=== PATIENT | male | born 1960 | race Two or more races ===

== ENCOUNTER 2020-04-15 02:52 | Emergency (ER) | payer MEDICAID, SELFPAY ==
[2020-04-15 02:55] VITALS: BP 133/78; PULSE 88; RESP 16; TEMP 36.4; O2SAT 98; BMI 26.6
--- NOTE | 2020-04-15 03:23 | XR_ITS ---
EXAMINATION: XR FOOT, LEFT CLINICAL INFORMATION: Plantar pain COMPARISON: None TECHNIQUE: AP, lateral, and oblique views of the left foot. FINDINGS: No fracture or dislocation. Accentuated arch. Prominent plantar heel spur. Degenerative changes of the midfoot with osteophyte formation. Hammertoe appearance of the second through fourth digits. The soft tissues are unremarkable. IMPRESSION: No acute abnormality. Prominent plantar heel spur. Degenerative changes of the midfoot.
--- NOTE | 2020-04-15 03:50 | ED.EXTPRO ---
HPI - Extremity Problem General Chief complaint: Extremity Problem Stated complaint: leg pain Time Seen by Provider: 04/15/20 03:16 Source: patient Mode of arrival: ambulatory History of Present Illness HPI Narrative: left foot pain. patient states for weeks to months even having the bottom of his foot with a sharp pain and itchiness. Was here recently and discharged to follow-up with podiatry however he could not wait for an came into emergency department secondary to pain. Patient denies fevers or chills denies, denies trauma denies discharge Pain Consistency: constant Location: lower extremity Severity scale (1-10): 7 Related Data Previous Rx's Medication Instructions Recorded oxycodone 10 mg tablet 10 mg PO BID PRN #60 tab 04/10/20 shoe lift #1 ea 04/12/20 tramadol 50 mg PO BID PRN #14 tab 04/15/20 Allergies Allergy/AdvReac Type Severity Reaction Status Date / Time ibuprofen [From MOTRIN] Allergy Unknown Unknown Verified 04/15/20 03:03 pt states no food/medication Allergy Unknown Unknown Uncoded 04/15/20 03:03 a Review of Systems Review of Systems: Constitutional : No Weight loss, No Fever, No Chills, No Night Sweats, No Fatigue, No Malaise ENT/Mouth : No Hearing loss, No Ear Pain, No Nasal Congestion, No Sinus Pain, No Hoarseness, No sore throat, No Rhinorrhea, No Swallowing Difficulty Eyes: No Eye Pain, No Swelling, No Redness, No Foreign Body, No Discharge, No Vision Changes Cardiovascular : No Chest Pain, No SOB, No Dyspnea on Exertion, No Orthopnea, No Edema, No Palpitations Respiratory : No Cough, No Sputum, No Wheezing, No Smoke Exposure, No Dyspnea Gastrointestinal : No Nausea, No Vomiting, No Diarrhea, No Constipation, No abdominal Pain, No Hematochezia, No Melena Genitourinary : no irregular bleeding, No Dysuria, No Urinary Frequency, No Hematuria, No Urinary Incontinence, No Urgency, No Flank Pain, No Urinary Flow Changes, No Hesitancy Musculoskeletal : No joint pain, No Myalgias, No Joint Swelling left foot plantar with multiple warts no erythema no warmth Skin : No Skin Lesions, No rash Neuro : No Weakness, No Numbness, No Paresthesias, No Loss of Consciousness, No Dizziness, No Headache Psych : No Anxiety/Panic, No Depression, No SI/HI/AH/VH, No Social Issues, Heme/Lymph: No Bruising, No Bleeding,No Lymphadenopathy Endocrine : No Polyuria, No Polydipsia, No Temperature Intolerance [facility] Past Medical History Medical History (Updated 04/15/20 @ 03:55 by Ender Abreu DO) Diabetes Surgical History (Updated 04/15/20 @ 03:52 by Ender Abreu DO) No pertinent past surgical history Social History Social History Advance Directives: No Advance Directives Information Provided: No Physical Exam Vital Signs: Vital Signs: Vital Signs Temp Pulse Resp BP Pulse Ox 04/15/20 02:55 97.6 F 88 16 133/78 98 Body Mass Index 26.6 vital signs reviewed Appearance: Alert. Oriented X3. No acute distress. Eyes: Pupils equal, round and reactive to light. ENT: Pharynx normal. Neck: Normal inspection. Neck supple. No lymph nodes noted. No crepitus CVS: Normal heart rate and rhythm. Pulses normal. Normal S1 and S2 Respiratory: No respiratory distress. Breath sounds normal. No Wheezing. No rales Abdomen: Soft and nontender. No rigidity. No distention. good BS x4 Skin: Skin warm and dry. Normal skin color. Normal skin turgor. Extremities: No lower extremity edema. Neurovascular intact to all extremities. No Lacerations. No Rash. left plantar foot with multiple small warts. No erythema no edema no warmth no discharge no abscess Neuro: Oriented X 3. No motor deficit. No sensory deficit. Moving all extermities. No slurred speech. 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 Acute on chronic skin changes however I believe it is not cellulitis at this point. X-ray negative for any signs of osteomyelitis or fracture will need to follow-up with podiatry Discharge Plan Discharge Clinical Impression: Acute pain of left foot, Plantar wart, left foot Patient Disposition: Home, Self-Care Instructions: Plantar Wart (ED) Additional Instructions: Thank you for visiting the emergency department today. If your symptoms worsen or do not resolve completely please return to the emergency department immediately or call 911. if he have any questions please call your primary care physician Prescriptions: New tramadol 50 mg tablet 50 mg PO BID PRN (Reason: pain) Qty: 14 RF: 0 No Action oxycodone 10 mg tablet 10 mg PO BID PRN (Reason: pain) Qty: 60 RF: 0 (DME) shoe lift See Rx Instructions .Route .MEDSUPPLY Qty: 1 RF: 0 Referrals: Dominic Baeza [Physician] - 2 days
[2020-04-15] MEDS: NaPROXEN 500 MG TABLET PO (04:03)
== END 2020-04-15 04:07 | disposition home or self-care (01) ==
PROVIDERS: Emergency Provider Emergency Medicine; PCP Family Medicine
DX: M79.672 Pain in left foot (principal); B07.0 Plantar wart; E11.9 Type 2 diabetes mellitus without complications
CPT/HCPCS: 73620; 99283

== ENCOUNTER → 2020-05-22 08:25 | Outpatient (BNVA) | payer MEDICAID, SELFPAY | PROVIDERS: PCP Internal Medicine; Referring Provider Internal Medicine; Visit Provider Internal Medicine Endocrinology, Diabetes & Metabolism | DX: E11.21 Type 2 diabetes mellitus with diabetic nephropathy (principal); E55.9 Vitamin D deficiency, unspecified; E78.5 Hyperlipidemia, unspecified; E66.9 Obesity, unspecified; Z68.32 Body mass index [BMI] 32.0-32.9, adult; Z79.899 Other long term (current) drug therapy | CPT/HCPCS: 82947; 99212 ==

== ENCOUNTER 2020-06-04 06:27 | Outpatient (REF) | payer MEDICAID, SELFPAY ==
[2020-06-04 07:32] LABS: Alanine Aminotransferase 29 U/L (0-40); Albumin Level 4.6 g/dL (3.5-5.0); Alkaline Phosphatase 119 U/L (39-117); Anion Gap 16 (12-20); Aspartate Amino Transferase 37 U/L (5-37); Bilirubin Total 0.6 mg/dL (0.0-1.0); Blood Urea Nitrogen 13 mg/dL (9-16); Calcium 9.6 mg/dL (8.4-10.2); Carbon Dioxide 29 mmol/L (22-29); Chloride 99 mmol/L (96-108); Cholesterol 169 mg/dL; Estimated Glomerular Filt Rate > 60; Glucose Random 97 mg/dL (60-115); HDL Cholesterol 64 mg/dL; LDL Cholesterol Calculated 90 mg/dl; Potassium 4.2 mmol/l (3.3-5.1); Sodium 140 mmol/L (135-145); Total Protein 7.7 g/dL (6.5-8.0); Triglycerides 76 mg/dL
[2020-06-04 07:54] LABS: Free T4 (Free Thyroxine) 0.97 ng/dL (0.71-1.85); Thyroid Stimulating Hormone 1.22 uIU/mL (0.32-4.0); Vitamin D 25-OH Total 56.4 ng/mL (>30)
[2020-06-04 07:57] LABS: Creatinine Urine 55.88 mg/dL; Microalbum/Creatinine Ratio Ur 50.1 ug/mg cr
[2020-06-04 08:12] LABS: Vitamin B12 332 pg/mL (200-900)
[2020-06-05 20:42] LABS: LDL Cholesterol Direct 91 mg/dL (<100)
== END 2020-06-04 06:28 | disposition home or self-care (01) ==
LOC: HO.LAB 06:27
PROVIDERS: PCP Family Medicine; Visit Provider Internal Medicine Endocrinology, Diabetes & Metabolism
DX: E11.9 Type 2 diabetes mellitus without complications (principal)
CPT/HCPCS: 80053; 80061; 82043; 82306; 82607; 83721; 84439; 84443

== ENCOUNTER → 2020-06-24 09:24 | Outpatient (BNVA) | payer MEDICAID, SELFPAY | PROVIDERS: Visit Provider Orthopaedic Surgery | DX: Z47.1 Aftercare following joint replacement surgery (principal); Z96.642 Presence of left artificial hip joint | CPT/HCPCS: 99212 ==

== ENCOUNTER → 2020-08-14 07:52 | Outpatient (REF) | payer MEDICAID, SELFPAY ==
--- NOTE | 2020-08-14 09:30 | CA_ITS ---
Transthoracic Echocardiogram Patient (Last, First, Middle): Griffin Kam G Gender: Male Date of : 1960 Age: 60 Procedure Date: 08/14/2020 Procedure Type: Transthoracic Echocardiogram Location: OP Height: 167.64 cm Weight: 74.84 kg BSA: 1.84 m2 Heart Rate: bpm BP: 130 / 80 mmHg Payer Specialist: LATA Referring MD: Martinez Meadows MD Marriage And Family Teacher: Martinez Meadows MD Symptoms: Q25.3 I10 HTN Study Quality: Fair ECG Rhythm: Sinus Conclusions: - 1. Normal LV systolic and diastolic function 2. Mild aortic stenosis and regurgitation 3. Normal RV systolic pressure 4. No pericardial effusion Findings Left Ventricle Normal left ventricular size, thickness, and systolic function. The visually estimated ejection fraction is between 60-65%. Spectral Doppler is indicative of a normal filling pattern. Right Ventricle Normal right ventricular cavity size and systolic function. Atria Both atria are normal in size. There is no evidence of interatrial shunt. Aortic Valve There is moderate calcification of the aortic valve. There is mild aortic valve stenosis. The peak aortic gradient is 30 mmHg.The mean gradient is 16 mmHg. The aortic valve area is 1.60 cm2. There is mild aortic valve regurgitation. Mitral Valve There is mild anterior mitral leaflet thickening. There is moderate mitral annular calcification. There is trace mitral valve regurgitation. There is no mitral valve stenosis. Pulmonic Valve The pulmonic valve was not well visualized. Tricuspid Valve Likely normal tricuspid valve structure and function. There is trace tricuspid valve regurgitation. The right ventricular systolic pressure is normal. The right ventricular systolic pressure is 14 mmHg. Normal right atrial pressure. There is no evidence of pulmonary hypertension. Great Vessels All visible segments of the aorta are normal in size. The pulmonary artery was not well visualized. Venous The inferior vena cava is normal in size and collapses greater than 50% with inspiration. Pericardium/Pleural There is no evidence of pericardial effusion. Prior Study Comparison No significant change compared to prior study dated: 08/08/2019. Measurements 2D Linear Measurements IVSd: 0.95 0.6-0.9/0.6-1.0 cm LVIDd: 4.53 3.9-5.3/4.2-5.9 cm LVIDd Index: 2.46 2.4-3.2/2.2-3.1 cm/m2 LVIDs: 2.98 2.0-3.6 cm LVPWd: 0.95 0.7-1.1 cm Ao Root: 3.30 2.1-3.5 cm LA Diam: 3.20 2.7-3.8/3.0-4.0 cm LAIDs Index: 1.74 1.5-2.3 cm/m2 LV Mass: 179.42 67-162/88-224 g LV Mass Index: 97.51 43-95/49-115 g/m2 LVOT Diam: 2.20 3.0+(-)1.3 cm 2D Systolic Function EF 4C: 62.30 >55% EF 2C: 66.20 >55% EF BiP: 64.40 >55% Mitral Valve MV Pk E: 0.92 MV PK A: 0.68 MV Decel Time: 323.00 E/A: 1.40 E'Lateral: 9.36 E'Medial: 8.16 E/E' Med: 11.30 E/E' Lat: 9.80 PHT: 94.00 MVA PHT: 2.34 Decel Marshall: 2.85 Aortic Valve AoV Pk Leopoldo: 2.76 AoV Mn Leopoldo: 1.82 AoV VTI: 0.57 AoV Pk Grad: 30.00 Aov Mn Grad: 16.00 LUCIA Cont.VTI: 1.60 AI Pk Leopoldo: 4.42 AI Marshall: 2.38 LVOT LVOT Pk Leopoldo: 1.13 LVOT Mn Leopoldo: 0.76 LVOT VTI: 0.24 LVOT Pk Grad: 5.00 LVOT Mn Grad: 3.00 LVOT Diam: 2.20 LVOT Area: 3.80 Diastolic Function MV Pk E: 0.92 MV Pk A: 0.68 E/A: 1.40 E'Medial: 8.16 E/E' Med: 11.30 E' Laterial: 9.36 E/E' Lat: 9.80 Tricuspid Valve TR Pk Leopoldo: 1.67 TR Pk Grad: 11.00 RA Press: 3.00 RVSP: 14.00 Great Vessels Aorta Ao Root-2D: 3.30 2.0-3.7 cm Ao Asc: 3.00 2.1-3.4 cm Ao Arch: 3.00 Updated in Other Vendor System with Status of Final Martinez Abdiel MD electronically signed on 08/14/2020 2:05:25 PM with status of Final
== END ==
LOC: HO.CARD 07:52
PROVIDERS: Visit Provider Internal Medicine Cardiovascular Disease
DX: Q25.3 Supravalvular aortic stenosis (principal); I10 Essential (primary) hypertension
CPT/HCPCS: 93306

== ENCOUNTER → 2020-08-20 08:35 | Outpatient (BNVA) | payer MEDICAID, SELFPAY | PROVIDERS: Visit Provider Internal Medicine Cardiovascular Disease | DX: I35.0 Nonrheumatic aortic (valve) stenosis (principal); E78.5 Hyperlipidemia, unspecified | CPT/HCPCS: 93005; 99212 ==

== ENCOUNTER 2020-08-26 05:52 | Outpatient (REF) | payer MEDICAID, SELFPAY ==
[2020-08-26 07:09] LABS: MANUAL DIFF FLAG NO
[2020-08-26 07:12] LABS: Basophils Percent Auto 0.7 % (0-2); Eosinophils Absolute Auto 0.3 X10*3/uL (0.0-0.4); Eosinophils Percent Auto 4.7 % (0-4); Hematocrit 36.5 % (42-52); Hemoglobin 12.2 g/dl (14.0-18.0); Imm Gran Abs Auto 0.01 X10*3/uL (0.00-0.03); Imm Gran Pct Auto 0.2 % (0.0-0.4); Lymphocytes Absolute Auto 2.3 X10*3/uL (1.2-4.9); Lymphocytes Percent Auto 37.8 % (20-40); Mean Corpuscular HGB Conc 33.4 g/dl (31.0-36.0); Mean Corpuscular Hemoglobin 32.2 pg (27.0-33.0); Mean Corpuscular Volume 96.3 fL (80-98); Mean Platelet Volume 10.5 fL (9.4-12.4); Monocytes Absolute Auto 0.4 X10*3/uL (0.1-1.2); Monocytes Percent Auto 6.7 % (2-11); Neutrophils Percent Auto 49.9 % (45-73); Platelet Count 273 X10*3/uL (160-400); Red Blood Count 3.79 X10*6/uL (4.60-5.80)
[2020-08-26 07:46] LABS: Alanine Aminotransferase 23 U/L (0-40); Albumin Level 4.3 g/dL (3.5-5.0); Alkaline Phosphatase 103 U/L (39-117); Anion Gap 15 (12-20); Aspartate Amino Transferase 30 U/L (5-37); Bilirubin Direct < 0.2 mg/dL (0.0-0.5); Bilirubin Total 0.4 mg/dL (0.0-1.0); Blood Urea Nitrogen 20 mg/dL (9-16); Calcium 9.4 mg/dL (8.4-10.2); Carbon Dioxide 27 mmol/L (22-29); Chloride 105 mmol/L (96-108); Estimated Glomerular Filt Rate > 60; Glucose Fasting 83 mg/dL (60-99); Potassium 4.1 mmol/L (3.3-5.1); Sodium 143 mmol/L (135-145); Total Protein 7.1 g/dL (6.5-8.0)
[2020-08-26 07:48] LABS: Cholesterol 183 mg/dL; HDL Cholesterol 56 mg/dL; LDL Cholesterol Calculated 103 mg/dl; Triglycerides 120 mg/dL
[2020-08-26 07:59] LABS: Vitamin D 25-OH Total 50.6 ng/mL (>30)
[2020-08-26 08:32] LABS: Creatinine Urine 26.39 mg/dL; Microalbum/Creatinine Ratio Ur 253.8 ug/mg cr
[2020-08-26 09:34] LABS: Estimated Average Glucose 100 mg/dL; Hemoglobin A1c % 5.1 %
== END 2020-08-26 05:53 | disposition home or self-care (01) ==
LOC: HO.LAB 05:52
PROVIDERS: Absent Provider Internal Medicine Cardiovascular Disease; PCP Internal Medicine; Visit Provider Internal Medicine
DX: Z00.00 Encounter for general adult medical examination without abnormal findings (principal); E78.5 Hyperlipidemia, unspecified; I35.0 Nonrheumatic aortic (valve) stenosis
CPT/HCPCS: 36415; 80048; 80061; 80076; 82043; 82306; 83036; 85025

== ENCOUNTER 2020-09-06 07:57 | Inpatient (IN) | payer MEDICAID, SELFPAY ==
[2020-09-06] VITALS (13 sets, daily range): BP systolic 122–154; BP diastolic 61–90; PULSE 66–93; RESP 11–20; TEMP 36.3–37.2; O2SAT 96–98; BMI 32.5
[2020-09-06] MEDS: Famotidine/PF 20 MG/2 ML VIAL IVPUSH ×2 (08:24→20:28)
[2020-09-06] MEDS: diphenhydrAMINE HCL 50 MG/ML VIAL IVPUSH ×2 (08:24→20:28)
[2020-09-06] MEDS: dexAMETHasone sod phosphate 4 MG/ML VIAL 10 MG IVPUSH (08:24)
--- NOTE | 2020-09-06 08:24 | ED.GENADULT ---
HPI - General Adult General Chief complaint: General Medical Stated complaint: SWOLLEN TOUNGE Time Seen by Provider: 09/06/20 08:10 Source: patient Mode of arrival: ambulatory Limitations: no limitations History of Present Illness HPI narrative: Patient comes to emergency room complaining of a swollen tongue. Patient states it started yesterday. Patient denies any shortness of breath, no trouble breathing. Patient states that he takes 2.5 lisinopril for hypertension and he has been on it for years. Patient denies shortness of breath, states that other than his swollen tongue he has no other problems. Related Data Home Medications Medication Instructions Recorded Confirmed gabapentin 300 mg capsule 300 mg PO BEDTIME 05/22/20 08/20/20 hydrochlorothiazide 25 mg tablet 25 mg PO DAILY 05/22/20 08/20/20 pantoprazole 40 mg tablet,delayed 40 mg PO DAILY 05/22/20 08/20/20 release Previous Rx's Medication Instructions Recorded tramadol 50 mg PO BID PRN #14 tab 04/15/20 blood sugar diagnostic #100 ea 05/22/20 blood-glucose meter #1 ea 05/22/20 lancets 28 gauge #100 ea 05/22/20 cholecalciferol (vitamin D3) 125 125 mcg PO DAILY 30 Days #30 cap 05/28/20 mcg (5,000 unit) capsule shoe lift, 1/2 inch, left #1 ea 08/12/20 orthopaedic shoe lift, left #1 ea 08/16/20 atorvastatin 80 mg tablet 80 mg PO DAILY #30 tab 08/20/20 ezetimibe 10 mg tablet 10 mg PO DAILY #30 tab 08/26/20 oxycodone 10 mg tablet 10 mg PO BID PRN #60 tab 08/28/20 Allergies Allergy/AdvReac Type Severity Reaction Status Date / Time ibuprofen [From MOTRIN] Allergy Unknown Unknown Verified 06/24/20 09:42 pt states no food/medication Allergy Unknown Unknown Uncoded 04/15/20 03:03 a Review of Systems Review of Systems: Constitutional : No Weight loss, No Fever, No Chills, No Night Sweats, No Fatigue, No Malaise ENT/Mouth : No Hearing loss, No Ear Pain, No Nasal Congestion, No Sinus Pain, No Hoarseness, No sore throat, No Rhinorrhea, no difficulty swallowing, complaining of tongue enlargement and swelling Eyes: No Eye Pain, No Swelling, No Redness, No Foreign Body, No Discharge, No Vision Changes Cardiovascular : No Chest Pain, No SOB, No Dyspnea on Exertion, No Orthopnea, No Edema, No Palpitations Respiratory : No Cough, No Sputum, No Wheezing, No Smoke Exposure, No Dyspnea Gastrointestinal : No Nausea, No Vomiting, No Diarrhea, No Constipation, No abdominal Pain, No Hematochezia, No Melena Genitourinary : no irregular bleeding, No Dysuria, No Urinary Frequency, No Hematuria, No Urinary Incontinence, No Urgency, No Flank Pain, No Urinary Flow Changes, No Hesitancy Musculoskeletal : No joint pain, No Myalgias, No Joint Swelling Skin : No Skin Lesions, No rash Neuro : No Weakness, No Numbness, No Paresthesias, No Loss of Consciousness, No Dizziness, No Headache Psych : No Anxiety/Panic, No Depression, No SI/HI/AH/VH, No Social Issues, Heme/Lymph: No Bruising, No Bleeding,No Lymphadenopathy Endocrine : No Polyuria, No Polydipsia, No Temperature Intolerance PMFSH Past Medical History Medical History Aortic stenosis Diabetes Diabetes type 2, controlled Diabetic nephropathy associated with type 2 diabetes mellitus Dyslipidemia Obesity (BMI 30-39.9) Vitamin D deficiency Surgical History History of back surgery History of left hip replacement History of total right knee replacement (TKR) Hx of carpal tunnel syndrome Hx of cholecystectomy Hx of colonoscopy Hx of hernia repair No pertinent past surgical history Family History Family History Father Hypertension Diabetes mellitus Mother Hypertension Social History Social History Smoking Status: Smoker, status unknown Advance Directives: No Advance Directives Information Provided: No Current occupational status: unemployed Current occupation: right handed Physical Exam Vital Signs: Vital Signs: Last Vital Signs Temp 98.8 F 09/06/20 09:51 Pulse 78 09/06/20 09:51 Resp 16 09/06/20 09:51 BP 138/79 09/06/20 09:51 Pulse Ox 98 09/06/20 08:13 Body Mass Index 32.5 Appearance: Alert. Oriented X3. No acute distress. Eyes: Pupils equal, round and reactive to light. ENT: Patient has an enlarged tongue, compatible with angioedema, patient has no difficulty breathing, controlling secretions Neck: Normal inspection. Neck supple. No lymph nodes noted. No crepitus CVS: Normal heart rate and rhythm. Pulses normal. Normal S1 and S2 Respiratory: No respiratory distress. Breath sounds normal. No Wheezing. No rales Abdomen: Soft and nontender. No rigidity. No distention. good BS x4 Skin: Skin warm and dry. Normal skin color. Normal skin turgor. Extremities: No lower extremity edema. No lower extremity edema. No Lacerations. No Rash Neuro: Oriented X 3. No motor deficit. No sensory deficit. Moving all extermities. No slurred speech. Course Course Course Narrative: I discussed treating the patient with fresh frozen plasma, I discussed with him the benefits versus risks. Patient consented to fresh frozen plasma, signed consent form. I discussed the patient with Dr. Fang from ICU, patient is fairly stable, he may be able to be admitted to [facility] [place] if our hospitalist team is comfortable admitting him. I spoke with the hospitalist team, patient has been here in the ED for 2.5 hours, patient's vitals are stable, able to swallow, able to handle his own secretions, no worsening of symptoms. Patient likely to be admitted to [facility] [place], pending assessment of the hospitalist team Medical Decision Making Lab Data Result diagrams: 09/06/20 08:42 09/06/20 08:42 Labs: Lab Results 09/06/20 09/06/20 09/06/20 Range/Units 08:42 08:42 08:42 WBC 7.8 (4.8-10.8) X10*3/uL RBC 4.03 L (4.60-5.80) X10*6/uL Hgb 13.0 L (14.0-18.0) g/dl Hct 39.0 L (42-52) % MCV 96.8 (80-98) fL MCH 32.3 (27.0-33.0) pg MCHC 33.3 (31.0-36.0) g/dl RDW 13.7 (11.0-16.0) % Plt Count TNP MPV Not Reportable Immature Gran % (Auto) 0.3 (0.0-0.4) % Neut % (Auto) 68.8 (45-73) % Lymph % (Auto) 18.0 L (20-40) % [place] % (Auto) 7.6 (2-11) % Eos % (Auto) 4.8 H (0-4) % Baso % (Auto) 0.5 (0-2) % Lymph # (Auto) 1.4 (1.2-4.9) X10*3/uL [place] # (Auto) 0.6 (0.1-1.2) X10*3/uL Eos # (Auto) 0.4 (0.0-0.4) X10*3/uL Baso # (Auto) 0.0 (0.0-0.2) X10*3/uL Abs Immat Gran (auto) 0.02 (0.00-0.03) X10*3/uL Absolute Neuts (auto) 5.4 (2.0-8.3) X10*3/uL Absolute Nucleated RBC 0.000 (0.0-0.012) X10*3/uL Nucleated RBC % (auto) 0.0 (0.0-0.2) /100WBC Smear Tech's Comments VERIFIED Sodium 137 (135-145) mmol/L Potassium 4.4 (3.3-5.1) mmol/L Chloride 100 (96-108) mmol/L Carbon Dioxide 26 (22-29) mmol/L Anion Gap 15 (12-20) BUN 17 H (9-16) mg/dL Creatinine 1.11 (0.5-1.4) mg/dL Estim Creat Clear Calc 75.9 Estimated GFR > 60 Random Glucose 101 (60-115) mg/dL Calcium 9.3 (8.4-10.2) mg/dL Total Bilirubin 0.7 (0.0-1.0) mg/dL Direct Bilirubin 0.3 (0.0-0.5) mg/dL AST 45 H D (5-37) U/L ALT 34 (0-40) U/L Alkaline Phosphatase 109 (39-117) U/L Total Protein 7.3 (6.5-8.0) g/dL Albumin 4.2 (3.5-5.0) g/dL COVID-19 (JC) (Negative) COVID-19 Clin Com Blood Type O Positive Antibody Screen NEGATIVE 09/06/20 Range/Units 09:38 WBC (4.8-10.8) X10*3/uL RBC (4.60-5.80) X10*6/uL Hgb (14.0-18.0) g/dl Hct (42-52) % MCV (80-98) fL MCH (27.0-33.0) pg MCHC (31.0-36.0) g/dl RDW (11.0-16.0) % Plt Count MPV Immature Gran % (Auto) (0.0-0.4) % Neut % (Auto) (45-73) % Lymph % (Auto) (20-40) % [place] % (Auto) (2-11) % Eos % (Auto) (0-4) % Baso % (Auto) (0-2) % Lymph # (Auto) (1.2-4.9) X10*3/uL [place] # (Auto) (0.1-1.2) X10*3/uL Eos # (Auto) (0.0-0.4) X10*3/uL Baso # (Auto) (0.0-0.2) X10*3/uL Abs Immat Gran (auto) (0.00-0.03) X10*3/uL Absolute Neuts (auto) (2.0-8.3) X10*3/uL Absolute Nucleated RBC (0.0-0.012) X10*3/uL Nucleated RBC % (auto) (0.0-0.2) /100WBC Smear Tech's Comments Sodium (135-145) mmol/L Potassium (3.3-5.1) mmol/L Chloride (96-108) mmol/L Carbon Dioxide (22-29) mmol/L Anion Gap (12-20) BUN (9-16) mg/dL Creatinine (0.5-1.4) mg/dL Estim Creat Clear Calc Estimated GFR Random Glucose (60-115) mg/dL Calcium (8.4-10.2) mg/dL Total Bilirubin (0.0-1.0) mg/dL Direct Bilirubin (0.0-0.5) mg/dL AST (5-37) U/L ALT (0-40) U/L Alkaline Phosphatase (39-117) U/L Total Protein (6.5-8.0) g/dL Albumin (3.5-5.0) g/dL COVID-19 (JC) Negative (Negative) COVID-19 Clin Com See Note Blood Type Antibody Screen Discharge Plan Discharge Clinical Impression: 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) Patient Disposition: Admitted As Inpatient Prescriptions: No Action cholecalciferol (vitamin D3) 125 mcg (5,000 unit) capsule 125 mcg PO DAILY 30 Days Qty: 30 RF: 6 (DME) shoe lift, 1/2 inch, left See Rx Instructions .Route .MEDSUPPLY Qty: 1 RF: 0 (DME) orthopaedic shoe lift, left 1/2 inch See Rx Instructions .Route .MEDSUPPLY Qty: 1 RF: 0 ezetimibe [Zetia] 10 mg tablet 10 mg PO DAILY Qty: 30 RF: 2 oxycodone 10 mg tablet 10 mg PO BID PRN (Reason: pain) Qty: 60 RF: 0 tramadol 50 mg tablet 50 mg PO BID PRN (Reason: pain) Qty: 14 RF: 0 pantoprazole 40 mg tablet,delayed release (DR/EC) 40 mg PO DAILY RF: 0 gabapentin 300 mg capsule 300 mg PO BEDTIME RF: 0 hydrochlorothiazide 25 mg tablet 25 mg PO DAILY RF: 0 (DME) blood-glucose meter [FreeStyle Lite Meter] Kit See Rx Instructions .ROUTE .MEDSUPPLY Qty: 1 RF: 0 (DME) FreeStyle Lite Strips Strip See Rx Instructions .ROUTE .MEDSUPPLY Qty: 100 RF: 11 (DME) lancets [FreeStyle Lancets] 28 gauge misc See Rx Instructions .ROUTE .MEDSUPPLY Qty: 100 RF: 11 atorvastatin [Lipitor] 80 mg tablet 80 mg PO DAILY Qty: 30 RF: 5
[2020-09-06 08:54] LABS: Basophils Percent Auto 0.5 % (0-2); Imm Gran Abs Auto 0.02 X10*3/uL (0.00-0.03); Imm Gran Pct Auto 0.3 % (0.0-0.4); MANUAL DIFF FLAG SCAN; Mean Corpuscular HGB Conc 33.3 g/dl (31.0-36.0); Mean Corpuscular Hemoglobin 32.3 pg (27.0-33.0); Mean Corpuscular Volume 96.8 fL (80-98); PLT CLUMP 1; Red Blood Count 4.03 X10*6/uL (4.60-5.80); SCAN SMEAR FLAG 1
[2020-09-06 08:56] LABS: Eosinophils Absolute Auto 0.4 X10*3/uL (0.0-0.4); Eosinophils Percent Auto 4.8 % (0-4); Lymphocytes Absolute Auto 1.4 X10*3/uL (1.2-4.9); Monocytes Absolute Auto 0.6 X10*3/uL (0.1-1.2); Monocytes Percent Auto 7.6 % (2-11); Neutrophils Absolute Auto 5.4 X10*3/uL (2.0-8.3); Neutrophils Percent Auto 68.8 % (45-73); Red Cell Distribution Width 13.7 % (11.0-16.0); White Blood Count 7.8 X10*3/uL (4.8-10.8)
[2020-09-06 09:21] LABS: SLIDE REVIEW VERIFIED
[2020-09-06 09:26] LABS: Alanine Aminotransferase 34 U/L (0-40); Albumin Level 4.2 g/dL (3.5-5.0); Alkaline Phosphatase 109 U/L (39-117); Anion Gap 15 (12-20); Aspartate Amino Transferase 45 U/L (5-37); Bilirubin Direct 0.3 mg/dL (0.0-0.5); Bilirubin Total 0.7 mg/dL (0.0-1.0); Blood Urea Nitrogen 17 mg/dL (9-16); Calcium 9.3 mg/dL (8.4-10.2); Carbon Dioxide 26 mmol/L (22-29); Chloride 100 mmol/L (96-108); Creatinine Clr Calc Pharmacy 75.9; Estimated Glomerular Filt Rate > 60; Glucose Random 101 mg/dL (60-115); Potassium 4.4 mmol/L (3.3-5.1); Sodium 137 mmol/L (135-145); Total Protein 7.3 g/dL (6.5-8.0)
[2020-09-06 10:04] LABS: COVID-19 Test Negative (Negative); IDNOW Serial# 9DD0AD1C
--- NOTE | 2020-09-06 11:37 | PM.EVENT ---
Event Note Date of Service: 09/06/20 Event Note: Patient seen and examined independently and was present during cali portion of E/M service. Agree with midlevel's history, physical, assessment, and plan. 60M presented with tongue swelling agioedema due to COLIN-I stop lisinopril getting FFP steroid, H1,H2 monitor
--- NOTE | 2020-09-06 11:49 | P.HPHOSP_ITS ---
History of Present Illness Date of Service: 09/06/20 Chief Complaint: Tongue swelling This is a 60 year old male who presents to the emergency department with tongue swelling. He states that around 06:00 o'clock this morning he noticed that his tongue was swollen and so he came to the emergency department for evaluation. He denies any difficulty swallowing or shortness of breath. He does report taking lisinopril at home for treatment of hypertension. Denies any previous episodes of angioedema. In the emergency department he showed no respiratory distress and was not hypoxic. He was able to speak in full sentences. He was treated with IV Pepcid, IV Benadryl, IV Decadron as well as 2 units of FFP. His swelling has improved a little according to his report. The decision was made to admit him overnight for observation, the ICU was contacted but felt he was safe for admission to the intermediate care unit. Review of Systems Review of Systems: Yes all other systems are reviewed and are negative Constitutional: Constitutional: Denies chills, Denies fever(s) and Denies snoring ENT: Reports tongue swelling Cardiovascular: Cardiovascular: Denies chest pain and Denies dyspnea Respiratory: Respiratory: Denies cough, Denies dyspnea, Denies snoring, Denies stridor and Denies wheezing Gastrointestinal: Gastrointestinal: Denies abdominal pain Allergic/Immunologic: Allergic/Immunologic: Reports tongue swelling and Denies wheezing [facility] Medical History Aortic stenosis Diabetes Diabetes type 2, controlled Diabetic nephropathy associated with type 2 diabetes mellitus Dyslipidemia Obesity (BMI 30-39.9) Vitamin D deficiency Functional capacity: independent ambulation Family History Father Hypertension Diabetes mellitus Mother Hypertension Surgical History History of back surgery History of left hip replacement History of total right knee replacement (TKR) Hx of carpal tunnel syndrome Hx of cholecystectomy Hx of colonoscopy Hx of hernia repair No pertinent past surgical history Social History (Updated 09/06/20 @ 11:53 by ESTRELLA Harris) Alcohol intake: current Smoking Status: Current every day smoker Cigarettes Per Day: 10 Use of substances other than those prescribed or required for medical reasons: No Advance Directives: No Advance Directives Information Provided: No Current occupational status: unemployed Current occupation: right handed Meds Allergies Allergy/AdvReac Type Severity Reaction Status Date / Time ibuprofen [From MOTRIN] Allergy Unknown Unknown Verified 06/24/20 09:42 pt states no food/medication Allergy Unknown Unknown Uncoded 04/15/20 03:03 a Active Medications: Current Medications Generic Name Dose Route Start Last Admin Trade Name Freq PRN Reason Stop Dose Admin Famotidine 20 mg 09/06/20 21:00 Famotidine/Pf 20 Mg/2 Ml Vial IVPUSH BID [facility] Methylprednisolone Sodium Succinate 40 mg 09/06/20 11:45 Methylprednisolone Sod Succ/Pf 40 Mg/Ml Vial IVPUSH Q6H [facility] Pharmacy Consult 1 each 09/06/20 09:23 Consult Rx Perform Med Rec MISCELLANE ONCE PRN Consult order Home Medications Medication Instructions Recorded Confirmed Last Taken Type pantoprazole 40 mg tablet,delayed 40 mg PO DAILY 05/22/20 09/06/20 Unknown History release ascorbic acid (vitamin C) [Vitamin 500 mg PO DAILY 09/06/20 09/06/20 Unknown History C] hydrochlorothiazide 50 mg PO DAILY 09/06/20 09/06/20 Unknown History lisinopril 2.5 mg PO DAILY 09/06/20 09/06/20 Unknown History Physical Exam Vital Signs and Narrative: Vital Signs: Last Vital Signs Temp 98.2 F 09/06/20 11:36 Pulse 74 09/06/20 11:36 Resp 18 09/06/20 11:36 BP 129/78 09/06/20 11:36 Pulse Ox 98 09/06/20 08:13 Body Mass Index 32.5 Const: General: cooperative, comfortable, no acute distress, alert and awake Nutritional Appearance: well nourished Orientation/consciousness: patient oriented x3 HENMT: Head: Yes normocephalic and Yes atraumatic Mouth: no drooling and tongue abnormal (swollen) Eyes: Sclerae: sclerae normal Chest: Chest palpation & inspection: normal inspection of the chest Resp: Effort & Inspection: normal respiratory effort and no respiratory distress Auscultation: clear to auscultation bilaterally Cardio: Rate: regular rate Rhythm: regular rhythm GI: Palpation (GI): Soft to palpation and nontender Skin: General skin exam: no rashes or lesions noted Neuro: General: patient oriented x3 Cranial nerves: Yes CN's II-XII intact bilaterally and Yes Bilaterally intact EOM present Extrem: General: Yes normal to inspection Results Labs CBC and Chem 7: 09/06/20 08:42 09/06/20 08:42 Labs: Laboratory Results - last 24 hr 09/06/20 09/06/20 09/06/20 08:42 08:42 08:42 MCV 96.8 MCH 32.3 MCHC 33.3 RDW 13.7 Plt Count TNP MPV Not Reportable Immature Gran % (Auto) 0.3 Neut % (Auto) 68.8 Lymph % (Auto) 18.0 L Mclennan % (Auto) 7.6 Eos % (Auto) 4.8 H Baso % (Auto) 0.5 Lymph # (Auto) 1.4 Mclennan # (Auto) 0.6 Eos # (Auto) 0.4 Baso # (Auto) 0.0 Abs Immat Gran (auto) 0.02 Absolute Neuts (auto) 5.4 Absolute Nucleated RBC 0.000 Nucleated RBC % (auto) 0.0 Smear Tech's Comments VERIFIED Anion Gap 15 Estim Creat Clear Calc 75.9 Estimated GFR > 60 Random Glucose 101 Calcium 9.3 Total Bilirubin 0.7 Direct Bilirubin 0.3 AST 45 H D ALT 34 Alkaline Phosphatase 109 Total Protein 7.3 Albumin 4.2 COVID-19 (JC) COVID-19 Clin Com Blood Type O Positive Antibody Screen NEGATIVE 09/06/20 09:38 MCV MCH MCHC RDW Plt Count MPV Immature Gran % (Auto) Neut % (Auto) Lymph % (Auto) Mclennan % (Auto) Eos % (Auto) Baso % (Auto) Lymph # (Auto) Mclennan # (Auto) Eos # (Auto) Baso # (Auto) Abs Immat Gran (auto) Absolute Neuts (auto) Absolute Nucleated RBC Nucleated RBC % (auto) Smear Tech's Comments Anion Gap Estim Creat Clear Calc Estimated GFR Random Glucose Calcium Total Bilirubin Direct Bilirubin AST ALT Alkaline Phosphatase Total Protein Albumin COVID-19 (JC) Negative COVID-19 Clin Com See Note Blood Type Antibody Screen Assessment and Plan (1) 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): Status: Acute (2) Diabetes type 2, controlled: Status: Acute This is a 60-year-old male with a history of hypertension, dyslipidemia, diabetes who presents to the emergency department with tongue swelling found to have angioedema Angioedema Likely secondary to COLIN-inhibitor s/p 2U FFP in ED -discontinue lisinopril -IV Benadryl, IV famotidine, IV Solu-Medrol -monitor airway/respiratory status closely HTN -continue HCTZ -lisinopril d/c due to angioedema -monitor blood pressure closely, may need addition of 2nd agent given removal of lisinopril ?h/o Diabetes documented in chart HbA1c 5.1. -ADA diet -will follow POC sugars while on steroids, if elevated can add sliding scale coverage HLD -continue statin, Zetia GERD Continue PPI DVT prophylaxis-lovenox code status - full code This case was discussed with Dr. Stoddard
[2020-09-06] MEDS: Enoxaparin Sodium 40 MG/0.4 ML SYRINGE SUBCUT (14:51)
[2020-09-06] MEDS: Nicotine 7 MG PATCH.TD24 TRANSDERMA (14:52)
[2020-09-06] MEDS: 0.9 % Sodium Chloride Flush 3 ML SYRINGE IVFLUSH ×2 (15:33→23:23)
--- NOTE | 2020-09-06 16:23 | MHC.CM.PN ---
CM MET WITH PT WITH THE ASSISTANCE OF A MODEL AND PATTERN SUPERVISOR. PT REPORTS HE LIVES WITH HIS SISTER AND HAS BOTH [facility] AND [facility] SERVICES. PT DOES NOT KNOW WHICH [facility] AGENCY HE IS ACTIVE WITH. PT REPORTS THE LISTED PCP IS INCORRECT,. PT REPORTS HE GOES TO [facility] BUT DOES NOT KNOW THE NAME OF HIS PCP BECAUSE IT HAS CHANGED. CURRENT DC PLAN IS HOME WITH RESUMPTION OF SERVICES PT REPORTS HE WILL ARRANGE TRANSPORTATION CM CALLED [facility] ([phone]). PT IS ACTIVE WITH EULALIO SUAREZ. THEY DO NOT HAVE THE NAME OF THE VNA ON FILE.
[2020-09-06 16:30] LABS: Glucose, Whole Blood 240 mg/dL (60-115)
[2020-09-06 19:33] LABS: Glucose, Whole Blood 264 mg/dL (60-115)
[2020-09-07 03:09] VITALS: BP 138/82; PULSE 75; RESP 17; TEMP 36.9; O2SAT 98
[2020-09-07] MEDS: Omeprazole 20 MG CAPSULE.DR PO (05:41)
[2020-09-07 08:00] VITALS: BP 143/82; PULSE 77; RESP 17; TEMP 36.7; O2SAT 98
[2020-09-07 08:06] LABS: Glucose, Whole Blood 144 mg/dL (60-115)
--- NOTE | 2020-09-07 09:23 | PM.DS ---
DS: Providers Provider Date of Service: 09/07/20 Date of admission: 09/06/20 11:39 Primary care physician: Barb Montejo MD DS: Diagnosis Discharge Diagnosis (1) 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): Status: Acute (2) Diabetes type 2, controlled: Status: Acute DS: Medications Discharge Medications Home Medications: Home Medications Medication Instructions Recorded Confirmed pantoprazole 40 mg tablet,delayed 40 mg PO DAILY 05/22/20 09/06/20 release ascorbic acid (vitamin C) [Vitamin 500 mg PO DAILY 09/06/20 09/06/20 C] hydrochlorothiazide 50 mg PO DAILY 09/06/20 09/06/20 Previous Rx's Medication Instructions Recorded blood sugar diagnostic #100 ea 05/22/20 blood-glucose meter #1 ea 05/22/20 lancets 28 gauge #100 ea 05/22/20 cholecalciferol (vitamin D3) 125 125 mcg PO DAILY 30 Days #30 cap 05/28/20 mcg (5,000 unit) capsule shoe lift, 1/2 inch, left #1 ea 08/12/20 orthopaedic shoe lift, left #1 ea 08/16/20 atorvastatin 80 mg tablet 80 mg PO DAILY #30 tab 08/20/20 ezetimibe 10 mg tablet 10 mg PO DAILY #30 tab 08/26/20 oxycodone 10 mg tablet 10 mg PO BID PRN #60 tab 08/28/20 DS: Summary Hospital Course Hospital Course: Patient was observed for his angioedema due to COLIN-inhibitor. He was given FFP in ED, methylprednisolone, Benadryl. His edema significantly improved. Patient never had any shortness of breath. He will be discharged home. He is instructed never to have COLIN-inhibitor again. Time Spent with Patient Time attestation: Total time spent providing and/or coordinating discharge services: Discharge coordination time: Greater than 30 minutes Physical Exam Vital Signs: Vital Signs: Last Vital Signs Temp 98.1 F 09/07/20 08:00 Pulse 77 09/07/20 08:00 Resp 17 09/07/20 08:00 BP 143/82 H 09/07/20 08:00 Pulse Ox 98 09/07/20 08:00 Body Mass Index 32.5 General: AO X 3, no acute distress Resp: CTA bilateral CVS: S1,S2,RRR GI: soft, non tender, non distended Neuro: motor grossly intact Psych: appropriate affect tongue edema: significantly better DS: Data Data Completed and Pending Labs on day of discharge: Laboratory Results - last 24 hr 09/06/20 09/06/20 09/06/20 08:42 08:42 09:38 Sodium 137 Potassium 4.4 Chloride 100 Carbon Dioxide 26 Anion Gap 15 BUN 17 H Creatinine 1.11 Estim Creat Clear Calc 75.9 Estimated GFR > 60 POC Glucose Random Glucose 101 Calcium 9.3 Total Bilirubin 0.7 Direct Bilirubin 0.3 AST 45 H D ALT 34 Alkaline Phosphatase 109 Total Protein 7.3 Albumin 4.2 COVID-19 (JC) Negative COVID-19 Clin Com See Note Blood Type O Positive Antibody Screen NEGATIVE 09/06/20 09/06/20 09/07/20 15:23 19:07 08:00 Sodium Potassium Chloride Carbon Dioxide Anion Gap BUN Creatinine Estim Creat Clear Calc Estimated GFR POC Glucose 240 H 264 H 144 H Random Glucose Calcium Total Bilirubin Direct Bilirubin AST ALT Alkaline Phosphatase Total Protein Albumin COVID-19 (JC) COVID-19 Clin Com Blood Type Antibody Screen Discharge Plan Discharge Patient Disposition: Home, Self-Care Referrals: Po,Barb Wright MD [Primary Care Provider] - Discharge Medications: Continued cholecalciferol (vitamin D3) 125 mcg (5,000 unit) capsule 125 mcg PO DAILY 30 Days Qty: 30 RF: 6 (DME) shoe lift, 1/2 inch, left See Rx Instructions .Route .MEDSUPPLY Qty: 1 RF: 0 (DME) orthopaedic shoe lift, left 1/2 inch See Rx Instructions .Route .MEDSUPPLY Qty: 1 RF: 0 ezetimibe [Zetia] 10 mg tablet 10 mg PO DAILY Qty: 30 RF: 2 oxycodone 10 mg tablet 10 mg PO BID PRN (Reason: pain) Qty: 60 RF: 0 hydrochlorothiazide 50 mg Tablet 50 mg PO DAILY RF: 0 ascorbic acid (vitamin C) [Vitamin C] 500 mg Tablet Extended Release 500 mg PO DAILY RF: 0 pantoprazole 40 mg tablet,delayed release (DR/EC) 40 mg PO DAILY RF: 0 (DME) blood-glucose meter [FreeStyle Lite Meter] Kit See Rx Instructions .ROUTE .MEDSUPPLY Qty: 1 RF: 0 (DME) FreeStyle Lite Strips Strip See Rx Instructions .ROUTE .MEDSUPPLY Qty: 100 RF: 11 (DME) lancets [FreeStyle Lancets] 28 gauge misc See Rx Instructions .ROUTE .MEDSUPPLY Qty: 100 RF: 11 atorvastatin [Lipitor] 80 mg tablet 80 mg PO DAILY Qty: 30 RF: 5 Discontinued lisinopril 2.5 mg Tablet 2.5 mg PO DAILY RF: 0 Discharge Orders: Discharge Order (Routine); Ordered 09/07/20 Ordered By: Shola Stoddard Activity on Discharge: As tolerated Stand Alone Forms: Patient Portal Discharge page Care Plan Goals: recovery Health Concerns: colin inhibitor angioedema Plan of Treatment: never have any colin inhibitor ever again
[2020-09-07] MEDS: 0.9 % Sodium Chloride Flush 3 ML SYRINGE IVFLUSH (09:25)
[2020-09-07] MEDS: Famotidine/PF 20 MG/2 ML VIAL IVPUSH (09:26)
[2020-09-07] MEDS: Ezetimibe 10 MG TABLET PO (09:27)
[2020-09-07] MEDS: diphenhydrAMINE HCL 50 MG/ML VIAL IVPUSH (09:27)
[2020-09-07] MEDS: Ascorbic Acid 500 MG TABLET PO (09:27)
[2020-09-07] MEDS: hydroCHLOROthiazide 50 MG TABLET PO (09:28)
[2020-09-07] MEDS: Nicotine 7 MG PATCH.TD24 TRANSDERMA (09:29)
[2020-09-07] MEDS: Cholecalciferol (Vitamin D3) 25 MCG TABLET 125 MCG PO (09:36)
--- NOTE | 2020-09-07 09:46 | MHC.CM.PN ---
Pt will be discharged home today with self-resumption of services. Pt will arrange his own transportation.
[2020-09-07 11:32] VITALS: BP 142/80; PULSE 71; RESP 18; TEMP 36.8; O2SAT 97
== END 2020-09-07 12:30 | disposition home or self-care (01) | DRG 811 ==
LOC: HO.ED 10:20 → HO.EDOVER 11:53 → HO.IMC 12:31
PROVIDERS: Admitting Provider Internal Medicine; Emergency Provider Emergency Medicine; PCP Internal Medicine; Visit Provider Internal Medicine
DX: T78.3XXA Angioneurotic edema, initial encounter (principal); E11.42 Type 2 diabetes mellitus with diabetic polyneuropathy; T46.4X5A Adverse effect of angiotensin-converting-enzyme inhibitors, initial encounter; Y92.9 Unspecified place or not applicable; F17.210 Nicotine dependence, cigarettes, uncomplicated; Z96.642 Presence of left artificial hip joint; E78.5 Hyperlipidemia, unspecified; Z96.651 Presence of right artificial knee joint; Z71.6 Tobacco abuse counseling; Z20.822 Contact with and (suspected) exposure to COVID-19; Z88.6 Allergy status to analgesic agent; Z79.899 Other long term (current) drug therapy
CPT/HCPCS: 36415; 80048; 80076; 82947; 85025; 86850; 86900; 87635; 96374; 96375; 99219; 99285; J1100; J1200; J1650; J2920; P9017

== ENCOUNTER → 2020-09-26 10:42 | Outpatient (BNVA) | payer MEDICAID, SELFPAY | PROVIDERS: Visit Provider Orthopaedic Surgery | DX: Z96.642 Presence of left artificial hip joint (principal); F17.200 Nicotine dependence, unspecified, uncomplicated; Z79.899 Other long term (current) drug therapy; Z71.6 Tobacco abuse counseling | CPT/HCPCS: 99212 ==

== ENCOUNTER → 2020-10-02 09:47 | Outpatient (BNVA) | payer MEDICAID, SELFPAY | PROVIDERS: Visit Provider Internal Medicine | DX: E66.9 Obesity, unspecified (principal); G47.33 Obstructive sleep apnea (adult) (pediatric); J44.9 Chronic obstructive pulmonary disease, unspecified; Z99.89 Dependence on other enabling machines and devices | CPT/HCPCS: 99212 ==

== ENCOUNTER 2020-10-14 12:55 | Emergency (ER) | payer MEDICAID, SELFPAY ==
--- NOTE | ~2020-10-14 | XR_ITS ---
EXAMINATION: XR WRIST, RIGHT CLINICAL INFORMATION: Right wrist pain and swelling. COMPARISON: None TECHNIQUE: PA, lateral, and oblique views of the right wrist. FINDINGS: Mild first carpal metacarpal degenerative joint changes are seen. Mild calcification is seen at the radiocarpal and ulnocarpal joints. The carpal bones are normally aligned. The distal radius and ulna are intact. There is mild soft tissue swelling. XR/XR wrist RT min 3V IMPRESSION: Mild degenerative joint changes suggesting osteoarthritis and/or CPPD.
[2020-10-14 13:25] VITALS: BP 146/69; PULSE 93; RESP 18; TEMP 36.7; O2SAT 97; BMI 32.3
--- NOTE | 2020-10-14 13:51 | ED_ITS ---
HPI - Extremity Problem General Chief complaint: Extremity Injury, Upper Stated complaint: R WRIST PAIN Time Seen by Provider: 10/14/20 13:51 Source: patient Mode of arrival: ambulatory Limitations: no limitations History of Present Illness HPI Narrative: On and off right wrist pain for 2 weeks now feels slightly more swollen. No numbness or tingling. No injury. No redness. MD Complaint: extremity pain Onset (ago): week(s) (2) Pain Consistency: intermittent Location: right Quality: aching Radiation: none Relieving factors: immobilization Exacerbating factors: nothing Associated symptoms: denies other symptoms Related Data Home Medications Medication Instructions Recorded Confirmed pantoprazole 40 mg tablet,delayed 40 mg PO DAILY 05/22/20 10/02/20 release ascorbic acid (vitamin C) [Vitamin 500 mg PO DAILY 09/06/20 10/02/20 C] hydrochlorothiazide 50 mg PO DAILY 09/06/20 10/02/20 albuterol sulfate 90 mcg/actuation 2 puff INHALATION Q6H PRN 10/02/20 10/02/20 aerosol inhaler budesonide-formoterol HFA 160 2 puff INHALATION BID 10/02/20 10/02/20 mcg-4.5 mcg/actuation aerosol inhaler Previous Rx's Medication Instructions Recorded blood sugar diagnostic #100 ea 05/22/20 blood-glucose meter #1 ea 05/22/20 lancets 28 gauge #100 ea 05/22/20 cholecalciferol (vitamin D3) 125 125 mcg PO DAILY 30 Days #30 cap 05/28/20 mcg (5,000 unit) capsule orthopaedic shoe lift, left #1 ea 08/16/20 atorvastatin 80 mg tablet 80 mg PO DAILY #30 tab 08/20/20 ezetimibe 10 mg tablet 10 mg PO DAILY #30 tab 08/26/20 oxycodone 10 mg tablet 10 mg PO BID PRN #60 tab 09/26/20 naproxen 500 mg PO Q12H PRN #14 tab 10/14/20 prednisone See Taper PO PER PKG DIR #21 ea 10/14/20 Allergies Allergy/AdvReac Type Severity Reaction Status Date / Time COLIN Inhibitors Allergy Severe Angioedema Verified 10/02/20 10:28 ibuprofen [From MOTRIN] Allergy Unknown Unknown Verified 10/02/20 10:28 Review of Systems Review of Systems: Constitutional: No Weight loss, No Fever, No Chills, No Night Sweats, No Fatigue, No Malaise ENT/Mouth: No Hearing loss, No Ear Pain, No Nasal Congestion, No Sinus Pain, No Hoarseness, No sore throat, No Rhinorrhea, No Swallowing Difficulty Eyes: No Eye Pain, No Swelling, No Redness, No Foreign Body, No Discharge, No Vision Changes Cardiovascular: No Chest Pain, No SOB, No Dyspnea on Exertion, No Orthopnea, No Edema, No Palpitations Respiratory: No Cough, No Sputum, No Wheezing, No Dyspnea Gastrointestinal: No Nausea, No Vomiting, No Diarrhea, No Constipation, No abdominal Pain, No Hematochezia, No Melena Genitourinary: No Dysuria, No Urinary Frequency, No Hematuria, No Urinary Incontinence, No Urgency, No Flank Pain, No Urinary Flow Changes, No Hesitancy Musculoskeletal: No joint pain, No Myalgias, No Joint Swelling, as noted per HPI Skin: No Skin Lesions, No rash Neuro: No Weakness, No Numbness, No Paresthesias, No Loss of Consciousness, No Dizziness, No Headache Psych: No Social Issues, Heme/Lymph: No Bruising, No Bleeding,No Lymphadenopathy Endocrine: No Polyuria, No Polydipsia, No Temperature Intolerance Yes all other systems are reviewed and are negative [facility] Past Medical History Medical History Aortic stenosis Asthma-COPD overlap syndrome Diabetes Diabetes type 2, controlled Diabetic nephropathy associated with type 2 diabetes mellitus Dyslipidemia Obesity (BMI 30-39.9) JESSICA on CPAP Vitamin D deficiency Surgical History History of back surgery History of left hip replacement History of total right knee replacement (TKR) Hx of carpal tunnel syndrome Hx of cholecystectomy Hx of colonoscopy Hx of hernia repair No pertinent past surgical history Family History Family History Father Hypertension Diabetes mellitus Mother Hypertension Social History Social History Alcohol intake: current Smoking Status: Current every day smoker Cigarettes Per Day: 10 Advance Directives: No Advance Directives Information Provided: No service: No Current occupational status: unemployed Current occupation: right handed Physical Exam Vital Signs: Vital Signs: Last Vital Signs Temp 98.1 F 10/14/20 13:25 Pulse 93 10/14/20 13:25 Resp 18 10/14/20 13:25 BP 146/69 H 10/14/20 13:25 Pulse Ox 97 10/14/20 13:25 Body Mass Index 32.3 Reviewed Const: General: cooperative and healthy appearing; No acute distress or intoxicated appearing Nutritional Appearance: average body habitus Orientation/consciousness: patient oriented x3 HENMT: Head: Yes normal to inspection Ears: hearing grossly normal bilaterally Eyes: General: appearance normal, both eyes and all related structures Visual Rojas: normal visual rojas by confrontation Chest: Chest palpation & inspection: normal inspection of the chest Resp: Effort & Inspection: normal respiratory effort Auscultation: clear to auscultation bilaterally Cardio: Rhythm: regular rhythm Heart sounds: S1 normal heart sound present and S2 normal heart sound present : General: Yes no CVA tenderness Back/Spine/Pelvis: Back: no CVA tenderness Skin: General skin exam: no rashes or lesions noted Neuro: General: patient oriented x3 Extrem: General: Yes normal to inspection Right upper extremity: full ROM and wrist Details: tenderness (Diffusely over the wrist. No swelling or erythema.) MDM - Extremity (Nontraumatic) Imaging Data Wrist x-ray: Radiologist's impression: Griffin Kam 60 M [address] [id number] ReportSigned Patient: Griffin Kam GMR#: [id number]: 1960cct:[id number]/Sex: 60 / MADM Date: 10/14/20Loc: EDAttending Dr: Ordering Physician: Domingo Martinez NP Date of Service: 10/14/20 Procedure(s): XR wrist RT min 3V Accession Number(s): [id number] cc: Domingo Martinez ORGANIC SECTION TECHNICAL LEAD~ EXAMINATION: XR WRIST, RIGHT CLINICAL INFORMATION: Right wrist pain and swelling. COMPARISON: None TECHNIQUE: PA, lateral, and oblique views of the right wrist. FINDINGS: Mild first carpal metacarpal degenerative joint changes are seen. Mild calcification is seen at the radiocarpal and ulnocarpal joints. The carpal bones are normally aligned. The distal radius and ulna are intact. There is mild soft tissue swelling. XR/XR wrist RT min 3V IMPRESSION: Mild degenerative joint changes suggesting osteoarthritis and/or CPPD. Dictated By:CHUCK CASEY MDSigned By:<Electronically signed by CHUCK CASEY MD in OV>10/14/20 1409 DD/ 1351TD/TT: Esthetician And Manager [facility]: [facility] Discharge Plan Discharge Clinical Impression: Arthralgia of right wrist Patient Disposition: Home, Self-Care Instructions: Arthralgia (ED) Additional Instructions: Your exam and x-ray is suggestive of arthritis versus pseudogout Warm compress Take medication prescribed Supportive splint Return if any concerns or worsening symptoms otherwise follow-up as instructed Thank you Prescriptions: New prednisone 10 mg tablets,dose pack See Taper mg PO PER PKG DIR Qty: 21 RF: 0 naproxen 500 mg tablet,delayed release (DR/EC) 500 mg PO Q12H PRN (Reason: pain) Qty: 14 RF: 0 No Action cholecalciferol (vitamin D3) 125 mcg (5,000 unit) capsule 125 mcg PO DAILY 30 Days Qty: 30 RF: 6 (DME) orthopaedic shoe lift, left 1/2 inch See Rx Instructions .Route .MEDSUPPLY Qty: 1 RF: 0 ezetimibe [Zetia] 10 mg tablet 10 mg PO DAILY Qty: 30 RF: 2 hydrochlorothiazide 50 mg Tablet 50 mg PO DAILY RF: 0 ascorbic acid (vitamin C) [Vitamin C] 500 mg Tablet Extended Release 500 mg PO DAILY RF: 0 pantoprazole 40 mg tablet,delayed release (DR/EC) 40 mg PO DAILY RF: 0 (DME) blood-glucose meter [FreeStyle Lite Meter] Kit See Rx Instructions .ROUTE .MEDSUPPLY Qty: 1 RF: 0 (DME) FreeStyle Lite Strips Strip See Rx Instructions .ROUTE .MEDSUPPLY Qty: 100 RF: 11 (DME) lancets [FreeStyle Lancets] 28 gauge misc See Rx Instructions .ROUTE .MEDSUPPLY Qty: 100 RF: 11 oxycodone 10 mg tablet 10 mg PO BID PRN (Reason: pain) Qty: 60 RF: 0 atorvastatin [Lipitor] 80 mg tablet 80 mg PO DAILY Qty: 30 RF: 5 albuterol sulfate [ProAir HFA] 90 mcg/actuation HFA aerosol inhaler 2 puff inhalation Q6H PRNRF: 0 budesonide-formoterol [Symbicort] 160-4.5 mcg/actuation HFA aerosol inhaler 2 puff inhalation BID RF: 0 Referrals: Bhakti Marlow MD [Primary Care Provider] - 1 week
[2020-10-14] MEDS: Acetaminophen 325 MG TABLET 975 MG PO (13:57)
== END 2020-10-14 14:55 | disposition home or self-care (01) ==
PROVIDERS: Emergency Provider Emergency Medicine; PCP Family Medicine
DX: M25.531 Pain in right wrist (principal); E11.9 Type 2 diabetes mellitus without complications; J45.909 Unspecified asthma, uncomplicated; E78.5 Hyperlipidemia, unspecified; F17.210 Nicotine dependence, cigarettes, uncomplicated
CPT/HCPCS: 73110; 99283

== ENCOUNTER 2020-10-16 12:54 | Outpatient (REF) | payer MEDICAID, SELFPAY ==
[2020-10-16 13:36] LABS: COVID-19 Test Negative (Negative)
== END 2020-10-16 12:55 | disposition home or self-care (01) ==
LOC: HO.LAB 12:54
PROVIDERS: Visit Provider Internal Medicine
DX: Z20.822 Contact with and (suspected) exposure to COVID-19 (principal)
CPT/HCPCS: 36415; 87635; C9803

== ENCOUNTER 2020-10-23 12:04 | Outpatient (REF) | payer MEDICAID, SELFPAY | END 2020-10-23 12:05 | disposition home or self-care (01) | LOC: HO.LAB 12:04 | PROVIDERS: Visit Provider Internal Medicine | DX: Z20.822 Contact with and (suspected) exposure to COVID-19 (principal) | CPT/HCPCS: C9803; U0003; U0005 ==

== ENCOUNTER 2020-11-24 18:43 | Emergency (ER) | payer MEDICAID, SELFPAY ==
--- NOTE | ~2020-11-24 | XR_ITS ---
EXAMINATION: XR KNEE, RIGHT CLINICAL INFORMATION: Pain COMPARISON: Previous right knee x-ray September and October 2017 TECHNIQUE: Four views of the right knee. FINDINGS: There is a right knee replacement. This appears unchanged from previous exam. The stem of the tibial component is eccentrically positioned along the lateral cortex of the proximal tibia. There is a bone loss of the medial tibial metaphysis. There is a heterogeneous appearance with areas of lucency and sclerosis and cortical thickening of the distal femur and proximal tibia, greatest medially, that appears unchanged. There is a small joint effusion. There is a patellar osteophyte. There is posttraumatic deformity to the proximal fibular shaft. There is evidence of atherosclerotic disease. XR/XR knee RT 4V IMPRESSION: Stable appearance of the right replacement from 2018. No acute fracture seen.
[2020-11-24 19:34] VITALS: BP 132/71; PULSE 92; RESP 16; TEMP 37.2; O2SAT 97; BMI 29.3
[2020-11-24 20:18] LABS: MANUAL DIFF FLAG NO
[2020-11-24 20:20] LABS: Basophils Percent Auto 0.5 % (0-2); Eosinophils Absolute Auto 0.3 X10*3/uL (0.0-0.4); Eosinophils Percent Auto 4.1 % (0-4); Hemoglobin 10.7 g/dl (14.0-18.0); Imm Gran Abs Auto 0.02 X10*3/uL (0.00-0.03); Imm Gran Pct Auto 0.2 % (0.0-0.4); Lymphocytes Absolute Auto 2.4 X10*3/uL (1.2-4.9); Lymphocytes Percent Auto 29.3 % (20-40); Mean Corpuscular HGB Conc 33.4 g/dl (31.0-36.0); Mean Corpuscular Hemoglobin 31.9 pg (27.0-33.0); Mean Corpuscular Volume 95.5 fL (80-98); Mean Platelet Volume 9.7 fL (9.4-12.4); Monocytes Absolute Auto 0.7 X10*3/uL (0.1-1.2); Monocytes Percent Auto 8.1 % (2-11); Neutrophils Absolute Auto 4.7 X10*3/uL (2.0-8.3); Neutrophils Percent Auto 57.8 % (45-73); Platelet Count 289 X10*3/uL (160-400); Red Blood Count 3.35 X10*6/uL (4.60-5.80); Red Cell Distribution Width 15.2 % (11.0-16.0); White Blood Count 8.1 X10*3/uL (4.8-10.8)
--- NOTE | 2020-11-24 20:41 | ED_ITS ---
HPI - Extremity Injury (Lower) General Chief Complaint: Extremity Injury, Lower Stated Complaint: knee injury Source: patient Mode of arrival: ambulatory Limitations: language barrier History of Present Illness HPI Narrative: 60-year-old male with past medical history of asthma, COPD, JESSICA on CPAP, history of angioedema, aortic stenosis, dyslipidemia, hypertension, type 2 diabetes, diabetic neuropathy, obesity, and alcohol abuse presents with right knee pain and swelling with rash. Patient states that he fell 2 days ago, had some bruising, and noted to have a blister-like rash to the area of ecchymosis. He states that he is able to walk but is concerned about infection. He states that he fell after drinking some alcohol. Did not hit his head or lose consciousness. He does not report fevers, chills, nausea, vomiting, diarrhea, constipation, chest pain or pressure, palpitations, shortness of breath, abdominal pain, abdominal distention, dysuria, hematuria, or any other concerning symptoms. MD complaint: knee injury Onset (ago): day(s) (Three) Place: home Severity: moderate Severity scale (1-10): 5 Relieving factors: cold therapy Exacerbating factors: movement and palpation Context: fall Associated symptoms: swelling Other symptoms: none Related Data Home Medications Medication Instructions Recorded Confirmed pantoprazole 40 mg tablet,delayed 40 mg PO DAILY 05/22/20 10/02/20 release ascorbic acid (vitamin C) [Vitamin 500 mg PO DAILY 09/06/20 10/02/20 C] hydrochlorothiazide 50 mg PO DAILY 09/06/20 10/02/20 albuterol sulfate 90 mcg/actuation 2 puff INHALATION Q6H PRN 10/02/20 10/02/20 aerosol inhaler budesonide-formoterol HFA 160 2 puff INHALATION BID 10/02/20 10/02/20 mcg-4.5 mcg/actuation aerosol inhaler Previous Rx's Medication Instructions Recorded blood sugar diagnostic #100 ea 05/22/20 blood-glucose meter #1 ea 05/22/20 lancets 28 gauge #100 ea 05/22/20 cholecalciferol (vitamin D3) 125 125 mcg PO DAILY 30 Days #30 cap 05/28/20 mcg (5,000 unit) capsule orthopaedic shoe lift, left #1 ea 08/16/20 atorvastatin 80 mg tablet 80 mg PO DAILY #30 tab 08/20/20 naproxen 500 mg PO Q12H PRN #14 tab 10/14/20 prednisone See Taper PO PER PKG DIR #21 ea 10/14/20 oxycodone 10 mg tablet 10 mg PO BID PRN #60 tab 10/22/20 ezetimibe 10 mg tablet 10 mg PO DAILY #90 tab 11/18/20 cephalexin 500 mg PO Q8H 7 Days #21 cap 11/24/20 Allergies Allergy/AdvReac Type Severity Reaction Status Date / Time COLIN Inhibitors Allergy Severe Angioedema Verified 10/02/20 10:28 ibuprofen [From MOTRIN] Allergy Unknown Unknown Verified 10/02/20 10:28 Review of Systems Review of Systems: Constitutional: No Fever, No Chills ENT/Mouth: No Ear Pain, No Hoarseness, No sore throat Eyes: No Eye Pain, No Swelling, No Redness, No Foreign Body Cardiovascular: No Chest Pain, No SOB Respiratory: No Cough, No Dyspnea Gastrointestinal: No Nausea, No Vomiting, No Diarrhea, No abdominal Pain Genitourinary: No Dysuria, No Hematuria Musculoskeletal: No joint pain, No Myalgias, No Joint Swelling Skin: Positive abrasion to the right knee, No rash Neuro: No Weakness, No Numbness, No Paresthesias, No Loss of Consciousness, No Dizziness, No Headache Psych: No Anxiety/Panic, No Depression Heme/Lymph: no easy bruising, no Lymphadenopathy Endocrine: No Polyuria, No Polydipsia Yes all other systems are reviewed and are negative PMFSH Past Medical History Attestation statement: The following information was validated with the patient. Source: old records reviewed Medical History Aortic stenosis Asthma-COPD overlap syndrome Diabetes Diabetes type 2, controlled Diabetic nephropathy associated with type 2 diabetes mellitus Dyslipidemia Obesity (BMI 30-39.9) JESSICA on CPAP Vitamin D deficiency Surgical History History of back surgery History of left hip replacement History of total right knee replacement (TKR) Hx of carpal tunnel syndrome Hx of cholecystectomy Hx of colonoscopy Hx of hernia repair No pertinent past surgical history Family History Family History Father Hypertension Diabetes mellitus Mother Hypertension Social History Social History Alcohol intake: current Smoking Status: Current every day smoker Cigarettes Per Day: 10 Advance Directives: No Advance Directives Information Provided: Yes service: No Current occupational status: unemployed Current occupation: right handed Physical Exam Vital Signs: Vital Signs: Last Vital Signs Temp 99.0 F 11/24/20 19:34 Pulse 92 11/24/20 19:34 Resp 16 11/24/20 19:34 BP 132/71 11/24/20 19:34 Pulse Ox 97 11/24/20 19:34 Body Mass Index 29.3 Appearance: Alert. Oriented X3. No acute distress. Eyes: Pupils equal, round and reactive to light. ENT: Pharynx normal. Neck: Normal inspection. Neck supple. CVS: Normal heart rate and rhythm. Pulses normal. Respiratory: No respiratory distress. Breath sounds normal. Abdomen: Soft and nontender. Skin: 2 cm area of blisters over a 6 cm area of ecchymosis. Skin warm and dry. Normal skin color. Normal skin turgor. Extremities: Both knees nontender, full range of motion to knees, flexion extension internal external rotation, bilateral ankles have full range of motion. No other wounds or injuries noted to skin or extremities. Neuro: No motor deficit. No sensory deficit. Cranial nerves 2-12 intact. No focal neural deficits. Course Course Course Narrative: 60-year-old male presents with right knee rash and swelling after a fall. Patient states that on Wednesday, he was drinking alcohol about 3 beers, tripped and landed on his knee and does not report any other symptoms. Order for x-ray. Will order CBC and Chem 7 and culture the wound. Patient denies chest pain, denies shortness of breath. Highly unlikely that this is ACS at this time. No need for EKG or troponins as patient is not complaining of any cardiac symptoms. CBC and Chem 7 are unremarkable, BUN 22 which is consistent with prior values. He was advised to drink more fluids, not alcohol once he gets home. Will give Keflex for blister and abrasion wound. X-rays negative for acute findings. Patient verbalized understanding of and agrees to plan of care discharge home. MDM - Extremity Injury (Lower) Medical Records Attestation: I reviewed the patient's medical records. Lab Data Attestation: I reviewed the patient's lab results. Result diagrams: 11/24/20 20:13 11/24/20 20:13 Labs: Lab Results 11/24/20 11/24/20 Range/Units 20:13 20:13 WBC 8.1 (4.8-10.8) X10*3/uL RBC 3.35 L (4.60-5.80) X10*6/uL Hgb 10.7 L (14.0-18.0) g/dl Hct 32.0 L (42-52) % MCV 95.5 (80-98) fL MCH 31.9 (27.0-33.0) pg MCHC 33.4 (31.0-36.0) g/dl RDW 15.2 (11.0-16.0) % Plt Count 289 (160-400) X10*3/uL MPV 9.7 (9.4-12.4) fL Immature Gran % (Auto) 0.2 (0.0-0.4) % Neut % (Auto) 57.8 (45-73) % Lymph % (Auto) 29.3 (20-40) % Starke % (Auto) 8.1 (2-11) % Eos % (Auto) 4.1 H (0-4) % Baso % (Auto) 0.5 (0-2) % Lymph # (Auto) 2.4 (1.2-4.9) X10*3/uL Starke # (Auto) 0.7 (0.1-1.2) X10*3/uL Eos # (Auto) 0.3 (0.0-0.4) X10*3/uL Baso # (Auto) 0.0 (0.0-0.2) X10*3/uL Abs Immat Gran (auto) 0.02 (0.00-0.03) X10*3/uL Absolute Neuts (auto) 4.7 (2.0-8.3) X10*3/uL Absolute Nucleated RBC 0.000 (0.0-0.012) X10*3/uL Nucleated RBC % (auto) 0.0 (0.0-0.2) /100WBC Sodium 141 (135-145) mmol/L Potassium 3.6 (3.3-5.1) mmol/L Chloride 105 (96-108) mmol/L Carbon Dioxide 24 (22-29) mmol/L Anion Gap 16 (12-20) BUN 22 H (9-16) mg/dL Creatinine 0.90 (0.5-1.4) mg/dL Estim Creat Clear Calc 89.1 Estimated GFR > 60 Random Glucose 93 (60-115) mg/dL Calcium 9.4 (8.4-10.2) mg/dL Imaging Data Right knee x-ray: Attestation: I personally reviewed and interpreted this imaging study as follows: Radiologist's impression: EXAMINATION: XR KNEE, RIGHT CLINICAL INFORMATION: Pain COMPARISON: Previous right knee x-ray September and October 2017 TECHNIQUE: Four views of the right knee. FINDINGS: There is a right knee replacement. This appears unchanged from previous exam. The stem of the tibial component is eccentrically positioned along the lateral cortex of the proximal tibia. There is a bone loss of the medial tibial metaphysis. There is a heterogeneous appearance with areas of lucency and sclerosis and cortical thickening of the distal femur and proximal tibia, greatest medially, that appears unchanged. There is a small joint effusion. There is a patellar osteophyte. There is posttraumatic deformity to the proximal fibular shaft. There is evidence of atherosclerotic disease. XR/XR knee RT 4V IMPRESSION: Stable appearance of the right replacement from 2018. No acute fracture seen. Discharge Plan Discharge Clinical Impression: Cellulitis Qualifiers: Site of cellulitis: extremity Site of cellulitis of extremity: lower extremity Laterality: right Qualified Code(s): L03.115 - Cellulitis of right lower limb Patient Disposition: Home, Self-Care Instructions: Cellulitis (ED) Additional Instructions: Fue evaluado por suresh lesi?n sufrida en la rodilla derecha despu?s de suresh ca?da. Se sospecha que tiene celulitis. Utilice Keflex cada 8 horas martín los pr?ximos 7 d?as. Nicolette cultivos de heridas est?n pendientes. Por favor, controle los signos y s?ntomas del empeoramiento de la infecci?n. Si esto ocurriera, regrese al departamento de emergencias oa auguste m?dico de atenci?n primaria. Ninfa por elegir aren departamento de emergencias para auguste evaluaci?n. Gabi un seguimiento con el m?dico de atenci?n primaria seg?n sea necesario. Regrese al departamento de emergencias por cualquier s?ntoma nuevo, preocupante o que empeore. You were evaluated for injury sustained to the right knee after a fall. It is suspected that you have cellulitis. Please use Keflex every 8 hours for the next 7 days. Your wound cultures are pending. Please monitor for signs and symptoms of worsening infection. If this were to occur please return to the emergency department or your primary care physician. Thank you for choosing this emergency department for evaluation. Please follow-up with primary care physician as needed. Return to the emergency department for any new, concerning, or worsening symptoms. Prescriptions: New cephalexin 500 mg capsule 500 mg PO Q8H 7 Days Qty: 21 RF: 0 No Action cholecalciferol (vitamin D3) 125 mcg (5,000 unit) capsule 125 mcg PO DAILY 30 Days Qty: 30 RF: 6 (DME) orthopaedic shoe lift, left 1/2 inch See Rx Instructions .Route .MEDSUPPLY Qty: 1 RF: 0 oxycodone 10 mg tablet 10 mg PO BID PRN (Reason: pain) Qty: 60 RF: 0 ezetimibe 10 mg tablet 10 mg PO DAILY Qty: 90 RF: 1 prednisone 10 mg tablets,dose pack See Taper mg PO PER PKG DIR Qty: 21 RF: 0 naproxen 500 mg tablet,delayed release (DR/EC) 500 mg PO Q12H PRN (Reason: pain) Qty: 14 RF: 0 hydrochlorothiazide 50 mg Tablet 50 mg PO DAILY RF: 0 ascorbic acid (vitamin C) [Vitamin C] 500 mg Tablet Extended Release 500 mg PO DAILY RF: 0 pantoprazole 40 mg tablet,delayed release (DR/EC) 40 mg PO DAILY RF: 0 (DME) blood-glucose meter [FreeStyle Lite Meter] Kit See Rx Instructions .ROUTE .MEDSUPPLY Qty: 1 RF: 0 (DME) FreeStyle Lite Strips Strip See Rx Instructions .ROUTE .MEDSUPPLY Qty: 100 RF: 11 (DME) lancets [FreeStyle Lancets] 28 gauge misc See Rx Instructions .ROUTE .MEDSUPPLY Qty: 100 RF: 11 atorvastatin [Lipitor] 80 mg tablet 80 mg PO DAILY Qty: 30 RF: 5 albuterol sulfate [ProAir HFA] 90 mcg/actuation HFA aerosol inhaler 2 puff inhalation Q6H PRNRF: 0 budesonide-formoterol [Symbicort] 160-4.5 mcg/actuation HFA aerosol inhaler 2 puff inhalation BID RF: 0 Interventions: ED Discharge Assessment Last Done: 11/24/20 21:23 Discharge Date/Time: 11/24/20 20:51
[2020-11-24 20:42] LABS: Anion Gap 16 (12-20); Blood Urea Nitrogen 22 mg/dL (9-16); Calcium 9.4 mg/dL (8.4-10.2); Carbon Dioxide 24 mmol/L (22-29); Chloride 105 mmol/L (96-108); Creatinine Clr Calc Pharmacy 89.1; Estimated Glomerular Filt Rate > 60; Glucose Random 93 mg/dL (60-115); Potassium 3.6 mmol/L (3.3-5.1); Sodium 141 mmol/L (135-145)
[2020-11-24] MEDS: cephALEXin 500 MG CAPSULE PO (21:02)
--- NOTE | 2020-11-24 21:22 | PC.NURSE ---
PT RIGHT KNEE WOUND CLEANED WITH NS AND BETADINE BY ROSANNE LARSON. PER MD LARSON POC NOT NEED GLUCOSE WAS DONE IN LABS PT WILL GO HOME WITH PO ANTIBIOTICS.
== END 2020-11-24 20:51 | disposition home or self-care (01) ==
PROVIDERS: Nurse Practitioner Family; Emergency Provider Emergency Medicine
DX: L03.115 Cellulitis of right lower limb (principal); M79.604 Pain in right leg; F17.210 Nicotine dependence, cigarettes, uncomplicated; Z71.6 Tobacco abuse counseling; Z79.899 Other long term (current) drug therapy
CPT/HCPCS: 36415; 73564; 80048; 85025; 87071; 87077; 87186; 87205; 99284

== ENCOUNTER 2020-11-28 11:33 | Emergency (ER) | payer MEDICAID, SELFPAY ==
[2020-11-28 11:43] VITALS: BP 116/85; PULSE 90; RESP 18; TEMP 36.6; O2SAT 98; BMI 29.5
--- NOTE | 2020-11-28 12:39 | ED_ITS ---
HPI - Extremity Injury (Lower) General Chief Complaint: Extremity Injury, Lower Stated Complaint: lumpt on leg Time Seen by Provider: 11/28/20 12:30 History of Present Illness HPI Narrative: Patient is here for recheck of infection he got several days ago after he tripped and fell bruising his right lower leg just below the knee and now there is a painless lump in the area of the abrasion/contusion No fever no chills no pain in the knee itselfhe has normal range of motion in the knee and is walking normally Related Data Home Medications Medication Instructions Recorded Confirmed pantoprazole 40 mg tablet,delayed 40 mg PO DAILY 05/22/20 10/02/20 release ascorbic acid (vitamin C) [Vitamin 500 mg PO DAILY 09/06/20 10/02/20 C] hydrochlorothiazide 50 mg PO DAILY 09/06/20 10/02/20 albuterol sulfate 90 mcg/actuation 2 puff INHALATION Q6H PRN 10/02/20 10/02/20 aerosol inhaler budesonide-formoterol HFA 160 2 puff INHALATION BID 10/02/20 10/02/20 mcg-4.5 mcg/actuation aerosol inhaler Previous Rx's Medication Instructions Recorded blood sugar diagnostic #100 ea 05/22/20 blood-glucose meter #1 ea 05/22/20 lancets 28 gauge #100 ea 05/22/20 cholecalciferol (vitamin D3) 125 125 mcg PO DAILY 30 Days #30 cap 05/28/20 mcg (5,000 unit) capsule orthopaedic shoe lift, left #1 ea 08/16/20 atorvastatin 80 mg tablet 80 mg PO DAILY #30 tab 08/20/20 naproxen 500 mg PO Q12H PRN #14 tab 10/14/20 prednisone See Taper PO PER PKG DIR #21 ea 10/14/20 ezetimibe 10 mg tablet 10 mg PO DAILY #90 tab 11/18/20 cephalexin 500 mg PO Q8H 7 Days #21 cap 11/24/20 oxycodone 10 mg tablet 10 mg PO BID PRN #60 tab 11/26/20 doxycycline hyclate 100 mg PO BID 7 Days #14 cap 11/28/20 Allergies Allergy/AdvReac Type Severity Reaction Status Date / Time COLIN Inhibitors Allergy Severe Angioedema Verified 12/01/20 16:18 ibuprofen [From MOTRIN] Allergy Unknown Unknown Verified 12/01/20 16:18 Review of Systems Review of Systems: Positive for right lower leg abrasion and swelling Negatives are no fever no chills no dizziness no weakness no headache no neck pain no chest pain or shortness of breath no numbness weakness or tingling no other rash Yes all other systems are reviewed and are negative [facility] Past Medical History Source: nursing notes reviewed Medical History Aortic stenosis Asthma-COPD overlap syndrome Diabetes Diabetes type 2, controlled Diabetic nephropathy associated with type 2 diabetes mellitus Dyslipidemia Obesity (BMI 30-39.9) JESSICA on CPAP Vitamin D deficiency Surgical History History of back surgery History of left hip replacement History of total right knee replacement (TKR) Hx of carpal tunnel syndrome Hx of cholecystectomy Hx of colonoscopy Hx of hernia repair No pertinent past surgical history Family History Family History Father Hypertension Diabetes mellitus Mother Hypertension Social History Social History Alcohol intake: current Cigarettes Per Day: 10 Advance Directives: No Advance Directives Information Provided: No service: No Current occupational status: unemployed Current occupation: right handed Physical Exam Vital Signs: Vital Signs: Last Vital Signs Temp 97.9 F 11/28/20 11:43 Pulse 90 11/28/20 11:43 Resp 18 11/28/20 11:43 BP 116/85 11/28/20 11:43 Pulse Ox 98 11/28/20 11:43 Body Mass Index 29.5 General appearance is no acute distress Head normocephalic atraumatic Neck is supple Respiratory no distress Extremities the right lower extremity exam, there is a nontender swelling which is mildly fluctuant on the anterior lower leg pretibial distal to the knee there is no surrounding cellulitis no lymphangitis, no discharge no warmth, knee has full range of motion and is not affected, gait is normal Other extremities normal Neuro no gross motor or sensory deficits Course Course Course Narrative: I aspirated the fluctuant area in the right lower leg and some blood returned there was no pus no watery fluid there is no surrounding cellulitis the area was not tender, no abscess needing great drainage now and patient is discharged on antibiotic Discharge Plan Discharge Clinical Impression: Cellulitis, Hematoma Patient Disposition: Home, Self-Care Additional Instructions: I aspirated the swollen area in lower leg below the knee and some blood came out but no pus no other fluid This is most likely a hematoma below the skin, no pus not an abscess now I added broader coverage by adding doxycycline antibiotic to the Keflex antibiotic you already taking Return to the ER in 2-3 days for another recheck Return any time for increased pain and swelling, spreading redness, any difficulty bending or straightening her knee, fever, any sign of worsening infection or any worse condition or concerns Prescriptions: New doxycycline hyclate 100 mg capsule 100 mg PO BID 7 Days Qty: 14 RF: 0 No Action cholecalciferol (vitamin D3) 125 mcg (5,000 unit) capsule 125 mcg PO DAILY 30 Days Qty: 30 RF: 6 (DME) orthopaedic shoe lift, left 1/2 inch See Rx Instructions .Route .MEDSUPPLY Qty: 1 RF: 0 ezetimibe 10 mg tablet 10 mg PO DAILY Qty: 90 RF: 1 oxycodone 10 mg tablet 10 mg PO BID PRN (Reason: pain) Qty: 60 RF: 0 prednisone 10 mg tablets,dose pack See Taper mg PO PER PKG DIR Qty: 21 RF: 0 naproxen 500 mg tablet,delayed release (DR/EC) 500 mg PO Q12H PRN (Reason: pain) Qty: 14 RF: 0 cephalexin 500 mg capsule 500 mg PO Q8H 7 Days Qty: 21 RF: 0 hydrochlorothiazide 50 mg Tablet 50 mg PO DAILY RF: 0 ascorbic acid (vitamin C) [Vitamin C] 500 mg Tablet Extended Release 500 mg PO DAILY RF: 0 pantoprazole 40 mg tablet,delayed release (DR/EC) 40 mg PO DAILY RF: 0 (DME) blood-glucose meter [FreeStyle Lite Meter] Kit See Rx Instructions .ROUTE .MEDSUPPLY Qty: 1 RF: 0 (DME) FreeStyle Lite Strips Strip See Rx Instructions .ROUTE .MEDSUPPLY Qty: 100 RF: 11 (DME) lancets [FreeStyle Lancets] 28 gauge misc See Rx Instructions .ROUTE .MEDSUPPLY Qty: 100 RF: 11 atorvastatin [Lipitor] 80 mg tablet 80 mg PO DAILY Qty: 30 RF: 5 albuterol sulfate [ProAir HFA] 90 mcg/actuation HFA aerosol inhaler 2 puff inhalation Q6H PRNRF: 0 budesonide-formoterol [Symbicort] 160-4.5 mcg/actuation HFA aerosol inhaler 2 puff inhalation BID RF: 0 Interventions: ED Discharge Assessment Last Done: 11/28/20 13:08 Discharge Date/Time: 11/28/20 13:09
== END 2020-11-28 13:09 | disposition home or self-care (01) ==
PROVIDERS: Emergency Provider Emergency Medicine
DX: L03.116 Cellulitis of left lower limb (principal); Z79.899 Other long term (current) drug therapy; F17.210 Nicotine dependence, cigarettes, uncomplicated; Z71.6 Tobacco abuse counseling
CPT/HCPCS: 99283

== ENCOUNTER 2020-12-01 16:04 | Emergency (ER) | payer MEDICAID, SELFPAY ==
[2020-12-01 16:16] VITALS: BP 136/76; PULSE 85; RESP 16; TEMP 36.8; O2SAT 98; BMI 29.5
--- NOTE | 2020-12-01 16:30 | PC.NURSE ---
PROVIDER AT BEDSIDE FOR EVAL. PROVIDER PUT NEEDLE IN KNEE. BLOOD RETURNS.
--- NOTE | 2020-12-01 16:38 | ED.LOWEXIN ---
HPI - Extremity Injury (Lower) General Chief Complaint: Extremity Injury, Lower Stated Complaint: leg pain Time Seen by Provider: 12/01/20 16:23 Source: patient Mode of arrival: ambulatory History of Present Illness HPI Narrative: 60-year-old male with a past medical history of asthma, COPD, JESSICA on CPAP, angioedema, aortic stenosis, HLD, HTN, DM, diabetic neuropathy, obesity, alcohol abuse, presenting to the ED for right knee hematoma recheck S/P fall on 11/24. Admits area is improved, smaller in size, painless, denies drainage, fever, or chills. Patient was re-evaluated on 11/28, at that time area was aspirated with only bloody return, patient was initiated on Doxycycline in addition to previously prescribed Keflex, reports compliance with these medications. Denies pain with ambulation. Denies taking anticoagulation MD complaint: knee injury Related Data Home Medications Medication Instructions Recorded Confirmed pantoprazole 40 mg tablet,delayed 40 mg PO DAILY 05/22/20 10/02/20 release ascorbic acid (vitamin C) [Vitamin 500 mg PO DAILY 09/06/20 10/02/20 C] hydrochlorothiazide 50 mg PO DAILY 09/06/20 10/02/20 albuterol sulfate 90 mcg/actuation 2 puff INHALATION Q6H PRN 10/02/20 10/02/20 aerosol inhaler budesonide-formoterol HFA 160 2 puff INHALATION BID 10/02/20 10/02/20 mcg-4.5 mcg/actuation aerosol inhaler Previous Rx's Medication Instructions Recorded blood sugar diagnostic #100 ea 05/22/20 blood-glucose meter #1 ea 05/22/20 lancets 28 gauge #100 ea 05/22/20 cholecalciferol (vitamin D3) 125 125 mcg PO DAILY 30 Days #30 cap 05/28/20 mcg (5,000 unit) capsule orthopaedic shoe lift, left #1 ea 08/16/20 atorvastatin 80 mg tablet 80 mg PO DAILY #30 tab 08/20/20 naproxen 500 mg PO Q12H PRN #14 tab 10/14/20 prednisone See Taper PO PER PKG DIR #21 ea 10/14/20 ezetimibe 10 mg tablet 10 mg PO DAILY #90 tab 11/18/20 cephalexin 500 mg PO Q8H 7 Days #21 cap 11/24/20 oxycodone 10 mg tablet 10 mg PO BID PRN #60 tab 11/26/20 doxycycline hyclate 100 mg PO BID 7 Days #14 cap 11/28/20 Allergies Allergy/AdvReac Type Severity Reaction Status Date / Time SHAHID Inhibitors Allergy Severe Angioedema Verified 12/01/20 16:18 ibuprofen [From MOTRIN] Allergy Unknown Unknown Verified 12/01/20 16:18 Review of Systems Review of Systems: Constitutional: No Fever, No Chills Musculoskeletal: No joint pain, No Myalgias, + Joint Swelling Skin: No Skin Lesions, No rash Neuro: No Weakness, No Numbness, No Paresthesias Yes all other systems are reviewed and are negative [facility] Past Medical History Attestation statement: The following information was validated with the patient. Medical History Aortic stenosis Asthma-COPD overlap syndrome Diabetes Diabetes type 2, controlled Diabetic nephropathy associated with type 2 diabetes mellitus Dyslipidemia Obesity (BMI 30-39.9) JESSICA on CPAP Vitamin D deficiency Surgical History History of back surgery History of left hip replacement History of total right knee replacement (TKR) Hx of carpal tunnel syndrome Hx of cholecystectomy Hx of colonoscopy Hx of hernia repair No pertinent past surgical history Family History Family History Father Hypertension Diabetes mellitus Mother Hypertension Social History Social History Alcohol intake: current Cigarettes Per Day: 10 Advance Directives: No Advance Directives Information Provided: No service: No Current occupational status: unemployed Current occupation: right handed Physical Exam Vital Signs: Vital Signs: Last Vital Signs Temp 98.2 F 12/01/20 16:16 Pulse 85 12/01/20 16:16 Resp 16 12/01/20 16:16 BP 136/76 12/01/20 16:16 Pulse Ox 98 12/01/20 16:16 Body Mass Index 29.5 Const: General: cooperative and healthy appearing Orientation/consciousness: patient oriented x3 Limitations: no limitations HENMT: Head: Yes normal to inspection Ears: hearing grossly normal bilaterally General nose exam: Normal external nose present Face and sinus: Yes normal facial exam Eyes: General: appearance normal, both eyes and all related structures EOM: EOMs intact bilaterally Neck: Neck: Yes normal visual inspection and Yes no meningeal signs Resp: Effort & Inspection: normal respiratory effort Cardio: Rate: regular rate Peripheral pulses: dorsalis pedis present GI: Inspection: Yes normal to inspection Skin: Rashes: no rashes Wounds: no wounds Neuro: General: patient oriented x3 and no meningeal signs Gait exam (Neuro): Normal gait present Extrem: Other: Painless lump noted medially below right knee. + central fluctuance. No induration, no cellulitis, no streaking, no warmth. Right lower extremity: knee Details: normal to inspection and normal ROM; no tenderness MDM - Extremity Injury (Lower) MDM Narrative Medical decision making narrative: 60-year-old male with a past medical history of asthma, COPD, JESSICA on CPAP, angioedema, aortic stenosis, HLD, HTN, DM, diabetic neuropathy, obesity, alcohol abuse, presenting to the ED for right knee hematoma recheck S/P fall on 11/24. Admits area is improved, smaller in size, painless, denies drainage, fever, or chills. On exam vital signs stable, NAD/nontoxic-appearing, physical exam as above. Concerning for hematoma vs less likely abscess. No evidence of cellulitis. Full range of motion knee intact. Aspirated knee at bedside with 18 gauge needle with only bloody return, no pus > case discussed with Dr. Cardona who evaluated patient, plan to place patient in Shahid wrap, continue p.o. antibiotics as hematoma will likely self absorb and follow-up with PCP. Medical Records Attestation: I reviewed the patient's medical records. Lab Data Attestation: I reviewed the patient's lab results. Discharge Plan Discharge Clinical Impression: Hematoma Patient Disposition: Home, Self-Care Instructions: Hematoma (ED) Additional Instructions: Continue taking previously prescribed antibiotics until completion. Wear Shahid wrap at home at all times, you may take off to shower and sleep. This hematoma should self absorb into your body. If area swelling worsens, becomes red, you have fever, there streaking or develops pain or drainage please return to the ED Contin?e tomando los antibi?ticos recetados previamente hasta completarlos. Use la envoltura Shahid en casa en todo momento, puede despegar para ducharse y dormir. [place] hematoma debe autoabsorberse en auguste cuerpo. Si la hinchaz?n del ?eliazar empeora, se enrojece, tiene fiebre, hay zhen o desarrolla dolor o supuraci?n, vuelva al servicio de urgencias. Prescriptions: No Action cholecalciferol (vitamin D3) 125 mcg (5,000 unit) capsule 125 mcg PO DAILY 30 Days Qty: 30 RF: 6 (DME) orthopaedic shoe lift, left 1/2 inch See Rx Instructions .Route .MEDSUPPLY Qty: 1 RF: 0 ezetimibe 10 mg tablet 10 mg PO DAILY Qty: 90 RF: 1 oxycodone 10 mg tablet 10 mg PO BID PRN (Reason: pain) Qty: 60 RF: 0 prednisone 10 mg tablets,dose pack See Taper mg PO PER PKG DIR Qty: 21 RF: 0 naproxen 500 mg tablet,delayed release (DR/EC) 500 mg PO Q12H PRN (Reason: pain) Qty: 14 RF: 0 cephalexin 500 mg capsule 500 mg PO Q8H 7 Days Qty: 21 RF: 0 doxycycline hyclate 100 mg capsule 100 mg PO BID 7 Days Qty: 14 RF: 0 hydrochlorothiazide 50 mg Tablet 50 mg PO DAILY RF: 0 ascorbic acid (vitamin C) [Vitamin C] 500 mg Tablet Extended Release 500 mg PO DAILY RF: 0 pantoprazole 40 mg tablet,delayed release (DR/EC) 40 mg PO DAILY RF: 0 (DME) blood-glucose meter [FreeStyle Lite Meter] Kit See Rx Instructions .ROUTE .MEDSUPPLY Qty: 1 RF: 0 (DME) FreeStyle Lite Strips Strip See Rx Instructions .ROUTE .MEDSUPPLY Qty: 100 RF: 11 (DME) lancets [FreeStyle Lancets] 28 gauge misc See Rx Instructions .ROUTE .MEDSUPPLY Qty: 100 RF: 11 atorvastatin [Lipitor] 80 mg tablet 80 mg PO DAILY Qty: 30 RF: 5 albuterol sulfate [ProAir HFA] 90 mcg/actuation HFA aerosol inhaler 2 puff inhalation Q6H PRNRF: 0 budesonide-formoterol [Symbicort] 160-4.5 mcg/actuation HFA aerosol inhaler 2 puff inhalation BID RF: 0 Referrals: [facility] [Primary Care Provider] - 2 days
== END 2020-12-01 17:09 | disposition home or self-care (01) ==
PROVIDERS: Emergency Provider Emergency Medicine Emergency Medical Services
DX: S80.01XD Contusion of right knee, subsequent encounter (principal); X58.XXXD Exposure to other specified factors, subsequent encounter; J44.9 Chronic obstructive pulmonary disease, unspecified; E78.5 Hyperlipidemia, unspecified; E11.9 Type 2 diabetes mellitus without complications; I10 Essential (primary) hypertension; F10.10 Alcohol abuse, uncomplicated; Z79.899 Other long term (current) drug therapy
CPT/HCPCS: 10160; 99283; 99284

== ENCOUNTER 2021-01-05 15:38 | Emergency (ER) | payer MEDICAID, SELFPAY ==
--- NOTE | ~2021-01-05 | XR_ITS ---
EXAMINATION: XR HAND, BILATERAL CLINICAL INFORMATION: Pain COMPARISON: Right wrist radiographs 10/14/2020 and left hand radiographs 04/06/2018. TECHNIQUE: 4 views of each hand and wrist obtained including a view of the scaphoid bone. FINDINGS: LEFT HAND: Soft tissue swelling is seen adjacent to the ulna as well as mild soft tissue swelling at the first MCP joint and PIP joints. Negative ulnar variance with a stable cyst/erosion at the distal ulna and a corticated density at the ulnar styloid presumably sequela of prior trauma. A small erosion/cyst is seen at the radial styloid measuring 0.3 cm in size, unchanged compared to prior.. Subtle lucencies consistent with small new erosions are visualized at the distal pole of the scaphoid and lateral aspect of the trapezium. Persistent chondrocalcinosis is seen in the wrist. Mild subluxation of the first metacarpal bone at the carpometacarpal joint is unchanged with mild degenerative change. Mild degenerative change at the first MCP joint with small osteophytes and small erosions on both sides of the joint. Stable cyst is seen in the head of the second metacarpal bone with mild degenerative changes at the second and third MCP joints with small osteophytes. No significant abnormalities are seen in the PIP or DIP joints. RIGHT HAND: Mild soft tissue swelling is seen in the wrist, first MCP joint, second MCP joint and second and third PIP joints. Mild negative ulnar variance is unchanged. Stable tiny cysts/erosions are seen at the central radial articular surface and radial styloid. Subtle lucencies along the distal pole of the scaphoid, trapezium and distal carpal bones are consistent with small erosions without significant change. No significant change in the chondrocalcinosis in the wrist compared to prior. Mild narrowing is seen at the first MCP joint. A prominent osteophyte is seen at the lateral head of the second and third metacarpal heads with mild narrowing of the third and fifth MCP joints with small erosions. No significant degenerative changes in the PIP or DIP joints. Moderate degenerative changes seen at the first IP joint. XR/XR hand wrist LT IMPRESSION: Changes in both hands and wrists suggestive of arthropathy potentially secondary to calcium pyrophosphate deposition disease. Minimal changes are noted when compared to prior as outlined above.
[2021-01-05 15:47] VITALS: BP 134/74; PULSE 79; RESP 18; TEMP 37; O2SAT 99; BMI 27.1
--- NOTE | 2021-01-05 17:00 | ED.EXTPRO ---
HPI - Extremity Problem General Chief complaint: Extremity Injury, Upper Stated complaint: Hand numbness Time Seen by Provider: 01/05/21 16:16 History of Present Illness HPI Narrative: patient complains of bilateral hand pain and numbness for many months, no acute injury no weakness no fever no loss of sensation Related Data Home Medications Medication Instructions Recorded Confirmed pantoprazole 40 mg tablet,delayed 40 mg PO DAILY 05/22/20 10/02/20 release ascorbic acid (vitamin C) [Vitamin 500 mg PO DAILY 09/06/20 10/02/20 C] hydrochlorothiazide 50 mg PO DAILY 09/06/20 10/02/20 albuterol sulfate 90 mcg/actuation 2 puff INHALATION Q6H PRN 10/02/20 10/02/20 aerosol inhaler budesonide-formoterol HFA 160 2 puff INHALATION BID 10/02/20 10/02/20 mcg-4.5 mcg/actuation aerosol inhaler Previous Rx's Medication Instructions Recorded blood sugar diagnostic #100 ea 05/22/20 blood-glucose meter #1 ea 05/22/20 lancets 28 gauge #100 ea 05/22/20 orthopaedic shoe lift, left #1 ea 08/16/20 atorvastatin 80 mg tablet 80 mg PO DAILY #30 tab 08/20/20 naproxen 500 mg PO Q12H PRN #14 tab 10/14/20 prednisone See Taper PO PER PKG DIR #21 ea 10/14/20 ezetimibe 10 mg tablet 10 mg PO DAILY #90 tab 11/18/20 cephalexin 500 mg PO Q8H 7 Days #21 cap 11/24/20 doxycycline hyclate 100 mg PO BID 7 Days #14 cap 11/28/20 cholecalciferol (vitamin D3) 125 125 mcg PO DAILY #90 cap 12/10/20 mcg (5,000 unit) capsule prednisone 60 mg PO DAILY 3 Days #9 tab 01/05/21 oxycodone 10 mg tablet 10 mg PO BID PRN #60 tab 01/15/21 Allergies Allergy/AdvReac Type Severity Reaction Status Date / Time COLIN Inhibitors Allergy Severe Angioedema Verified 01/07/21 17:41 ibuprofen [From MOTRIN] Allergy Unknown Unknown Verified 01/07/21 17:41 Review of Systems Review of Systems: positive for right hand pain and left hand pain and tingling Negatives no fever no chills no dizziness no weakness no other joint pains no redness no rashes no wounds no weakness no loss of sensation no neck pain no shoulder pain no back pain Yes all other systems are reviewed and are negative [facility] Past Medical History Source: nursing notes reviewed Medical History Aortic stenosis Asthma-COPD overlap syndrome Diabetes Diabetes type 2, controlled Diabetic nephropathy associated with type 2 diabetes mellitus Dyslipidemia Obesity (BMI 30-39.9) JESSICA on CPAP Vitamin D deficiency Surgical History History of back surgery History of left hip replacement History of total right knee replacement (TKR) Hx of carpal tunnel syndrome Hx of cholecystectomy Hx of colonoscopy Hx of hernia repair No pertinent past surgical history Family History Family History Father Hypertension Diabetes mellitus Mother Hypertension Social History Social History Alcohol intake: current Cigarettes Per Day: 10 Advance Directives: No Advance Directives Information Provided: Yes service: No Current occupational status: unemployed Current occupation: right handed Physical Exam Vital Signs: Vital Signs: Last Vital Signs Temp 98.6 F 01/05/21 15:47 Pulse 79 01/05/21 15:47 Resp 18 01/05/21 15:47 BP 134/74 01/05/21 15:47 Pulse Ox 99 01/05/21 15:47 Body Mass Index 27.1 general appearance no acute distress Head is normocephalic atraumatic Neck is supple The back has full range of motion Respiratory no distress Skin no rashes Extremities full range of motion x4 Bilateral hand and wrist exam there is tenderness over palmar surfaces of both hands there is ulnar and radial tenderness at the wrist but there is full range of motion in the wrist on both sides as well as full range of motion in the hand both sides, no swelling no redness no wound no warmth no rash, motor and sensation are intact and symmetrical full tendon function is intact, neurovascular intact Course Course Course Narrative: Patient with no neurologic deficit, no evidence of any skin infection or joint infection, x-ray did show calcium deposits, possible pseudogout and patient is treated and discharged to follow-up with primary doctor Discharge Plan Discharge Clinical Impression: Pseudogout of hand Patient Disposition: Home, Self-Care Additional Instructions: x-ray showed some calcium deposits which might be a condition pseudogout We are treating with prednisone anti-inflammatory You can use Tylenol in addition at home Follow with hand doctor for further evaluation Return any time any worse condition or any concerns Prescriptions: New prednisone 20 mg tablet 60 mg PO DAILY 3 Days Qty: 9 RF: 0 No Action (DME) orthopaedic shoe lift, left 1/2 inch See Rx Instructions .Route .MEDSUPPLY Qty: 1 RF: 0 ezetimibe 10 mg tablet 10 mg PO DAILY Qty: 90 RF: 1 cholecalciferol (vitamin D3) 125 mcg (5,000 unit) capsule 125 mcg PO DAILY Qty: 90 RF: 2 oxycodone 10 mg tablet 10 mg PO BID PRN (Reason: pain) Qty: 60 RF: 0 prednisone 10 mg tablets,dose pack See Taper mg PO PER PKG DIR Qty: 21 RF: 0 naproxen 500 mg tablet,delayed release (DR/EC) 500 mg PO Q12H PRN (Reason: pain) Qty: 14 RF: 0 cephalexin 500 mg capsule 500 mg PO Q8H 7 Days Qty: 21 RF: 0 doxycycline hyclate 100 mg capsule 100 mg PO BID 7 Days Qty: 14 RF: 0 hydrochlorothiazide 50 mg Tablet 50 mg PO DAILY RF: 0 ascorbic acid (vitamin C) [Vitamin C] 500 mg Tablet Extended Release 500 mg PO DAILY RF: 0 pantoprazole 40 mg tablet,delayed release (DR/EC) 40 mg PO DAILY RF: 0 (DME) blood-glucose meter [FreeStyle Lite Meter] Kit See Rx Instructions .ROUTE .MEDSUPPLY Qty: 1 RF: 0 (DME) FreeStyle Lite Strips Strip See Rx Instructions .ROUTE .MEDSUPPLY Qty: 100 RF: 11 (DME) lancets [FreeStyle Lancets] 28 gauge misc See Rx Instructions .ROUTE .MEDSUPPLY Qty: 100 RF: 11 atorvastatin [Lipitor] 80 mg tablet 80 mg PO DAILY Qty: 30 RF: 5 albuterol sulfate [ProAir HFA] 90 mcg/actuation HFA aerosol inhaler 2 puff inhalation Q6H PRNRF: 0 budesonide-formoterol [Symbicort] 160-4.5 mcg/actuation HFA aerosol inhaler 2 puff inhalation BID RF: 0 Referrals: Veena Yusuf MD [Physician] - 2 days ( bilateral hand and wrist arthralgia, possible pseudogout) Interventions: ED Discharge Assessment Last Done: 01/05/21 17:36 Discharge Date/Time: 01/05/21 17:42
[2021-01-05] MEDS: predniSONE 20 MG TABLET 60 MG PO (17:16)
== END 2021-01-05 17:42 | disposition home or self-care (01) ==
PROVIDERS: Emergency Provider Internal Medicine
DX: M11.249 Other chondrocalcinosis, unspecified hand (principal)
CPT/HCPCS: 73110; 73130; 99283

== ENCOUNTER 2021-01-07 15:51 | Emergency (ER) | payer MEDICAID, SELFPAY ==
[2021-01-07 17:41] VITALS: BP 132/70; PULSE 82; RESP 18; TEMP 36.3; O2SAT 98; BMI 29.9
--- NOTE | 2021-01-07 19:11 | ED_ITS ---
HPI - Wound/Laceration General Chief Complaint: Wound/Laceration Stated Complaint: hand lac Time Seen by Provider: 01/07/21 18:25 Source: patient Mode of arrival: ambulatory Limitations: no limitations History of Present Illness HPI narrative: 60 y/o male presenting with 2 small superficial lacerations to the dorsal side proximal aspect of the 3rd and 4th digits on his right hand that he sustained when he was cleaning. He states he cut his hand on metal. He reports significantly bleeding and some pain at his knuckles at the time of the injury. Pain improved and bleeding controlled with a dressing applied in triage. He had full ROM of all digits without numbness, tingling or weakness. He does not know when his last tetanus shot was. Onset (ago): hour(s) Extremity Location: right: hand Body four view annotation: 1. superficial lac 2. superficial lac Place: home Patient tetanus UTD: No Context: accidental Associated symptoms: pain Treatments prior to arrival: bandage Related Data Home Medications Medication Instructions Recorded Confirmed pantoprazole 40 mg tablet,delayed 40 mg PO DAILY 05/22/20 10/02/20 release ascorbic acid (vitamin C) [Vitamin 500 mg PO DAILY 09/06/20 10/02/20 C] hydrochlorothiazide 50 mg PO DAILY 09/06/20 10/02/20 albuterol sulfate 90 mcg/actuation 2 puff INHALATION Q6H PRN 10/02/20 10/02/20 aerosol inhaler budesonide-formoterol HFA 160 2 puff INHALATION BID 10/02/20 10/02/20 mcg-4.5 mcg/actuation aerosol inhaler Previous Rx's Medication Instructions Recorded blood sugar diagnostic #100 ea 05/22/20 blood-glucose meter #1 ea 05/22/20 lancets 28 gauge #100 ea 05/22/20 orthopaedic shoe lift, left #1 ea 08/16/20 atorvastatin 80 mg tablet 80 mg PO DAILY #30 tab 08/20/20 naproxen 500 mg PO Q12H PRN #14 tab 10/14/20 prednisone See Taper PO PER PKG DIR #21 ea 10/14/20 ezetimibe 10 mg tablet 10 mg PO DAILY #90 tab 11/18/20 cephalexin 500 mg PO Q8H 7 Days #21 cap 11/24/20 doxycycline hyclate 100 mg PO BID 7 Days #14 cap 11/28/20 cholecalciferol (vitamin D3) 125 125 mcg PO DAILY #90 cap 12/10/20 mcg (5,000 unit) capsule oxycodone 10 mg tablet 10 mg PO BID PRN #60 tab 12/26/20 prednisone 60 mg PO DAILY 3 Days #9 tab 01/05/21 Allergies Allergy/AdvReac Type Severity Reaction Status Date / Time COLIN Inhibitors Allergy Severe Angioedema Verified 01/07/21 17:41 ibuprofen [From MOTRIN] Allergy Unknown Unknown Verified 01/07/21 17:41 Review of Systems Review of Systems: Constitutional: No Fever, No Chills Gastrointestinal: No Nausea, No Vomiting Musculoskeletal: + joint pain, No Myalgias Skin: +Skin Lesions, No rash Neuro: No Weakness, No Numbness Heme/Lymph: No Bruising PMFSH Past Medical History Attestation statement: The following information was validated with the patient. Medical History Aortic stenosis Asthma-COPD overlap syndrome Diabetes Diabetes type 2, controlled Diabetic nephropathy associated with type 2 diabetes mellitus Dyslipidemia Obesity (BMI 30-39.9) JESSICA on CPAP Vitamin D deficiency Surgical History History of back surgery History of left hip replacement History of total right knee replacement (TKR) Hx of carpal tunnel syndrome Hx of cholecystectomy Hx of colonoscopy Hx of hernia repair No pertinent past surgical history Family History Family History Father Hypertension Diabetes mellitus Mother Hypertension Social History Social History Alcohol intake: current Cigarettes Per Day: 10 Advance Directives: No Advance Directives Information Provided: Yes service: No Current occupational status: unemployed Current occupation: right handed Physical Exam 2 Vital Signs: Vital Signs: Last Vital Signs Temp 97.3 F 01/07/21 17:41 Pulse 82 01/07/21 17:41 Resp 18 01/07/21 17:41 BP 132/70 01/07/21 17:41 Pulse Ox 98 01/07/21 17:41 Body Mass Index 29.9 Appearance: Alert. Oriented X3. No acute distress. HEENT: normal inspection CVS: Normal heart rate and rhythm. Pulses normal. Respiratory: No respiratory distress. Skin: Skin warm and dry. Normal skin color. Normal skin turgor. No rashes. Extremities: dorsal right hand with two small superficial lacerations to 3rd and 4th digits on proximal aspect, linear, clean, deep structures intake. normal hand grasp and ROM of all digits. no active bleeding. NV intact distally Neuro: Oriented X 3. No motor deficit. No sensory deficit. Course Course Course Narrative: 60 y/o male presenting with superficial lacerations to dorsal right hand. No need for suture closure at this time. 2 steri strips were placed for wound margin approximateion with good effect. Bacitracin applied and wound care discussed as well as signs/symptoms of infection. Tdap given. Patient stable for d/c. Procedures Laceration Laceration 1: Side (If applicable): right Size (cm): 2 Description: linear Depth: simple, single layer Pre-repair: irrigated extensively and deep structures intact Skin layer closed with: other (steri-strips ) Critical Care Time Critical Care Time Critical Care Time: No Discharge Plan Discharge Clinical Impression: Laceration Patient Disposition: Home, Self-Care Instructions: Finger Laceration (ED), Laceration Without Closure (ED) Additional Instructions: Keep wounds clean and covered. Steri-strips were placed to close the wound - do not peel these, they will fall off on their own within 1 week. Do not get wet for 24 hours, after that you can briefly wash with soap and water then pat dry. Use bacitracin ointment 2x per day. If you develop signs of infection including increased pain, redness, swelling, warmth, or any other concerning symptoms come back to the ER for further evaluation. Prescriptions: No Action (DME) orthopaedic shoe lift, left 1/2 inch See Rx Instructions .Route .MEDSUPPLY Qty: 1 RF: 0 ezetimibe 10 mg tablet 10 mg PO DAILY Qty: 90 RF: 1 cholecalciferol (vitamin D3) 125 mcg (5,000 unit) capsule 125 mcg PO DAILY Qty: 90 RF: 2 oxycodone 10 mg tablet 10 mg PO BID PRN (Reason: pain) Qty: 60 RF: 0 prednisone 10 mg tablets,dose pack See Taper mg PO PER PKG DIR Qty: 21 RF: 0 naproxen 500 mg tablet,delayed release (DR/EC) 500 mg PO Q12H PRN (Reason: pain) Qty: 14 RF: 0 cephalexin 500 mg capsule 500 mg PO Q8H 7 Days Qty: 21 RF: 0 doxycycline hyclate 100 mg capsule 100 mg PO BID 7 Days Qty: 14 RF: 0 prednisone 20 mg tablet 60 mg PO DAILY 3 Days Qty: 9 RF: 0 hydrochlorothiazide 50 mg Tablet 50 mg PO DAILY RF: 0 ascorbic acid (vitamin C) [Vitamin C] 500 mg Tablet Extended Release 500 mg PO DAILY RF: 0 pantoprazole 40 mg tablet,delayed release (DR/EC) 40 mg PO DAILY RF: 0 (DME) blood-glucose meter [FreeStyle Lite Meter] Kit See Rx Instructions .ROUTE .MEDSUPPLY Qty: 1 RF: 0 (DME) FreeStyle Lite Strips Strip See Rx Instructions .ROUTE .MEDSUPPLY Qty: 100 RF: 11 (DME) lancets [FreeStyle Lancets] 28 gauge misc See Rx Instructions .ROUTE .MEDSUPPLY Qty: 100 RF: 11 atorvastatin [Lipitor] 80 mg tablet 80 mg PO DAILY Qty: 30 RF: 5 albuterol sulfate [ProAir HFA] 90 mcg/actuation HFA aerosol inhaler 2 puff inhalation Q6H PRNRF: 0 budesonide-formoterol [Symbicort] 160-4.5 mcg/actuation HFA aerosol inhaler 2 puff inhalation BID RF: 0 Discharge Date/Time: 01/07/21 19:19
[2021-01-07] MEDS: Diphth,Pertus(ACell),Tet Adult 0.5 ML SYRINGE IM (19:18)
== END 2021-01-07 19:19 | disposition home or self-care (01) ==
PROVIDERS: Emergency Provider Emergency Medicine Emergency Medical Services
DX: S61.212A Laceration without foreign body of right middle finger without damage to nail, initial encounter (principal); S61.214A Laceration without foreign body of right ring finger without damage to nail, initial encounter; W26.8XXA Contact with other sharp object(s), not elsewhere classified, initial encounter; Y93.E9 Activity, other interior property and clothing maintenance; Y92.039 Unspecified place in apartment as the place of occurrence of the external cause; Y99.9 Unspecified external cause status
CPT/HCPCS: 90471; 90715; 99282; 99284

== ENCOUNTER 2021-02-12 19:13 | Emergency (ER) | payer MEDICAID, SELFPAY ==
[2021-02-12 19:17] VITALS: BP 143/87; PULSE 90; RESP 18; TEMP 36.8; O2SAT 96; BMI 29.0
--- NOTE | 2021-02-12 19:24 | ED_ITS ---
HPI - Overdose General Chief Complaint: Overdose Stated Complaint: overdose Time Seen by Provider: 02/12/21 19:22 Source: patient and EMS Mode of arrival: EMS History of Present Illness HPI Narrative: 60-year-old male with a past medical history of asthma/COPD overlap syndrome, diabetes, diabetic neuropathy, hyperlipidemia, obesity, JESSICA on CPAP, vitamin-D deficiency, presenting to the ED via EMS after being found unresponsive in car with pinpoint pupils, received 8 mg of intranasal Narcan with positive effect and some rescue breathing. Patient reports his sugar dropped and that is why he is in the ED. Does report taking 10mg of Oxycodone this morning and drinking 1 beer. Denies other illicit drugs. Denies SI/HI. Denies CP/SOB, abdominal pain, nausea/vomiting Related Data Home Medications Medication Instructions Recorded Confirmed pantoprazole 40 mg tablet,delayed 40 mg PO DAILY 05/22/20 10/02/20 release ascorbic acid (vitamin C) 500 mg 500 mg PO DAILY 09/06/20 10/02/20 tablet,extended release (Vitamin C ER) hydrochlorothiazide 50 mg tablet 50 mg PO DAILY 09/06/20 10/02/20 albuterol sulfate 90 mcg/actuation 2 puff INHALATION Q6H PRN 10/02/20 10/02/20 aerosol inhaler (ProAir HFA) budesonide-formoterol HFA 160 2 puff INHALATION BID 10/02/20 10/02/20 mcg-4.5 mcg/actuation aerosol inhaler (Symbicort) Previous Rx's Medication Instructions Recorded blood sugar diagnostic (FreeStyle #100 ea 05/22/20 Lite Strips) blood-glucose meter (FreeStyle #1 ea 05/22/20 Lite Meter) lancets 28 gauge (FreeStyle #100 ea 05/22/20 Lancets) orthopaedic shoe lift, left #1 ea 08/16/20 atorvastatin 80 mg tablet (Lipitor) 80 mg PO DAILY #30 tab 08/20/20 naproxen 500 mg tablet,delayed 500 mg PO Q12H PRN #14 tab 10/14/20 release prednisone 10 mg tablets in a dose See Taper PO PER PKG DIR #21 ea 10/14/20 pack ezetimibe 10 mg tablet 10 mg PO DAILY #90 tab 11/18/20 cephalexin 500 mg capsule 500 mg PO Q8H 7 Days #21 cap 11/24/20 doxycycline hyclate 100 mg capsule 100 mg PO BID 7 Days #14 cap 11/28/20 cholecalciferol (vitamin D3) 125 125 mcg PO DAILY #90 cap 12/10/20 mcg (5,000 unit) capsule prednisone 20 mg tablet 60 mg PO DAILY 3 Days #9 tab 01/05/21 oxycodone 10 mg tablet 10 mg PO BID PRN #60 tab 01/28/21 Allergies Allergy/AdvReac Type Severity Reaction Status Date / Time COLIN Inhibitors Allergy Severe Angioedema Verified 01/07/21 17:41 ibuprofen [From MOTRIN] Allergy Unknown Unknown Verified 01/07/21 17:41 Review of Systems Review of Systems: Constitutional: No Chills, No Fatigue, No Malaise Cardiovascular: No Chest Pain, No SOB Respiratory: No Cough, No Dyspnea Gastrointestinal: No Nausea, No Vomiting, No Abdominal pain Musculoskeletal: No joint pain, No Myalgias, No Joint Swelling Skin: No Skin Lesions, No rash Neuro: No Weakness, No Headache Psych: No Depression, No SI/HI Yes all other systems are reviewed and are negative PMFSH Past Medical History Attestation statement: The following information was validated with the patient. Medical History Aortic stenosis Asthma-COPD overlap syndrome Diabetes Diabetes type 2, controlled Diabetic nephropathy associated with type 2 diabetes mellitus Dyslipidemia Obesity (BMI 30-39.9) JESSICA on CPAP Vitamin D deficiency Surgical History History of back surgery History of left hip replacement History of total right knee replacement (TKR) Hx of carpal tunnel syndrome Hx of cholecystectomy Hx of colonoscopy Hx of hernia repair No pertinent past surgical history Family History Family History Father Hypertension Diabetes mellitus Mother Hypertension Social History Social History Alcohol intake: current Cigarettes Per Day: 10 Advance Directives: No Advance Directives Information Provided: No service: No Current occupational status: unemployed Current occupation: right handed Physical Exam Vital Signs: Vital Signs: Last Vital Signs Temp 98.4 F 02/12/21 21:05 Pulse 83 02/12/21 21:05 Resp 18 02/12/21 21:05 BP 131/77 02/12/21 21:05 Pulse Ox 94 02/12/21 21:05 Body Mass Index 29.0 Const: Other: Diaphoretic General: cooperative, alert and awake Limitations: no limitations HENMT: Head: Yes normal to inspection and Yes atraumatic Ears: hearing grossly normal bilaterally General nose exam: Normal external nose present Face and sinus: Yes normal facial exam Eyes: General: appearance normal, both eyes and all related structures Pupils: Equal, round and reactive pupils present EOM: EOMs intact bilaterally Neck: Neck: Yes normal visual inspection Resp: Effort & Inspection: normal respiratory effort Auscultation: clear to auscultation bilaterally, no rales and no wheezes Cardio: Rate: regular rate Heart sounds: S1 normal heart sound present and S2 normal heart sound present GI: Inspection: Yes normal to inspection Palpation (GI): Soft to palpation, nontender, no guarding and not rigid Skin: Rashes: no rashes Wounds: no wounds Neuro: General: tone normal and moves all extremities Cranial nerves: Yes Equal, round and reactive pupils present Extrem: General: Yes normal to inspection Psych: Thought content: suicidality and no homicidality Course Course Course Narrative: -2119--patient's tox screen positive for fentanyl and cocaine. POC 99. Patient has been observed in the ED for 2 hours, is awake and alert, ambulating with steady gait. Discussed results with him, offered detox which patient refused/still persistent he does not take drugs, discussed worrisome signs and symptoms. Patient will call for sober ride home >> patient has applied with Narcan to go MDM - Overdose MDM Narrative Medical decision making narrative: 60-year-old male with a past medical history of asthma/COPD overlap syndrome, diabetes, diabetic neuropathy, hyperlipidemia, obesity, JESSICA on CPAP, vitamin-D deficiency, presenting to the ED via EMS after being found unresponsive in car with pinpoint pupils, received 8 mg of intranasal Narcan with positive effect and some rescue breathing. On exam VSS, NAD, diaphoretic, atraumatic. Likely accidental overdoses. Concern for polysubstance abuse. Rule out hypoglycemia Plan: POC glucose, MARSH, observed/reassess, learning coach will speak to patient Medical Records Attestation: I reviewed the patient's medical records. Lab Data Attestation: I reviewed the patient's lab results. Labs: Lab Results 02/12/21 02/12/21 Range/Units 19:57 20:43 POC Glucose 99 (60-115) mg/dL Urine Opiates Screen Not Detected (Not Detect) Urine Fentanyl Screen POSITIVE H (Not Detect) Ur Barbiturates Screen Not Detected (Not Detect) Ur Phencyclidine Scrn Not Detected (Not Detect) Ur Amphetamines Screen Not Detected (Not Detect) U Benzodiazepines Scrn Not Detected (Not Detect) Urine Cocaine Screen POSITIVE H (Not Detect) U Marijuana (THC) Screen Not Detected (Not Detect) Discharge Plan Discharge Clinical Impression: Drug overdose Qualifiers: Encounter type: initial encounter Injury intent: accidental or unintentional Qualified Code(s): T50.901A - Poisoning by unspecified drugs, medicaments and biological substances, accidental (unintentional), initial encounter Patient Disposition: Home, Self-Care Instructions: Adult Overdose (ED) Additional Instructions: do not do drug or drink alcohol it can kill you. you could have today. Please follow-up with your primary care doctor. If you are interested in detox please return to the ED for resources no consuma drogas ni lam alcohol, puede matarlo. podr?as libby muerto hoy. Gabi un seguimiento con auguste m?dico de atenci?n primaria. Si est? interesado en la desintoxicaci?n, regrese al servicio de urgencias para obtener recursos. Prescriptions: No Action (DME) orthopaedic shoe lift, left 1/2 inch See Rx Instructions .Route .MEDSUPPLY Qty: 1 RF: 0 ezetimibe 10 mg tablet 10 mg PO DAILY Qty: 90 RF: 1 cholecalciferol (vitamin D3) 125 mcg (5,000 unit) capsule 125 mcg PO DAILY Qty: 90 RF: 2 oxycodone 10 mg tablet 10 mg PO BID PRN (Reason: pain) Qty: 60 RF: 0 prednisone 10 mg tablets,dose pack See Taper mg PO PER PKG DIR Qty: 21 RF: 0 naproxen 500 mg tablet,delayed release (DR/EC) 500 mg PO Q12H PRN (Reason: pain) Qty: 14 RF: 0 cephalexin 500 mg capsule 500 mg PO Q8H 7 Days Qty: 21 RF: 0 doxycycline hyclate 100 mg capsule 100 mg PO BID 7 Days Qty: 14 RF: 0 prednisone 20 mg tablet 60 mg PO DAILY 3 Days Qty: 9 RF: 0 hydrochlorothiazide 50 mg Tablet 50 mg PO DAILY RF: 0 ascorbic acid (vitamin C) [Vitamin C] 500 mg Tablet Extended Release 500 mg PO DAILY RF: 0 pantoprazole 40 mg tablet,delayed release (DR/EC) 40 mg PO DAILY RF: 0 (DME) blood-glucose meter [FreeStyle Lite Meter] Kit See Rx Instructions .ROUTE .MEDSUPPLY Qty: 1 RF: 0 (DME) FreeStyle Lite Strips Strip See Rx Instructions .ROUTE .MEDSUPPLY Qty: 100 RF: 11 (DME) lancets [FreeStyle Lancets] 28 gauge misc See Rx Instructions .ROUTE .MEDSUPPLY Qty: 100 RF: 11 atorvastatin [Lipitor] 80 mg tablet 80 mg PO DAILY Qty: 30 RF: 5 albuterol sulfate [ProAir HFA] 90 mcg/actuation HFA aerosol inhaler 2 puff inhalation Q6H PRNRF: 0 budesonide-formoterol [Symbicort] 160-4.5 mcg/actuation HFA aerosol inhaler 2 puff inhalation BID RF: 0 Referrals: Physician,Unknown [Primary Care Provider] - 2 days Print Language: B[place]
--- NOTE | 2021-02-12 19:44 | MHC.RECOVSUP ---
? Reason for consult Recovery support ) o Current location: ED17 o Identified substance use concern: Opiate (Pills) - Overdose ? Intervention: <del>o</del> <del>ATS</del> <del>bed</del> <del>search</del> <del>started/completed/in</del> <del>process</del> <del>o</del> <del>MAT</del> <del>started</del> <del>or</del> <del>to</del> <del>be</del> <del>started</del> <del>o</del> <del>Community</del> <del>resources</del> <del>provided</del> <del>o</del> <del>Harm</del> <del>reduction</del> <del>discussion</del> <del>?</del> <del>Plan:</del> <del>o</del> <del>Referral</del> <del>to</del> <del>[facility]</del> <del>o</del> <del>Bed</del> <del>search</del> <del>in</del> <del>progress</del> <del>to</del> <del>o</del> <del>Follow</del> <del>up</del> <del>tomorrow</del> <del>o</del> <del>Patient</del> <del>awaiting</del> <del>crisis</del> <del>evaluation</del> <del>o</del> <del>Patient</del> <del>to</del> <del>follow</del> <del>up</del> <del>with</del> <del>[facility]</del> <del>after</del> <del>discha</del>rge ? Additional information: Patient refused Services Stating He don't have a drug problem that what happen to me was my sugar was low.
[2021-02-12 20:26] LABS: Amphetamine Screen Urine Not Detected (Not Detect); Barbiturates, Urine Not Detected (Not Detect); Benzodiazepines Screen Urine Not Detected (Not Detect); Cannabinoid Screen Urine Not Detected (Not Detect); Cocaine Screen Urine POSITIVE (Not Detect); Fentanyl, urine POSITIVE (Not Detect); Opiate Screen Urine Not Detected (Not Detect); Phencyclidine Screen Urine Not Detected (Not Detect)
[2021-02-12 20:48] LABS: Glucose, Whole Blood 99 mg/dL (60-115)
[2021-02-12 21:05] VITALS: BP 131/77; PULSE 83; RESP 18; TEMP 36.9; O2SAT 94
== END 2021-02-12 21:42 | disposition home or self-care (01) ==
PROVIDERS: Physician Assistant; Emergency Provider Emergency Medicine
DX: T50.901A Poisoning by unspecified drugs, medicaments and biological substances, accidental (unintentional), initial encounter (principal); Y92.810 Car as the place of occurrence of the external cause; J44.9 Chronic obstructive pulmonary disease, unspecified; E11.40 Type 2 diabetes mellitus with diabetic neuropathy, unspecified; Z79.899 Other long term (current) drug therapy
CPT/HCPCS: 80307; 82947; 99283; 99284

== ENCOUNTER 2021-03-18 06:57 | Outpatient (REF) | payer MEDICAID, SELFPAY ==
[2021-03-18 08:00] LABS: Estimated Average Glucose 108 mg/dL; Hemoglobin A1c % 5.4 %
[2021-03-18 08:19] LABS: Alanine Aminotransferase 19 U/L (0-40); Albumin Level 4.2 g/dL (3.5-5.0); Alkaline Phosphatase 104 U/L (39-117); Anion Gap 13 (12-20); Aspartate Amino Transferase 28 U/L (5-37); Bilirubin Direct 0.2 mg/dL (0.0-0.5); Bilirubin Total 0.7 mg/dL (0.0-1.0); Blood Urea Nitrogen 26 mg/dL (9-16); Calcium 10.2 mg/dL (8.4-10.2); Carbon Dioxide 31 mmol/L (22-29); Chloride 100 mmol/L (96-108); Estimated Glomerular Filt Rate > 60; Glucose Fasting 101 mg/dL (60-99); Potassium 3.2 mmol/L (3.3-5.1); Sodium 141 mmol/L (135-145); Total Protein 7.1 g/dL (6.5-8.0)
[2021-03-18 08:39] LABS: Vitamin D 25-OH Total 56.7 ng/mL (>30)
== END 2021-03-18 06:58 | disposition home or self-care (01) ==
LOC: HO.LAB 06:57
PROVIDERS: PCP Internal Medicine; Visit Provider Internal Medicine
DX: E11.22 Type 2 diabetes mellitus with diabetic chronic kidney disease (principal); N18.9 Chronic kidney disease, unspecified; E66.9 Obesity, unspecified
CPT/HCPCS: 36415; 80048; 80076; 82306; 83036

== ENCOUNTER → 2021-03-28 08:46 | Outpatient (BNVA) | payer MEDICAID, SELFPAY | PROVIDERS: PCP Internal Medicine; Visit Provider Orthopaedic Surgery | DX: Z47.1 Aftercare following joint replacement surgery (principal); Z96.642 Presence of left artificial hip joint | CPT/HCPCS: 99212 ==

== ENCOUNTER 2021-06-02 11:20 | Emergency (ER) | payer MEDICAID, SELFPAY ==
[2021-06-02 12:26] VITALS: BP 189/67; PULSE 90; RESP 18; TEMP 36.7; O2SAT 99; BMI 26.1
[2021-06-02 13:08] LABS: Appearance Urine HAZY; Color Urine DK YELLOW; Glucose Urine UA NEG (NEG); Leukocyte Esterase Urine NEG (NEG); Nitrite Urine NEG (NEG); Specific Gravity - Urine >= 1.030 (1.005-1.025); UACC Culture Trigger NO; Urine Blood TRACE (NEG); Urine Ketones NEG (NEG); Urine Protein 2+ MG/DL (NEG-TRACE)
[2021-06-02 13:21] LABS: Bacteria Urine 1+ /LPF; Squamous Epithelial Cell Urine 1+ /LPF; UACC CULT YES
[2021-06-02 13:22] LABS: Mucus Urine 1+ /LPF
--- NOTE | 2021-06-02 13:29 | ED_ITS ---
HPI - Back Pain/Injury General Chief Complaint: Back Pain/Injury Stated Complaint: Back Pain Time Seen by Provider: 06/02/21 12:34 Source: patient Mode of arrival: ambulatory Limitations: language barrier History of Present Illness HPI Narrative: 61 y/o male presents to the ER with left sided LBP That started 4 days ago. He states he woke up with soreness in his left lower back. Worse with movement and better when lying flat. He has never had pain like this before. Denies any heavy lifting or injury. He denies any urinary symptoms including frequency, urgency, dysuria, blood in the urine or foul-smelling urine. He has had no fever or chills. He has not taken any medication for the pain. History was obtained using senior center director video services, senior center director [id number] elicited complaint: back pain Onset (ago): day(s) (4) Timing: intermittent Severity: moderate Similar Symptoms Previously: No Quality: aching and spasming Location: left lower back Radiation: none Exacerbating factors: movement Relieving factors: immobilization and supine Context: unknown Associated symptoms: denies other symptoms Work related injury: No Related Data Home Medications Medication Instructions Recorded Confirmed pantoprazole 40 mg tablet,delayed 40 mg PO DAILY 05/22/20 10/02/20 release ascorbic acid (vitamin C) 500 mg 500 mg PO DAILY 09/06/20 10/02/20 tablet,extended release (Vitamin C ER) hydrochlorothiazide 50 mg tablet 50 mg PO DAILY 09/06/20 10/02/20 albuterol sulfate 90 mcg/actuation 2 puff INHALATION Q6H PRN 10/02/20 10/02/20 aerosol inhaler (ProAir HFA) budesonide-formoterol HFA 160 2 puff INHALATION BID 10/02/20 10/02/20 mcg-4.5 mcg/actuation aerosol inhaler (Symbicort) Previous Rx's Medication Instructions Recorded blood sugar diagnostic (FreeStyle #100 ea 05/22/20 Lite Strips) blood-glucose meter (FreeStyle #1 ea 05/22/20 Lite Meter) lancets 28 gauge (FreeStyle #100 ea 05/22/20 Lancets) orthopaedic shoe lift, left #1 ea 08/16/20 naproxen 500 mg tablet,delayed 500 mg PO Q12H PRN #14 tab 10/14/20 release prednisone 10 mg tablets in a dose See Taper PO PER PKG DIR #21 ea 10/14/20 pack cephalexin 500 mg capsule 500 mg PO Q8H 7 Days #21 cap 11/24/20 doxycycline hyclate 100 mg capsule 100 mg PO BID 7 Days #14 cap 11/28/20 cholecalciferol (vitamin D3) 125 125 mcg PO DAILY #90 cap 12/10/20 mcg (5,000 unit) capsule prednisone 20 mg tablet 60 mg PO DAILY 3 Days #9 tab 01/05/21 atorvastatin 80 mg tablet 80 mg PO DAILY 90 Days #90 tab 02/20/21 oxycodone 10 mg tablet 10 mg PO BID PRN #60 tab 02/24/21 oxycodone 5 mg capsule 10 mg PO BID PRN 30 Days #60 cap 03/26/21 ezetimibe 10 mg tablet 10 mg PO DAILY #90 tab 05/21/21 cefuroxime axetil 250 mg tablet 250 mg PO BID 7 Days #14 tab 06/02/21 cyclobenzaprine 10 mg tablet 10 mg PO TID PRN #10 tab 06/02/21 lidocaine 5 % topical patch 1 patch TOPICAL DAILY #15 ea 06/02/21 Allergies Allergy/AdvReac Type Severity Reaction Status Date / Time COLIN Inhibitors Allergy Severe Angioedema Verified 06/02/21 12:26 ibuprofen [From MOTRIN] Allergy Unknown Unknown Verified 06/02/21 12:26 Review of Systems Review of Systems: Constitutional: No Fever, No Chills ENT/Mouth: No sore throat, No Rhinorrhea Cardiovascular: No Chest Pain, No SOB Gastrointestinal: No Nausea, No Vomiting, No abdominal Pain Genitourinary: No Dysuria, No Urinary Frequency, No Hematuria Musculoskeletal: No joint pain, + Myalgias Skin: No Skin Lesions, No rash Neuro: No Weakness, No Numbness, No Dizziness, No Headache Heme/Lymph: No Bruising, No Lymphadenopathy Endocrine: No Polyuria, No Polydipsia PMFSH Past Medical History Medical History Aortic stenosis Asthma-COPD overlap syndrome Diabetes Diabetes type 2, controlled Diabetic nephropathy associated with type 2 diabetes mellitus Dyslipidemia Obesity (BMI 30-39.9) JESSICA on CPAP Vitamin D deficiency Surgical History History of back surgery History of left hip replacement History of total right knee replacement (TKR) Hx of carpal tunnel syndrome Hx of cholecystectomy Hx of colonoscopy Hx of hernia repair No pertinent past surgical history Family History Family History Father Hypertension Diabetes mellitus Mother Hypertension Social History Social History Alcohol intake: current Cigarettes Per Day: 10 Advance Directives: No Advance Directives Information Provided: Yes service: No Current occupational status: unemployed Current occupation: right handed Physical Exam Vital Signs: Vital Signs: Last Vital Signs Temp 98.0 F 06/02/21 12:26 Pulse 90 06/02/21 12:26 Resp 18 06/02/21 12:26 BP 189/67 H 06/02/21 12:26 Pulse Ox 99 06/02/21 12:26 Body Mass Index 26.1 Appearance: Alert. Oriented X3. No acute distress. HEENT: normal inspection CVS: Normal heart rate and rhythm. Pulses normal. Respiratory: No respiratory distress. Skin: Skin warm and dry. Normal skin color. Normal skin turgor. No rashes. Back: Normal inspection, discomfort with spinal flexion. Tenderness of the low lumbar and middle lumbar soft tissues. No CVA tenderness. No spinal tenderness. Extremities: Atraumatic, normal inspection, normal range of motion Neuro: Oriented X 3. No motor deficit. No sensory deficit. antalgic gait Course Course Course Narrative: 7-year-old male presenting to the ER with left-sided low back pain that started about 4 days ago. He denies any injury or trauma. He has some soft tissue tenderness on examination. No CVA tenderness and no urinary symptoms. However his urine test does show possible infection with white blood cells, this could be contaminated as is there are squamous cells also present. His exam is most consistent with musculoskeletal back pain so w ill treat with Flexeril and Lidoderm. All the await urine culture will empirically treat urinalysis as infection with p.o. Ceftin. He has an appointment with his primary care office later today. Stable for discharge home with outpatient follow-up. MDM - Back Pain/Injury Lab Data Labs: Lab Results 06/02/21 Range/Units 12:45 Urine Color DK YELLOW Urine Appearance HAZY Urine pH 6.0 (5.0-8.0) Ur Specific [place] >= 1.030 H (1.005-1.025) Urine Protein 2+ H (NEG-TRACE) MG/DL Urine Glucose (UA) NEG (NEG) MG/DL Urine Ketones NEG (NEG) MG/DL Urine Blood TRACE (NEG) Urine Nitrite NEG (NEG) Ur Leukocyte Esterase NEG (NEG) Urine RBC 5-9 H (0) /HPF Urine WBC 15-29 H (0-4) /HPF Ur Squamous Epith Cells 1+ /LPF Urine Bacteria 1+ /LPF Urine Mucus 1+ /LPF Discharge Plan Discharge Clinical Impression: Low back pain Qualifiers: Chronicity: acute Back pain laterality: left Sciatica presence: without sciatica Qualified Code(s): M54.50 - Low back pain, unspecified Patient Disposition: Home, Self-Care Instructions: Urinary Tract Infection in Men (ED), Low Back Strain (ED), Lower Back Exercises (ED) Additional Instructions: Your urine test showed a possible infection, take the prescribed antibiotics as directed while we await the urine culture. Your back pain is most likely muscular. No bending, lifting or twisting. Use ice several times per day for 20 minutes at a time for the next 48 hours and then change to heat. Take medications as prescribed to help with pain and discomfort. Follow up with your Primary Care Doctor this week. If your pain worsens, if you develop new numbness, tingling, weakness, loss of function or incontinence call 911 or come back to the ER right away for evaluation. Auguste an?lisis de orina mostr? suresh posible infecci?n, tome los antibi?ticos recetados seg?n las indicaciones mientras esperamos el cultivo de orina. Lo m?s probable es que auguste dolor de espalda sea muscular. Sin agacharse, levantar ni torcer. Use hielo varias veces al d?a martín 20 minutos a la vez martín las pr?ximas 48 horas y luego cambie a calor. [place] los medicamentos recetados para aliviar el dolor y la incomodidad. Gabi un seguimiento con auguste m?dico de atenci?n primaria esta semana. Si auguste dolor empeora, si presenta entumecimiento, hormigueo, debilidad, p?rdida de funci?n o incontinencia nuevos, llame al 911 o regrese a la devonte de emergencias de inmediato para suresh evaluaci?n. Prescriptions: New cyclobenzaprine 10 mg tablet 10 mg PO TID PRN (Reason: muscle spasm) Qty: 10 RF: 0 lidocaine 5 % adhesive patch,medicated 1 patch topical DAILY Qty: 15 RF: 0 cefuroxime axetil 250 mg tablet 250 mg PO BID 7 Days Qty: 14 RF: 0 No Action (DME) orthopaedic shoe lift, left 1/2 inch See Rx Instructions .Route .MEDSUPPLY Qty: 1 RF: 0 cholecalciferol (vitamin D3) 125 mcg (5,000 unit) capsule 125 mcg PO DAILY Qty: 90 RF: 2 atorvastatin 80 mg tablet 80 mg PO DAILY 90 Days Qty: 90 RF: 3 oxycodone 10 mg tablet 10 mg PO BID PRN (Reason: pain) Qty: 60 RF: 0 oxycodone 5 mg capsule 10 mg PO BID PRN (Reason: pain) 30 Days Qty: 60 RF: 0 ezetimibe 10 mg tablet 10 mg PO DAILY Qty: 90 RF: 0 prednisone 10 mg tablets,dose pack See Taper mg PO PER PKG DIR Qty: 21 RF: 0 naproxen 500 mg tablet,delayed release (DR/EC) 500 mg PO Q12H PRN (Reason: pain) Qty: 14 RF: 0 cephalexin 500 mg capsule 500 mg PO Q8H 7 Days Qty: 21 RF: 0 doxycycline hyclate 100 mg capsule 100 mg PO BID 7 Days Qty: 14 RF: 0 prednisone 20 mg tablet 60 mg PO DAILY 3 Days Qty: 9 RF: 0 hydrochlorothiazide 50 mg Tablet 50 mg PO DAILY RF: 0 ascorbic acid (vitamin C) [Vitamin C] 500 mg Tablet Extended Release 500 mg PO DAILY RF: 0 pantoprazole 40 mg tablet,delayed release (DR/EC) 40 mg PO DAILY RF: 0 (DME) blood-glucose meter [FreeStyle Lite Meter] Kit See Rx Instructions .ROUTE .MEDSUPPLY Qty: 1 RF: 0 (DME) FreeStyle Lite Strips Strip See Rx Instructions .ROUTE .MEDSUPPLY Qty: 100 RF: 11 (DME) lancets [FreeStyle Lancets] 28 gauge misc See Rx Instructions .ROUTE .MEDSUPPLY Qty: 100 RF: 11 albuterol sulfate [ProAir HFA] 90 mcg/actuation HFA aerosol inhaler 2 puff inhalation Q6H PRNRF: 0 budesonide-formoterol [Symbicort] 160-4.5 mcg/actuation HFA aerosol inhaler 2 puff inhalation BID RF: 0 Print Language: [place]
== END 2021-06-02 14:07 | disposition home or self-care (01) ==
PROVIDERS: Physician Assistant; Emergency Provider Emergency Medicine
DX: M54.50 Low back pain, unspecified (principal); F17.210 Nicotine dependence, cigarettes, uncomplicated; Z71.6 Tobacco abuse counseling; Z79.899 Other long term (current) drug therapy
CPT/HCPCS: 81001; 81003; 87086; 99283; 99284

== ENCOUNTER 2021-07-14 21:33 | Emergency (ER) | payer MEDICAID, SELFPAY ==
--- NOTE | ~2021-07-14 | XR_ITS ---
EXAMINATION: XR TOES, LEFT CLINICAL INFORMATION: Wound to the fifth toe COMPARISON: Left foot radiographs 04/15/2020 and 02/28/2018 TECHNIQUE: 3 views of the left toes were obtained. FINDINGS: Again seen are curvilinear linear crescentic calcifications lateral to the head of the fifth metatarsal identical to the 02/28/2018 study, most likely dystrophic calcification. No acute fractures are seen. A small cyst is noted in the head of the fifth metatarsal. No fractures are seen. No radiopaque foreign body detected. XR/XR toe LT min 2V IMPRESSION: No acute finding. No interval change when compared to prior studies.
[2021-07-14 21:47] VITALS: BP 143/77; PULSE 100; RESP 20; TEMP 36.1; O2SAT 98; BMI 27.1
[2021-07-15 00:30] LABS: MANUAL DIFF FLAG NO
[2021-07-15 00:31] LABS: Basophils Absolute Auto 0.1 X10*3/uL (0.0-0.2); Basophils Percent Auto 0.7 % (0-2); Eosinophils Absolute Auto 0.2 X10*3/uL (0.0-0.4); Eosinophils Percent Auto 2.7 % (0-4); Hematocrit 35.6 % (42.0-52.0); Hemoglobin 11.7 g/dl (14.0-18.0); Imm Gran Abs Auto 0.02 X10*3/uL (0.00-0.03); Imm Gran Pct Auto 0.2 % (0.0-0.4); Lymphocytes Absolute Auto 3.1 X10*3/uL (1.2-4.9); Lymphocytes Percent Auto 34.8 % (20-40); Mean Corpuscular HGB Conc 32.9 g/dl (31.0-36.0); Mean Corpuscular Hemoglobin 31.2 pg (27.0-33.0); Mean Corpuscular Volume 94.9 fL (80.0-98.0); Mean Platelet Volume 9.9 fL (9.4-12.4); Monocytes Absolute Auto 0.8 X10*3/uL (0.1-1.2); Monocytes Percent Auto 9.2 % (2-11); Neutrophils Absolute Auto 4.7 x10*3/uL (2.0-8.3); Neutrophils Percent Auto 52.4 % (45-73); Platelet Count 281 X10*3/uL (160-400); Red Blood Count 3.75 X10*6/uL (4.60-5.80); White Blood Count 8.9 X10*3/uL (4.8-10.8)
[2021-07-15 00:50] LABS: Alanine Aminotransferase 29 U/L (0-40); Albumin Level 4.2 g/dL (3.5-5.0); Alkaline Phosphatase 108 U/L (39-117); Anion Gap 14 (12-20); Aspartate Amino Transferase 35 U/L (5-37); Bilirubin Total 0.2 mg/dL (0.0-1.0); Blood Urea Nitrogen 26 mg/dL (9-16); Calcium 9.8 mg/dL (8.4-10.2); Carbon Dioxide 29 mmol/L (22-29); Chloride 101 mmol/L (96-108); Creatinine Clr Calc Pharmacy 58.5; Estimated Glomerular Filt Rate > 60; Glucose Random 114 mg/dL (60-115); Potassium 3.6 mmol/L (3.3-5.1); Sodium 140 mmol/L (135-145); Total Protein 7.5 g/dL (6.5-8.0)
[2021-07-15 00:57] LABS: COVID-19 Test Negative (Negative); IDNOW Serial# 9DD0AD1C
[2021-07-15 02:52] VITALS: BP 147/79; PULSE 88; RESP 16; O2SAT 99
--- NOTE | 2021-07-15 04:36 | PC.NURSE ---
at bedside for primary eval.
--- NOTE | 2021-07-15 04:40 | ED.EXTPRO ---
HPI - Extremity Problem General Chief complaint: Extremity Problem Stated complaint: right hand/ leg pain Time Seen by Provider: 07/15/21 04:19 Source: patient and [employer] mechanical Mode of arrival: ambulatory History of Present Illness HPI Narrative: This is a 61-year-old male who comes in with history of diabetes and reports a wound to the left 5th toe for approximately 3 weeks without associated fever, chills, nausea, vomiting and states that he is unsure how he got the wound and does not recall any recent trauma. Related Data Home Medications Medication Instructions Recorded Confirmed pantoprazole 40 mg tablet,delayed 40 mg PO DAILY 05/22/20 10/02/20 release ascorbic acid (vitamin C) 500 mg 500 mg PO DAILY 09/06/20 10/02/20 tablet,extended release (Vitamin C ER) hydrochlorothiazide 50 mg tablet 50 mg PO DAILY 09/06/20 10/02/20 albuterol sulfate 90 mcg/actuation 2 puff INHALATION Q6H PRN 10/02/20 10/02/20 aerosol inhaler (ProAir HFA) budesonide-formoterol HFA 160 2 puff INHALATION BID 10/02/20 10/02/20 mcg-4.5 mcg/actuation aerosol inhaler (Symbicort) Previous Rx's Medication Instructions Recorded blood sugar diagnostic (FreeStyle #100 ea 05/22/20 Lite Strips) blood-glucose meter (FreeStyle #1 ea 05/22/20 Lite Meter) lancets 28 gauge (FreeStyle #100 ea 05/22/20 Lancets) orthopaedic shoe lift, left #1 ea 08/16/20 naproxen 500 mg tablet,delayed 500 mg PO Q12H PRN #14 tab 10/14/20 release prednisone 10 mg tablets in a dose See Taper PO PER PKG DIR #21 ea 10/14/20 pack cephalexin 500 mg capsule 500 mg PO Q8H 7 Days #21 cap 11/24/20 doxycycline hyclate 100 mg capsule 100 mg PO BID 7 Days #14 cap 11/28/20 cholecalciferol (vitamin D3) 125 125 mcg PO DAILY #90 cap 12/10/20 mcg (5,000 unit) capsule prednisone 20 mg tablet 60 mg PO DAILY 3 Days #9 tab 01/05/21 atorvastatin 80 mg tablet 80 mg PO DAILY 90 Days #90 tab 02/20/21 oxycodone 10 mg tablet 10 mg PO BID PRN #60 tab 02/24/21 oxycodone 5 mg capsule 10 mg PO BID PRN 30 Days #60 cap 03/26/21 ezetimibe 10 mg tablet 10 mg PO DAILY #90 tab 05/21/21 cefuroxime axetil 250 mg tablet 250 mg PO BID 7 Days #14 tab 06/02/21 cyclobenzaprine 10 mg tablet 10 mg PO TID PRN #10 tab 06/02/21 lidocaine 5 % topical patch 1 patch TOPICAL DAILY #15 ea 06/02/21 cephalexin 500 mg capsule 500 mg PO Q12H 5 Days #10 cap 07/15/21 doxycycline hyclate 100 mg capsule 100 mg PO BID 5 Days #10 cap 07/15/21 Allergies Allergy/AdvReac Type Severity Reaction Status Date / Time COLIN Inhibitors Allergy Severe Angioedema Verified 07/14/21 21:54 ibuprofen [From MOTRIN] Allergy Unknown Unknown Verified 07/14/21 21:54 Review of Systems Review of Systems: Pertinent positives and negatives as stated in HPI 10 point review of systems otherwise negative. [facility] Past Medical History Source: nursing notes reviewed Medical History Aortic stenosis Asthma-COPD overlap syndrome Diabetes Diabetes type 2, controlled Diabetic nephropathy associated with type 2 diabetes mellitus Dyslipidemia Obesity (BMI 30-39.9) JESSICA on CPAP Vitamin D deficiency Surgical History History of back surgery History of left hip replacement History of total right knee replacement (TKR) Hx of carpal tunnel syndrome Hx of cholecystectomy Hx of colonoscopy Hx of hernia repair No pertinent past surgical history Family History Family History Father Hypertension Diabetes mellitus Mother Hypertension Social History Social History Alcohol intake: current Cigarettes Per Day: 10 Advance Directives: No Advance Directives Information Provided: Yes service: No Current occupational status: unemployed Current occupation: right handed Physical Exam Vital Signs: Vital Signs: Last Vital Signs Temp 96.9 F 07/14/21 21:47 Pulse 88 07/15/21 02:52 Resp 16 07/15/21 02:52 BP 147/79 H 07/15/21 02:52 Pulse Ox 99 07/15/21 02:52 BMI result Body Mass Index 27.1 VITAL SIGNS: Reviewed. GENERAL: Well developed, well nourished, in no acute distress. HEAD: Normocephalic/atraumatic EYES: PERRLA, EOMI LUNGS: Normal breath sounds. No adventitious sounds or accessory muscle use. SpO2<99> CARDIOVASCULAR: Regular rate and rhythm without noted murmurs, no JVD or lower extremity edema. ABDOMEN: Soft, non-tender, non-distended with bowel sounds. LEFT PINKY TOE: There is a hyperkeratotic area on the ?knuckle? with some surrounding darkening of the scan and mild softness noted NEUROLOGIC: Alert and oriented x 4. Course Course Course Narrative: 61-year-old male with history and clinical presentation most consistent with a ?corn? with some suggestion of surrounding infection but without drainage, warmth and given that patient is diabetic he will receive initial antibiotics here in be discharged with remaining course. He will follow-up with his primary care provider for re-evaluation. MDM - Extremity (Nontraumatic) Lab Data Result diagrams: 07/15/21 00:25 07/15/21 00:25 Labs: Lab Results 07/15/21 07/15/21 07/15/21 Range/Units 00:25 00:25 00:25 WBC 8.9 (4.8-10.8) X10*3/uL RBC 3.75 L (4.60-5.80) X10*6/uL Hgb 11.7 L (14.0-18.0) g/dl Hct 35.6 L (42.0-52.0) % MCV 94.9 (80.0-98.0) fL MCH 31.2 (27.0-33.0) pg MCHC 32.9 (31.0-36.0) g/dl RDW 16.0 (11.0-16.0) % Plt Count 281 (160-400) X10*3/uL MPV 9.9 (9.4-12.4) fL Immature Gran % (Auto) 0.2 (0.0-0.4) % Neut % (Auto) 52.4 (45-73) % Lymph % (Auto) 34.8 (20-40) % Stevens % (Auto) 9.2 (2-11) % Eos % (Auto) 2.7 (0-4) % Baso % (Auto) 0.7 (0-2) % Lymph # (Auto) 3.1 (1.2-4.9) X10*3/uL Stevens # (Auto) 0.8 (0.1-1.2) X10*3/uL Eos # (Auto) 0.2 (0.0-0.4) X10*3/uL Baso # (Auto) 0.1 (0.0-0.2) X10*3/uL Abs Immat Gran (auto) 0.02 (0.00-0.03) X10*3/uL Absolute Neuts (auto) 4.7 (2.0-8.3) x10*3/uL Absolute Nucleated RBC 0.000 (0.0-0.012) X10*3/uL Nucleated RBC % (auto) 0.0 (0.0-0.2) /100WBC Sodium 140 (135-145) mmol/L Potassium 3.6 (3.3-5.1) mmol/L Chloride 101 (96-108) mmol/L Carbon Dioxide 29 (22-29) mmol/L Anion Gap 14 (12-20) BUN 26 H (9-16) mg/dL Creatinine 1.21 (0.5-1.4) mg/dL Estim Creat Clear Calc 58.5 Estimated GFR > 60 Random Glucose 114 (60-115) mg/dL Calcium 9.8 (8.4-10.2) mg/dL Total Bilirubin 0.2 (0.0-1.0) mg/dL AST 35 (5-37) U/L ALT 29 (0-40) U/L Alkaline Phosphatase 108 (39-117) U/L Total Protein 7.5 (6.5-8.0) g/dL Albumin 4.2 (3.5-5.0) g/dL COVID-19 (JC) Negative (Negative) COVID-19 Clin Com See Note Discharge Plan Discharge Clinical Impression: Diabetes, [place] of toe, Wound disruption Patient Disposition: Home, Self-Care Instructions: Diabetes and Your Skin (ED), Chronic Wounds (ED) Additional Instructions: 1. Reanudar todos los medicamentos caseros seg?n lo prescrito. 2. Recomendar Tylenol de venta donell seg?n sea necesario para controlar el dolor. Puede usar medicamentos de venta donell para tratar esto y completar todo el ciclo de antibi?ticos que le cortez recetado. 4. Gabi un seguimiento con auguste proveedor de atenci?n primaria y se le shirley proporcionado suresh remisi?n para fela el centro de atenci?n de heridas para un seguimiento adicional. Regrese a la devonte de emergencias si los s?ntomas empeoran. Prescriptions: New doxycycline hyclate 100 mg capsule 100 mg PO BID 5 Days Qty: 10 RF: 0 cephalexin 500 mg capsule 500 mg PO Q12H 5 Days Qty: 10 RF: 0 No Action (DME) orthopaedic shoe lift, left 1/2 inch See Rx Instructions .Route .MEDSUPPLY Qty: 1 RF: 0 cholecalciferol (vitamin D3) 125 mcg (5,000 unit) capsule 125 mcg PO DAILY Qty: 90 RF: 2 atorvastatin 80 mg tablet 80 mg PO DAILY 90 Days Qty: 90 RF: 3 oxycodone 10 mg tablet 10 mg PO BID PRN (Reason: pain) Qty: 60 RF: 0 oxycodone 5 mg capsule 10 mg PO BID PRN (Reason: pain) 30 Days Qty: 60 RF: 0 ezetimibe 10 mg tablet 10 mg PO DAILY Qty: 90 RF: 0 prednisone 10 mg tablets,dose pack See Taper mg PO PER PKG DIR Qty: 21 RF: 0 naproxen 500 mg tablet,delayed release (DR/EC) 500 mg PO Q12H PRN (Reason: pain) Qty: 14 RF: 0 cephalexin 500 mg capsule 500 mg PO Q8H 7 Days Qty: 21 RF: 0 doxycycline hyclate 100 mg capsule 100 mg PO BID 7 Days Qty: 14 RF: 0 prednisone 20 mg tablet 60 mg PO DAILY 3 Days Qty: 9 RF: 0 hydrochlorothiazide 50 mg Tablet 50 mg PO DAILY RF: 0 ascorbic acid (vitamin C) [Vitamin C] 500 mg Tablet Extended Release 500 mg PO DAILY RF: 0 cyclobenzaprine 10 mg tablet 10 mg PO TID PRN (Reason: muscle spasm) Qty: 10 RF: 0 lidocaine 5 % adhesive patch,medicated 1 patch topical DAILY Qty: 15 RF: 0 cefuroxime axetil 250 mg tablet 250 mg PO BID 7 Days Qty: 14 RF: 0 pantoprazole 40 mg tablet,delayed release (DR/EC) 40 mg PO DAILY RF: 0 (DME) blood-glucose meter [FreeStyle Lite Meter] Kit See Rx Instructions .ROUTE .MEDSUPPLY Qty: 1 RF: 0 (DME) FreeStyle Lite Strips Strip See Rx Instructions .ROUTE .MEDSUPPLY Qty: 100 RF: 11 (DME) lancets [FreeStyle Lancets] 28 gauge misc See Rx Instructions .ROUTE .MEDSUPPLY Qty: 100 RF: 11 albuterol sulfate [ProAir HFA] 90 mcg/actuation HFA aerosol inhaler 2 puff inhalation Q6H PRNRF: 0 budesonide-formoterol [Symbicort] 160-4.5 mcg/actuation HFA aerosol inhaler 2 puff inhalation BID RF: 0 Referrals: [place] [Primary Care Provider] - 2 days [facility] [Outside] - 2 days (Left 5th clavus, some suspicion for infection, please evaluate in diabetic patient.) Print Language: [place]
[2021-07-15 04:56] VITALS: BP 142/72; PULSE 86; RESP 18; O2SAT 97
[2021-07-15] MEDS: cephALEXin 500 MG CAPSULE PO (04:57)
== END 2021-07-15 05:00 | disposition home or self-care (01) ==
PROVIDERS: Emergency Provider Student in an Organized Health Care Education/Training Program
DX: L84 Corns and callosities (principal); M79.675 Pain in left toe(s); T81.30XA Disruption of wound, unspecified, initial encounter; Y82.9 Unspecified medical devices associated with adverse incidents; E11.9 Type 2 diabetes mellitus without complications; Z20.822 Contact with and (suspected) exposure to COVID-19; E78.5 Hyperlipidemia, unspecified; Z79.02 Long term (current) use of antithrombotics/antiplatelets
CPT/HCPCS: 73660; 80053; 85025; 87635; 99283; 99284

== ENCOUNTER → 2021-08-21 11:55 | Outpatient (BNVA) | payer MEDICAID, SELFPAY | PROVIDERS: Visit Provider Internal Medicine Cardiovascular Disease | DX: I35.0 Nonrheumatic aortic (valve) stenosis (principal); I10 Essential (primary) hypertension | CPT/HCPCS: 93005; 99212 ==

== ENCOUNTER → 2021-09-23 15:40 | Outpatient (BNVA) | payer MEDICAID, SELFPAY | PROVIDERS: PCP Internal Medicine Geriatric Medicine; Visit Provider Internal Medicine | DX: G47.33 Obstructive sleep apnea (adult) (pediatric) (principal); J44.9 Chronic obstructive pulmonary disease, unspecified; E66.9 Obesity, unspecified; Z68.34 Body mass index [BMI] 34.0-34.9, adult; Z99.89 Dependence on other enabling machines and devices | CPT/HCPCS: 99212 ==

== ENCOUNTER 2022-02-10 07:43 | Outpatient (REF) | payer MEDICAID, SELFPAY ==
--- NOTE | 2022-02-10 10:15 | PFT_ITS ---
INDICATION: COPD. SPIROMETRY: FEV1 to FVC of 82% with an FEV1 of 2.74 L, which is 98% predicted. An FVC of 3.35 L, which is 83% predicted. No significant response to bronchodilators noted. Maximum voluntary ventilation 88% predicted. LUNG VOLUMES: Total lung capacity 96% predicted with a residual volume of 124% predicted. DIFFUSION CAPACITY: DLCO 115% predicted. COMPARISONS: PFTs in 2017. INTERPRETATION: No obstructive nor restrictive ventilatory defects identified. No significant response to bronchodilators noted. Normal maximum voluntary ventilation. Lung volumes are normal as a trend of air trapping and a decrease in the expiratory reserve volume secondary to an elevated BMI. Diffusion capacity is high normal suggesting the possibility of exogenous carbon monoxide exposure, specially if the patient is still smoking. When compared to 2017, there is significant improvement of the FVC, significant improvement of the FEV1, significant decrease in the total lung capacity, and no significant change in the diffusion capacity. Clinical correlation warranted. MD CLAYTON Hensley/MAGDALENA / [phone]
== END 2022-02-10 07:44 | disposition home or self-care (01) ==
LOC: HO.RESP 07:43
PROVIDERS: Visit Provider Internal Medicine
DX: J44.9 Chronic obstructive pulmonary disease, unspecified (principal)
CPT/HCPCS: 94060; 94727; 94729

== ENCOUNTER → 2022-02-18 13:21 | Outpatient (BNVA) | payer MEDICAID, SELFPAY | PROVIDERS: PCP Internal Medicine Geriatric Medicine; Visit Provider Internal Medicine | DX: G47.33 Obstructive sleep apnea (adult) (pediatric) (principal); J44.9 Chronic obstructive pulmonary disease, unspecified; Z79.899 Other long term (current) drug therapy; Z99.89 Dependence on other enabling machines and devices | CPT/HCPCS: 99212 ==

== ENCOUNTER 2022-02-19 06:21 | Outpatient (REF) | payer MEDICAID, SELFPAY ==
[2022-02-19 07:36] LABS: Anion Gap 16 (12-20); Blood Urea Nitrogen 11 mg/dL (9-16); Calcium 9.3 mg/dL (8.4-10.2); Carbon Dioxide 28 mmol/L (22-29); Chloride 107 mmol/L (96-108); Cholesterol 154 mg/dL; Estimated Glomerular Filt Rate > 60; Glucose Random 99 mg/dL (60-115); HDL Cholesterol 74 mg/dL; LDL Cholesterol Calculated 70 mg/dl; Potassium 4.6 mmol/L (3.3-5.1); Sodium 146 mmol/L (135-145); Triglycerides 51 mg/dL
== END 2022-02-19 06:22 | disposition home or self-care (01) ==
LOC: HO.LAB 06:21
PROVIDERS: PCP Internal Medicine; Visit Provider Internal Medicine
DX: Z00.00 Encounter for general adult medical examination without abnormal findings (principal)
CPT/HCPCS: 36415; 80048; 80061

== ENCOUNTER 2022-06-04 22:35 | Emergency (ER) | payer MEDICAID, SELFPAY ==
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
[2022-06-04 22:36] VITALS: BP 160/64; PULSE 101; RESP 16; TEMP 36.6; O2SAT 97; BMI 42.4
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
[2022-06-04] MEDS: Diphth,Pertus(ACell),Tet Adult 0.5 ML SYRINGE IM (23:46)
--- NOTE | 2022-06-04 23:56 | PC.NURSE ---
Injury noted to the left side of the forehead, bleeding. Wound area cleaned, gauze applied. Pending head ct scan results. Pt aware of plan of care.
[2022-06-05] VITALS: BP 140/79; PULSE 72; RESP 18; TEMP 36.3; O2SAT 98
--- NOTE | 2022-06-05 00:10 | PC.NURSE ---
Dressing applied to left side forehead injury. Discharge instructions reviewed with pt. Pt verbalizes understanding.
== END 2022-06-05 00:29 | disposition home or self-care (01) ==
PROVIDERS: Emergency Provider Emergency Medicine; PCP Internal Medicine
DX: S09.90XA Unspecified injury of head, initial encounter (principal); S00.83XA Contusion of other part of head, initial encounter; S00.212A Abrasion of left eyelid and periocular area, initial encounter; S00.81XA Abrasion of other part of head, initial encounter; Y04.2XXA Assault by strike against or bumped into by another person, initial encounter; E11.9 Type 2 diabetes mellitus without complications; I10 Essential (primary) hypertension; E78.5 Hyperlipidemia, unspecified; E66.9 Obesity, unspecified; Z68.41 Body mass index [BMI] 40.0-44.9, adult; Y93.89 Activity, other specified; Y92.810 Car as the place of occurrence of the external cause; Y99.9 Unspecified external cause status; Z79.899 Other long term (current) drug therapy; Z79.02 Long term (current) use of antithrombotics/antiplatelets
CPT/HCPCS: 70450; 90471; 90715; 99284

== ENCOUNTER → 2022-07-23 10:15 | Outpatient (REF) | payer MEDICAID, SELFPAY ==
--- NOTE | 2022-07-23 10:24 | ECG_ITS ---
Test Reason : palpitations Blood Pressure : / mmHG Vent. Rate : 086 BPM Atrial Rate : 086 BPM P-R Int : 156 ms QRS Dur : 092 ms QT Int : 396 ms P-R-T Axes : 072 023 123 degrees QTc Int : 473 ms Sinus rhythm with Premature atrial complexes Septal infarct , age undetermined Inferior infarct , age undetermined ST & T wave abnormality, consider lateral ischemia Abnormal ECG When compared with ECG of 18-FEB-2019 11:45, Premature atrial complexes are now Present Septal infarct is now Present T wave inversion now evident in Lateral leads Referred By: Maegan Gonzalez Electronically Signed By:TANIKA DELGADO MD
== END ==
LOC: HO.CARD 10:15
PROVIDERS: PCP Nurse Practitioner Primary Care; Visit Provider Nurse Practitioner Primary Care
DX: I49.9 Cardiac arrhythmia, unspecified (principal)
CPT/HCPCS: 93005

== ENCOUNTER → 2022-08-10 08:18 | Outpatient (REF) | payer MEDICAID, SELFPAY ==
--- NOTE | 2022-08-10 08:21 | CA_ITS ---
Transthoracic Echocardiogram Patient (Last, First, Middle): Griffin Kam G Gender: Male Date of : 1960 Age: 62 Procedure Date: 08/10/2022 Procedure Type: Transthoracic Echocardiogram Location: OP Height: 175.26 cm Weight: 90.72 kg BSA: 2.07 m2 Heart Rate: bpm BP: 130 / 82 mmHg Manager In Home: SHIRLEY Referring MD: Martinez Meadows MD Compliance Testing Analyst: Martinez Meadows MD Symptoms: I35.0 - Nonrheumatic aortic (valve) stenosis Study Quality: Fair ECG Rhythm: Sinus Conclusions: - 1. Normal LV systolic function with pseudonormal filling pattern 2. Mildly dilated left atrium 3. Mild aortic stenosis and regurgitation 4. Normal RV systolic pressure 5. No gross pericardial effusion Findings Left Ventricle Normal left ventricular size, thickness, and systolic function. The visually estimated ejection fraction is between 65-70%. Spectral Doppler is indicative of a pseudonormal filling pattern. E/E prime ratio is between 8 and 15 consistent with indeterminate filling pressures. Peak GLS is -18.2%, within normal limits. Right Ventricle Normal right ventricular cavity size and systolic function. Atria The left atrium is mildly dilated. There is lipomatous hypertrophy of the interatrial septum. There is no evidence of interatrial shunt. The right atrium was not well visualized. Aortic Valve There is moderate calcification of the aortic valve. There is moderate thickening of the aortic valve. There is mild aortic valve stenosis. The peak aortic gradient is 32 mmHg.The mean gradient is 18 mmHg. The aortic valve area is 1.71 cm2. There is mild aortic valve regurgitation. Mitral Valve There is mild anterior and posterior mitral leaflet thickening. There is mild mitral annular calcification. There is trace mitral valve regurgitation. There is no mitral valve stenosis. Pulmonic Valve The pulmonic valve was not well visualized. Tricuspid Valve Likely normal tricuspid valve structure and function. There is trace tricuspid valve regurgitation. The right ventricular systolic pressure is normal. The right ventricular systolic pressure is 19 mmHg. Normal right atrial pressure. There is no evidence of pulmonary hypertension. Great Vessels All visible segments of the aorta are normal in size. The pulmonary artery was not well visualized. Venous The inferior vena cava is normal in size and collapses greater than 50% with inspiration. Pericardium/Pleural There is no evidence of pericardial effusion. Prior Study Comparison No significant change compared to prior study dated: 08/14/2020. Measurements 2D Linear Measurements IVSd: 1.03 0.6-0.9/0.6-1.0 cm LVIDd: 4.99 3.9-5.3/4.2-5.9 cm LVIDd Index: 2.41 2.4-3.2/2.2-3.1 cm/m2 LVIDs: 3.16 2.0-3.6 cm LVPWd: 1.03 0.7-1.1 cm LA Diam: 2.60 2.7-3.8/3.0-4.0 cm LAIDs Index: 1.26 1.5-2.3 cm/m2 LV Mass: 235.20 67-162/88-224 g LV Mass Index: 113.62 43-95/49-115 g/m2 LVOT Diam: 2.20 3.0+(-)1.3 cm 2D Systolic Function EF 4C: 68.20 >55% EF 2C: 67.00 >55% EF BiP: 68.00 >55% Mitral Valve MV Pk E: 1.06 MV PK A: 0.87 MV Decel Time: 214.00 E/A: 1.20 E'Lateral: 10.30 E'Medial: 7.62 E/E' Med: 13.90 E/E' Lat: 10.30 PHT: 63.00 MVA PHT: 3.49 Decel [place]: 4.94 Aortic Valve AoV Pk Leopoldo: 2.85 AoV Mn Leopoldo: 1.97 AoV VTI: 0.59 AoV Pk Grad: 32.00 Aov Mn Grad: 18.00 LUCIA Cont.VTI: 1.71 AI Pk Leopoldo: 4.66 AI R[place]: 3.05 LVOT LVOT Pk Leopoldo: 1.17 LVOT Mn [place]opoldo: 0.78 LVOT VTI: 0.26 LVOT Pk Grad: 5.00 LVOT Mn Grad: 3.00 LVOT Diam: 2.20 LVOT Area: 3.80 Diastolic Function MV Pk E: 1.06 MV Pk A: 0.87 E/A: 1.20 E'Medial: 7.62 E/E' Med: 13.90 E' Laterial: 10.30 E/E' Lat: 10.30 Right Ventricle TAPSE (mm): 24.80 TVS' Leopoldo: 13.10 Tricuspid Valve TR Pk Leopoldo: 2.02 TR Pk Grad: 16.00 RA Press: 3.00 RVSP: 19.00 Great Vessels Aorta Sinus of Valsalva: 3.78 2.0-3.[address] [place]: 2.98 1.7-3.4 cm Updated in Other Vendor System with Status of Final Martinez Meadows MD electronically signed on 08/11/2022 5:27:21 PM with status of Final
== END ==
LOC: HO.CARD 08:18
PROVIDERS: PCP Nurse Practitioner Primary Care; Visit Provider Internal Medicine Cardiovascular Disease
DX: I35.0 Nonrheumatic aortic (valve) stenosis (principal)
CPT/HCPCS: 93306; 93356

== ENCOUNTER → 2022-08-20 11:21 | Outpatient (BNVA) | payer MEDICAID, SELFPAY | PROVIDERS: PCP Nurse Practitioner Primary Care; Referring Provider Nurse Practitioner Primary Care; Visit Provider Internal Medicine Cardiovascular Disease | DX: J44.9 Chronic obstructive pulmonary disease, unspecified (principal); G47.33 Obstructive sleep apnea (adult) (pediatric); I35.0 Nonrheumatic aortic (valve) stenosis; I10 Essential (primary) hypertension; R94.31 Abnormal electrocardiogram [ECG] [EKG] | CPT/HCPCS: 93005; 99212 ==

== ENCOUNTER 2022-11-27 23:18 | Emergency (ER) | payer MEDICAID, SELFPAY ==
--- NOTE | ~2022-11-27 | CT_ITS ---
EXAMINATION: NONCONTRAST HEAD CT NONCONTRAST CERVICAL SPINE CT INDICATION INFORMATION: Head strike COMPARISON: 06/04/2022 TECHNIQUE: Separate noncontrast CT examinations of the head and cervical spine were performed. Coronal and sagittal images were created for each examination at the technologist workstation. This CT examination was performed using dose optimization techniques as appropriate, variously including the following: *Automated exposure control *Adjustment of mA and/or kV according to patient size (this includes techniques or standardized protocols for targeted exams where dose is matched to indication/reason for exam; i.e. extremities or head) *Use of iterative reconstruction technique DLP: 1632 mGy-cm FINDINGS: Head: There is no evidence of acute intracranial hemorrhage or territorial infarction. No abnormal mass effect or midline shift is seen. Noe to white matter differentiation is well preserved. No extra-axial fluid collections are identified. No hydrocephalus. No significant volume loss. Patchy periventricular and deep white matter hypoattenuation is consistent with mild small vessel ischemic changes. Right parietal occipital subgaleal hematoma. No barium and skull base intact. The mastoid air cells and visualized portions of the paranasal sinuses are well aerated. Cervical spine: There is anatomic alignment of the vertebral bodies and posterior elements. The atlantoaxial and atlantooccipital articulations are intact. Vertebral body heights maintained. Endplate osteophytes and loss of disc space height present throughout the cervical spine, most notably at C4-C5 where there is near complete obliteration of the disc space. Facet arthropathy throughout the cervical spine. No evidence of acute fracture. No prevertebral soft tissue swelling. Visualized portions of the lung apices are unremarkable. The thyroid gland is unremarkable. CT/CT cervical spine wo IV con IMPRESSION: * No acute intracranial findings. * No acute fracture or malalignment of the cervical spine.
--- NOTE | 2022-11-27 23:27 | ED.FALL ---
HPI - Fall General Chief Complaint: ETOH/Substance Use Stated Complaint: ETOH,Fall with Head Strike Time Seen by Provider: 11/27/22 23:27 Source: patient Mode of arrival: EMS Limitations: no limitations History of Present Illness HPI Narrative: Patient had few drinks today lost balance and fell hitting his head to the ground no loss of consciousness superficial abrasion/laceration to scalp no other injury Related Data Home Medications Medication Instructions Recorded Confirmed pantoprazole 40 mg tablet,delayed 40 mg PO DAILY 05/22/20 08/20/22 release ascorbic acid (vitamin C) 500 mg 500 mg PO DAILY 09/06/20 08/20/22 tablet,extended release (Vitamin C ER) hydrochlorothiazide 50 mg tablet 50 mg PO DAILY 09/06/20 08/20/22 amlodipine 2.5 mg tablet 2.5 mg PO DAILY 02/18/22 08/20/22 atorvastatin 80 mg tablet 40 mg PO DAILY 02/18/22 08/20/22 Previous Rx's Medication Instructions Recorded blood sugar diagnostic (FreeStyle #100 ea 05/22/20 Lite Strips) blood-glucose meter (FreeStyle #1 ea 05/22/20 Lite Meter kit) lancets 28 gauge (FreeStyle #100 ea 05/22/20 Lancets) orthopaedic shoe lift, left #1 ea 08/16/20 Ventolin HFA 90 mcg/actuation 2 puff inhalation Q4-6H PRN 06/17/22 aerosol inhaler (albuterol sulfate) shortness of breath or wheezing 60 days #18 grams ezetimibe 10 mg tablet 10 mg PO DAILY #90 tabs 08/31/22 Allergies Allergy/AdvReac Type Severity Reaction Status Date / Time COLIN Inhibitors Allergy Severe Angioedema Verified 08/20/22 14:03 ibuprofen [From MOTRIN] Allergy Unknown Unknown Verified 08/20/22 14:03 Review of Systems Review of Systems: Yes all other systems are reviewed and are negative PMFSH Past Medical History Medical History Aortic stenosis Asthma-COPD overlap syndrome Diabetes Diabetes type 2, controlled Diabetic nephropathy associated with type 2 diabetes mellitus Dyslipidemia HTN (hypertension) Obesity (BMI 30-39.9) JESSICA (obstructive sleep apnea) JESSICA on CPAP Vitamin D deficiency Surgical History History of back surgery History of left hip replacement History of total right knee replacement (TKR) Hx of carpal tunnel syndrome Hx of cholecystectomy Hx of colonoscopy Hx of hernia repair No pertinent past surgical history Family History Family History Father Hypertension Diabetes mellitus Mother Hypertension Social History Social History Alcohol intake: current Alcohol intake frequency: 3 or more drinks per day Alcohol type: beer Cigarettes Per Day: 2 Smoked in Last 30 Days: Yes Use of substances other than those prescribed or required for medical reasons: No Advance Directives: No Advance Directives Information Provided: Yes service: No Current occupational status: unemployed Current occupation: right handed Physical Exam Vital Signs: Vital Signs: Last Vital Signs Temp 97.9 F 11/27/22 23:33 Pulse 83 11/28/22 01:01 Resp 14 11/28/22 01:01 BP 130/69 11/28/22 01:01 Pulse Ox 99 11/28/22 01:01 O2 Del Method Room Air 11/28/22 01:01 BMI result Body Mass Index 35.1 Appearance: Alert. Oriented X3. No acute distress. Intoxicated Eyes: PERRLA, No Nystagmus ENT: Pharynx normal. Oral Mucosa moist superficial abrasion/laceration occipital area Neck: Normal inspection. Neck supple. No midline tenderness CVS: Normal heart rate and rhythm. Pulses normal. Respiratory: No respiratory distress. Equal air entry bilateral, no wheezing/rales/rhonchi Abdomen: Soft and nontender. Bowel sounds are present, no mass palpable, no CVA tenderness Skin: Skin warm and dry. Normal skin color. Normal skin turgor. Extremities: No lower extremity edema. No calf tenderness Neuro: Oriented X 3. No motor deficit. No sensory deficit.No cerebellar signs , cranial nerves II-XII intact Procedures Laceration Laceration 1: Site: scalp Side (If applicable): right Size (cm): 2 Description: linear Depth: simple, single layer Skin layer closed with: other (Three shruthi) Medical Decision Making Medical Decision Making MDM Narrative: Patient mechanical fall alcohol use CT head C-spine negative for acute had sutures laceration on the scalp which was stapled will discharge patient home once sober Lab Data MDM Lab Attestation statement: I reviewed the patient's lab results. Labs: Lab Results 11/27/22 11/28/22 Range/Units 23:35 01:03 POC Glucose 104 (60-115) mg/dL Urine Color Yellow Urine Appearance Clear Urine pH 5.5 (5.0-9.0) Ur Specific [place] <= 1.005 (1.005-1.025) Urine Protein Trace (Neg-Trace) mg/dL Urine Glucose (UA) Negative (Negative) mg/dL Urine Ketones Negative (Negative) mg/dL Urine Blood Negative (Negative) Urine Nitrite Negative (Negative) Ur Leukocyte Esterase Negative (Negative) Discharge Plan Discharge Clinical Impression: Minor closed head injury, Alcohol intoxication Patient Disposition: Home, Self-Care Prescriptions: No Action (DME) orthopaedic shoe lift, left 1/2 inch See Rx Instructions .Route .MEDSUPPLY Qty: 1 0RF Rx Instructions: As directed albuterol sulfate [Ventolin HFA] 90 mcg/actuation HFA aerosol inhaler 2 puff inhalation Q4-6H PRN (Reason: shortness of breath or wheezing) 60 Days Qty: 18 2RF ezetimibe 10 mg tablet 10 mg PO DAILY Qty: 90 3RF hydrochlorothiazide 50 mg Tablet 50 mg PO DAILY ascorbic acid (vitamin C) [Vitamin C] 500 mg Tablet Extended Release 500 mg PO DAILY pantoprazole 40 mg tablet,delayed release (DR/EC) 40 mg PO DAILY (DME) blood-glucose meter [FreeStyle Lite Meter] Kit See Rx Instructions .ROUTE .MEDSUPPLY Qty: 1 0RF Rx Instructions: As directed (DME) FreeStyle Lite Strips Strip See Rx Instructions .ROUTE .MEDSUPPLY Qty: 100 11RF Rx Instructions: 3 times a day (DME) lancets [FreeStyle Lancets] 28 gauge misc See Rx Instructions .ROUTE .MEDSUPPLY Qty: 100 11RF Rx Instructions: 3 times a day atorvastatin 80 mg tablet 40 mg PO DAILY amlodipine 2.5 mg tablet 2.5 mg PO DAILY
[2022-11-27 23:29] VITALS: BP 186/78; PULSE 92; O2SAT 99
[2022-11-27 23:33] VITALS: BP 145/84; PULSE 91; RESP 14; TEMP 36.6; O2SAT 99; BMI 35.1
[2022-11-27 23:38] LABS: Glucose, Whole Blood 104 mg/dL (60-115)
[2022-11-28 01:01] VITALS: BP 130/69; PULSE 83; RESP 14; O2SAT 99
[2022-11-28 01:20] LABS: Appearance Urine Clear; Color Urine Yellow; Glucose Urine UA Negative (Negative); Leukocyte Esterase Urine Negative (Negative); Nitrite Urine Negative (Negative); PH 5.5 (5.0-9.0); Specific Gravity - Urine <= 1.005 (1.005-1.025); Urine Blood Negative (Negative); Urine Ketones Negative (Negative); Urine Protein Trace mg/dL (Neg-Trace)
[2022-11-28 01:42] LABS: Amphetamine Screen Urine Not Detected (Not Detect); Barbiturates, Urine Not Detected (Not Detect); Benzodiazepines Screen Urine Not Detected (Not Detect); Cannabinoid Screen Urine Not Detected (Not Detect); Cocaine Screen Urine POSITIVE (Not Detect); Fentanyl, urine Not Detected (Not Detect); Opiate Screen Urine Not Detected (Not Detect); Phencyclidine Screen Urine Not Detected (Not Detect)
== END 2022-11-28 01:54 | disposition home or self-care (01) ==
PROVIDERS: Emergency Provider Internal Medicine; PCP Nurse Practitioner Primary Care
DX: F10.920 Alcohol use, unspecified with intoxication, uncomplicated (principal); Y90.9 Presence of alcohol in blood, level not specified; S09.90XD Unspecified injury of head, subsequent encounter; S01.01XA Laceration without foreign body of scalp, initial encounter; W01.198A Fall on same level from slipping, tripping and stumbling with subsequent striking against other object, initial encounter; E11.9 Type 2 diabetes mellitus without complications; I10 Essential (primary) hypertension; E78.5 Hyperlipidemia, unspecified; F17.210 Nicotine dependence, cigarettes, uncomplicated; Y93.01 Activity, walking, marching and hiking; Y92.414 Local residential or business street as the place of occurrence of the external cause; Y99.9 Unspecified external cause status
CPT/HCPCS: 12001; 70450; 72125; 80307; 81003; 82947; 99285

== ENCOUNTER 2022-12-01 12:51 | Emergency (ER) | payer MEDICAID, SELFPAY ==
[2022-12-01 13:39] VITALS: BP 164/94; PULSE 98; RESP 18; TEMP 36.4; O2SAT 96
--- NOTE | 2022-12-01 13:41 | ED_ITS ---
HPI - Wound/Laceration General Chief Complaint: Wound/Laceration Stated Complaint: Staple removal Time Seen by Provider: 12/01/22 13:40 Source: patient, old records reviewed and auto washer Mode of arrival: ambulatory Limitations: no limitations History of Present Illness HPI narrative: 62-year-old [place]er-speaking male presents to the ER for evaluation staple removal to a wound on his scalp. He was here 4 days ago after he was intoxicated and fell. He had a wound to the back of his head that required 3 shruthi for closure. He denies any pain to the area. No drainage or issues with healing. He would like them removed. Location: scalp Patient tetanus UTD: Yes Context: accidental Associated symptoms: none Related Data Home Medications Medication Instructions Recorded Confirmed pantoprazole 40 mg tablet,delayed 40 mg PO DAILY 05/22/20 08/20/22 release ascorbic acid (vitamin C) 500 mg 500 mg PO DAILY 09/06/20 08/20/22 tablet,extended release (Vitamin C ER) hydrochlorothiazide 50 mg tablet 50 mg PO DAILY 09/06/20 08/20/22 amlodipine 2.5 mg tablet 2.5 mg PO DAILY 02/18/22 08/20/22 atorvastatin 80 mg tablet 40 mg PO DAILY 02/18/22 08/20/22 Previous Rx's Medication Instructions Recorded blood sugar diagnostic (FreeStyle #100 ea 05/22/20 Lite Strips) blood-glucose meter (FreeStyle #1 ea 05/22/20 Lite Meter kit) lancets 28 gauge (FreeStyle #100 ea 05/22/20 Lancets) orthopaedic shoe lift, left #1 ea 08/16/20 Ventolin HFA 90 mcg/actuation 2 puff inhalation Q4-6H PRN 06/17/22 aerosol inhaler (albuterol sulfate) shortness of breath or wheezing 60 days #18 grams ezetimibe 10 mg tablet 10 mg PO DAILY #90 tabs 08/31/22 Allergies Allergy/AdvReac Type Severity Reaction Status Date / Time COLIN Inhibitors Allergy Severe Angioedema Verified 08/20/22 14:03 ibuprofen [From MOTRIN] Allergy Unknown Unknown Verified 08/20/22 14:03 Review of Systems Review of Systems: Yes all other systems are reviewed and are negative PMFSH Past Medical History Medical History Aortic stenosis Asthma-COPD overlap syndrome Diabetes Diabetes type 2, controlled Diabetic nephropathy associated with type 2 diabetes mellitus Dyslipidemia HTN (hypertension) Obesity (BMI 30-39.9) JESSICA (obstructive sleep apnea) JESSICA on CPAP Vitamin D deficiency Surgical History History of back surgery History of left hip replacement History of total right knee replacement (TKR) Hx of carpal tunnel syndrome Hx of cholecystectomy Hx of colonoscopy Hx of hernia repair No pertinent past surgical history Family History Family History Father Hypertension Diabetes mellitus Mother Hypertension Social History Social History Alcohol intake: current Alcohol intake frequency: 3 or more drinks per day Alcohol type: beer Cigarettes Per Day: 2 service: No Current occupational status: unemployed Current occupation: right handed Physical Exam Vital Signs: Vital Signs: Last Vital Signs Temp 97.5 F 12/01/22 13:39 Pulse 98 12/01/22 13:39 Resp 18 12/01/22 13:39 BP 164/94 H 12/01/22 13:39 Pulse Ox 96 12/01/22 13:39 O2 Del Method Room Air 12/01/22 13:39 BMI result Body Mass Index 0.0 Appearance: Alert. Oriented X3. No acute distress. HEENT: There is an appropriate healing small laceration to the right occipital/parietal area with [address], scabbing present, no active bleeding. Nontender CVS: Normal heart rate and rhythm. Pulses normal. Respiratory: No respiratory distress. Skin: Skin warm and dry. Normal skin color. Normal skin turgor. No rashes. Extremities: normal inspection Neuro: Oriented X 3. Grossly normal, nonfocal Medical Decision Making Medical Decision Making MDM Narrative: 62-year-old male presents to ER for evaluation of staple removal. He was seen here 4 days ago for a small laceration after a fall while intoxicated. The wound appears to be healing appropriately. Comfortable to take the shruthi out today. No dehiscence of the wound. Three shruthi removed and wound remained intact. Stable for discharge home. Wound care discussed. Differential Diagnosis Differential Diagnoses: The differential diagnosis associated with the presen tation includes Appropriate wound healing, delayed wound healing, infection, hematoma External Record Review External record reviewed: Outpatient record Critical Care Time Critical Care Time Critical Care Time: No Discharge Plan Discharge Clinical Impression: Encounter for removal of shruthi Patient Disposition: Home, Self-Care Instructions: Stitches Removal (ED) Additional Instructions: it is okay to shower and wash your hair as normal if you develop bleeding, apply pressure to the area est? sandeep ducharse y lavarse el lucio brunilda de costumbre si presenta sangrado, aplique presi?n en el ?eliazar Prescriptions: No Action (DME) orthopaedic shoe lift, left 1/2 inch See Rx Instructions .Route .MEDSUPPLY Qty: 1 0RF Rx Instructions: As directed albuterol sulfate [Ventolin HFA] 90 mcg/actuation HFA aerosol inhaler 2 puff inhalation Q4-6H PRN (Reason: shortness of breath or wheezing) 60 Days Qty: 18 2RF ezetimibe 10 mg tablet 10 mg PO DAILY Qty: 90 3RF hydrochlorothiazide 50 mg Tablet 50 mg PO DAILY ascorbic acid (vitamin C) [Vitamin C] 500 mg Tablet Extended Release 500 mg PO DAILY pantoprazole 40 mg tablet,delayed release (DR/EC) 40 mg PO DAILY (DME) blood-glucose meter [FreeStyle Lite Meter] Kit See Rx Instructions .ROUTE .MEDSUPPLY Qty: 1 0RF Rx Instructions: As directed (DME) FreeStyle Lite Strips Strip See Rx Instructions .ROUTE .MEDSUPPLY Qty: 100 11RF Rx Instructions: 3 times a day (DME) lancets [FreeStyle Lancets] 28 gauge misc See Rx Instructions .ROUTE .MEDSUPPLY Qty: 100 11RF Rx Instructions: 3 times a day atorvastatin 80 mg tablet 40 mg PO DAILY amlodipine 2.5 mg tablet 2.5 mg PO DAILY Interventions: ED Discharge Assessment Last Done: 12/01/22 13:43 Print Language: [place]
== END 2022-12-01 13:47 | disposition home or self-care (01) ==
LOC: HO.ED 13:47
PROVIDERS: Emergency Provider Emergency Medicine
DX: Z48.02 Encounter for removal of sutures (principal); S01.01XD Laceration without foreign body of scalp, subsequent encounter; W19.XXXD Unspecified fall, subsequent encounter
CPT/HCPCS: 99282

== ENCOUNTER 2023-01-01 22:01 | Emergency (ER) | payer MEDICAID, SELFPAY ==
[2023-01-01 22:07] VITALS: BP 128/86; PULSE 86; O2SAT 96; BMI 34.1
--- NOTE | 2023-01-01 22:13 | ED.ALCOHOL ---
HPI - Alcohol General Chief Complaint: ETOH/Substance Use Stated Complaint: etoh Time Seen by Provider: 01/01/23 22:09 Source: patient and EMS Mode of arrival: EMS Limitations: other (Alcohol intoxication) History of Present Illness HPI narrative: Patient comes to the emergency room for alcohol intoxication. According to EMS, patient's friend called EMS because the patient was too intoxicated. Patient's room to care of him, patient was drinking in a parked car in the parking lot, patient's friend helped him out of the car, no falls, lower him to the ground. Patient did not hit his head or loss consciousness. EMS picked him up and brought him to the emergency room. Patient is awake, alert and oriented x3. Patient states that he has no complaints, no pains, denies any falls. Patient states that he is here because his glucose is low. Per EMS, point of care in the field was 132. Related Data Home Medications Medication Instructions Recorded Confirmed pantoprazole 40 mg tablet,delayed 40 mg PO DAILY 05/22/20 08/20/22 release ascorbic acid (vitamin C) 500 mg 500 mg PO DAILY 09/06/20 08/20/22 tablet,extended release (Vitamin C ER) hydrochlorothiazide 50 mg tablet 50 mg PO DAILY 09/06/20 08/20/22 amlodipine 2.5 mg tablet 2.5 mg PO DAILY 02/18/22 08/20/22 atorvastatin 80 mg tablet 40 mg PO DAILY 02/18/22 08/20/22 Previous Rx's Medication Instructions Recorded blood sugar diagnostic (FreeStyle #100 ea 05/22/20 Lite Strips) blood-glucose meter (FreeStyle #1 ea 05/22/20 Lite Meter kit) lancets 28 gauge (FreeStyle #100 ea 05/22/20 Lancets) orthopaedic shoe lift, left #1 ea 08/16/20 Ventolin HFA 90 mcg/actuation 2 puff inhalation Q4-6H PRN 06/17/22 aerosol inhaler (albuterol sulfate) shortness of breath or wheezing 60 days #18 grams ezetimibe 10 mg tablet 10 mg PO DAILY #90 tabs 08/31/22 Allergies Allergy/AdvReac Type Severity Reaction Status Date / Time COLIN Inhibitors Allergy Severe Angioedema Verified 08/20/22 14:03 ibuprofen [From MOTRIN] Allergy Unknown Unknown Verified 08/20/22 14:03 Review of Systems Review of Systems: Constitutional : No Weight loss, No Fever, No Chills, No Night Sweats, No Fatigue, No Malaise ENT/Mouth : No Hearing loss, No Ear Pain, No Nasal Congestion, No Sinus Pain, No Hoarseness, No sore throat, No Rhinorrhea, No Swallowing Difficulty Eyes: No Eye Pain, No Swelling, No Redness, No Foreign Body, No Discharge, No Vision Changes Cardiovascular : No Chest Pain, No SOB, No Dyspnea on Exertion, No Orthopnea, No Edema, No Palpitations Respiratory : No Cough, No Sputum, No Wheezing, No Smoke Exposure, No Dyspnea Gastrointestinal : No Nausea, No Vomiting, No Diarrhea, No Constipation, No abdominal Pain, No Hematochezia, No Melena Genitourinary : no irregular bleeding, No Dysuria, No Urinary Frequency, No Hematuria, No Urinary Incontinence, No Urgency, No Flank Pain, No Urinary Flow Changes, No Hesitancy Musculoskeletal : No joint pain, No Myalgias, No Joint Swelling Skin : No Skin Lesions, No rash Neuro : No Weakness, No Numbness, No Paresthesias, No Loss of Consciousness, No Dizziness, No Headache Psych : No Anxiety/Panic, No Depression, No SI/HI/AH/VH, admits to drinking alcohol Heme/Lymph: No Bruising, No Bleeding,No Lymphadenopathy Endocrine : No Polyuria, No Polydipsia, No Temperature Intolerance PMFSH Past Medical History Medical History Aortic stenosis Asthma-COPD overlap syndrome Diabetes Diabetes type 2, controlled Diabetic nephropathy associated with type 2 diabetes mellitus Dyslipidemia HTN (hypertension) Obesity (BMI 30-39.9) JESSICA (obstructive sleep apnea) JESSICA on CPAP Vitamin D deficiency Surgical History History of back surgery History of left hip replacement History of total right knee replacement (TKR) Hx of carpal tunnel syndrome Hx of cholecystectomy Hx of colonoscopy Hx of hernia repair No pertinent past surgical history Family History Family History Father Hypertension Diabetes mellitus Mother Hypertension Social History Social History Alcohol intake: current Alcohol intake frequency: 3 or more drinks per day Alcohol type: beer Cigarettes Per Day: 2 Advance Directives: No Advance Directives Information Provided: No service: No Current occupational status: unemployed Current occupation: right handed Physical Exam ED Vital Signs: Vital Signs - 24 hr 01/01/23 22:34 Pulse Rate 84 Respiratory Rate 17 Blood Pressure 145/84 H Pulse Oximetry 97 Oxygen Delivery Method Room Air BMI result Body Mass Index 34.1 Const Other: Appearance: Alert. No acute distress. Well-appearing, seems slightly intoxicated but still coherent, alert and oriented x3 Eyes: Pupils equal, round and reactive to light. ENT: Pharynx normal. Neck: Normal inspection. Neck supple. No lymph nodes noted. No crepitus CVS: Normal heart rate and rhythm. Pulses normal. Normal S1 and S2 Respiratory: No respiratory distress. Breath sounds normal. No Wheezing. No rales Abdomen: Soft and nontender. No rigidity. No distention. Skin: Skin warm and dry. Normal skin color. Normal skin turgor. Extremities: No lower extremity edema. No Lacerations. No Rash Neuro: Oriented X 3. No motor deficit. No sensory deficit. Moving all extremities. No slurred speech. CN 2 through 12 grossly intact Psych: calm, cooperative, normal affect Course Course Course Narrative: -patient did not sustain any injuries, no falls. -patient denies any complaints, states he feels well. -we will keep the patient under observation. Metabolize to freedom, discharge when sober -Physician observation started at 22:20 0000: Nursing notified me that patient's family is coming in to take him home. He is clinically stable for discharge into the care of his family. Physician observation has ended. Discharge Plan Discharge Clinical Impression: Alcohol intoxication Patient Disposition: Home, Self-Care Instructions: Alcohol Intoxication (ED), Alcohol Use Disorder (ED) Additional Instructions: Return to the ER for any worsening symptoms. Prescriptions: No Action (DME) orthopaedic shoe lift, left 1/2 inch See Rx Instructions .Route .MEDSUPPLY Qty: 1 0RF Rx Instructions: As directed albuterol sulfate [Ventolin HFA] 90 mcg/actuation HFA aerosol inhaler 2 puff inhalation Q4-6H PRN (Reason: shortness of breath or wheezing) 60 Days Qty: 18 2RF ezetimibe 10 mg tablet 10 mg PO DAILY Qty: 90 3RF hydrochlorothiazide 50 mg Tablet 50 mg PO DAILY ascorbic acid (vitamin C) [Vitamin C] 500 mg Tablet Extended Release 500 mg PO DAILY pantoprazole 40 mg tablet,delayed release (DR/EC) 40 mg PO DAILY (DME) blood-glucose meter [FreeStyle Lite Meter] Kit See Rx Instructions .ROUTE .MEDSUPPLY Qty: 1 0RF Rx Instructions: As directed (DME) FreeStyle Lite Strips Strip See Rx Instructions .ROUTE .MEDSUPPLY Qty: 100 11RF Rx Instructions: 3 times a day (DME) lancets [FreeStyle Lancets] 28 gauge misc See Rx Instructions .ROUTE .MEDSUPPLY Qty: 100 11RF Rx Instructions: 3 times a day atorvastatin 80 mg tablet 40 mg PO DAILY amlodipine 2.5 mg tablet 2.5 mg PO DAILY Referrals: [facility] [Primary Care Provider] -
--- NOTE | 2023-01-01 22:22 | MHC.EDTECH ---
PATIENT IS CHANGE TO HOSPITAL ATTIRE ITEMS ARE LOCKED IN DECON
[2023-01-01 22:34] VITALS: BP 145/84; PULSE 84; RESP 17; O2SAT 97
--- NOTE | 2023-01-01 22:40 | PC.NURSE ---
pt calm and cooperative. pt changed into hospital attire belongings placed in decon by security. pt in 17h bed. pt martiniquais speaking only. ed provider dr dotson to pt bedside for assessment
--- NOTE | 2023-01-02 00:14 | PC.NURSE ---
Family at bedside, requesting discharge, states they are patients ride home. MD Moore agreeable to patient being discharged home with family. Pt assisted to decon to retrieve his belongings.
== END 2023-01-02 00:16 | disposition home or self-care (01) ==
PROVIDERS: Emergency Provider Emergency Medicine
DX: F10.920 Alcohol use, unspecified with intoxication, uncomplicated (principal); Y90.9 Presence of alcohol in blood, level not specified
CPT/HCPCS: 99282

== ENCOUNTER 2023-02-06 06:21 | Emergency (ER) | payer MEDICAID, SELFPAY ==
[2023-02-06 07:04] VITALS: BP 135/80; PULSE 78; RESP 20; TEMP 36; O2SAT 98; BMI 25.8
--- NOTE | 2023-02-06 07:49 | ED_ITS ---
HPI - General Adult General Chief complaint: Extremity Injury, Lower Stated complaint: l knee pain Time Seen by Provider: 02/06/23 07:42 Source: patient Mode of arrival: ambulatory Limitations: no limitations History of Present Illness HPI narrative: 62-year-old male with diabetes presents with left foot itching. Symptoms started 2 weeks ago. The symptoms are mild to moderate. There is no clear relieving or exacerbating features. There has been no fevers or chills. No swelling. No injury. Patient denies any significant rash. Related Data Home Medications Medication Instructions Recorded Confirmed pantoprazole 40 mg tablet,delayed 40 mg PO DAILY 05/22/20 08/20/22 release ascorbic acid (vitamin C) 500 mg 500 mg PO DAILY 09/06/20 08/20/22 tablet,extended release (Vitamin C ER) hydrochlorothiazide 50 mg tablet 50 mg PO DAILY 09/06/20 08/20/22 amlodipine 2.5 mg tablet 2.5 mg PO DAILY 02/18/22 08/20/22 atorvastatin 80 mg tablet 40 mg PO DAILY 02/18/22 08/20/22 Previous Rx's Medication Instructions Recorded blood sugar diagnostic (FreeStyle #100 ea 05/22/20 Lite Strips) blood-glucose meter (FreeStyle #1 ea 05/22/20 Lite Meter kit) lancets 28 gauge (FreeStyle #100 ea 05/22/20 Lancets) Ventolin HFA 90 mcg/actuation 2 puff inhalation Q4-6H PRN 06/17/22 aerosol inhaler (albuterol sulfate) shortness of breath or wheezing 60 days #18 grams ezetimibe 10 mg tablet 10 mg PO DAILY #90 tabs 08/31/22 orthopaedic shoe lift, left #1 ea 02/04/23 ketoconazole 2 % topical cream 1 appl topical BID #30 grams 02/06/23 Allergies Allergy/AdvReac Type Severity Reaction Status Date / Time COLIN Inhibitors Allergy Severe Angioedema Verified 02/06/23 07:12 ibuprofen [From MOTRIN] Allergy Unknown Unknown Verified 02/06/23 07:12 Review of Systems Review of Systems: CONSTITUTIONAL: Denies weight loss, fever and chills. HEENT: Denies changes in vision and hearing. RESPIRATORY: Denies SOB and cough. CV: Denies palpitations no CP. GI: Denies abdominal pain, nausea, vomiting and diarrhea. : Denies dysuria and urinary frequency. MSK: Denies myalgia and joint pain. SKIN: Denies rash and pruritus. NEUROLOGICAL: Denies headache and syncope. PSYCHIATRIC: Denies recent changes in mood. Denies anxiety and depression. All other ROS are negative unless in HPI [facility] Past Medical History Medical History Aortic stenosis Asthma-COPD overlap syndrome Diabetes Diabetes type 2, controlled Diabetic nephropathy associated with type 2 diabetes mellitus Dyslipidemia HTN (hypertension) Obesity (BMI 30-39.9) JESSICA (obstructive sleep apnea) JESSICA on CPAP Vitamin D deficiency Surgical History History of back surgery History of left hip replacement History of total right knee replacement (TKR) Hx of carpal tunnel syndrome Hx of cholecystectomy Hx of colonoscopy Hx of hernia repair No pertinent past surgical history Family History Family History Father Hypertension Diabetes mellitus Mother Hypertension Social History Social History Alcohol intake: current Alcohol intake frequency: 3 or more drinks per day Alcohol type: beer Cigarettes Per Day: 2 Advance Directives: No Advance Directives Information Provided: No service: No Current occupational status: unemployed Current occupation: right handed Physical Exam ED Vital Signs: Vital Signs - 24 hr 02/06/23 07:04 Temperature 96.8 F Pulse Rate 78 Respiratory Rate 20 Blood Pressure 135/80 Pulse Oximetry 98 Oxygen Delivery Method Room Air BMI result Body Mass Index 25.8 GEN: Well developed, no acute distress, alert, oriented HEENT: Normocephalic, atraumatic, normal external ears, nose appears normal Eyes: Normal to appearance Neck: Supple, no lymphadenopathy Respiratory: Talks in complete sentences, no respiratory distress Extremities: No clubbing cyanosis or edema Neurologic: No focal neurologic deficits, cranial nerves 2-12 intact, gait normal Skin: No rash Dermatophytosis left plantar foot Medical Decision Making Medical Decision Making [facility] Narrative: patient has a dermatophyte ptosis of the left foot. Will start topical antifungal treatment. Will follow up with his primary care provider in 2 weeks for re-evaluation Differential Diagnosis Differential Diagnoses: The differential diagnosis associated with the presentation includes ( rash, dermatophytosis, pruritic, dermatitis) Prescription Management I considered prescription management with: Antibiotic Discharge Plan Discharge Clinical Impression: Tinea pedis Patient Disposition: Home, Self-Care Instructions: Skin Yeast Infection (ED) Prescriptions: New ketoconazole 2 % cream 1 appl topical BID Qty: 30 0RF No Action albuterol sulfate [Ventolin HFA] 90 mcg/actuation HFA aerosol inhaler 2 puff inhalation Q4-6H PRN (Reason: shortness of breath or wheezing) 60 Days Qty: 18 2RF ezetimibe 10 mg tablet 10 mg PO DAILY Qty: 90 3RF (DME) orthopaedic shoe lift, left 1/2 inch See Rx Instructions .Route .MEDSUPPLY Qty: 1 0RF Rx Instructions: As directed hydrochlorothiazide 50 mg Tablet 50 mg PO DAILY ascorbic acid (vitamin C) [Vitamin C] 500 mg Tablet Extended Release 500 mg PO DAILY pantoprazole 40 mg tablet,delayed release (DR/EC) 40 mg PO DAILY (DME) blood-glucose meter [FreeStyle Lite Meter] Kit See Rx Instructions .ROUTE .MEDSUPPLY Qty: 1 0RF Rx Instructions: As directed (DME) FreeStyle Lite Strips Strip See Rx Instructions .ROUTE .MEDSUPPLY Qty: 100 11RF Rx Instructions: 3 times a day (DME) lancets [FreeStyle Lancets] 28 gauge misc See Rx Instructions .ROUTE .MEDSUPPLY Qty: 100 11RF Rx Instructions: 3 times a day atorvastatin 80 mg tablet 40 mg PO DAILY amlodipine 2.5 mg tablet 2.5 mg PO DAILY Referrals: [facility] [Primary Care Provider] - 2 weeks Print Language: Occitan
--- NOTE | 2023-02-06 08:03 | PC.NURSE ---
PT WAS SEEN AND DECISION FOR DISCHARGE WITH PRESCRIPTION, HE STATES HIS FOOT IS ITCHY WITHOUT PAIN
== END 2023-02-06 08:04 | disposition home or self-care (01) ==
PROVIDERS: Emergency Provider Emergency Medicine
DX: B35.3 Tinea pedis (principal); E11.9 Type 2 diabetes mellitus without complications
CPT/HCPCS: 99282; 99283

== ENCOUNTER 2023-02-18 13:29 | Outpatient (AMB) | payer MEDICAID, SELFPAY ==
[2023-02-18 13:45] VITALS: BP 120/68; PULSE 80; O2SAT 98; BMI 32.3
--- NOTE | 2023-02-18 13:45 | MHC.OFFVIS ---
Intake Vital Signs 02/18/23 13:45 Height 5 ft 6 in Weight 200 lb BMI 32.3 BP 120/68 Blood Pressure Location Lt brachial Position Sitting Pulse 80 Pulse Source Pulse Oximeter Pulse Oximetry (%) 98 Oxygen Delivery Method Room Air Intake Visit Reasons: COPD Intake Note: pt is here for follow up and states he is doing very well. Building Supervisor Required: No Allergies COLIN Inhibitors Allergy (Severe, Verified 02/18/23 14:01) Angioedema ibuprofen [From MOTRIN] Allergy (Unknown, Verified 02/18/23 14:01) Unknown Medication List - Last Reconciled 02/18/23 by Ursula Pearl MD amlodipine 2.5 mg PO DAILY ascorbic acid (vitamin C) ER (Vitamin C ER) 500 mg PO DAILY atorvastatin 40 mg PO DAILY blood sugar diagnostic (FreeStyle Lite Strips) 3 times a day blood-glucose meter (FreeStyle Lite Meter kit) As directed ezetimibe 10 mg PO DAILY hydrochlorothiazide 50 mg PO DAILY ketoconazole 2% 1 appl topical BID lancets (FreeStyle Lancets) 3 times a day [orthopaedic shoe lift, left As directed] pantoprazole 40 mg PO DAILY Ventolin HFA 90 mcg/actuation (albuterol sulfate) 2 puffs inhalation Q4-6H PRN 60 days NS Do you need a note to return to daycare/school/sports/work: No HPI COPD HPI Details THIS 62 YEARS OLD GENTLEMAN, WITH PREVIOUS HISTORY OF OBSTRUCTIVE SLEEP APNEA, WHICH RESOLVED AFTER SIGNIFICANT WEIGHT LOSS, NO LONGER USES THE CPAP AND SLEEPS WELL. HE ALSO HAS MILD BRONCHIAL ASTHMA, CONTROLLED WITH P.R.N. USE OF ALBUTEROL HFA. USED TO BE ON SYMBICORT BUT THAT HAS BEEN STOPPED SINCE LAST YEAR AFTER HIS PULMONARY FUNCTION TEST WAS FOUND TO BE NORMAL. 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 HE IS TRYING TO CONTROL HIS WEIGHT , AND MAINTAINING IT AT CURRENT LEVEL. [facility] Medical History Aortic stenosis Asthma-COPD overlap syndrome Diabetes Diabetes type 2, controlled Diabetic nephropathy associated with type 2 diabetes mellitus Dyslipidemia HTN (hypertension) Obesity (BMI 30-39.9) JESSICA (obstructive sleep apnea) JESSICA on CPAP Vitamin D deficiency Surgical History History of back surgery History of left hip replacement History of total right knee replacement (TKR) Hx of carpal tunnel syndrome Hx of cholecystectomy Hx of colonoscopy Hx of hernia repair No pertinent past surgical history Family History Father Hypertension Diabetes mellitus Mother Hypertension Social History Alcohol intake: current Alcohol intake frequency: 3 or more drinks per day Alcohol type: beer Cigarettes Per Day: 2 service: No Current occupational status: unemployed Current occupation: right handed Review of Systems Const All systems reviewed & are unremarkable except as noted in HPI and below Eyes Reports no additional complaints ENT Reports no additional complaints Card Denies chest pain, Denies leg edema and Reports dyspnea on exertion (ONLY ON WALKING UP HILL , ) Resp Reports cough (MILD ,INTERMITTENT ) and Reports dyspnea on exertion (ONLY ON WALKING UP HILL , ) GI Reports no additional complaints and Reports heartburn (CONTROLLED WITH MED , ) Musc Reports back pain (CONTROLLED .) Neuro Reports no additional complaints Psych Reports no additional complaints Physical Exam Vital Signs: Last Vital Signs Pulse 80 02/18/23 13:45 BP 120/68 02/18/23 13:45 Pulse Ox 98 02/18/23 13:45 Oxygen Delivery Method Room Air 02/18/23 13:45 BMI result Body Mass Index 32.3 Appearance: Alert. Oriented X3. No acute distress. HEENT: There is an appropriate healing small laceration to the right occipital/parietal area with [address], scabbing present, no active bleeding. Nontender CVS: Normal heart rate and rhythm. Pulses normal. Respiratory: No respiratory distress. Skin: Skin warm and dry. Normal skin color. Normal skin turgor. No rashes. Extremities: normal inspection Neuro: Oriented X 3. Grossly normal, nonfocal Const General: comfortable, no acute distress, alert and awake Orientation/consciousness: patient oriented x3 HEENT Head: Yes normal to inspection General nose exam: No nasal polyps present and No nasal discharge present Face and sinus: Yes sinuses nontender Mouth: oropharynx normal Throat: Yes posterior oropharynx normal Eyes General: appearance normal, both eyes and all related structures Neck Neck: Yes normal visual inspection, Yes no lymphadenopathy, Yes trachea midline and Yes no JVD Thyroid: Thyroid normal Chest Chest palpation & inspection: normal inspection of the chest, normal palpation of entire chest wall and no tenderness Resp Other: PERCUSSION NOTE IS RESONANT, BREATH SOUNDS ARE EQUAL AND NORMAL ON BOTH SIDES. NO WHEEZES OR CREPITATIONS ARE HEARD TODAY. Cardio Palpation: normal PMI Rate: regular rate Rhythm: regular rhythm Heart sounds: no gallops and no murmurs GI Palpation (GI): Soft to palpation, nontender, No hepatosplenomegaly present and no masses Auscultation: normal bowel sounds Back/Spine/Pelvis Thoracic/Lumbar Spine: thoracic and lumbar spine normal to inspection Skin General skin exam: no rashes or lesions noted Neuro General: patient oriented x3 and no focal motor deficits Cranial nerves: Yes CN's II-XII intact bilaterally Extrem General: Yes normal to inspection, Yes no clubbing, cyanosis or edema and Yes no calf tenderness Psych Speech and movement: Normal speech and movement present Assessment & Plan Assessment & Plan (1) Asthma-COPD overlap syndrome: Comment: HE DOES HAVE PAST HISTORY OF BRONCHIAL ASTHMA/COPD. CURRENTLY IT IS WELL CONTROLLED AND HE REMAINS ASYMPTOMATIC. PULMONARY FUNCTION TEST IN FEBRUARY 2022 WAS ESSENTIALLY NORMAL. [place] : ALBUTEROL HFA 2 PUFFS Q 4-6 HOURS ONLY P.R.N. IF HE HAS ANY WHEEZING. Code(s): J44.9 - Chronic obstructive pulmonary disease, unspecified (2) Obesity (BMI 30-39.9): Comment: HE TRIES TO CONTROL HIS WEIGHT AND REMAINS VERY STABLE SINCE LAST YEAR. Code(s): E66.9 - Obesity, unspecified (3) JESSICA (obstructive sleep apnea): Comment: PATIENT HAS PAST HISTORY OF OBSTRUCTIVE SLEEP APNEA SECONDARY TO HIS OBESITY. HE LOST SIGNIFICANT AMOUNT OF WEIGHT, AND SYMPTOMS OF SLEEP APNEA SYMPTOMS HAVE RESOLVED COMPLETELY. HE HAS NOT NEEDED TO USE THE CPAP FOR THE PAST 2-3 YEARS. DISCUSSED WITH HIM ABOUT THE WEIGHT AND HE SHOULD TRY TO KEEP IT UNDER CONTROL. Code(s): G47.33 - Obstructive sleep apnea (adult) (pediatric) Medications: Refilled Ventolin HFA 90 mcg/actuation (albuterol sulfate) 2 puffs inhalation Q4-6H PRN 18 grams 3RF shortness of breath or wheezing 60 days NS Coding Level of Care Code Est Pt Level 3 (61331) Diagnoses Asthma-COPD overlap syndrome J44.9 Obesity (BMI 30-39.9) E66.9 JESSICA (obstructive sleep apnea) G47.33
== END 2023-02-18 14:03 | disposition home or self-care (01) ==
PROVIDERS: Visit Provider Internal Medicine
DX: J44.9 Chronic obstructive pulmonary disease, unspecified (principal); E66.9 Obesity, unspecified; G47.33 Obstructive sleep apnea (adult) (pediatric)
CPT/HCPCS: 99213

== ENCOUNTER → 2023-02-18 13:29 | Outpatient (BNVA) | payer MEDICAID, SELFPAY | PROVIDERS: Visit Provider Internal Medicine | DX: J44.9 Chronic obstructive pulmonary disease, unspecified (principal); G47.33 Obstructive sleep apnea (adult) (pediatric); E66.9 Obesity, unspecified; Z68.32 Body mass index [BMI] 32.0-32.9, adult | CPT/HCPCS: 99212 ==

== ENCOUNTER 2023-02-26 11:36 | Outpatient (AMB) | payer MEDICAID, SELFPAY ==
--- NOTE | 2023-02-26 11:37 | A.OFFVIS_ITS ---
Intake Vital Signs 02/26/23 11:40 Height 5 ft 6 in Weight 200 lb BMI 32.3 Intake Visit Reasons: OV - L MARCELINA 08/23/2019 Intake Note: Griffin is a 62 year old male who presents today for a follow up of his left hip, he is s/p Left MARCELINA 08/23/2019. Patient reports he continues to have pain in the left hip, causes limping when walking Allergies COLIN Inhibitors Allergy (Severe, Verified 02/26/23 11:40) Angioedema ibuprofen [From MOTRIN] Allergy (Unknown, Verified 02/26/23 11:40) Unknown HPI OV - L MARCELINA 08/23/2019 HPI Details Griffin is a 62 year old man who presents with complaints of left hip pain. He has a hx of left MARCELINA, DOS: 08/23/19. He has a chronic leg length deformity which causes him left hip pain when walking. He continues to walk with a severe limp He also has right knee pain and limited knee ROM He is here for a new shoe lift prescription. [facility] Medical History Aortic stenosis Asthma-COPD overlap syndrome Diabetes Diabetes type 2, controlled Diabetic nephropathy associated with type 2 diabetes mellitus Dyslipidemia HTN (hypertension) Obesity (BMI 30-39.9) JESSICA (obstructive sleep apnea) JESSICA on CPAP Vitamin D deficiency Surgical History History of back surgery History of left hip replacement History of total right knee replacement (TKR) Hx of carpal tunnel syndrome Hx of cholecystectomy Hx of colonoscopy Hx of hernia repair No pertinent past surgical history Family History Father Hypertension Diabetes mellitus Mother Hypertension Social History Alcohol intake: current Alcohol intake frequency: 3 or more drinks per day Alcohol type: beer Cigarettes Per Day: 2 service: No Current occupational status: unemployed Current occupation: right handed Review of Systems Const All systems reviewed & are unremarkable except as noted in HPI and below Physical Exam Vital Signs: BMI result Body Mass Index 32.3 Const General: no acute distress, alert and awake Orientation/consciousness: patient oriented x3 HEENT Head: Yes normocephalic and Yes atraumatic Eyes EOM: EOMs intact bilaterally Resp Effort & Inspection: normal respiratory effort and able to speak in complete sentences Cardio Jugular venous distension: no JVD Skin General skin exam: turgor normal Rashes: no rashes Neuro General: patient oriented x3 Extrem Other: Left Hip: Limited IR Well-healed incision Right Knee: 0-90 degrees ROM Psych Appearance: grossly normal Affect: normal affect Attitude: cooperative Assessment & Plan Assessment & Plan (1) History of left hip replacement: Comment: 08/23/19 Code(s): Z96.642 - Presence of left artificial hip joint Plan: This is a 62 year old man with a chronic left leg length deformity. Left MARCELINA is 08/23/19 was helpful but still with severe LLD. He has pain with weight-bearing activities and ambulates with a limp. I prescribed a new shoe lift for him, he can follow up. He feels everything is status quo andthat he is satisfied with h is current condition. He can return to see me as needed. (2) Diabetes type 2, controlled: Code(s): E11.9 - Type 2 diabetes mellitus without complications Plan Scribed for Ariel Carter MD by Vj Dc, medical record librarians teacher, on 02/26/23 at 12:50 PM, EST. Coding Level of Care Code Est Pt Level 4 (22038) Diagnoses History of left hip replacement Z96.642 Diabetes type 2, controlled E11.9
[2023-02-26 11:40] VITALS: BMI 32.3
== END 2023-02-26 12:38 | disposition home or self-care (01) ==
PROVIDERS: Visit Provider Orthopaedic Surgery
DX: M25.552 Pain in left hip (principal); Z96.642 Presence of left artificial hip joint
CPT/HCPCS: 99213

== ENCOUNTER → 2023-02-26 11:36 | Outpatient (BNVA) | payer MEDICAID, SELFPAY | PROVIDERS: Visit Provider Orthopaedic Surgery ==

== ENCOUNTER 2023-03-14 06:08 | Emergency (ER) | payer MEDICAID, SELFPAY ==
--- NOTE | ~2023-03-14 | XR_ITS ---
EXAMINATION: XR WRIST, LEFT XR HAND, LEFT CLINICAL INFORMATION: Increasing pain, difficulty holding objects. COMPARISON: None available. TECHNIQUE: PA, lateral, and oblique views of the left wrist and PA, lateral, and oblique views of the left hand FINDINGS: LEFT WRIST: There is old ulnar styloid process ununited fracture. No acute fracture or dislocation seen. There is ulnar negative variance with triangular fibrocartilage calcification. Mild soft tissue swelling seen along the ulnar side. LEFT HAND: The bones and soft tissues are normal. There is minimal loss of PIP and DIP joints without any bony erosive changes or periarticular spurring. There is no acute fracture or dislocation. Alignment is anatomic. Joint spaces are maintained. No erosions or soft tissue calcifications. XR/XR hand wrist LT IMPRESSION: 1. 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 No acute fracture or dislocation seen. 2. There is ulnar negative variance with triangular fibrocartilage calcification. 3. Mild degenerative changes PIP and DIP joints. No visible acute fracture or dislocation seen.
[2023-03-14 06:17] VITALS: BP 133/73; PULSE 68; RESP 16; TEMP 36.2; O2SAT 98; BMI 33.9
--- NOTE | 2023-03-14 06:48 | ED.EXTPRO ---
HPI - Extremity Problem General Chief complaint: Extremity Problem Stated complaint: hand pain Time Seen by Provider: 03/14/23 06:47 Source: patient Mode of arrival: ambulatory Limitations: no limitations History of Present Illness HPI Narrative: 62-year-old male with PMHx of HTN, asthma, JESSICA, T2DM, , & left wrist carpal tunnel s/p surgery in 2019 presents to the ED today with acute on chronic left hand pain/numbness. Patient states no improvement in his left hand pain s/p surgery 4 yrs ago, now worsening. Reports tingling, numbness, and weakness originating at the wrist and radiating into all digits on the left hand. Reports inability to hold things without dropping them. Denies injury or trauma. Has been wearing a wrist brace with minimal relief. Denies taking medications for this. Has not followed up with his surgeon at [facility] and cannot recall his name. Denies elbow pain, shoulder pain, neck pain, back pain, fever, chills, bowel or bladder incontinence/ retention, weakness/tingling/numbness to the LE. Related Data Home Medications Medication Instructions Recorded Confirmed pantoprazole 40 mg tablet,delayed 40 mg PO DAILY 05/22/20 02/18/23 release ascorbic acid (vitamin C) 500 mg 500 mg PO DAILY 09/06/20 02/18/23 tablet,extended release (Vitamin C ER) hydrochlorothiazide 50 mg tablet 50 mg PO DAILY 09/06/20 02/18/23 amlodipine 2.5 mg tablet 2.5 mg PO DAILY 02/18/22 02/18/23 atorvastatin 80 mg tablet 40 mg PO DAILY 02/18/22 02/18/23 Previous Rx's Medication Instructions Recorded blood sugar diagnostic (FreeStyle #100 ea 05/22/20 Lite Strips) blood-glucose meter (FreeStyle #1 ea 05/22/20 Lite Meter kit) lancets 28 gauge (FreeStyle #100 ea 05/22/20 Lancets) ezetimibe 10 mg tablet 10 mg PO DAILY #90 tabs 08/31/22 ketoconazole 2 % topical cream 1 appl topical BID #30 grams 02/06/23 orthopaedic shoe lift, left #1 ea 02/08/23 Ventolin HFA 90 mcg/actuation 2 puff inhalation Q4-6H PRN 02/18/23 aerosol inhaler (albuterol sulfate) shortness of breath or wheezing 60 days #18 grams gabapentin 100 mg capsule 100 mg PO TID 14 days #42 caps 03/14/23 Allergies Allergy/AdvReac Type Severity Reaction Status Date / Time COLIN Inhibitors Allergy Severe Angioedema Verified 02/26/23 11:40 ibuprofen [From MOTRIN] Allergy Unknown Unknown Verified 02/26/23 11:40 Review of Systems Review of Systems: Constitutional: No fever, No chills, No fatigue, No malaise ENT/Mouth: No ear pain, No hearing loss, No nasal congestion, No sinus pain, No rhinorrhea, No sore throat Eyes: No eye pain, No swelling, No redness, No vision changes, No foreign body, No discharge Cardio: No chest pain, No palpitations, No dyspnea on exertion, No orthopnea, No edema Respiratory: No SOB, No cough, No sputum, No wheezing, No dyspnea, No hemoptysis GI: No nausea, No vomiting, No hematemesis, No abdominal pain, No diarrhea, No constipation, No hematochezia, No melena : No irregular bleeding, No dysuria, No frequency, No urgency, No hesitancy, No hematuria, No flank pain, No urinary flow changes MSK: No back pain, No neck pain, No joint pain, No myalgias Skin: No skin lesions, No rashes Neuro: + weakness, + numbness, + paresthesias, No LOC, No dizziness, No headache Psych: No anxiety/panic, No depression, No SI/HI, No AH/VH Yes all other systems are reviewed and are negative [facility] Past Medical History Attestation statement: The following information was validated with the patient. Source: old records reviewed and nursing notes reviewed Medical History JESSICA (obstructive sleep apnea) HTN (hypertension) Asthma-COPD overlap syndrome JESSICA on CPAP Aortic stenosis Obesity (BMI 30-39.9) Dyslipidemia Vitamin D deficiency Diabetic nephropathy associated with type 2 diabetes mellitus Diabetes type 2, controlled Diabetes Surgical History Hx of carpal tunnel syndrome Hx of cholecystectomy History of total right knee replacement (TKR) History of left hip replacement Hx of hernia repair History of back surgery Hx of colonoscopy No pertinent past surgical history Family History Family History Father Hypertension Diabetes mellitus Mother Hypertension Social History Social History Alcohol intake: never Cigarettes Per Day: 2 Smoked in Last 30 Days: Yes Use of substances other than those prescribed or required for medical reasons: No Advance Directives: No Advance Directives Information Provided: No service: No Current occupational status: unemployed Current occupation: right handed Physical Exam Vital Signs: Vital Signs: Last Vital Signs Temp 98.8 F 03/14/23 07:31 Pulse 63 03/14/23 07:31 Resp 18 03/14/23 07:31 BP 120/70 03/14/23 07:31 Pulse Ox 99 03/14/23 07:31 O2 Del Method Room Air 03/14/23 07:31 BMI result Body Mass Index 33.9 Vital signs stable General: Nontoxic appearing. NAD Skin: Warm and dry. No rashes or lesions. Head: Normocephalic, atraumatic. EENT: EAC patent. Hearing is intact b/l. Conjunctiva clear. Sclera is anicteric. PERRLA. EOM intact. Nasal septum is midline. Nares patent bilaterally. Moist mucous membranes. Good dentition. Controlling secretions. Neck: Supple without LAD. Normal ROM. Trachea midline. Cardiac: Chest wall symmetric. RRR. S1 and S1 appreciated. No MRG. No JVD. Lungs: CTA bilaterally. No rales, rhonchi, or wheezes. Normal respiratory effort without accessory muscle use. Abdomen: No visible lesions or scars. Soft, non-tender, non-distended. No rebound tenderness or guarding. Normoactive BS x4. No masses, hepatomegaly, or splenomegaly. Spine: No midline spinous tenderness. No deformity or step off. Ext: Upper and lower extremities atraumatic without overlying erythema, edema or warmth.. Full ROM throughout.. Cap refill <2 throughout.. Pulses 2+ equal b/l. No edema, cyanosis, or clubbing. Neuro: Alert and oriented x3. Normal speech. CN 2-12 grossly intact. [employer] strength on the left 2/5, 5/5 on right. Decreased sensation to the dorsal and palmar aspects of the left hand. Sensation intact to the right hand. Positive Tinel's and Phalen's. NV intact distally. Reflexes 2+ bilaterally. Ambulating with steady gait. Psych: Appropriate mood and affect. Responds appropriately to questions. Course Course Course Narrative: 0900-- x-ray hand/wrist with degenerative changes, no acute fracture. Patient's symptoms most consistent with carpal tunnel syndrome, given patient's history and previous surgery. Discussed x-ray results with patient. Patient feeling better after Tylenol and gabapentin administration. Patient to be discharged home with a 2 week prescription for gabapentin. Discussed the importance of following up with his PCP and an orthopedic doctor. I have provided him with a referral to Orthopedics and advised him that he needs to call them to make an appointment. Advised patient to take Tylenol as needed for pain and continue wearing a wrist brace. Patient's vitals are still stable. I feel safe to discharge patient home. Patient agreeable with plan. Stable for discharge. Medications Administered Discontinued Medications Generic Name Dose Route Start Last Admin Trade Name Freq PRN Reason Stop Dose Admin Acetaminophen 975 mg 03/14/23 07:19 03/14/23 07:32 Acetaminophen 325 Mg Tablet PO 03/14/23 07:20 975 mg ONCE ONE Administration Gabapentin 100 mg 03/14/23 07:19 03/14/23 07:33 Gabapentin 100 Mg Capsule PO 03/14/23 07:20 100 mg ONCE ONE Administration Medical Decision Making Medical Decision Making [facility] Narrative: 62-year-old male with PMHx of HTN, asthma, JESSICA, T2DM, , & left wrist carpal tunnel s/p surgery in 2019 presents to the ED today with acute on chronic left hand pain/numbness. Vital signs stable. Patient nontoxic appearing, no acute distress. 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 Clinical concern for carpal tunnel syndrome vs cubital tunnel syndrome vs cervical radiculopathy vs fracture/dislocation vs sprain or strain. Lower suspicion for diabetic neuropathy. Unlikely compartment syndrome, septic joint, threatened limb, NV compromise. Plan: imaging Differential Diagnosis Differential Diagnoses: The differential diagnosis associated with the presentation includes Clinical concern for carpal tunnel syndrome vs cubital tunnel syndrome vs cervical radiculopathy vs fracture/dislocation vs sprain or strain. Lower suspicion for diabetic neuropathy. Unlikely compartment syndrome, septic joint, threatened limb, NV compromise. Admission/Observation Not indicated. Lab Data Not indicated Independent Interpretation I performed an independent interpretation of an: Plain X-Ray Interpretation: X-ray of left wrist without acute fracture dislocation, agree with radiologist's interpretation. Radiology Impression Discussion of test interpretation with radiology: I have reviewed the radiologist's reading. Radiologist Impression: XR hand wrist LT IMPRESSION: 1. 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 No acute fracture or dislocation seen. 2. There is ulnar negative variance with triangular fibrocartilage calcification. 3. Mild degenerative changes PIP and DIP joints. No visible acute fracture or dislocation seen. External Record Review External record reviewed: Inpatient record Tests considered The following testing was considered but not selected: Considered ordering labs specifically CBC, however patient without overlying erythema, edema, or warmth noted over the left wrist/hand, unlikely infectious in origin. Prescription Management I considered prescription management with: Pain Medication and Other (Gabapentin) Chronic Conditions Patient?s care impacted by: Diabetes and Hypertension Core Measures AMI core measures followed: Yes Measure exclusions: not indicated Discharge Plan Discharge Clinical Impression: Carpal tunnel syndrome Patient Disposition: Home, Self-Care Instructions: Paresthesia (ED), Carpal Tunnel Surgery (DC) Additional Instructions: The x-ray of your left hand/wrist showed chronic degenerative changes and mild swelling which can be attributed to inflammation of the wrist. Your symptoms are consistent with carpal tunnel syndrome. You were given Tylenol and a dose of gabapentin in the ED today. A prescription for gabapentin has been sent to your pharmacy. This is a prescription that helps with nerve pain. Take this as prescribed. A referral for Orthopedics has been provided to you. Please follow-up with them. CALL THEM TO MAKE AN APPOINTMENT. You will need to either follow up with them or your primary care doctor to refill this prescription. Continue wearing a wrist brace to help with the pain and discomfort. Take Tylenol as needed for pain. Return to the emergency department if your symptoms persist or worsen La radiograf?a de auguste mano/mu?eca izquierda mostr? cambios degenerativos cr?nicos y suresh leve hinchaz?n que puede atribuirse a la inflamaci?n de la mu?eca. Nicolette s?ntomas son consistentes con el s?ndrome del t?leidy carpiano. Le dieron Tylenol y suresh dosis de gabapentina hoy en el servicio de urgencias. Se shirley enviado suresh receta de gabapentina a auguste farmacia. Esta es suresh receta que ayuda con el dolor de los nervios. T?mckeon seg?n lo prescrito. Se le shirley proporcionado suresh derivaci?n para ortopedia. Por favor stefanie un seguimiento con ellos. [employer]. Deber? hacer un seguimiento con ellos o con auguste m?dico de atenci?n primaria para volver a surtir esta receta. Contin?e usando suresh mu?equera para ayudar con el dolor y la incomodidad. [place] Tylenol seg?n sea necesario para el dolor. Regrese al departamento de emergencias si nicolette s?ntomas persisten o empeoran. Prescriptions: New gabapentin 100 mg capsule 100 mg PO TID 14 Days Qty: 42 0RF No Action ezetimibe 10 mg tablet 10 mg PO DAILY Qty: 90 3RF (DME) orthopaedic shoe lift, left 1/2 inch See Rx Instructions .Route .MEDSUPPLY Qty: 1 0RF Rx Instructions: As directed hydrochlorothiazide 50 mg Tablet 50 mg PO DAILY ascorbic acid (vitamin C) [Vitamin C] 500 mg Tablet Extended Release 500 mg PO DAILY ketoconazole 2 % cream 1 appl topical BID Qty: 30 0RF pantoprazole 40 mg tablet,delayed release (DR/EC) 40 mg PO DAILY (DME) blood-glucose meter [FreeStyle Lite Meter] Kit See Rx Instructions .ROUTE .MEDSUPPLY Qty: 1 0RF Rx Instructions: As directed (DME) FreeStyle Lite Strips Strip See Rx Instructions .ROUTE .MEDSUPPLY Qty: 100 11RF Rx Instructions: 3 times a day (DME) lancets [FreeStyle Lancets] 28 gauge misc See Rx Instructions .ROUTE .MEDSUPPLY Qty: 100 11RF Rx Instructions: 3 times a day atorvastatin 80 mg tablet 40 mg PO DAILY amlodipine 2.5 mg tablet 2.5 mg PO DAILY albuterol sulfate [Ventolin HFA] 90 mcg/actuation HFA aerosol inhaler 2 puff inhalation Q4-6H PRN (Reason: shortness of breath or wheezing) 60 Days Qty: 18 3RF Referrals: [facility] [Provider Group] [facility] Family Medicine [Provider Group] Veena Yusuf MD [Physician] - 1 week Stand Alone Forms: Work/School Release Interventions: ED Discharge Assessment Last Done: 03/14/23 08:50 Discharge Date/Time: 03/14/23 08:50 Print Language: Greek
[2023-03-14 07:31] VITALS: BP 120/70; PULSE 63; RESP 18; TEMP 37.1; O2SAT 99
[2023-03-14] MEDS: Acetaminophen 325 MG TABLET 975 MG PO (07:32)
[2023-03-14] MEDS: Gabapentin 100 MG CAPSULE PO (07:33)
== END 2023-03-14 08:50 | disposition home or self-care (01) ==
PROVIDERS: Emergency Provider Emergency Medicine
DX: G56.02 Carpal tunnel syndrome, left upper limb (principal); M25.532 Pain in left wrist; Z79.899 Other long term (current) drug therapy
CPT/HCPCS: 73110; 73130; 99283; 99284

== ENCOUNTER 2023-04-21 09:05 | Outpatient (REF) | payer MEDICAID, SELFPAY ==
--- NOTE | 2023-04-21 | EMG_ITS ---
Please see scanned EMG / Nerve Conduction Report. MTDD
== END 2023-04-21 09:06 | disposition home or self-care (01) ==
LOC: HO.NEURO 09:05
PROVIDERS: PCP Internal Medicine; Visit Provider Internal Medicine
DX: R20.2 Paresthesia of skin (principal)
CPT/HCPCS: 95885; 95910

== ENCOUNTER 2023-05-12 08:33 | Outpatient (AMB) | payer MEDICAID, SELFPAY ==
--- NOTE | 2023-05-12 09:24 | MHC.OFFVIS ---
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 Hx of left wrist carpal tunnel s/p surgery in 2019. State he cont's to have numbness in finger tips. States he now has constant numbness in all of his digits. States he felt a little after his surgery but months later his numbness became constant. New EMG done in April 2023 Allergies COLIN Inhibitors Allergy (Severe, Verified 05/12/23 10:43) Angioedema ibuprofen [From MOTRIN] Allergy (Unknown, Verified 05/12/23 10:43) Unknown Medication List - Last Reconciled 05/12/23 by Ariana Hurtado MD amlodipine 2.5 mg PO DAILY ascorbic acid (vitamin C) ER (Vitamin C ER) 500 mg PO DAILY atorvastatin 40 mg PO DAILY blood sugar diagnostic (FreeStyle Lite Strips) 3 times a day blood-glucose meter (FreeStyle Lite Meter kit) As directed ezetimibe 10 mg PO DAILY gabapentin 100 mg PO TID 14 days hydrochlorothiazide 50 mg PO DAILY ketoconazole 2% 1 appl topical BID lancets (FreeStyle Lancets) 3 times a day [orthopaedic shoe lift, left As directed] pantoprazole 40 mg PO DAILY Ventolin HFA 90 mcg/actuation (albuterol sulfate) 2 puffs inhalation Q4-6H PRN 60 days NS HPI HPI Comments History of Present Illness Details History of left wrist carpal tunnel s/p surgery in 2019 at [facility]. Also had ulnar surgery. Says did not get better in terms of pain and numbness. Pain worst at night. Affects 2nd-5th digits, not the thumb. EMG done by Neurology 04/21/23 showed very small amplitude left median CMAP, absent left median SNAP and left ulnar nerve with slow conduction velocity across elbow. Not wearing splint. No injections in past. Follows with ortho Dr. Carter - marlen is s/p Left MARCELINA 08/23/2019. [facility] Medical History (Updated 05/12/23 @ 11:06 by Ariana Hurtado MD) Ulnar neuropathy at elbow of left upper extremity Carpal tunnel syndrome of left wrist JESSICA (obstructive sleep apnea) HTN (hypertension) Asthma-COPD overlap syndrome JESSICA on CPAP Aortic stenosis Obesity (BMI 30-39.9) Dyslipidemia Vitamin D deficiency Diabetic nephropathy associated with type 2 diabetes mellitus Diabetes type 2, controlled Diabetes Surgical History (Updated 05/12/23 @ 11:06 by Ariana Hurtado MD) History of decompression of ulnar nerve History of carpal tunnel surgery of left wrist Hx of carpal tunnel syndrome Hx of cholecystectomy History of total right knee replacement (TKR) History of left hip replacement Hx of hernia repair History of back surgery Hx of colonoscopy No pertinent past surgical history Family History Father Hypertension Diabetes mellitus Mother Hypertension Social History Alcohol intake: never Cigarettes Per Day: 2 service: No Current occupational status: unemployed Current occupation: right handed Review of Systems Const All systems reviewed & are unremarkable except as noted in HPI and below Physical Exam Vital Signs: BMI result Body Mass Index 33.9 Constitutional: Patient appears to be in no acute distress, well nourished and well developed. MSK: Inspection reveals appropriate head and neck positioning. No pain with palpation over the neck musculature. Cervical ROM was full. Spurling's sign negative. Bilateral shoulder ROM WNL. No ligamentous laxity or crepitance. No increased effusion. Hawkin's test is negative. No joint effusion noted. No deformity noted. No intrinsic hand weakness noted. No atrophy noted. Don test negative. Carpal compression test left positive. Tinel sign negative. Bony enlargement left 1st MCP? Strength is 5/5 in all muscle groups tested. No increased tone noted. Neurological: Neurologic examination of the upper and lower extremities was nonfocal with intact sensation, muscle stretch reflexes and without focal motor deficits . Fuller?s negative bilaterally. Gait is non-antalgic without loss of balance. Office Procedures Therapeutic Injection Therapeutic Injection Details: Consent obtained. Patient places left hand palm up. Wrist is cleansed with betadine solution. A 25 gauge needle is inserted just ulnar to the palmaris longus tendon and at the proximal wrist crease. The needle is inserted at a 30-degree angle and directed towards the ring finger. A solution containing 20mg Kenalog is injected. Patient tolerated procedure well without complications. Post-injection instructions given. 11880-Lsewck Tunnel Injection, therapeutic All charges added?: Procedure code (CPT) selection complete Office Meds triamcinolone acetonide 40 mg/mL suspension for injection Performing Provider: Ariana Hurtado MD [place] [facility] Documented (not given) by: Ariana Hurtado MD on 05/12/23 11:16 Dose Route Admin Location Dispensed Lot Number Expiration Date NDC Passenger Screener 20 mg Tendon Sheath Inj. mL Results Reviewed Results Reviewed: EXAMINATION: XR WRIST, LEFT XR HAND, LEFT CLINICAL INFORMATION: Increasing pain, difficulty holding objects. COMPARISON: None available. TECHNIQUE: PA, lateral, and oblique views of the left wrist and PA, lateral, and oblique views of the left hand FINDINGS: LEFT WRIST: There is old ulnar styloid process ununited fracture. No acute fracture or dislocation seen. There is ulnar negative variance with triangular fibrocartilage calcification. Mild soft tissue swelling seen along the ulnar side. LEFT HAND: The bones and soft tissues are normal. There is minimal loss of PIP and DIP joints without any bony erosive changes or periarticular spurring. There is no acute fracture or dislocation. Alignment is anatomic. Joint spaces are maintained. No erosions or soft tissue calcifications. XR/XR hand wrist LT IMPRESSION: 1. 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 No acute fracture or dislocation seen. 2. There is ulnar negative variance with triangular fibrocartilage calcification. 3. Mild degenerative changes PIP and DIP joints. No visible acute fracture or dislocation seen. Independently reviewed EMG results as above. I reviewed records from the following: Orthopedic Assessment & Plan Assessment & Plan (1) Carpal tunnel syndrome of left wrist: Code(s): G56.02 - Carpal tunnel syndrome, left upper limb (2) Ulnar neuropathy at elbow of left upper extremity: Code(s): G56.22 - Lesion of ulnar nerve, left upper limb (3) History of carpal tunnel surgery of left wrist: Code(s): Z98.890 - Other specified postprocedural states (4) History of decompression of ulnar nerve: Code(s): Z98.890 - Other specified postprocedural states Plan Continues to have symptoms/signs of left Carpal Tunnel Syndrome in upper extremity despite surgery in 2018. EMG still shows positive left median neuropathy at the wrist and ulnar neuropathy at the elbow. Referring to Dr. Yusuf for consideration of repeat surgery. Patient would like to try Carpal Tunnel Syndrome injection today for pain relief. We will provide left wrist splint to wear at night. Assessment and plan discussed with patient, and patient was agreeable. All questions were answered thoroughly. Ariana Hurtado MD, LEO Board Certified, [place] Board [employer] and Rehabilitation (ABPMR) Board Certified, [place] Board of Electrodiagnostic Medicine (ABEM) Orders: Orders Trigger Point Injection Today G56.02 - Carpal tunnel syndrome, left upper limb, M79.18 - Myalgia, other site Referrals Orthopedics Referral G56.02 - Carpal tunnel syndrome, left upper limb, G56.22 - Lesion of ulnar nerve, left upper limb, Z98.890 - Other specified postprocedural states Medications: New triamcinolone acetonide 20 mg (0.5 mL) Tendon Sheath Inj. ONCE 0.5 mL 0RF G56.02 - Carpal tunnel syndrome, left upper limb, M79.18 - Myalgia, other site Coding Level of Care Code New Pt Level 4 (11144) Diagnoses Carpal tunnel syndrome of left wrist G56.02 Ulnar neuropathy at elbow of left upper extremity G56.22 History of carpal tunnel surgery of left wrist Z98.890 History of decompression of ulnar nerve Z98.890 CPT Codes Therapeutic Injection - Ther Injection 3: 40018-Vhznub Tunnel Injection, therapeutic ([id number])
[2023-05-12 09:25] VITALS: BMI 33.9
== END 2023-05-12 11:15 | disposition home or self-care (01) ==
PROVIDERS: Visit Provider Physical Medicine & Rehabilitation
DX: G56.02 Carpal tunnel syndrome, left upper limb (principal); G56.22 Lesion of ulnar nerve, left upper limb
CPT/HCPCS: 20526; 99204

== ENCOUNTER → 2023-05-12 08:33 | Outpatient (BNVA) | payer MEDICAID, SELFPAY | PROVIDERS: Visit Provider Physical Medicine & Rehabilitation | DX: G56.02 Carpal tunnel syndrome, left upper limb (principal); G56.22 Lesion of ulnar nerve, left upper limb; Z98.890 Other specified postprocedural states | CPT/HCPCS: 20526; 99202; J3301 ==

== ENCOUNTER 2023-08-03 11:36 | Outpatient (AMB) | payer MEDICAID, SELFPAY ==
--- NOTE | 2023-08-03 11:48 | MHC.OFFVIS ---
Intake Intake Visit Reasons: OV- DX Sx LT Carpal/Cubital TS Intake Note: álvaro is a 63 year old male who presents today for a follow up for his left carpal and cubital tunnel. Patient reports ongoing numbness for 3 years. He states that his symptoms have gotten worse. Allergies COLIN Inhibitors Allergy (Severe, Verified 08/03/23 11:51) Angioedema ibuprofen [From MOTRIN] Allergy (Unknown, Verified 08/03/23 11:51) Unknown HPI OV- DX Sx LT Carpal/Cubital TS HPI Details 63-year-old right hand dominant male who presents in the office today for an evaluation of left hand pain. The patient reports chronic numbness and tingling on the left palmar aspect for the past 3 years, since 2020. He confirms the numbness and tingling will wake him up at night. He claims his symptoms are increasing. Patient has a significant medical history of diabetes mellitus. He is no longer taking any diabetes medication. He reports this was done at the [facility]. Patient denies any recreation drug use as of right now. [facility] Medical History (Updated 08/03/23 @ 12:08 by Khushbu Miranda) Ulnar neuropathy at elbow of left upper extremity Carpal tunnel syndrome of left wrist JESSICA (obstructive sleep apnea) HTN (hypertension) Asthma-COPD overlap syndrome JESSICA on CPAP Aortic stenosis Obesity (BMI 30-39.9) Dyslipidemia Vitamin D deficiency Diabetic nephropathy associated with type 2 diabetes mellitus Diabetes type 2, controlled Diabetes Surgical History (Updated 05/12/23 @ 11:06 by Ariana Hurtado MD) History of decompression of ulnar nerve History of carpal tunnel surgery of left wrist Hx of carpal tunnel syndrome Hx of cholecystectomy History of total right knee replacement (TKR) History of left hip replacement Hx of hernia repair History of back surgery Hx of colonoscopy No pertinent past surgical history Family History Father Hypertension Diabetes mellitus Mother Hypertension Social History Alcohol intake: never Cigarettes Per Day: 2 service: No Current occupational status: unemployed Current occupation: right handed Review of Systems Const All systems reviewed & are unremarkable except as noted in HPI and below Physical Exam Const General: cooperative and no acute distress Orientation/consciousness: patient oriented x3 Resp Effort & Inspection: normal respiratory effort and able to speak in complete sentences Cardio Peripheral pulses: Peripheral pulses 2+ throughout Skin General skin exam: no rashes or lesions noted Neuro General: patient oriented x3 Extrem Other: Left hand: AP muscle belly wasting. Able to make a closed fist. Difficulty with abduction and adduction, finger cross, flat okay sign, and thumbs up. Reports dense numbness in all digits. Capillary refill is brisk. Assessment & Plan Assessment & Plan (1) Severe carpal tunnel syndrome of left wrist: Comment: Severe end stage compression palsy on the left median nerve at the wrist diagnostic for severe end stage carpal tunnel syndrome, EMG on 04/21/2023 Code(s): G56.02 - Carpal tunnel syndrome, left upper limb Plan Mr. Kam is a 63-year-old right hand dominant male who presents in the office today for an evaluation of left hand pain. The patient reports chronic numbness and tingling on the left palmar aspect for the past 3 years, since 2020. He confirms the numbness and tingling will wake him up at night. He claims his symptoms are increasing. Patient has a significant medical history of diabetes mellitus. He is no longer taking any diabetes medication. He reports this was done at the [facility]. Patient denies any recreation drug use as of right now. Dr. Yusuf was available to speak with me about the patient and review EMG results while in the office today and a collaborative treatment plan was made. I discussed with the patient that due to the severity of the numbness and tingling accompanied by the amount of time his symptoms have been present it is hard to determine if he will have relief of symptoms with surgical intervention. We discussed the indication for surgery would be muscle to allow for ROM and pain at night, at this time the patient is negative for both. I would like for him to reach out to the office if his symptoms increase or he has further concerns. Follow up will be PRN, or sooner if needed. EMG of the left upper extremity, obtained on 04/21/2023, revealed severe end stage compression palsy on the left median nerve at the wrist diagnostic for severe end stage carpal tunnel syndrome. EMG of the left C5-T1 innervated muscles shows complete denervation of the left APB muscle. Patient Instructions: Scribed for Ana Kaplan PA-C by Khushbu Miranda, medical collector, on 08/03/2023 at 11:41 am, EST. Coding Level of Care Code New Pt Level 4 (09736) Diagnoses Severe carpal tunnel syndrome of left wrist G56.02
== END 2023-08-03 12:03 | disposition home or self-care (01) ==
PROVIDERS: Visit Provider Physician Assistant
DX: G56.02 Carpal tunnel syndrome, left upper limb (principal)
CPT/HCPCS: 99214

== ENCOUNTER → 2023-08-03 11:36 | Outpatient (BNVA) | payer MEDICAID, SELFPAY | PROVIDERS: Visit Provider Physician Assistant | DX: G56.02 Carpal tunnel syndrome, left upper limb (principal) | CPT/HCPCS: 99212 ==

== ENCOUNTER 2023-08-26 09:52 | Emergency (ER) | payer MEDICAID, SELFPAY ==
--- NOTE | ~2023-08-26 | XR_ITS ---
EXAMINATION: XR CHEST CLINICAL INFORMATION: Chest pain COMPARISON: 09/14/2019 TECHNIQUE: Frontal view of the chest was obtained. FINDINGS: Again noted is mild elevation of the left hemidiaphragm with some left basilar scarring. Surgical clips are again noted in the region of the GE junction and left and right upper quadrants. No other significant abnormality is noted involving the heart, lungs, mediastinum, bony thorax or soft tissues. XR/XR chest 1V IMPRESSION: No acute intrathoracic disease.
--- NOTE | ~2023-08-26 | XR_ITS ---
EXAMINATION: XR RIBS, RIGHT CLINICAL INFORMATION: Right rib pain COMPARISON: None available. TECHNIQUE: 3 views of the right ribs were obtained with a marker placed along the right lateral inferior ribs. FINDINGS: Multiple views of right ribs reveal nondisplaced fracture right lateral 11th, 10th and likely anterolateral ninth ribs XR/XR ribs RT 2V IMPRESSION: Nondisplaced fracture right lateral 11th, 10th and likely anterolateral ninth ribs.
[2023-08-26 09:57] VITALS: BP 140/73; PULSE 85; RESP 16; TEMP 36.2; O2SAT 98; BMI 31.7
[2023-08-26 10:37] LABS: MANUAL DIFF FLAG NO
[2023-08-26 10:44] LABS: Basophils Absolute Auto 0.1 X10*3/uL (0.0-0.2); Basophils Percent Auto 0.7 % (0-2); Eosinophils Absolute Auto 0.1 X10*3/uL (0.0-0.4); Eosinophils Percent Auto 1.5 % (0-4); Hematocrit 37.7 % (42.0-52.0); Hemoglobin 12.4 g/dl (14.0-18.0); Imm Gran Abs Auto 0.02 X10*3/uL (0.00-0.03); Imm Gran Pct Auto 0.3 % (0.0-0.4); Lymphocytes Absolute Auto 1.7 X10*3/uL (1.2-4.9); Lymphocytes Percent Auto 23.9 % (20-40); Mean Corpuscular HGB Conc 32.9 g/dl (31.0-36.0); Mean Corpuscular Hemoglobin 30.2 pg (27.0-33.0); Mean Corpuscular Volume 91.7 fL (80.0-98.0); Mean Platelet Volume 10.2 fL (9.4-12.4); Monocytes Absolute Auto 0.6 X10*3/uL (0.1-1.2); Monocytes Percent Auto 8.5 % (2-11); Neutrophils Absolute Auto 4.7 x10*3/uL (2.0-8.3); Neutrophils Percent Auto 65.1 % (45-73); Platelet Count 329 X10*3/uL (160-400); Red Blood Count 4.11 X10*6/uL (4.60-5.80); Red Cell Distribution Width 15.6 % (11.0-16.0); White Blood Count 7.2 X10*3/uL (4.8-10.8)
[2023-08-26 11:06] LABS: Alanine Aminotransferase 22 U/L (0-40); Albumin Level 4.1 g/dL (3.5-5.0); Alkaline Phosphatase 91 U/L (39-117); Anion Gap 13 (12-20); Aspartate Amino Transferase 33 U/L (5-37); Bilirubin Direct 0.2 mg/dL (0.0-0.5); Bilirubin Total 0.6 mg/dL (0.0-1.0); Blood Urea Nitrogen 19 mg/dL (9-16); Carbon Dioxide 30 mmol/L (22-29); Chloride 103 mmol/L (96-108); Creatinine Clr Calc Pharmacy 72.1; Estimated Glomerular Filt Rate > 60; Glucose Random 176 mg/dL (60-115); Lipase 28 U/L (8-78); Potassium 3.8 mmol/L (3.3-5.1); Sodium 142 mmol/L (135-145); Total Protein 7.6 g/dL (6.5-8.0)
[2023-08-26] MEDS: Acetaminophen 325 MG TABLET 975 MG PO (15:50)
--- NOTE | 2023-08-26 15:56 | PC.NURSE ---
pt returned from xray. urine obtained/sent to lab. medication administered per provider order.
[2023-08-26 16:06] LABS: Appearance Urine Clear; Color Urine Yellow; Glucose Urine UA Negative (Negative); Leukocyte Esterase Urine Negative (Negative); Nitrite Urine Negative (Negative); UMIC TRIGGER UACC YES; Urine Blood Negative (Negative); Urine Ketones Trace mg/dL (Negative); Urine Protein 30 (1+) mg/dL (Neg-Trace)
[2023-08-26 16:09] LABS: Bacteria Urine None Seen (None Seen); Hyaline Casts Urine 0-2 /LPF (0-2); RBC Urine 0-2 /HPF (0-2); WBC Urine 0-5 /HPF (0-5)
[2023-08-26 16:44] VITALS: BP 118/59; PULSE 67; RESP 20; TEMP 36.6; O2SAT 98
--- NOTE | 2023-08-26 17:09 | ED_ITS ---
HPI - General Adult General Chief complaint: Abdominal Pain Stated complaint: R side abd pain Time Seen by Provider: 08/26/23 14:54 Source: patient and RN notes reviewed Mode of arrival: ambulatory Limitations: no limitations History of Present Illness HPI narrative: This is a 63-year-old male, with a history of diabetes, presenting to the emergency department complaints of right-sided rib pain x4 days. Patient states that while he was getting out of bed, he reached over as he was tripping over his feet and placed his right hand on his dresser, and fell into his dresser striking his right ribs. He denies hitting his head or loss of consciousness. He states that he has had constant right-sided rib pain since this injury. He reports that he has been taking Tylenol for his pain which has provided some relief. Denies any pain with inspiration. Denies shortness of breath. Denies chest pain. Denies fevers, chills, cough, abdominal pain, nausea, vomiting or diarrhea. No other complaints or concerns at this time. MD complaint: Right rib pain Onset (ago): day(s) Radiation: non-radiation Relieving factors: none Exacerbating factors: none Associated symptoms: denies other symptoms Treatments prior to arrival: none Related Data Home Medications Medication Instructions Recorded Confirmed pantoprazole 40 mg tablet,delayed 40 mg PO DAILY 05/22/20 05/12/23 release ascorbic acid (vitamin C) 500 mg 500 mg PO DAILY 09/06/20 05/12/23 tablet,extended release (Vitamin C ER) hydrochlorothiazide 50 mg tablet 50 mg PO DAILY 09/06/20 05/12/23 amlodipine 2.5 mg tablet 2.5 mg PO DAILY 02/18/22 05/12/23 atorvastatin 80 mg tablet 40 mg PO DAILY 02/18/22 05/12/23 Previous Rx's Medication Instructions Recorded blood sugar diagnostic (FreeStyle #100 ea 05/22/20 Lite Strips) blood-glucose meter (FreeStyle #1 ea 05/22/20 Lite Meter kit) lancets 28 gauge (FreeStyle #100 ea 05/22/20 Lancets) ezetimibe 10 mg tablet 10 mg PO DAILY #90 tabs 08/31/22 ketoconazole 2 % topical cream 1 appl topical BID #30 grams 02/06/23 orthopaedic shoe lift, left #1 ea 02/08/23 gabapentin 100 mg capsule 100 mg PO TID 14 days #42 caps 03/14/23 Ventolin HFA 90 mcg/actuation 2 puff inhalation Q4-6H PRN 04/02/23 aerosol inhaler (albuterol sulfate) shortness of breath or wheezing 60 days #18 grams acetaminophen 500 mg tablet 500 mg PO Q6H PRN pain #30 tabs 08/26/23 (Tylenol Extra Strength) lidocaine 5 % topical patch 1 patch topical DAILY #30 ea 08/26/23 Allergies Allergy/AdvReac Type Severity Reaction Status Date / Time COLIN Inhibitors Allergy Severe Angioedema Verified 08/26/23 10:11 ibuprofen [From MOTRIN] Allergy Unknown Unknown Verified 08/26/23 10:11 Review of Systems 2 Review of Systems: Yes all other systems are reviewed and are negative Constitutional: Constitutional: Reports as per [facility] Past Medical History Attestation statement: The following information was validated with the patient. Medical History Ulnar neuropathy at elbow of left upper extremity Carpal tunnel syndrome of left wrist JESSICA (obstructive sleep apnea) HTN (hypertension) Asthma-COPD overlap syndrome JESSICA on CPAP Aortic stenosis Obesity (BMI 30-39.9) Dyslipidemia Vitamin D deficiency Diabetic nephropathy associated with type 2 diabetes mellitus Diabetes type 2, controlled Diabetes Surgical History History of decompression of ulnar nerve History of carpal tunnel surgery of left wrist Hx of carpal tunnel syndrome Hx of cholecystectomy History of total right knee replacement (TKR) History of left hip replacement Hx of hernia repair History of back surgery Hx of colonoscopy No pertinent past surgical history Family History Family History Father Hypertension Diabetes mellitus Mother Hypertension Social History Social History Alcohol intake: never Cigarettes Per Day: 2 Advance Directives: No Advance Directives Information Provided: No service: No Current occupational status: unemployed Current occupation: right handed Physical Exam ED Vital Signs: Vital Signs - 24 hr 08/26/23 09:57 08/26/23 16:44 Temperature 97.2 F 98 F Pulse Rate 85 67 Respiratory Rate 16 20 Blood Pressure 140/73 H 118/59 L Pulse Oximetry 98 98 Oxygen Delivery Method Room Air Room Air BMI result Body Mass Index 31.7 Const General: cooperative, comfortable and no acute distress Orientation/consciousness: patient oriented x3 Limitations: no limitations HENMT Head: Yes normal to inspection, Yes normocephalic and Yes atraumatic Ears: hearing grossly normal bilaterally General nose exam: Normal external nose present Face and sinus: Yes normal facial exam Mouth: Normal oral and palatal mucosa present, oropharynx normal and moist mucous membranes Throat: Yes posterior oropharynx normal Eyes General: appearance normal, both eyes and all related structures Eyelids: Yes eyelids normal Conjunctivae: conjunctivae normal Sclerae: sclerae normal Pupils: Equal, round and reactive pupils present EOM: EOMs intact bilaterally Neck Neck: Yes normal visual inspection, Yes full ROM and Yes no lymphadenopathy Lymphatic: no lymphadenopathy noted Chest Other: Tenderness to palpation along the anterior chest wall, approximately upon the 9th 10th and 11th ribs. No pain with deep inspiration Chest palpation & inspection: normal inspection of the chest Resp Effort & Inspection: normal respiratory effort and able to speak in complete sentences Auscultation: clear to auscultation bilaterally, no crackles, no rales, no rhonchi and no wheezes Cardio Rate: regular rate Rhythm: regular rhythm Heart sounds: S1 normal heart sound present and S2 normal heart sound present GI Other: Abdomen is soft, nontender, nondistended Inspection: Yes normal to inspection Skin General skin exam: no rashes or lesions noted Trauma: no lacerations or abrasions Wounds: no wounds Neuro General: patient oriented x3 and moves all extremities Cranial nerves: Yes Equal, round and reactive pupils present Extrem General: Yes normal to inspection Right upper extremity: normal to inspection Left upper extremity: normal to inspection Right lower extremity: normal to inspection Left lower extremity: normal to inspection Medications Administered Discontinued Medications Generic Name Dose Route Start Last Admin Trade Name Freq PRN Reason Stop Dose Admin Acetaminophen 975 mg 08/26/23 13:08 08/26/23 15:32 Acetaminophen 325 Mg Tablet PO 08/26/23 13:09 Not Given ONCE ONE Acetaminophen 975 mg 08/26/23 15:28 08/26/23 15:50 Acetaminophen 325 Mg Tablet PO 08/26/23 15:29 975 mg ONCE ONE Administration Medical Decision Making Medical Decision Making [facility] Narrative: This is a 63-year-old male, with a history of hypertension, and diabetes, presenting to the emergency department with complaints of right-sided rib pain. On arrival, patient was triaged as an abdominal pain. He states that he has had right-sided rib pain after falling into a dresser. On arrival, patient mildly hypertensive at 140/73, all other vital signs within normal limits. Labs were obtained, patient has no leukocytosis, he does have a normocytic anemia noted with hemoglobin and hematocrit at 12.4/37.7, chemistry nondiagnostic, hyperglycemic at 176, he has a history of diabetes. Urine does not appear to be infected. Chest x-ray was initially ordered however given patient has right- sided rib pain, a rib x-ray series was obtained. This reveals nondisplaced 9th 10th and 11th rib fractures. Reviewed this case with my attending physician, Dr. Chow, as patient initially said that he had no direct hit or trauma to his rib. Upon further questioning he does remember that he did strike the right side of his ribs on his dresser. This story is more consistent with this type of injury. There is no lytic lesion noted on chest x-ray. Discussed with patient that he has 3 rib fractures, advised to utilize incentive spirometer. Also given Tylenol and Lidoderm patches. Given return precautions. He understands and agrees with plan. Patient stable for discharge Differential Diagnosis Differential Diagnoses: The differential diagnosis associated with the presentation includes Rib fracture, contusion, pneumothorax Lab Data [facility] Lab Attestation statement: I reviewed the patient's lab results. See [facility] 08/26/23 10:31 08/26/23 10:22 Labs: Lab Results 08/26/23 08/26/23 08/26/23 Range/Units 10:22 10:31 15:55 WBC 7.2 (4.8-10.8) X10*3/uL RBC 4.11 L (4.60-5.80) X10*6/uL Hgb 12.4 L (14.0-18.0) g/dl Hct 37.7 L (42.0-52.0) % MCV 91.7 (80.0-98.0) fL MCH 30.2 (27.0-33.0) pg MCHC 32.9 (31.0-36.0) g/dl RDW 15.6 (11.0-16.0) % Plt Count 329 (160-400) X10*3/uL MPV 10.2 (9.4-12.4) fL Immature Gran % (Auto) 0.3 (0.0-0.4) % Neut % (Auto) 65.1 (45-73) % Lymph % (Auto) 23.9 (20-40) % [place] % (Auto) 8.5 (2-11) % Eos % (Auto) 1.5 (0-4) % Baso % (Auto) 0.7 (0-2) % Lymph # (Auto) 1.7 (1.2-4.9) X10*3/uL [place] # (Auto) 0.6 (0.1-1.2) X10*3/uL Eos # (Auto) 0.1 (0.0-0.4) X10*3/uL Baso # (Auto) 0.1 (0.0-0.2) X10*3/uL Abs Immat Gran (auto) 0.02 (0.00-0.03) X10*3/uL Absolute Neuts (auto) 4.7 (2.0-8.3) x10*3/uL Absolute Nucleated RBC 0.000 (0.0-0.012) X10*3/uL Nucleated RBC % (auto) 0.0 (0.0-0.2) /100WBC Sodium 142 (135-145) mmol/L Potassium 3.8 (3.3-5.1) mmol/L Chloride 103 (96-108) mmol/L Carbon Dioxide 30 H (22-29) mmol/L Anion Gap 13 (12-20) BUN 19 H (9-16) mg/dL Creatinine 1.11 (0.5-1.4) mg/dL Estim Creat Clear Calc 72.1 Estimated GFR > 60 Random Glucose 176 H (60-115) mg/dL Calcium 10.0 D (8.4-10.2) mg/dL Total Bilirubin 0.6 (0.0-1.0) mg/dL Direct Bilirubin 0.2 (0.0-0.5) mg/dL AST 33 (5-37) U/L ALT 22 (0-40) U/L Alkaline Phosphatase 91 (39-117) U/L Total Protein 7.6 (6.5-8.0) g/dL Albumin 4.1 (3.5-5.0) g/dL Lipase 28 (8-78) U/L Urine Color Yellow Urine Appearance Clear Urine pH 5.0 (5.0-9.0) Ur Specific [place] 1.020 (1.005-1.025) Urine Protein 30 (1+) H (Neg-Trace) mg/dL Urine Glucose (UA) Negative (Negative) mg/dL Urine Ketones Trace (Negative) mg/dL Urine Blood Negative (Negative) Urine Nitrite Negative (Negative) Ur Leukocyte Esterase Negative (Negative) Urine RBC 0-2 (0-2) /HPF Urine WBC 0-5 (0-5) /HPF Ur Squamous Epith Cells 3-5 (0-2) /HPF Urine Bacteria None Seen (None Seen) Hyaline Casts 0-2 (0-2) /LPF Radiology Impression Discussion of test interpretation with radiology: I have reviewed the radiologist's reading. Radiologist Impression: EXAMINATION: XR RIBS, RIGHT CLINICAL INFORMATION: Right rib pain COMPARISON: None available. TECHNIQUE: 3 views of the right ribs were obtained with a marker placed along the right lateral inferior ribs. FINDINGS: Multiple views of right ribs reveal nondisplaced fracture right lateral 11th, 10th and likely anterolateral ninth ribs XR/XR ribs RT 2V IMPRESSION: Nondisplaced fracture right lateral 11th, 10th and likely anterolateral ninth ribs. Dictated By: Rufus Posey MD EXAMINATION: XR CHEST CLINICAL INFORMATION: Chest pain COMPARISON: 09/14/2019 TECHNIQUE: Frontal view of the chest was obtained. FINDINGS: Again noted is mild elevation of the left hemidiaphragm with some left basilar scarring. Surgical clips are again noted in the region of the GE junction and left and right upper quadrants. No other significant abnormality is noted involving the heart, lungs, mediastinum, bony thorax or soft tissues. XR/XR chest 1V IMPRESSION: No acute intrathoracic disease. Dictated By: Jagdish Foster MD Discharge Plan Discharge Clinical Impression: Multiple rib fractures Patient Disposition: Home, Self-Care Instructions: Rib Fracture (ED) Additional Instructions: You were seen in the ER today due right rib pain. Your x-rays today show 3 rib fractures. It is very important to take Tylenol as needed for pain, you may also use lidocaine patches as needed. Utilizing the incentive spirometer will help prevent pneumonia. If any new or worsening symptoms occur including but not limited to chest pain, shortness of breath, please return for re-evaluation. Le atendieron hoy en urgencias debido a un dolor en la francis derecha. Nicolette radiograf?as de hoy muestran 3 fracturas de costillas. Es muy importante alva Tylenol seg?n sea necesario para el dolor; tambi?n puede usar parches de lidoca?na seg?n sea necesario. El uso del espir?metro incentivador ayudar? a prevenir la neumon?a. Si se presenta alg?n s?ntoma nuevo o que empeora, incluidos, entre otros, dolor en el pecho y dificultad para respirar, regrese para suresh nueva evaluaci?n. Prescriptions: New lidocaine 5 % adhesive patch,medicated 1 patch topical DAILY Qty: 30 0RF Rx Instructions: leave on most painful area for up to 12 hrs acetaminophen [Tylenol Extra Strength] 500 mg tablet 500 mg PO Q6H PRN (Reason: pain) Qty: 30 0RF No Action ezetimibe 10 mg tablet 10 mg PO DAILY Qty: 90 3RF (DME) orthopaedic shoe lift, left 1/2 inch See Rx Instructions .Route .MEDSUPPLY Qty: 1 0RF Rx Instructions: As directed albuterol sulfate [Ventolin HFA] 90 mcg/actuation HFA aerosol inhaler 2 puff inhalation Q4-6H PRN (Reason: shortness of breath or wheezing) 60 Days Qty: 18 3RF hydrochlorothiazide 50 mg Tablet 50 mg PO DAILY ascorbic acid (vitamin C) [Vitamin C] 500 mg Tablet Extended Release 500 mg PO DAILY ketoconazole 2 % cream 1 appl topical BID Qty: 30 0RF gabapentin 100 mg capsule 100 mg PO TID 14 Days Qty: 42 0RF pantoprazole 40 mg tablet,delayed release (DR/EC) 40 mg PO DAILY (DME) blood-glucose meter [FreeStyle Lite Meter] Kit See Rx Instructions .ROUTE .MEDSUPPLY Qty: 1 0RF Rx Instructions: As directed (DME) FreeStyle Lite Strips Strip See Rx Instructions .ROUTE .MEDSUPPLY Qty: 100 11RF Rx Instructions: 3 times a day (DME) lancets [FreeStyle Lancets] 28 gauge misc See Rx Instructions .ROUTE .MEDSUPPLY Qty: 100 11RF Rx Instructions: 3 times a day atorvastatin 80 mg tablet 40 mg PO DAILY amlodipine 2.5 mg tablet 2.5 mg PO DAILY triamcinolone acetonide 40 mg/mL suspension 20 mg Tendon Sheath Inj. ONCE Qty: 0.5 0RF Print Language: Frisian
--- NOTE | 2023-08-26 17:22 | PC.NURSE ---
incentive spirometry education provided to pt. pt provided w/ d/c paperwork.
== END 2023-08-26 17:22 | disposition home or self-care (01) ==
PROVIDERS: Emergency Provider Emergency Medicine
DX: S22.41XA Multiple fractures of ribs, right side, initial encounter for closed fracture (principal); R07.81 Pleurodynia; R07.89 Other chest pain; W01.0XXA Fall on same level from slipping, tripping and stumbling without subsequent striking against object, initial encounter; Y93.9 Activity, unspecified; Y92.9 Unspecified place or not applicable; Y99.8 Other external cause status; Z79.899 Other long term (current) drug therapy
CPT/HCPCS: 36415; 71045; 71100; 80053; 81001; 82248; 83690; 85025; 94010; 99283

== ENCOUNTER 2023-08-31 10:29 | Outpatient (AMB) | payer MEDICAID, SELFPAY ==
--- NOTE | 2023-08-31 10:51 | A.OFFVIS_ITS ---
Intake Vital Signs 08/31/23 11:05 Height 5 ft 6 in Weight 173 lb 11.588 oz BMI 28.0 BP 144/76 H Blood Pressure Location Lt brachial Position Sitting Pulse 74 Intake Visit Reasons: 1 YEAR FUP AFTER ECHO Intake Note: 1 year follow with EKG PT feels good no concers Education Adviser Required: Yes Education Adviser Name: [facility] Allergies COLIN Inhibitors Allergy (Severe, Verified 08/31/23 11:09) Angioedema ibuprofen [From MOTRIN] Allergy (Unknown, Verified 08/31/23 11:09) Unknown HPI HPI Comments History of Present Illness Details Griffin comes for follow-up. History was obtained with help of staff interpreter in the room. Patient denies any cardiac symptoms. Remains very active and denies any symptoms of exertional chest pain or shortness of breath. Takes all his medications regularly. Uses CPAP. Blood pressure is generally well controlled. Diabetes under your care. [facility] Medical History Ulnar neuropathy at elbow of left upper extremity Carpal tunnel syndrome of left wrist JESSICA (obstructive sleep apnea) HTN (hypertension) Asthma-COPD overlap syndrome JESSICA on CPAP Aortic stenosis Obesity (BMI 30-39.9) Dyslipidemia Vitamin D deficiency Diabetic nephropathy associated with type 2 diabetes mellitus Diabetes type 2, controlled Diabetes Surgical History History of decompression of ulnar nerve History of carpal tunnel surgery of left wrist Hx of carpal tunnel syndrome Hx of cholecystectomy History of total right knee replacement (TKR) History of left hip replacement Hx of hernia repair History of back surgery Hx of colonoscopy No pertinent past surgical history Family History Father Hypertension Diabetes mellitus Mother Hypertension Social History Alcohol intake: never Cigarettes Per Day: 2 service: No Current occupational status: unemployed Current occupation: right handed Review of Systems Const Denies chills, Denies fatigue, Denies fever(s), Denies frequent falls, Denies weakness, Denies weight gain and Denies weight loss ENT Denies dizziness Card Denies chest pain, Denies leg edema, Denies lightheadedness, Denies palpitations, Denies dyspnea, Denies dyspnea on exertion, Denies orthopnea and Denies other (loss of consciousness) Resp Denies cough, Denies dyspnea and Denies dyspnea on exertion GI Denies hematochezia and Denies change in stool character Musc Denies abnormal gait, Denies muscle weakness, Denies numbness, Denies radiating pain into limb and Denies tingling Neuro Denies abnormal gait, Denies dizziness, Denies frequent falls, Denies numbness, Denies tingling and Denies weakness Endo Denies fatigue and Denies palpitations Physical Exam Vital Signs: Last Vital Signs Pulse 74 08/31/23 11:05 BP 144/76 H 08/31/23 11:05 BMI result Body Mass Index 28.0 Const General: comfortable, no acute distress, alert and awake Nutritional Appearance: overweight Orientation/consciousness: patient oriented x3 Limitations: no limitations HEENT Head: Yes normal to inspection General nose exam: No nasal polyps present and No nasal discharge present Face and sinus: Yes sinuses nontender Mouth: oropharynx normal Throat: Yes posterior oropharynx normal Eyes General: appearance normal, both eyes and all related structures Neck Neck: Yes normal visual inspection, Yes no lymphadenopathy, Yes trachea midline and Yes no JVD Thyroid: Thyroid normal Chest Chest palpation & inspection: normal inspection of the chest, normal palpation of entire chest wall and no tenderness Resp Other: PERCUSSION NOTE IS RESONANT, BREATH SOUNDS ARE EQUAL AND NORMAL ON BOTH SIDES. NO WHEEZES OR CREPITATIONS ARE HEARD TODAY. Effort & Inspection: normal respiratory effort Auscultation: clear to auscultation bilaterally Cardio Jugular venous distension: no JVD Palpation: normal PMI Rate: regular rate Rhythm: regular rhythm Heart sounds: no gallops and Murmur heart sound present systolic early, decrescendo and crescendo GI Palpation (GI): Soft to palpation, nontender, No hepatosplenomegaly present and no masses Auscultation: normal bowel sounds Back/Spine/Pelvis Thoracic/Lumbar Spine: thoracic and lumbar spine normal to inspection Skin General skin exam: no rashes or lesions noted Neuro General: patient oriented x3 and no focal motor deficits Cranial nerves: Yes CN's II-XII intact bilaterally Extrem General: Yes normal to inspection, Yes no clubbing, cyanosis or edema and Yes no calf tenderness Psych Appearance: grossly normal Speech and movement: Normal speech and movement present Office Procedures EKG Details: EKG shows normal sinus rhythm with right bundle-branch block, which is new [id number], Complete Assessment & Plan Assessment & Plan (1) Aortic stenosis: Code(s): I35.0 - Nonrheumatic aortic (valve) stenosis Plan: Aortic stenosis which appears to be mild maybe moderate clinically. No new symptoms related to it. Continue aggressive medical therapy. Continue low-dose aspirin therapy for life. Continue aggressive vascular risk factor modification. Continue aggressive blood pressure control, see below. Diabetes goal hemoglobin A1c less than 7% being pursue through office. Target goal LDL less than 70 mg/dL. Advised lipid panel near future and should be done at least annually. Encouraged to continue to participate in physical activity as tolerated. Cardinal symptoms of aortic stenosis were discussed. No surgical or interventional therapy required at this point in time. (2) HTN (hypertension): Code(s): I10 - Essential (primary) hypertension Plan: Hypertension which is currently well optimized advised to monitor blood pressure at home maintain a log. Goal blood pressure less than 130/84. Discussed about low-salt diet. Maintain activity level as tolerated. Continue CPAP therapy. (3) Right bundle branch block (RBBB) on electrocardiogram (ECG): Code(s): I45.10 - Unspecified right bundle-branch block Plan: Right bundle-branch block which is new, without any symptoms. Continue monitor EKG on annual basis. Most likely related to conduction system disease related to aortic valve disease. Possible symptoms associated with this was discussed. Will follow up in the clinic in 1 year's time, sooner p.r.n.. Thank you for allowing me to partake in his care Orders: Orders CA echo transthoracic complete 50 Weeks I35.0 - Nonrheumatic aortic (valve) stenosis Coding Level of Care Code Tele Est Pt Level 4 (62631) Diagnoses Aortic stenosis I35.0 HTN (hypertension) I10 Right bundle branch block (RBBB) on electrocardiogram (ECG) I45.10 CPT Codes EKG - CPT: [id number], Complete ([id number])
[2023-08-31 11:05] VITALS: BP 144/76; PULSE 74; BMI 28.0
== END 2023-08-31 12:50 | disposition home or self-care (01) ==
PROVIDERS: PCP Internal Medicine; Visit Provider Internal Medicine Cardiovascular Disease
DX: I35.0 Nonrheumatic aortic (valve) stenosis (principal); I10 Essential (primary) hypertension; I45.10 Unspecified right bundle-branch block
CPT/HCPCS: 93010; 99214

== ENCOUNTER → 2023-08-31 10:29 | Outpatient (BNVA) | payer MEDICAID, SELFPAY | PROVIDERS: PCP Internal Medicine; Visit Provider Internal Medicine Cardiovascular Disease | DX: I35.0 Nonrheumatic aortic (valve) stenosis (principal); I10 Essential (primary) hypertension; I45.10 Unspecified right bundle-branch block | CPT/HCPCS: 93005; 99212 ==

== ENCOUNTER 2023-12-13 13:33 | Outpatient (AMB) | payer MEDICAID, SELFPAY ==
[2023-12-13 14:10] VITALS: BP 120/68; PULSE 93; O2SAT 98; BMI 33.3
--- NOTE | 2023-12-13 14:10 | MHC.OFFVIS ---
Vital Signs 12/13/23 14:10 Height 5 ft 6 in Weight 206 lb 2.115 oz BMI 33.3 BP 120/68 Blood Pressure Location Lt brachial Position Sitting Pulse 93 Pulse Source Pulse Oximeter Pulse Oximetry (%) 98 Oxygen Delivery Method Room Air Intake Visit Reasons: COPD Intake Note: pt is here for follow up and states his breathing is good. Ski Topper Required: No Allergies COLIN Inhibitors Allergy (Severe, Verified 12/13/23 14:35) Angioedema ibuprofen [From MOTRIN] Allergy (Unknown, Verified 12/13/23 14:35) Unknown Medication List - Last Reconciled 12/13/23 by Ursula Pearl MD acetaminophen (Tylenol Extra Strength) 500 mg PO Q6H PRN amlodipine 2.5 mg PO DAILY ascorbic acid (vitamin C) ER (Vitamin C ER) 500 mg PO DAILY atorvastatin 40 mg PO DAILY blood sugar diagnostic (FreeStyle Lite Strips) 3 times a day blood-glucose meter (FreeStyle Lite Meter kit) As directed ezetimibe 10 mg PO DAILY gabapentin 100 mg PO TID 14 days hydrochlorothiazide 50 mg PO DAILY ketoconazole 2% 1 appl topical BID lancets (FreeStyle Lancets) 3 times a day lidocaine 5% 1 patch topical DAILY [orthopaedic shoe lift, left As directed] pantoprazole 40 mg PO DAILY Ventolin HFA 90 mcg/actuation (albuterol sulfate) 2 puffs inhalation Q4-6H PRN 60 days NS Do you need a note to return to daycare/school/sports/work: No HPI HPI COPD: Details: THIS 63 YEARS OLD GENTLEMAN WHO IS MODERATELY OBESE AND HAS PAST HISTORY OF OBSTRUCTIVE SLEEP APNEA, RESOLVED AFTER SIGNIFICANT WEIGHT LOSS. COMES AFTER MORE THAN 6 MONTHS FOR FOLLOW-UP. HE SLEEPS GOOD WITHOUT THE CPAP. HE HAS ONLY OCCASIONAL COUGH OR WHEEZE AND USES ALBUTEROL ONLY NEEDED. HE REMAINS ACTIVE DURING. THE DAYTIME AND WALKS AROUND HE IS TRYING TO MAINTAIN HIS WEIGHT BUT COMPARED TO LAST VISIT HE HAS PUT ON SOME WEIGHT. DENIES SMOKING [facility] Medical History Ulnar neuropathy at elbow of left upper extremity Carpal tunnel syndrome of left wrist JESSICA (obstructive sleep apnea) HTN (hypertension) Asthma-COPD overlap syndrome JESSICA on CPAP Aortic stenosis Obesity (BMI 30-39.9) Dyslipidemia Vitamin D deficiency Diabetic nephropathy associated with type 2 diabetes mellitus Diabetes type 2, controlled Diabetes Surgical History History of decompression of ulnar nerve History of carpal tunnel surgery of left wrist Hx of carpal tunnel syndrome Hx of cholecystectomy History of total right knee replacement (TKR) History of left hip replacement Hx of hernia repair History of back surgery Hx of colonoscopy No pertinent past surgical history Family History Father Hypertension Diabetes mellitus Mother Hypertension Social History Alcohol intake: never Cigarettes Per Day: 2 service: No Current occupational status: unemployed Current occupation: right handed Review of Systems Const All systems reviewed & are unremarkable except as noted in HPI and below Eyes Reports no additional complaints ENT Reports no additional complaints Card Denies chest pain, Denies leg edema and Reports dyspnea on exertion (ONLY ON WALKING UP HILL , ) Resp Reports cough (MILD ,INTERMITTENT ) and Reports dyspnea on exertion (ONLY ON WALKING UP HILL , ) GI Reports no additional complaints and Reports heartburn (CONTROLLED WITH MED , ) Musc Reports back pain (CONTROLLED .) Neuro Reports no additional complaints Psych Reports no additional complaints Physical Exam Vital Signs: Last Vital Signs Pulse 93 12/13/23 14:10 BP 120/68 12/13/23 14:10 Pulse Ox 98 12/13/23 14:10 Oxygen Delivery Method Room Air 12/13/23 14:10 BMI result Body Mass Index 33.3 Appearance: Alert. Oriented X3. No acute distress. HEENT: There is an appropriate healing small laceration to the right occipital/parietal area with [address], scabbing present, no active bleeding. Nontender CVS: Normal heart rate and rhythm. Pulses normal. Respiratory: No respiratory distress. Skin: Skin warm and dry. Normal skin color. Normal skin turgor. No rashes. Extremities: normal inspection Neuro: Oriented X 3. Grossly normal, nonfocal Const General: comfortable, no acute distress, alert and awake Orientation/consciousness: patient oriented x3 HEENT Head: Yes normal to inspection General nose exam: No nasal polyps present and No nasal discharge present Face and sinus: Yes sinuses nontender Mouth: oropharynx normal Throat: Yes posterior oropharynx normal Eyes General: appearance normal, both eyes and all related structures Neck Neck: Yes normal visual inspection, Yes no lymphadenopathy, Yes trachea midline and Yes no JVD Thyroid: Thyroid normal Chest Chest palpation & inspection: normal inspection of the chest, normal palpation of entire chest wall and no tenderness Resp Other: PERCUSSION NOTE IS RESONANT, BREATH SOUNDS ARE EQUAL AND NORMAL ON BOTH SIDES. NO WHEEZES OR CREPITATIONS ARE HEARD TODAY. Cardio Palpation: normal PMI Rate: regular rate Rhythm: regular rhythm Heart sounds: no gallops and no murmurs GI Palpation (GI): Soft to palpation, nontender, No hepatosplenomegaly present and no masses Auscultation: normal bowel sounds Back/Spine/Pelvis Thoracic/Lumbar Spine: thoracic and lumbar spine normal to inspection Skin General skin exam: no rashes or lesions noted Neuro General: patient oriented x3 and no focal motor deficits Cranial nerves: Yes CN's II-XII intact bilaterally Extrem General: Yes normal to inspection, Yes no clubbing, cyanosis or edema and Yes no calf tenderness Psych Speech and movement: Normal speech and movement present Assessment & Plan Assessment & Plan (1) Asthma-COPD overlap syndrome: Comment: HE DOES HAVE PAST HISTORY OF BRONCHIAL ASTHMA/COPD. CURRENTLY IT IS WELL CONTROLLED AND HE REMAINS ASYMPTOMATIC. PULMONARY FUNCTION TEST IN FEBRUARY 2022 WAS ESSENTIALLY NORMAL. Code(s): J44.9 - Chronic obstructive pulmonary disease, unspecified Category: Medical Plan: [place] : ALBUTEROL HFA 2 PUFFS Q 4-6 HOURS ONLY P.R.N. IF HE HAS ANY WHEEZING. (2) JESSICA (obstructive sleep apnea): Comment: PATIENT HAS PAST HISTORY OF OBSTRUCTIVE SLEEP APNEA SECONDARY TO HIS OBESITY. HE LOST SIGNIFICANT AMOUNT OF WEIGHT, AND SYMPTOMS OF SLEEP APNEA SYMPTOMS HAVE RESOLVED COMPLETELY. HE HAS NOT NEEDED TO USE THE CPAP FOR THE PAST 2-3 YEARS. Code(s): G47.33 - Obstructive sleep apnea (adult) (pediatric) Category: Medical Plan: DISCUSSED WITH HIM ABOUT THE WEIGHT AND HE SHOULD TRY TO KEEP IT UNDER CONTROL. (3) Obesity (BMI 30-39.9): Comment: HE TRIES TO CONTROL HIS WEIGHT AND REMAINS VERY STABLE SINCE LAST YEAR. Code(s): E66.9 - Obesity, unspecified Category: Medical Plan: HE IS COMMENDED FOR KEEPING HIS WEIGHT DOWN. REINFORCED DIET AND ACTIVE WALKING ON A DAILY BASIS AND DO NOT. LET THE WEIGHT GO UP Coding Level of Care Code Est Pt Level 3 (70461) Diagnoses Asthma-COPD overlap syndrome J44.9 JESSICA (obstructive sleep apnea) G47.33 Obesity (BMI 30-39.9) E66.9
== END 2023-12-13 14:35 | disposition home or self-care (01) ==
PROVIDERS: PCP Internal Medicine; Referring Provider Internal Medicine; Visit Provider Internal Medicine
DX: J44.9 Chronic obstructive pulmonary disease, unspecified (principal); G47.33 Obstructive sleep apnea (adult) (pediatric); E66.9 Obesity, unspecified
CPT/HCPCS: 99213

== ENCOUNTER → 2023-12-13 13:33 | Outpatient (BNVA) | payer MEDICAID, SELFPAY | PROVIDERS: PCP Internal Medicine; Visit Provider Internal Medicine | DX: J44.9 Chronic obstructive pulmonary disease, unspecified (principal); G47.33 Obstructive sleep apnea (adult) (pediatric); E66.9 Obesity, unspecified; Z68.33 Body mass index [BMI] 33.0-33.9, adult | CPT/HCPCS: 99212 ==

== ENCOUNTER 2024-01-12 08:11 | Outpatient (REF) | payer MEDICAID, SELFPAY ==
[2024-01-12 11:36] LABS: Alanine Aminotransferase 30 U/L (0-40); Albumin Level 4.4 g/dL (3.5-5.0); Alkaline Phosphatase 94 U/L (39-117); Anion Gap 13 (12-20); Aspartate Amino Transferase 40 U/L (5-37); Bilirubin Total 0.5 mg/dL (0.0-1.0); Blood Urea Nitrogen 16 mg/dL (9-16); Calcium 9.9 mg/dL (8.4-10.2); Carbon Dioxide 30 mmol/L (22-29); Chloride 93 mmol/L (96-108); Cholesterol 154 mg/dL (<200); Estimated Glomerular Filt Rate > 60; Glucose Random 92 mg/dL (60-115); HDL Cholesterol 71 mg/dL (>40); LDL Cholesterol Calculated 68 mg/dL (<100); Potassium 3.2 mmol/L (3.3-5.1); Sodium 133 mmol/L (135-145); Total Protein 7.7 g/dL (6.5-8.0); Triglycerides 78 mg/dL (<150)
[2024-01-12 12:22] LABS: Reflex LDLD? No
== END 2024-01-12 08:12 | disposition home or self-care (01) ==
LOC: HO.HHCL 08:11
PROVIDERS: Visit Provider Internal Medicine
DX: I10 Essential (primary) hypertension (principal)
CPT/HCPCS: 36415; 80053; 80061

== ENCOUNTER 2024-01-19 08:28 | Outpatient (REF) | payer MEDICAID, SELFPAY ==
[2024-01-19 12:01] LABS: Anion Gap 13 (12-20); Blood Urea Nitrogen 16 mg/dL (9-16); Carbon Dioxide 30 mmol/L (22-29); Chloride 100 mmol/L (96-108); Estimated Glomerular Filt Rate > 60; Glucose Random 102 mg/dL (60-115); Sodium 140 mmol/L (135-145)
== END 2024-01-19 08:29 | disposition home or self-care (01) ==
LOC: HO.HHCL 08:28
PROVIDERS: Visit Provider Internal Medicine
DX: E87.6 Hypokalemia (principal)
CPT/HCPCS: 36415; 80048

== ENCOUNTER 2024-01-27 08:04 | Outpatient (REF) | payer MEDICAID, SELFPAY ==
[2024-01-27 11:51] LABS: Anion Gap 14 (12-20); Blood Urea Nitrogen 16 mg/dL (9-16); Calcium 9.5 mg/dL (8.4-10.2); Carbon Dioxide 28 mmol/L (22-29); Chloride 98 mmol/L (96-108); Estimated Glomerular Filt Rate > 60; Glucose Random 111 mg/dL (60-115); Potassium 3.3 mmol/L (3.3-5.1); Sodium 137 mmol/L (135-145)
== END 2024-01-27 08:05 | disposition home or self-care (01) ==
LOC: HO.HHCL 08:04
PROVIDERS: Visit Provider Internal Medicine
DX: E87.6 Hypokalemia (principal)
CPT/HCPCS: 36415; 80048

== ENCOUNTER 2024-02-01 12:59 | Emergency (ER) | payer MEDICAID, SELFPAY ==
--- NOTE | ~2024-02-01 | CT_ITS ---
EXAMINATION: CT head/brain wo IV con CLINICAL INFORMATION: Reason for Exam headache no hx of COMPARISON: CT head without contrast 11/27/2022 TECHNIQUE: Contiguous axial imaging was performed from the skull base to vertex without intravenous contrast. Sagittal and coronal reformatted images were obtained. This CT examination was performed using dose optimization techniques as appropriate, variously including the following: * Automated exposure control * Adjustment of mA and/or kV according to patient size (this includes techniques or standardized protocols for targeted exams where dose is matched to indication/reason for exam; i.e. extremities or head) Use of iterative reconstruction technique DLP: 722 mGy-cm FINDINGS: Right parietal scalp subcutaneous stranding and soft tissue thickening. No acute osseous abnormality. The mastoid air cells and visualized portions of the paranasal sinuses are well aerated. There is no evidence of acute intracranial hemorrhage or territorial infarction. No abnormal mass effect or midline shift is seen. Noe to white matter differentiation is well preserved. No extra-axial fluid collections are identified. No hydrocephalus. Proportional prominence of the ventricles and sulcal spaces related to volume loss. Patchy periventricular and deep white matter hypoattenuation is consistent with moderate small vessel ischemic changes. CT/CT head/brain wo IV con IMPRESSION: No acute intracranial abnormality including hemorrhage, mass effect, hydrocephalus, or acute territorial edematous infarction.
[2024-02-01 13:30] VITALS: BP 147/92; PULSE 98; RESP 16; TEMP 37; O2SAT 98; BMI 33.3
--- NOTE | 2024-02-01 13:31 | ED.HA ---
HPI - Headache General Chief Complaint: Headache Stated Complaint: HBP/Headache Time Seen by Provider: 02/01/24 20:14 Related Data Home Medications ?Medication ?Instructions ?Recorded ?Confirmed pantoprazole 40 mg tablet,delayed 40 mg PO DAILY 05/22/20 12/13/23 release ascorbic acid (vitamin C) 500 mg 500 mg PO DAILY 09/06/20 12/13/23 tablet,extended release (Vitamin C ER) hydrochlorothiazide 50 mg tablet 50 mg PO DAILY 09/06/20 12/13/23 amlodipine 2.5 mg tablet 2.5 mg PO DAILY 02/18/22 12/13/23 atorvastatin 80 mg tablet 40 mg PO DAILY 02/18/22 12/13/23 Previous Rx's ?Medication ?Instructions ?Recorded blood sugar diagnostic (FreeStyle #100 ea 05/22/20 Lite Strips) blood-glucose meter (FreeStyle #1 ea 05/22/20 Lite Meter kit) lancets 28 gauge (FreeStyle #100 ea 05/22/20 Lancets) ketoconazole 2 % topical cream 1 appl topical BID #30 grams 02/06/23 orthopaedic shoe lift, left #1 ea 02/08/23 gabapentin 100 mg capsule 100 mg PO TID 14 days #42 caps 03/14/23 acetaminophen 500 mg tablet 500 mg PO Q6H PRN pain #30 tabs 08/26/23 (Tylenol Extra Strength) lidocaine 5 % topical patch 1 patch topical DAILY #30 ea 08/26/23 ezetimibe 10 mg tablet 10 mg PO DAILY #90 tabs 09/09/23 Ventolin HFA 90 mcg/actuation 2 puff inhalation Q4-6H PRN 12/07/23 aerosol inhaler (albuterol sulfate) shortness of breath or wheezing 60 days #18 grams Allergies Allergy/AdvReac Type Severity Reaction Status Date / Time COLIN Inhibitors Allergy Severe Angioedema Verified 02/01/24 13:34 ibuprofen [From MOTRIN] Allergy Unknown Unknown Verified 02/01/24 13:34 [facility] Past Medical History Medical History Ulnar neuropathy at elbow of left upper extremity Carpal tunnel syndrome of left wrist JESSICA (obstructive sleep apnea) HTN (hypertension) Asthma-COPD overlap syndrome JESSICA on CPAP Aortic stenosis Obesity (BMI 30-39.9) Dyslipidemia Vitamin D deficiency Diabetic nephropathy associated with type 2 diabetes mellitus Diabetes type 2, controlled Diabetes Surgical History History of decompression of ulnar nerve History of carpal tunnel surgery of left wrist Hx of carpal tunnel syndrome Hx of cholecystectomy History of total right knee replacement (TKR) History of left hip replacement Hx of hernia repair History of back surgery Hx of colonoscopy No pertinent past surgical history Family History Family History Father Hypertension Diabetes mellitus Mother Hypertension Social History Social History Alcohol intake: never Cigarettes Per Day: 2 Advance Directives: No Advance Directives Information Provided: Yes service: No Current occupational status: unemployed Current occupation: right handed Physical Exam Vital Signs: Vital Signs: Last Vital Signs Temp 98.3 F 02/01/24 22:06 Pulse 64 02/01/24 22:06 Resp 16 02/01/24 22:06 BP 147/78 H 02/01/24 22:06 Pulse Ox 96 02/01/24 22:06 O2 Del Method Room Air 02/01/24 22:06 BMI result Body Mass Index 33.3 Course Course Course Narrative: This is a Rapid Medical Examination (RME) performed by Obinna Altman PA-C in triage. Full HPI, ROS, assessment and treatment plan per primary provider in the Main ED. 63 yo Hungarian speaking male with history of HTN, RBBB, JESSICA, DM2 w/ diabetic neuropathy who presents to the ER for evaluation of a frontal headache for the last 3 days. He took his BP today and it was 162/95. It usually runs normal. He has been compliant with his BP meds and has not missed any doses. BP here 147/92. No chest pain or vision changes. Headache 8/10 and throbbing in nature. No hx migraines. No numbness, weakness or tingling. Plan: labs, covid swab Reevaluation(s) Reevaluation #1: CBC with a normocytic anemia at baseline. Chemistry no acute findings eating intervention. CT head no acute intracranial abnormality including hemorrhage, mass effect, hydrocephalus or acute territorial edematous infarction. Patient feeling better. Troponin normal, EKG nonischemic. Educated patient on diagnosis and treatment plan, answered all question, patient verbalizes understanding. At this time patient will be discharged home, advised to return with new or worsening symptoms. Educated on worrisome signs and symptoms and when to return. At this time I feel comfortable discharge home. Time: 22:09 Medications Administered Discontinued Medications Generic Name Dose Route Start Last Admin Trade Name [place] PRN Reason Stop Dose Admin Acetaminophen 650 mg 02/01/24 20:16 02/01/24 20:26 Acetaminophen 325 Mg Tablet PO 02/01/24 20:17 650 mg ONCE ONE Administration Medical Decision Making Lab Data 02/01/24 13:54 02/01/24 13:54 Labs: Lab Results 02/01/24 Range/Units 13:54 WBC 7.9 (4.8-10.8) X10*3/uL RBC 4.38 L (4.60-5.80) X10*6/uL Hgb 13.3 L (14.0-18.0) g/dl Hct 38.9 L (42.0-52.0) % MCV 88.8 (80.0-98.0) fL MCH 30.4 (27.0-33.0) pg MCHC 34.2 (31.0-36.0) g/dl RDW 16.7 H (11.0-16.0) % Plt Count 335 (160-400) X10*3/uL MPV 9.7 (9.4-12.4) fL Immature Gran % (Auto) 0.3 (0.0-0.4) % Neut % (Auto) 64.5 (45-73) % Lymph % (Auto) 23.5 (20-40) % Graves % (Auto) 8.9 (2-11) % Eos % (Auto) 2.2 (0-4) % Baso % (Auto) 0.6 (0-2) % Lymph # (Auto) 1.9 (1.2-4.9) X10*3/uL Graves # (Auto) 0.7 (0.1-1.2) X10*3/uL Eos # (Auto) 0.2 (0.0-0.4) X10*3/uL Baso # (Auto) 0.1 (0.0-0.2) X10*3/uL Abs Immat Gran (auto) 0.02 (0.00-0.03) X10*3/uL Absolute Neuts (auto) 5.1 (2.0-8.3) x10*3/uL Absolute Nucleated RBC 0.000 (0.0-0.012) X10*3/uL Nucleated RBC % (auto) 0.0 (0.0-0.2) /100WBC Sodium 137 (135-145) mmol/L Potassium 3.9 (3.3-5.1) mmol/L Chloride 98 (96-108) mmol/L Carbon Dioxide 29 (22-29) mmol/L Anion Gap 14 (12-20) BUN 12 (9-16) mg/dL Creatinine 1.03 (0.5-1.4) mg/dL Estim Creat Clear Calc 79.5 Estimated GFR > 60 Random Glucose 140 H (60-115) mg/dL Calcium 10.8 H D (8.4-10.2) mg/dL Magnesium 2.0 (1.6-2.6) mg/dL Total Bilirubin 0.9 (0.0-1.0) mg/dL Direct Bilirubin 0.2 (0.0-0.5) mg/dL AST 36 (5-37) U/L ALT 27 (0-40) U/L Alkaline Phosphatase 104 (39-117) U/L Troponin I High Sens 3.4 (<3.5-35.0) ng/L Total Protein 8.5 H (6.5-8.0) g/dL Albumin 4.6 (3.5-5.0) g/dL COVID-19 (JC) Negative (Negative) COVID-19 Clin Com See Note Discharge Plan Discharge Clinical Impression: Headache, High blood pressure Patient Disposition: Home, Self-Care Instructions: Acute Headache (ED), Low-Sodium Diet (ED), Hypertension (ED) Additional Instructions: Take your medications as prescribed. If you were prescribed antibiotics today, it is important that you take your medication to their entirety, do not skip any doses, do not finish them early. Follow-up with your primary care provider this week. Return to the emergency department with new or worsening symptoms. Such as fevers, chills, chest pain, shortness of breath, nausea, vomiting, dizziness, headache, vision changes, lethargy In case of emergency call 911 Prescriptions: No Action (DME) orthopaedic shoe lift, left 1/2 inch See Rx Instructions .Route .MEDSUPPLY Qty: 1 0RF Rx Instructions: As directed ezetimibe 10 mg tablet 10 mg PO DAILY Qty: 90 3RF albuterol sulfate [Ventolin HFA] 90 mcg/actuation HFA aerosol inhaler 2 puff inhalation Q4-6H PRN (Reason: shortness of breath or wheezing) 60 Days Qty: 18 3RF hydrochlorothiazide 50 mg Tablet 50 mg PO DAILY ascorbic acid (vitamin C) [Vitamin C] 500 mg Tablet Extended Release 500 mg PO DAILY ketoconazole 2 % cream 1 appl topical BID Qty: 30 0RF gabapentin 100 mg capsule 100 mg PO TID 14 Days Qty: 42 0RF lidocaine 5 % adhesive patch,medicated 1 patch topical DAILY Qty: 30 0RF Rx Instructions: leave on most painful area for up to 12 hrs acetaminophen [Tylenol Extra Strength] 500 mg tablet 500 mg PO Q6H PRN (Reason: pain) Qty: 30 0RF pantoprazole 40 mg tablet,delayed release (DR/EC) 40 mg PO DAILY (DME) blood-glucose meter [FreeStyle Lite Meter] Kit See Rx Instructions .ROUTE .MEDSUPPLY Qty: 1 0RF Rx Instructions: As directed (DME) FreeStyle Lite Strips Strip See Rx Instructions .ROUTE .MEDSUPPLY Qty: 100 11RF Rx Instructions: 3 times a day (DME) lancets [FreeStyle Lancets] 28 gauge misc See Rx Instructions .ROUTE .MEDSUPPLY Qty: 100 11RF Rx Instructions: 3 times a day atorvastatin 80 mg tablet 40 mg PO DAILY amlodipine 2.5 mg tablet 2.5 mg PO DAILY triamcinolone acetonide 40 mg/mL suspension 20 mg Tendon Sheath Inj. ONCE Qty: 0.5 0RF Referrals: ED Physician,Generic [Physician] - 2 days Stand Alone Forms: Work/School Release Interventions: ED Discharge Assessment Last Done: 02/01/24 22:06 Discharge Date/Time: 02/01/24 22:07 Print Language: Hungarian
[2024-02-01 13:57] LABS: MANUAL DIFF FLAG NO
[2024-02-01 14:05] LABS: Basophils Absolute Auto 0.1 X10*3/uL (0.0-0.2); Basophils Percent Auto 0.6 % (0-2); Eosinophils Absolute Auto 0.2 X10*3/uL (0.0-0.4); Eosinophils Percent Auto 2.2 % (0-4); Hematocrit 38.9 % (42.0-52.0); Hemoglobin 13.3 g/dl (14.0-18.0); Imm Gran Abs Auto 0.02 X10*3/uL (0.00-0.03); Imm Gran Pct Auto 0.3 % (0.0-0.4); Lymphocytes Absolute Auto 1.9 X10*3/uL (1.2-4.9); Lymphocytes Percent Auto 23.5 % (20-40); Mean Corpuscular HGB Conc 34.2 g/dl (31.0-36.0); Mean Corpuscular Hemoglobin 30.4 pg (27.0-33.0); Mean Corpuscular Volume 88.8 fL (80.0-98.0); Mean Platelet Volume 9.7 fL (9.4-12.4); Monocytes Absolute Auto 0.7 X10*3/uL (0.1-1.2); Monocytes Percent Auto 8.9 % (2-11); Neutrophils Absolute Auto 5.1 x10*3/uL (2.0-8.3); Neutrophils Percent Auto 64.5 % (45-73); Platelet Count 335 X10*3/uL (160-400); Red Blood Count 4.38 X10*6/uL (4.60-5.80); Red Cell Distribution Width 16.7 % (11.0-16.0); White Blood Count 7.9 X10*3/uL (4.8-10.8)
[2024-02-01 14:16] LABS: COVID-19 Test Negative (Negative); IDNOW Serial# 152EDE1D
[2024-02-01 14:19] LABS: Alanine Aminotransferase 27 U/L (0-40); Albumin Level 4.6 g/dL (3.5-5.0); Alkaline Phosphatase 104 U/L (39-117); Anion Gap 14 (12-20); Aspartate Amino Transferase 36 U/L (5-37); Bilirubin Direct 0.2 mg/dL (0.0-0.5); Bilirubin Total 0.9 mg/dL (0.0-1.0); Blood Urea Nitrogen 12 mg/dL (9-16); Calcium 10.8 mg/dL (8.4-10.2); Carbon Dioxide 29 mmol/L (22-29); Chloride 98 mmol/L (96-108); Creatinine Clr Calc Pharmacy 79.5; Estimated Glomerular Filt Rate > 60; Glucose Random 140 mg/dL (60-115); Potassium 3.9 mmol/L (3.3-5.1); Sodium 137 mmol/L (135-145); Total Protein 8.5 g/dL (6.5-8.0)
[2024-02-01 18:45] VITALS: BP 146/75; PULSE 70; RESP 20; TEMP 37.1; O2SAT 98
[2024-02-01] MEDS: Acetaminophen 325 MG TABLET 650 MG PO (20:26)
--- NOTE | 2024-02-01 20:26 | PC.NURSE ---
pt medicated per provider order. effectiveness pending. pt waiting to go to CT at this time.
--- NOTE | 2024-02-01 21:39 | ECG_ITS ---
Test Reason : HEADACHE Blood Pressure : / mmHG Vent. Rate : 063 BPM Atrial Rate : 063 BPM P-R Int : 178 ms QRS Dur : 136 ms QT Int : 478 ms P-R-T Axes : 076 068 051 degrees QTc Int : 489 ms Sinus rhythm with Premature atrial complexes with Aberrant conduction Right bundle branch block Abnormal ECG When compared with ECG of 23-JUL-2022 10:28, Right bundle branch block is now Present Criteria for Septal infarct are no longer Present Referred By: Lawanda Mora Electronically Signed By:Paco Reed
[2024-02-01 22:00] LABS: Troponin-I High Sensitivity 3.4 ng/L (<3.5-35.0)
[2024-02-01 22:05] VITALS: BP 147/78; PULSE 64; RESP 16; TEMP 36.8; O2SAT 96
[2024-02-01 22:06] VITALS: BP 147/78; PULSE 64; RESP 16; TEMP 36.8; O2SAT 96
== END 2024-02-01 22:07 | disposition home or self-care (01) ==
PROVIDERS: Physician Assistant; Emergency Provider Emergency Medicine
DX: R51.9 Headache, unspecified (principal); I45.10 Unspecified right bundle-branch block; R94.31 Abnormal electrocardiogram [ECG] [EKG]; I10 Essential (primary) hypertension; Z11.52 Encounter for screening for COVID-19; Z79.899 Other long term (current) drug therapy
CPT/HCPCS: 70450; 80048; 80076; 83735; 84484; 85025; 87635; 93005; 99284

== ENCOUNTER → 2024-02-01 21:39 | Outpatient (BNV) | payer MEDICAID, SELFPAY | PROVIDERS: Emergency Provider Emergency Medicine; Visit Provider Internal Medicine Cardiovascular Disease | DX: R94.31 Abnormal electrocardiogram [ECG] [EKG] (principal) | CPT/HCPCS: 93010 ==

== ENCOUNTER 2024-03-20 13:54 | Outpatient (REF) | payer MEDICAID, SELFPAY ==
--- NOTE | ~2024-03-20 | XR_ITS ---
EXAMINATION: XR CHEST CLINICAL INFORMATION: Low back pain. COMPARISON: MRI lumbar spine December 07, 2018 TECHNIQUE: AP, lateral and oblique views of the lumbar spine were obtained. FINDINGS: There is rightward curvature of the lumbar spine. There are 5 nonrib-bearing lumbar vertebral bodies. There is 6 mm retrolisthesis of L4 and L5. Vertebral body heights are maintained. Moderate intervertebral disc space narrowing at L1-L2, L3-L4 and L4-L5. There is bilateral L5 spondylolysis suspected. Atherosclerotic changes of the abdominal aorta. Multiple surgical clips project over the upper abdomen and pelvis. Left total hip arthroplasty is partially imaged. Moderate degenerative change of the right hip. XR/XR lumbar spine 4V min IMPRESSION: Moderate degenerative disc disease L1-L2, L3-L4 and L4-L5. Electronically signed by: Silvio Foss MD 03/20/2024 03:40 PM EDT
== END 2024-03-20 13:55 | disposition home or self-care (01) ==
LOC: HO.HHCX 13:54
PROVIDERS: Visit Provider Nurse Practitioner
DX: M54.41 Lumbago with sciatica, right side (principal)
CPT/HCPCS: 72110

== ENCOUNTER 2024-04-18 08:11 | Outpatient (AMB) | payer MEDICAID, SELFPAY ==
--- NOTE | 2024-04-18 08:14 | A.OFFVIS_ITS ---
Intake Visit Reasons: OV- DX Sx LT Carpal/Cubital TS Intake Note: Griffin is 64 year old right hand dominant male who presents today to discuss surgery in his left hand for CTS/Cubital. Patient has had left Cubital/carpal tunnel surgery many years ago. He mentions after 4 to 5 months without numbness and tingling it came back. Sales Service Coordinator Services: Sales Service Coordinator Present ([place] ([id number])) Allergies COLIN Inhibitors Allergy (Severe, Verified 04/18/24 08:19) Angioedema ibuprofen [From MOTRIN] Allergy (Unknown, Verified 04/18/24 08:19) Unknown HPI HPI OV- DX Sx LT Carpal/Cubital TS: Details: 64-year-old right hand dominant male who presents in the office today for a follow-up of carpal tunnel syndrome of the left wrist. I last saw the patient in the office on 08/03/23 when his EMG results were reviewed with Dr. Yusuf. We discussed surgical intervention; however, the patient deferred at that time. While in the office today, the patient underwent left cubital and carpal tunnel surgery years ago. He had no numbness or tingling sensations for 4-5 months after the surgery; however, symptoms returned later. He would like to discuss surgical intervention for left carpal tunnel syndrome/cubital today. Patient has a significant medical history of diabetes mellitus. He is no longer taking any diabetes medication. [facility] Medical History Ulnar neuropathy at elbow of left upper extremity Carpal tunnel syndrome of left wrist JESSICA (obstructive sleep apnea) HTN (hypertension) Asthma-COPD overlap syndrome JESSICA on CPAP Aortic stenosis Obesity (BMI 30-39.9) Dyslipidemia Vitamin D deficiency Diabetic nephropathy associated with type 2 diabetes mellitus Diabetes type 2, controlled Diabetes Surgical History History of decompression of ulnar nerve History of carpal tunnel surgery of left wrist Hx of carpal tunnel syndrome Hx of cholecystectomy History of total right knee replacement (TKR) History of left hip replacement Hx of hernia repair History of back surgery Hx of colonoscopy No pertinent past surgical history Family History Father Hypertension Diabetes mellitus Mother Hypertension Social History Alcohol intake: never Cigarettes Per Day: 2 service: No Current occupational status: unemployed Current occupation: right handed Review of Systems Const All systems reviewed & are unremarkable except as noted in HPI and below Physical Exam Const General: cooperative, healthy appearing and no acute distress Orientation/consciousness: patient oriented x3 Resp Effort & Inspection: normal respiratory effort and able to speak in complete sentences Cardio Rate: regular rate Peripheral pulses: Peripheral pulses 2+ throughout GI Palpation (GI): Soft to palpation Skin General skin exam: no rashes or lesions noted Lesions: no lesions Rashes: no rashes Neuro General: patient oriented x3 Extrem Other: Left hand: AP muscle belly wasting. Able to make a closed fist. Difficulty with abduction and adduction, finger cross, flat okay sign, and thumbs up. Reports dense numbness in all digits. Capillary refill is brisk. Office Procedures Joint Inj/Aspir; Non-Pain Clin Joint Injection/Drain Prep: site was prepped using aseptic technique Approach Used: anterior Procedure: The patient tolerated the procedure well, but had some pain with the injection and there was some relief with the local anesthesia Carpal Tunnel Carpal Tunnel Therapeutic Injection: Left Coding Procedure code (CPT) selection complete Assessment & Plan Assessment & Plan (1) Severe carpal tunnel syndrome of left wrist: Comment: Severe end stage compression palsy on the left median nerve at the wrist diagnostic for severe end stage carpal tunnel syndrome, EMG on 04/21/2023 Code(s): G56.02 - Carpal tunnel syndrome, left upper limb Category: Medical Plan Mr. Kam is a 64-year-old right hand dominant male who presents in the office today for a follow-up of carpal tunnel syndrome of the left wrist. I last saw the patient in the office on 08/03/23 when his EMG results were reviewed with Dr. Yusuf. We discussed surgical intervention; however, the patient deferred at that time. While in the office today, the patient underwent left cubital and carpal tunnel surgery years ago. He had no numbness or tingling sensation for 4-5 months after the surgery; however, symptoms returned later. He would like to discuss surgical intervention for left carpal tunnel syndrome/cubital today. Patient has a significant medical history of diabetes mellitus. He is no longer taking any diabetes medication. The patient was offered a carpal tunnel injection in the left wrist/hand with a 1 ml of Dexamethasone. The patient was explained the risks, benefits, and alternatives to receiving this injection. After receiving consent for the injection, the patient had the procedure done while in the office today. The patient tolerated the procedure well with no complication. We discussed the role of occupational therapy, but the patient deferred it at this time. Follow-up will be PRN, or sooner if needed. Patient Instructions: Scribed by Veronika Hansen certified medical dosimetrist, for Ana Kaplan PA-C on 04/18/24 at 8:25 am EST. Coding Level of Care Code Est Pt Level 3 (20205) Diagnoses Severe carpal tunnel syndrome of left wrist G56.02 CPT Codes Carpal Tunnel - Carpal Tunnel Therapeutic Injection: Left ([id number])
== END 2024-04-18 08:44 | disposition home or self-care (01) ==
PROVIDERS: Visit Provider Physician Assistant
DX: G56.02 Carpal tunnel syndrome, left upper limb (principal); E11.9 Type 2 diabetes mellitus without complications
CPT/HCPCS: 20526; 99213

== ENCOUNTER → 2024-04-18 08:11 | Outpatient (BNVA) | payer MEDICAID, SELFPAY | PROVIDERS: Visit Provider Physician Assistant | DX: G56.02 Carpal tunnel syndrome, left upper limb (principal) | CPT/HCPCS: 20526; 99212; J1100; J2003 ==

== ENCOUNTER 2024-04-21 17:09 | Outpatient (REF) | payer MEDICAID, SELFPAY | END 2024-04-21 17:10 | disposition home or self-care (01) | LOC: HO.MRI 17:09 | PROVIDERS: PCP Student in an Organized Health Care Education/Training Program; Visit Provider Student in an Organized Health Care Education/Training Program | DX: Z13.89 Encounter for screening for other disorder (principal) ==

== ENCOUNTER → 2024-04-30 17:44 | Outpatient (BNV) | payer MEDICAID, SELFPAY | PROVIDERS: PCP Student in an Organized Health Care Education/Training Program; Visit Provider Radiology Diagnostic Radiology | DX: M54.50 Low back pain, unspecified (principal) | CPT/HCPCS: 72148 ==

== ENCOUNTER 2024-04-30 17:46 | Outpatient (REF) | payer MEDICAID, SELFPAY ==
--- NOTE | ~2024-04-30 | MR_ITS ---
EXAMINATION: MR LUMBAR SPINE WITHOUT CONTRAST CLINICAL INFORMATION: Low back pain into both lower extremities. Numbness and weakness. COMPARISON: MRI lumbar spine report dated December 07, 2018. Images are not available PACS. TECHNIQUE: MRI of the lumbar spine was obtained using routine sequences without contrast. FINDINGS: Last rib-bearing vertebra labeled T12. Multilevel marginal osteophyte formation and disc desiccation. Dextroconvex rotoscoliosis apex at L2-3. Bone marrow inhomogeneity. No bone marrow STIR signal abnormality. Grade 1 retrolisthesis, L2-3 and L4-5. Grade 1 anterolisthesis, L3-4. Conus medullaris ends at pedicle of L1 with normal signal. T12-L1: No compression upon neural elements. L1-2: Broad-based disc bulging. Facet joint and ligamentum flavum hypertrophy. Bilateral neuroforamina narrowing. Reduced AP diameter of the thecal sac. L2-3: Grade 1 retrolisthesis. Uncovertebral disc. Facet joint and ligamentum flavum hypertrophy. Reduced AP diameter of the thecal sac and neuroforamina. L3-4: Broad-based disc bulging. Facet joint and ligamentum flavum hypertrophy. Reduced AP diameter of the thecal sac and encroaching the neural elements and bilateral neuroforamina narrowing encroaching the L3 exiting nerve roots. L4-5: Broad-based disc bulging. Facet joint and ligamentum flavum hypertrophy. Reduced AP diameter the thecal sac. Bilateral neuroforamina stenosis compressing the exiting nerve roots of L4 right greater than left side. L5-S1: Broad-based disc bulging. Facet joint hypertrophy. Bilateral neuroforamina stenosis compressing the exiting nerve roots. No prevertebral compartment hematoma, mass or fluid collection. Fatty atrophy of the left psoas iliac muscle likely denervation. MR/MR lumbar spine wo con IMPRESSION: Multilevel spondylosis, L1-2 to L5-S1 resulting in central spinal canal stenosis at L3-4 and multilevel neural foramina stenosis encroaching likely compressing the exiting nerve roots. Electronically signed by: Dwight Alford MD 05/01/2024 03:46 PM EDT
== END 2024-04-30 17:47 | disposition home or self-care (01) ==
LOC: HO.MRI 17:46
PROVIDERS: PCP Student in an Organized Health Care Education/Training Program; Visit Provider Student in an Organized Health Care Education/Training Program
DX: M54.41 Lumbago with sciatica, right side (principal); G89.29 Other chronic pain
CPT/HCPCS: 72148

== ENCOUNTER 2024-05-08 10:13 | Outpatient (AMB) | payer MEDICAID, SELFPAY ==
--- NOTE | 2024-05-08 10:28 | A.SPINEOV_ITS ---
Intake Visit Reasons: LBP Intake Note: Mr. Kam is her today c/o Low back pain that radiates down the legs and makes it diffucult for walking. Financial Specialist Required: Yes Financial Specialist Name: Tablet Allergies COLIN Inhibitors Allergy (Severe, Verified 05/08/24 10:34) Angioedema ibuprofen [From MOTRIN] Allergy (Unknown, Verified 05/08/24 10:34) Unknown Assessment & Plan Assessment & Plan (1) Lumbar radiculopathy: Code(s): M54.16 - Radiculopathy, lumbar region Category: Medical Plan Financial Specialist services used for this visit: [id number] Dear Dr. Yañez Thank you for referring Griffin to our office today. He is a pleasant, complicated 64-year-old male who comes in today with a chief complaint of low back pain and shooting pains into his bilateral lower extremities. He reports this pain began acutely without any inciting incident about 1 year ago. To clarify when asked specifically if he had any pain in his low back or legs prior to 1 year ago he reports no. When describing the shooting pains down his bilateral lower ext remities he runs his hand from his low back over the bilateral hips down the lateral sides of his thighs, down the lateral aspect of the tibialis, to the lateral calf. He reports the pain is exactly the same in both leg, and states that no one leg is worse. He reports that his back pain always begins first, usually with standing / walking, then he experiences a shooting pain down his legs after that. He has associated tingling and burning with his shooting pain. He has tried [id number] medications such as Tylenol, ibuprofen, and pain patches/creams without significant relief of his symptoms. He was recently started on Lidoderm and muscle relaxer which he reports only provides modest relief. He does report a history of bilateral knee replacements, and a left hip replacement. He states that he uses a cane to ambulate because of the severe low back pain that he has. He reports the cane is not used for his knees/hip. He has been to physical therapy for this issue which he feels was not helpful. PMH: History of asymmetric leg length his left leg being shorter than his right, has orthotic for this. History of cholecystectomy, history of bilateral knee replacement, history of bariatric surgery, history of left total hip, history of left carpal tunnel release, Aortic stenosis, right bundle branch block, hypertension, hyperlipidemia, obstructive sleep apnea, asthma/COPD, hyperlipidemia, CKD stage 2, vitamin-D deficiency, pre-diabetic on no glucose control agents per primary care records. Social hx: Patient smokes 1 pack cigarettes per day. Denies any substance use. Medications: Tylenol, amlodipine, vitamin-C, atorvastatin, Zetia, gabapentin, HCTZ, ketoconazole, lidocaine, pantoprazole, triamcinolone, Ventolin, baclofen, nitroglycerin, nicotine patches, diclofenac gel, albuterol, Allergies: COLIN inhibitors, ibuprofen. Physical exam: He has about 4/5 strength with bilateral knee flexion and dorsiflexion. The rest of his strength is 5/5, but he does elicit pain to fully engaging dorsiflexion as well. His reflexes are absent in the bilateral patella (possibly confounded due to bilateral knee replacement) they are 2+ intact elsewhere. He has no myelopathic reflexes on examination. (-) bilateral straight leg raise. (-) Lhermitte's. Imaging review: MRI of the lumbar spine completed here at [facility] shows diffuse spondylosis of the lumbar spine. There is evidence of a slight dextroscoliosis in the lumbar spine. There is severe disc degeneration at L4-5, causing what appears to be a severe right-sided foraminal stenosis at L 4-5. There is also notable spondylolysis at L5. There is what appears to be moderate-severe bilateral foraminal stenosis at L5-S1, worse on the right than the left. In addition to this there is moderate central canal and bilateral foraminal stenosis at L3-4. CT scan of the abdomen and pelvis from 2019 shows evidence of anterior osteophyte growth in the lumbar spine and confirms spondylolysis at L5, but does not suggest auto fusion. His degenerative slight dextroscoliosis is also seen on this imaging. Impression: Griffin is a pleasant, complicated 64 year old male who comes in today with 1 year of low back pain and shooting pains into his bilateral lower extremities. His imaging, history, and physical examination are most consistent with a L5 radiculopathy likely secondary to the degenerative disc / dextroscoliosis / spondylolysis seen on MRI and CT imaging. Typically in a patient with the amount of extensive spondylosis seen in someone such as Griffin Robison would offer a simple lumbar decompression to see if that can address his symptoms, however because of the overwhelming amount of back pain he is experiencing, and the bilateral radicular symptoms, it sounds like he may be a better candidate for lumbar fusion. The rate limiting factor(s) in this case may be his extensive commodities and diffuse lumbar degeneration. I would like to send Griffin for a set of dynamic lumbar spine x-rays to evaluate for any subluxation with movement. I will subsequently review this patient's imaging/history with Dr. Robison and call him next week with an updated plan. Thank you for allowing us to care for your patient. The total time spent with this visit with this patient was 45 minutes reviewing history, physical exam, MRI / CT imaging review, and implementation of treatment plan or further diagnostic testing Jorge Alberto Robison MD,PhD [facility] Orders: Orders XR lumbar spine 4V min Today M54.16 - Radiculopathy, lumbar region Coding Level of Care Code New Pt Level 5 (81395) Diagnoses Lumbar radiculopathy M54.16
== END 2024-05-08 11:46 | disposition home or self-care (01) ==
LOC: HO.HNS 10:13
PROVIDERS: PCP Student in an Organized Health Care Education/Training Program; Referring Provider Student in an Organized Health Care Education/Training Program; Visit Provider Physician Assistant
DX: M54.16 Radiculopathy, lumbar region (principal)
CPT/HCPCS: 99205

== ENCOUNTER 2024-05-08 10:13 | Outpatient (REF) | payer MEDICAID, SELFPAY | END 2024-05-08 10:14 | disposition home or self-care (01) | LOC: HO.HOSX 10:13 | PROVIDERS: PCP Student in an Organized Health Care Education/Training Program; Referring Provider Student in an Organized Health Care Education/Training Program; Visit Provider Physician Assistant | DX: M54.16 Radiculopathy, lumbar region (principal) | CPT/HCPCS: 72110; 99212 ==

== ENCOUNTER 2024-05-17 13:33 | Outpatient (AMB) | payer MEDICAID, SELFPAY ==
--- NOTE | 2024-05-17 14:37 | A.SPINEOV_ITS ---
Intake Visit Reasons: Discuss Surgery Intake Note: Mr. Kam is here today to Discuss Surgery. Fusing Furnace Loader Required: Yes Fusing Furnace Loader Name: Tablet Allergies COLIN Inhibitors Allergy (Severe, Verified 05/17/24 14:38) Angioedema ibuprofen [From MOTRIN] Allergy (Unknown, Verified 05/17/24 14:38) Unknown Assessment & Plan Assessment & Plan (1) Degenerative scoliosis: Code(s): M41.50 - Other secondary scoliosis, site unspecified Category: Medical Plan Live in person viscosity worker was used for this encounter Griffin comes in today for a subsequent follow-up visit after being evaluated in our office for low back pain and shooting pains in his bilateral lower extremities. He was seen alongside Dr. Robison in this jingle writer today. To recap Dr. Robison had previously offered him a L3-4, L4-5 OLIF after reviewing his history, physical examination, and imaging with this jingle writer. He came in today to discuss the surgery with Dr. Robison, and have any questions he may have answered. He continues to report the same symptoms. We extensively reviewed th e OLIF procedure. All of his questions were answered to the best of our ability. Griffin was given risk and benefits of surgery including but not limited to infection, hematoma, nerve injury, durotomy, weakness, bowel/bladder injury, persistent pain, as well as the option to continue with conservative treatment and patient wishes to proceed with surgery. They are aware they should stop NSAIDs 7 days prior to surgery. All questions were answered to the best of our ability. If there is anything about this patients medical history that we have overlooked or concerns you have about us proceeding with surgery we would appreciate any input you can offer. Amaury has tentatively been scheduled for surgery July 19. He will be traveling to [place] soon but states he will be back by mid June. Due to his complex medical history I would like clearance from his primary care physician for surgery prior to his operation. I would also assume that our anesthesia department will require an updated EKG. Jorge Alberto Robison MD,PhD [facility] Coding Level of Care Code Est Pt Level 3 (91106) Diagnoses Degenerative scoliosis M41.50
== END 2024-05-17 15:07 | disposition home or self-care (01) ==
PROVIDERS: PCP Student in an Organized Health Care Education/Training Program; Visit Provider Neurological Surgery
DX: M51.362 Other intervertebral disc degeneration, lumbar region with discogenic back pain and lower extremity pain (principal); M41.50 Other secondary scoliosis, site unspecified
CPT/HCPCS: 99213

== ENCOUNTER → 2024-05-17 13:33 | Outpatient (BNVA) | payer MEDICAID, SELFPAY | PROVIDERS: PCP Student in an Organized Health Care Education/Training Program; Visit Provider Neurological Surgery | DX: M41.50 Other secondary scoliosis, site unspecified (principal) | CPT/HCPCS: 99212 ==

== ENCOUNTER 2024-07-04 12:01 | Outpatient (REF) | payer MEDICAID, SELFPAY ==
[2024-07-04 14:02] LABS: Alanine Aminotransferase 43 U/L (0-40); Albumin Level 4.3 g/dL (3.5-5.0); Alkaline Phosphatase 118 U/L (39-117); Anion Gap 9 (12-20); Aspartate Amino Transferase 44 U/L (5-37); Bilirubin Total 0.4 mg/dL (0.0-1.0); Blood Urea Nitrogen 16 mg/dL (9-16); Calcium 9.4 mg/dL (8.4-10.2); Carbon Dioxide 31 mmol/L (22-29); Chloride 104 mmol/L (96-108); Estimated Glomerular Filt Rate 55; Glucose Random 118 mg/dL (60-115); Potassium 3.3 mmol/L (3.3-5.1); Sodium 141 mmol/L (135-145); Total Protein 7.6 g/dL (6.5-8.0)
== END 2024-07-04 12:02 | disposition home or self-care (01) ==
LOC: HO.HHCL 12:01
PROVIDERS: Visit Provider Internal Medicine
DX: Z01.818 Encounter for other preprocedural examination (principal)
CPT/HCPCS: 36415; 80053

== ENCOUNTER 2024-07-18 06:22 | Inpatient (IN) | payer MEDICAID, SELFPAY ==
[2024-07-03 10:44] VITALS: BP 131/77; PULSE 78; RESP 16; O2SAT 99; BMI 33.2
[2024-07-18] VITALS (11 sets, daily range): BP systolic 108–156; BP diastolic 65–83; PULSE 74–99; RESP 14–17; TEMP 36.3–36.7; O2SAT 94–100; BMI 35.4
--- NOTE | ~2024-07-18 | FL_ITS ---
EXAMINATION: XR FLUOROSCOPY WITH IMAGES CLINICAL INFORMATION: Posterior instrumented fusion and discectomy L3-L5. COMPARISON: None. Correlation made with MR lumbar 04/30/2024, lumbar plain film 07/08/2023. TECHNIQUE: Fluoroscopy provided to: Dr. Robison Fluoroscopy time: 3 minutes, 19 seconds DAP: 36.45 mGycm2 Images: 5 FINDINGS: 5 images demonstrate sequential placement of L3-4 and L4-5 disc prostheses, with subsequent placement of dorsal transpedicular screws and posterior connecting rods. No gross complication seen on these limited images. Refer to the full operative report for details. FL/FL guidance in OR IMPRESSION: Fluoroscopic guidance. Electronically signed by: Tashi Garcia MD 07/19/2024 12:19 PM [facility]
[2024-07-18] MEDS: methocarbamoL 750 MG TABLET PO (06:56)
[2024-07-18] MEDS: Gabapentin 300 MG CAPSULE PO (06:56)
[2024-07-18] MEDS: Lactated Ringers 1,000 ML 100 ML IVCONT (07:03)
[2024-07-18 07:04] LABS: Glucose, Whole Blood 100 mg/dL (60-115)
--- NOTE | 2024-07-18 07:07 | MHC.SHP ---
Pre-Procedural Eval Section A - 24 Hr Update-Section A only Date of Service: 07/18/24 The patient is an INPATIENT: No Changes since office visit: No Cold of Flu in the past 2 weeks, No New Medical Problems, No Changes in Medication and No Patient answered all questions The patient has been examined within 24 hours of the surgical procedure. The History & Physical has been completed within 30 days and I have reviewed it.: No Section B - Complete if H&P > 30 days Chief Complaint: S/P 13-5 Lumbar Fusion Allergies: Allergies Allergy/AdvReac Type Severity Reaction Status Date / Time COLIN Inhibitors Allergy Severe Angioedema Verified 05/17/24 14:38 ibuprofen [From MOTRIN] Allergy Unknown Unknown Verified 05/17/24 14:38 Review of Systems Sugical H&P ROS: Negative: Constitution, Cardiovascular, Respiratory, Neurological, Psychiatric, Hem-Onc, Allergic/Immunologic, Gastrointestinal, Genitourinary, Musculoskeletal, Integumentary, Endocrine and Eyes/Ears/Nose/Throat Exam Surgical H&P Exam: Normal: HEENT, Normal: Heart, Normal: Lungs, Normal: Extremities, Normal: Abdomen, Normal: Skin and Normal: Neurological (awake, alert,oriented x 3 ) Plan Diagnosis/Plan: Unchanged L3-4, L4-5 oblique lumbar interbody fusion Time Spent With Patient Time: Total time managing care of this patient today _4___ minutes.
--- NOTE | 2024-07-18 07:29 | P.CONAN_ITS ---
Documented by User: Mira Crowell NP 07/14/24 13:07 HPI - Anesthesia Eval Consult details Narrative: 64yo M for L3-4,L4-5 Oblique Lumbar Interbody Fusion PAT 07/03 Follows [facility] [place] Cardiology for mild , HTN. Yearly visits. Stable/asymptomatic at 08/2023 visit with good exercise tolerance. FOR[facility]LY [facility], [facility] Active Problems Active Problems: All Active Problems Degenerative scoliosis (Acute) Lumbar radiculopathy (Acute) Right bundle branch block (RBBB) on electrocardiogram (ECG) (Acute) Severe carpal tunnel syndrome of left wrist (Acute) 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) (Acute) History of decompression of ulnar nerve (Acute) History of carpal tunnel surgery of left wrist (Acute) Ulnar neuropathy at elbow of left upper extremity (Acute) Carpal tunnel syndrome of left wrist (Acute) JESSICA (obstructive sleep apnea) (Acute) HTN (hypertension) (Acute) Asthma-COPD overlap syndrome (Acute) JESSICA on CPAP (Acute) Aortic stenosis (Acute) History of left hip replacement (Acute) Obesity (BMI 30-39.9) (Acute) Dyslipidemia (Acute) Vitamin D deficiency (Acute) Diabetic nephropathy associated with type 2 diabetes mellitus (Acute) Diabetes type 2, controlled (Acute) Past Medical History Medical History (Updated 07/03/24 @ 11:01 by Caroline Jessica RN) Back pain Arthritis Numbness Murmur Ulnar neuropathy at elbow of left upper extremity Carpal tunnel syndrome of left wrist JESSICA (obstructive sleep apnea) HTN (hypertension) Asthma-COPD overlap syndrome JESSICA on CPAP Aortic stenosis Obesity (BMI 30-39.9) Dyslipidemia Vitamin D deficiency Diabetic nephropathy associated with type 2 diabetes mellitus Diabetes type 2, controlled Diabetes Family History Family History Father Hypertension Diabetes mellitus Mother Hypertension Surgical History Surgical History (Updated 07/03/24 @ 10:39 by Caroline Jessica RN) History of left knee replacement History of decompression of ulnar nerve History of carpal tunnel surgery of left wrist Hx of carpal tunnel syndrome Hx of cholecystectomy History of total right knee replacement (TKR) History of left hip replacement Hx of hernia repair History of back surgery Hx of colonoscopy Social History Social History Household Members Other:: sister Are you a primary lawn care specialist to a significant other at home: No Do you presently have visiting nurse or other home services: Yes (Doctor every month) Alcohol intake: never Patient Tobacco Use Status: Current everyday Tobacco user Tobacco use type: Cigarette Cigarettes Per Day: 5 Use of substances other than those prescribed or required for medical reasons: No Have you been hit, kicked, punched, or otherwise hurt by someone within the past year? If so, by whom?: No Are you DNR?: No Advance Directives: No Advance Directives Information Provided: No Advance Directives on File: No Recently lost weight without trying: No Eating poorly because of decreased appetite: No Nutrition Risks: No Nutritional Risk Poor oral hygiene: No service: No Current occupational status: unemployed Current occupation: right handed Meds Allergies Allergy/AdvReac Type Severity Reaction Status Date / Time COLIN Inhibitors Allergy Severe Angioedema Verified 05/17/24 14:38 ibuprofen [From MOTRIN] Allergy Unknown Unknown Verified 05/17/24 14:38 Home Medications ?Medication ?Instructions ?Recorded ?Confirmed ?Last Taken ?Type pantoprazole 40 mg tablet,delayed 40 mg PO DAILY 05/22/20 07/03/24 Unknown History release ascorbic acid (vitamin C) 500 mg 500 mg PO DAILY 09/06/20 07/03/24 Unknown History tablet,extended release (Vitamin C ER) hydrochlorothiazide 50 mg tablet 50 mg PO DAILY 09/06/20 07/03/24 Unknown History amlodipine 2.5 mg tablet 2.5 mg PO DAILY 02/18/22 07/03/24 Unknown History atorvastatin 80 mg tablet 40 mg PO DAILY 02/18/22 07/03/24 Unknown History Exam Height,Weight and Vital Signs: Height 5 ft 6 in Weight 93.44 kg Last Vital Signs Pulse 78 07/03/24 10:44 Resp 16 07/03/24 10:44 BP 131/77 07/03/24 10:44 Pulse Ox 99 07/03/24 10:44 O2 Del Method Room Air 07/03/24 10:44 Pertinent Lab Results Pertinent Lab Results: Laboratory Tests 02/01/24 07/04/24 13:54 12:03 WBC 7.9 Hgb 13.3 L Hct 38.9 L Plt Count 335 Sodium 141 Potassium 3.3 Chloride 104 Carbon Dioxide 31 H BUN 16 Creatinine 1.31 Narrative Narrative: EKG 01/2024 Vent. Rate : 063 BPM Atrial Rate : 063 BPM P-R Int : 178 ms QRS Dur : 136 ms QT Int : 478 ms P-R-T Axes : 076 068 051 degrees QTc Int : 489 ms Sinus rhythm with Premature atrial complexes with Aberrant conduction Right bundle branch block Abnormal ECG When compared with ECG of 23-JUL-2022 10:28, Right bundle branch block is now Present Criteria for Septal infarct are no longer Present ECHO 2022 Conclusions: - 1. Normal LV systolic function with pseudonormal filling pattern 2. Mildly dilated left atrium 3. Mild aortic stenosis and regurgitation 4. Normal RV systolic pressure 5. No gross pericardial effusion Assessment and Plan Assessment Anesthesia Assessment: Chart Reviewed Documented by User: Gina Obrien DO 07/18/24 07:32 FOR[facility]LY [facility] Past Medical History Medical History (Updated 07/03/24 @ 11:01 by Caroline Jessica, RN) Back pain Arthritis Numbness Murmur Ulnar neuropathy at elbow of left upper extremity Carpal tunnel syndrome of left wrist JESSICA (obstructive sleep apnea) HTN (hypertension) Asthma-COPD overlap syndrome JESSICA on CPAP Aortic stenosis Obesity (BMI 30-39.9) Dyslipidemia Vitamin D deficiency Diabetic nephropathy associated with type 2 diabetes mellitus Diabetes type 2, controlled Diabetes Family History Family History Father Hypertension Diabetes mellitus Mother Hypertension Family history of problems with anesthesia: No Surgical History Surgical History (Updated 07/03/24 @ 10:39 by Caroline Jessica RN) History of left knee replacement History of decompression of ulnar nerve History of carpal tunnel surgery of left wrist Hx of carpal tunnel syndrome Hx of cholecystectomy History of total right knee replacement (TKR) History of left hip replacement Hx of hernia repair History of back surgery Hx of colonoscopy History of Problems with Anesthesia: No Social History Social History Household Members Other:: sister Are you a primary lawn care specialist to a significant other at home: No Do you presently have visiting nurse or other home services: Yes (Doctor every month) Alcohol intake: never Patient Tobacco Use Status: Current everyday Tobacco user Tobacco use type: Cigarette Cigarettes Per Day: 5 Use of substances other than those prescribed or required for medical reasons: No Have you been hit, kicked, punched, or otherwise hurt by someone within the past year? If so, by whom?: No Are you DNR?: No Advance Directives: No Advance Directives Information Provided: No Advance Directives on File: No Recently lost weight without trying: No Eating poorly because of decreased appetite: No Nutrition Risks: No Nutritional Risk Poor oral hygiene: No service: No Current occupational status: unemployed Current occupation: right handed [employer] Allergies Allergy/AdvReac Type Severity Reaction Status Date / Time COLIN Inhibitors Allergy Severe Angioedema Verified 05/17/24 14:38 ibuprofen [From MOTRIN] Allergy Unknown Unknown Verified 05/17/24 14:38 Home Medications ?Medication ?Instructions ?Recorded ?Confirmed ?Last Taken ?Type pantoprazole 40 mg tablet,delayed 40 mg PO DAILY 05/22/20 07/03/24 Unknown History release ascorbic acid (vitamin C) 500 mg 500 mg PO DAILY 09/06/20 07/03/24 Unknown History tablet,extended release (Vitamin C ER) hydrochlorothiazide 50 mg tablet 50 mg PO DAILY 09/06/20 07/03/24 Unknown History amlodipine 2.5 mg tablet 2.5 mg PO DAILY 02/18/22 07/03/24 Unknown History atorvastatin 80 mg tablet 40 mg PO DAILY 02/18/22 07/03/24 Unknown History Exam Exam Date and Time: 07/18/24 0729 Height,Weight and Vital Signs: Height 5 ft 6 in Weight 93.44 kg Last Vital Signs Pulse 78 07/03/24 10:44 Resp 16 07/03/24 10:44 BP 131/77 07/03/24 10:44 Pulse Ox 99 07/03/24 10:44 O2 Del Method Room Air 07/03/24 10:44 Vital Signs Pulse Rate 78 07/03/24 10:44 Respiratory Rate 16 07/03/24 10:44 Blood Pressure 131/77 07/03/24 10:44 Pulse Oximetry 99 07/03/24 10:44 Oxygen Delivery Method Room Air 07/03/24 10:44 Temperature 98.1 F 07/18/24 07:01 Pulse Rate 74 07/18/24 07:01 Respiratory Rate 16 07/18/24 07:01 Blood Pressure 146/83 H 07/18/24 07:01 Pulse Oximetry 98 07/18/24 07:01 Oxygen Delivery Method Room Air 07/18/24 07:01 Airway Mallampati Class: II TM Dist: >3cm Neck ROM: Full Denture: Upper and Lower Heart: S1S2 Lungs: CTAB Assessment and Plan Assessment Anesthesia Assessment: Anesthesia Plan Discussed and Chart Reviewed Final Anesthetic Review Family History of Problems with Anesthesia: No History of Problems with Anesthesia: No NPO: Yes ASA Class: III Final Preanesthetic Review: No Changes in Pt Med Stat, Meds/Allgs Chart Reviewed, Consent Obtained/Reviewed and Anes Risks/Benef Reviewed Patient Risk: Intermediate Procedure Risk: Intermediate Anesthetic Plan Anesthetic Plan: GA and Agree w/ Assess. and Plan Disposition: Standard PACU
--- NOTE | 2024-07-18 11:15 | W.PM.OPN ---
Operative Note Operative Note Date of Service: 07/18/24 Narrative: Preop Diagnosis: 1.) Lumbar degenerative scoliosis 2.) Back pain, bilateral leg pain Procedure: 1) L3-4, L4-5 discectomy, arthrodesis and implantation cage through an anterolateral, retroperitoneal approach 2) L3-L5 posterior instrumented fusion 3) allograft 4) injection of 10 cc of Exparel at the bilateral L4 transverse process for a muscular erector spinae block and additional Exparel in paravertebral tissue for postop management Consent Informed Consent was obtained for this operation. I have explained the nature, purpose and benefits of the operation. I have discussed the risks and benefit of the operation including possible complications or adverse events with patient/family. Alternative(s) were discussed with the patient with their relative benefits and risks as well as the consequences of not accepting the operation were included in obtaining consent. Surgeon: ERIK EDMONDSON MD, PHD Procedure Assisted By: erika Dial Description of Procedure This patient is suffering from lumbar degenerative scoliosis and lumbar stenosis with back pain and bilateral leg pain. The patient was offered an oblique lateral interbody fusion L3-4 and L4-5 to correct the degenerative scoliosis and to indirectly decompress the nervous structures. The procedure complications were explained. The patient was consented. The patient was brought to the operating room and endotracheally intubated. The patient was turned in a lateral position with the left side up. Prep and drape was done followed by timeout. A small incision was made in the left lower abdominal quadrant. The muscle fascia was opened after which the 3 muscle layer was split to enter the retroperitoneal space. Dilators were docked in the anterior one third of the L4-5 disc space followed by a retractor. The retractor was opened. The L4-5 disc space was exposed. An annulotomy was done after which an elevator Santana was used to release the disc material from its endplates and to perforate the contralateral side. A partial discectomy was done. An 8 and 10 mm height trial implant was inserted. The discectomy was completed. The endplates were prepared. An 10 x 55 mm with 6 degree lordosis 4 web cage filled with allograft was inserted into the disc space under fluoroscopic guidance. The attention was turned to the L3-4 disc space. A large lateral osteophyte initially prevented access to the disc space. The osteophyte was resected. Then I was able to get into the disc space with a 7 mm dilator followed by an 8 and 10 mm trial implant. The diskectomy was completed and the endplates were prepared after which a 10 x 50 mm and 0 degree lordosis 4 web cage filled with allograft was inserted into the disc space under fluoroscopic guidance. This resulted in correction of the lumbar degenerative scoliosis. The retractor was removed. Hemostasis was done. The incision was closed in 2 layers. Steri-Strips used to approximate incision. An OpSite with Tegaderm was used to cover the incision. This marked first part of the procedure. The patient was turned prone on the [place] spine table. 2C arms were installed for fluoroscopy. Prep and drape was done followed by a second timeout. Injection of 10 cc of Exparel at the bilateral L4 transverse process for a muscular erector spinae block. Two paramedian incisions were made lateral from the L3-L5 pedicles. The muscle fascia was opened after which the muscle layer was split bluntly to expose the posterolateral gutter. The following steps were taken. A pediguard tap was used to create a transpedicular trajectory into the vertebral body. A K wire was placed. A specially designed instrument was advanced over the K wire to decorticate the posterolateral gutter in preparation for the posterolateral fusion. A pedicle screw was advanced over the K wire and the K wire was removed. The steps were done for the bilateral L3, L4 and L5 pedicles. A total of 6 screws were placed with a diameter of 6.5 x 45 mm. Pedicle screws were connected with 75 mm gab bilaterally and locked down with locking caps. The extension towers were removed. The posterolateral gutter was filled with allograft to complete the posterolateral L3-L5 fusion Hemostasis was done and the incision was closed in 2 layers. Steri-Strips were used to approximate the incision. An OpSite were taken and was used to cover the incision. All sponge and needle counts were correct. Patient was extubated and transferred in stable is to recovery room. Anesthesia: General Estimated Blood Loss (ml): 150 mL Duration of Surgery: 3 hours 30 minutes Complications: None Postoperative Plan: Admit to inpatient for observation
[2024-07-18] MEDS: HYDROmorphone HCl 0.5 MG/0.5 ML SYRINGE IVPUSH (12:25)
[2024-07-18 12:34] LABS: Glucose, Whole Blood 143 mg/dL (60-115)
[2024-07-18] MEDS: 0.9 % Sodium Chloride 1,000 ML 75 ML IVCONT (13:03)
[2024-07-18] MEDS: ceFAZolin Sodium/Dextrose,Iso 2 GM/50 ML PIGGYBACK IV ×2 (13:09→20:04)
--- NOTE | 2024-07-18 13:31 | PHA.MEDREC ---
Pharmacy Consult ? Medication Reconciliation Pharmacy has completed the medication reconciliation. Spoke to patient through park interpreter service (Triny) to confirm med list. Patient states he is on Amlodipine 10 mg NOT 2.5 mg, Gabapentin 600 mg tid NOT 100 mg TID. Patient confirmed Hydrocortisone cream. Updated med rec.
[2024-07-18] MEDS: Gabapentin 600 MG TABLET PO ×2 (14:17→20:04)
[2024-07-18] MEDS: HYDROmorphone HCl 1 MG/ML SYRINGE IVPUSH ×2 (14:18→17:18)
[2024-07-18 16:38] LABS: Glucose, Whole Blood 266 mg/dL (60-115)
[2024-07-18] MEDS: Insulin Lispro 100 UNIT/ML 3 ML VIAL SUBCUT (17:02)
[2024-07-18] MEDS: Acetaminophen 1,000 MG/100 ML PIGGYBACK 400 MG IV ×2 (17:06→22:49)
[2024-07-18] MEDS: oxyCODONE HCl Immed Release 5 MG TABLET 10 MG PO (20:10)
[2024-07-18 20:42] LABS: Glucose, Whole Blood 139 mg/dL (60-115)
[2024-07-19] MEDS: HYDROmorphone HCl 1 MG/ML SYRINGE IVPUSH ×2 (01:01→09:14)
[2024-07-19] MEDS: ceFAZolin Sodium/Dextrose,Iso 2 GM/50 ML PIGGYBACK IV (01:29)
[2024-07-19] MEDS: 0.9 % Sodium Chloride 1,000 ML 75 ML IVCONT (01:30)
[2024-07-19 03:13] VITALS: BP 113/68; PULSE 75; RESP 16; TEMP 36.2; O2SAT 96
[2024-07-19] MEDS: Acetaminophen 1,000 MG/100 ML PIGGYBACK 400 MG IV ×2 (04:42→11:03)
[2024-07-19] MEDS: Omeprazole 20 MG CAPSULE.DR PO (05:57)
--- NOTE | 2024-07-19 07:05 | HO.NEURO.PN ---
Neurosurgery Operative Note Date of Service: 07/19/24 Narrative: POD: 1 Procedure: L3-5 OLIF Griffin is a pleasant 64 year old male POD:1 s/p L3-5 OLIF. Uncomplicated procedure. Patient reports he is up walking around is otherwise doing well. He feels his symptoms are much better than pre-operatively. He still reports mild pain in his low back, with good relief with current pain medication. He is voiding well, tolerating diet. Afebrile, vital signs stable. Full strength 5/5 LE. Back dressings have some staining without signs of hematoma. No active sanguineous drainage. Area is dry. Plan: Griffin is a pleasant 64 year old male POD:1 s/p L3-5 OLIF. He is doing well and progressing as expected. Patient meets criteria to be medically discharged home. He was seen at bedside with Dr. Robison. I will send in a prescription for oxycodone for the patient to take as needed for pain. Jorge Alberto Robison MD,PhD [facility]
[2024-07-19] MEDS: Ascorbic Acid 500 MG TABLET PO (07:13)
[2024-07-19] MEDS: oxyCODONE HCl Immed Release 5 MG TABLET 10 MG PO ×2 (07:13→11:03)
[2024-07-19 07:25] VITALS: BP 128/68; PULSE 80; RESP 16; TEMP 36.9; O2SAT 96
[2024-07-19 07:32] LABS: Glucose, Whole Blood 118 mg/dL (60-115)
--- NOTE | 2024-07-19 07:53 | P.DS_ITS ---
DS: Providers Provider Date of Service: 07/19/24 Date of admission: 07/18/24 06:22 Date of discharge: 07/19/24 Primary care physician: Nu Yañez MD DS: Summary Time Attestation Discharge Coordination Time (in mins): 13 Quality: Safe Use of Opioids Does Pt have an Active Cancer Diagnosis on the Problem List?: No Quality: Stroke Does the patient have a stroke diagnosis?: No Physical Exam Vital Signs: Vital Signs: Last Vital Signs Temp 98.4 F 07/19/24 07:25 Pulse 80 07/19/24 07:25 Resp 16 07/19/24 07:25 BP 128/68 07/19/24 07:25 Pulse Ox 96 07/19/24 07:25 O2 Del Method Room Air 07/19/24 07:25 O2 Flow Rate 1.0 07/18/24 13:11 BMI result Body Mass Index 35.4 DS: Data Data Completed and Pending Completed studies during hospitalization [Text1]: Procedures Transfusion of Nonautologous Frozen Plasma into Peripheral Vein, Percutaneous Approach (09/06/20) Labs on day of discharge: Laboratory Results - last 24 hr 07/18/24 07/18/24 07/18/24 12:30 16:35 20:32 POC Glucose 143 H 266 H 139 H 07/19/24 07:24 POC Glucose 118 H Discharge Plan Discharge Anticipated Discharge Date/Time: 07/19/24 08:03 Patient Disposition: Home, Self-Care Discharge Diagnosis: S/p L3-5 OLIF Referrals: Nu White MD [Primary Care Provider] - 1 Week Discharge Medications: New oxycodone 5 mg tablet See Rx Instructions .ROUTE .COMPLEX PRN (Reason: pain) Qty: 30 0RF Rx Instructions: Take 1-2 tablets as needed every 4 hours for severe pain. Partial Fill upon patient request. Continued (DME) orthopaedic shoe lift, left 1/2 inch See Rx Instructions .Route .MEDSUPPLY Qty: 1 0RF Rx Instructions: As directed ezetimibe 10 mg tablet 10 mg PO DAILY Qty: 90 3RF albuterol sulfate [Ventolin HFA] 90 mcg/actuation HFA aerosol inhaler 2 puff inhalation Q4-6H PRN (Reason: shortness of breath or wheezing) 60 Days Qty: 18 3RF ascorbic acid (vitamin C) [Vitamin C] 500 mg Tablet Extended Release 500 mg PO DAILY ketoconazole 2 % cream 1 appl topical BID Qty: 30 0RF lidocaine 5 % adhesive patch,medicated 1 patch topical DAILY Qty: 30 0RF Rx Instructions: leave on most painful area for up to 12 hrs acetaminophen [Tylenol Extra Strength] 500 mg tablet 500 mg PO Q6H PRN (Reason: pain) Qty: 30 0RF gabapentin 600 mg tablet 600 mg PO TID amlodipine 10 mg tablet 10 mg PO DAILY hydrocortisone 2.5 % cream 1 appl TOPICAL BID PRN (Reason: Rash) diclofenac sodium 1 % gel 1 ea topical DAILY PRN (Reason: Pain) hydrochlorothiazide 25 mg Tablet 25 mg PO DAILY pantoprazole 40 mg tablet,delayed release (DR/EC) 40 mg PO DAILY (DME) blood-glucose meter [FreeStyle Lite Meter] Kit See Rx Instructions .ROUTE .MEDSUPPLY Qty: 1 0RF Rx Instructions: As directed (DME) FreeStyle Lite Strips Strip See Rx Instructions .ROUTE .MEDSUPPLY Qty: 100 11RF Rx Instructions: 3 times a day (DME) lancets [FreeStyle Lancets] 28 gauge misc See Rx Instructions .ROUTE .MEDSUPPLY Qty: 100 11RF Rx Instructions: 3 times a day atorvastatin 80 mg tablet 40 mg PO DAILY Discharge Orders: Discharge Order (Routine); Ordered 07/19/24 Ordered By: Jorge Alberto Servin Diet: Advance to usual diet Activity on Discharge: As tolerated Stand Alone Forms: Patient Portal Discharge page Print Language: [place] Islander Activity Restrictions/Additional Instructions: After your spinal surgery we ask you to observe the following restrictions/guidelines: Activity: With lumbar fusion surgery it is normal to have days in the first couple of weeks where you have increased leg pain. This usually lasts 1-2 days and self resolves with the continuation of medication. Attempt to stay mobile and continue activity as tolerated. It is normal to feel some discomfort as you increase your activity, but that will improve with time. We ask you avoid heavy lifting or activities that cause pain. As a general rule, 8lbs is a safe limit for lifting right after surgery. Walk as much as you feel comfortable but not to exhaustion. You will feel extra tired the first few days after surgery. Stay well hydrated. It is OK to walk up and down stairs You may return to driving when you are off narcotics (such as vicodin, oxycodone, dilaudid, etc), and you are back to normal functional capacity. If you have any concerns please check with office before driving. Return to work is specific to each patient and each surgery, so please speak with your doctor/PA at first follow up. Please bring paperwork such as FMLA at that time if you need it filled out. Medications: It is recommended that you take Tylenol 1000 mg every 8 hours for the 1st week postoperatively. We will give you a short supply of narcotics after surgery (usually one weeks worth). ??Please use this for breakthrough pain that is refractory to the Tylenol ibuprofen and gabapentin. If you need more please call the office but do not use more than prescribed. You will need to give our office 48 hours notice if you need narcotics refilled and we do not fill narcotics on weekends or evenings. If you are on a narcotic, it is a good idea to take a stool softener such as colace or senna to avoid constipation If you take blood thinner such as aspirin, Plavix, Coumadin, Effient, Eliquis etc for conditions such as Afib, DVT, Pulmonary embolus, coronary disease, stents etc please speak with your surgeon about specific details as to when you can resume these medications. You can resume NSAIDs on post op day 1 (eg: Motrin, Naproxen, etc). Follow up: Please call the office, , after surgery to arrange a 3 week follow up for wound check. Wound Care: You may remove your dressing on the first day after surgery. ?You may ?leave open to air. Please do not remove the steri strips underneath. they will fall off on their own in one week. IT IS NORMAL FOR THE WOUND TO OOZE OR BE BLOODY FOR A FEW DAYS AFTER SURGERY. ?IF THIS HAPPENS JUST PLACE NEW DRESSING OVER IT TO AVOID STAINING CLOTHES. You may shower on post op day # 1 We ask that you do not let the water soak the wound. If it does get wet, just towel dry lightly. Please do not scrub your incision or place any type of chemical/ointment on the wound. No tub baths, pools or jacuzzis for one month. If you have any leaking or redness from your wound, or fevers, please call office Care Plan Goals: Return to normal activity as tolerated Health Concerns: None Plan of Treatment: Follow-up in clinic in 2-3 weeks Assessment: POD: 1 Procedure: L3-5 OLIF Griffin is a pleasant 64 year old male POD:1 s/p L3-5 OLIF. Uncomplicated procedure. Patient reports he is up walking around is otherwise doing well. He feels his symptoms are much better than pre-operatively. He still reports mild pain in his low back, with good relief with current pain medication. He is voiding well, tolerating diet. Afebrile, vital signs stable. Full strength 5/5 LE. Back dressings have some staining without signs of hematoma. No active sanguineous drainage. Area is dry. Plan: Griffin is a pleasant 64 year old male POD:1 s/p L3-5 OLIF. He is doing well and progressing as expected. Patient meets criteria to be medically discharged home. He was seen at bedside with Dr. Robison. I will send in a prescription for oxycodone for the patient to take as needed for pain. Jorge Alberto Robison MD,PhD [facility]
[2024-07-19 08:31] VITALS: BP 120/62
[2024-07-19] MEDS: Ezetimibe 10 MG TABLET PO (08:31)
[2024-07-19] MEDS: hydroCHLOROthiazide 25 MG TABLET PO (08:31)
[2024-07-19] MEDS: Gabapentin 600 MG TABLET PO (08:31)
[2024-07-19 08:34] VITALS: BP 120/62
[2024-07-19] MEDS: Atorvastatin Calcium 40 MG TABLET PO (08:34)
[2024-07-19] MEDS: amLODIPine Besylate 10 MG TABLET PO (08:34)
--- NOTE | 2024-07-19 08:39 | MHC.CM.PN ---
pt left prior to being seen by cm pt dcd home self care
[2024-07-19 09:14] VITALS: RESP 18
--- NOTE | 2024-07-19 10:11 | HO.POSTANES ---
Post Anesthesia Evaluation Post Anesthesia Evaluation Date of Service: 07/19/24 Vital Signs: Vital Signs Temp Pulse Resp BP Pulse Ox O2 Del Method 07/19/24 09:14 18 07/19/24 08:34 120/62 07/19/24 08:31 120/62 07/19/24 07:25 98.4 F 80 16 128/68 96 Room Air 07/19/24 03:13 97.2 F 75 16 113/68 96 Room Air 07/18/24 23:16 97.8 F 74 16 118/65 94 Room Air Anesthesia: General Endotracheal-GETA Mental Status: Awake Pain Control: Satisfactory Nausea/Vomiting: None Hydration: Adequate Anesthesia-Related Issues: No Anes. Related Issues
[2024-07-19 11:09] LABS: Glucose, Whole Blood 128 mg/dL (60-115)
== END 2024-07-19 12:27 | disposition home or self-care (01) | DRG 304 ==
LOC: HO.SSSA 06:32 → HO.S3 11:44
PROVIDERS: Admitting Provider Neurological Surgery; PCP Student in an Organized Health Care Education/Training Program; Visit Provider Neurological Surgery
PROC: 0SG10A0 Fusion of 2 or more Lumbar Vertebral Joints with Interbody Fusion Device, Anterior Approach, Anterior Column, Open Approach (ICD-10-PCS; principal; 2024-07-18 07:30)
DX: M48.061 Spinal stenosis, lumbar region without neurogenic claudication (principal); M41.56 Other secondary scoliosis, lumbar region; F17.210 Nicotine dependence, cigarettes, uncomplicated; Z71.6 Tobacco abuse counseling; Z79.899 Other long term (current) drug therapy
CPT/HCPCS: 82947; 86850; 86900; 86901; 97116; 97162; C1713; C1889; J0131; J0665; J0666; J0690; J1100; J1171; J2003; J2250; J2371; J2405; J2704; J3010; L8699

== ENCOUNTER → 2024-07-18 06:22 | Outpatient (BNV) | payer MEDICAID, SELFPAY | PROVIDERS: Admitting Provider Neurological Surgery; PCP Student in an Organized Health Care Education/Training Program; Visit Provider Neurological Surgery | DX: Z48.89 Encounter for other specified surgical aftercare (principal) | CPT/HCPCS: 99024; 99499 ==

== ENCOUNTER 2024-07-25 12:55 | Outpatient (AMB) | payer MEDICAID, SELFPAY ==
[2024-07-25 13:19] VITALS: BP 110/60; PULSE 66; O2SAT 100; BMI 34.7
--- NOTE | 2024-07-25 13:19 | A.OFFVIS_ITS ---
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 Allergies COLIN Inhibitors Allergy (Severe, Verified 07/25/24 13:41) Angioedema ibuprofen [From MOTRIN] Allergy (Unknown, Verified 07/25/24 13:41) Unknown Medication List - Last Reconciled 07/25/24 by Ursula Pearl MD acetaminophen (Tylenol Extra Strength) 500 mg PO Q6H PRN amlodipine 10 mg PO DAILY ascorbic acid (vitamin C) ER (Vitamin C ER) 500 mg PO DAILY atorvastatin 40 mg PO DAILY blood sugar diagnostic (FreeStyle Lite Strips) 3 times a day blood-glucose meter (FreeStyle Lite Meter kit) As directed diclofenac sodium 1% 1 ea topical DAILY PRN ezetimibe 10 mg PO DAILY gabapentin 600 mg PO TID hydrochlorothiazide 25 mg PO DAILY hydrocortisone 2.5% 1 appl topical BID PRN ketoconazole 2% 1 appl topical BID lancets (FreeStyle Lancets) 3 times a day lidocaine 5% 1 patch topical DAILY [orthopaedic shoe lift, left As directed] oxycodone 5 mg PO Q4-6H PRN pantoprazole 40 mg PO DAILY Ventolin HFA 90 mcg/actuation (albuterol sulfate) 2 puffs inhalation Q4-6H PRN 60 days NS Do you need a note to return to daycare/school/sports/work: No HPI HPI COPD: Details: THIS 64 YEARS OLD GENTLEMAN COMES AFTER 6 MONTHS FOR FOLLOW-UP OF HIS COPD. HE HAS INTERMITTENT COUGH WHICH IS USUAL AND NORMAL. DENIES ANY WHEEZING ATTACKS. DENIES SHORTNESS OF BREATH ON EXERTION BECAUSE HE WALKS SLOWLY. HE STARTED SMOKING 5-6 CIGARETTES A DAY, AND THUS HE HAS MORE FREQUENT COUGH. HE USES THE VENTOLIN 2 PUFFS Q 6 HOURS NEEDED. AND LATELY HAS BEEN USING 1 PUFF TWICE A DAY REGULARLY. HE HAS HISTORY OF OBSTRUCTIVE SLEEP APNEA BUT AFTER HE LOST SIGNIFICANT WEIGHT THE SLEEP APNEA HAS RESOLVED. HIS MOST PRESSING ISSUE IS ONGOING BACK PAIN AND HE RECENTLY HAD SPINE SURGERY. [facility] [place] Medical History (Updated 07/25/24 @ 13:48 by Ursula Pearl MD) Smoking history Back pain Arthritis Numbness Murmur Ulnar neuropathy at elbow of left upper extremity Carpal tunnel syndrome of left wrist JESSICA (obstructive sleep apnea) HTN (hypertension) Asthma-COPD overlap syndrome JESSICA on CPAP Aortic stenosis Obesity (BMI 30-39.9) Dyslipidemia Vitamin D deficiency Diabetic nephropathy associated with type 2 diabetes mellitus Diabetes type 2, controlled Diabetes Surgical History History of left knee replacement History of decompression of ulnar nerve History of carpal tunnel surgery of left wrist Hx of carpal tunnel syndrome Hx of cholecystectomy History of total right knee replacement (TKR) History of left hip replacement Hx of hernia repair History of back surgery Hx of colonoscopy Family History Father Hypertension Diabetes mellitus Mother Hypertension Social History Household Members: Family Household Members Other:: sister Housing: Apartment Are you a primary healthcare science specialist to a significant other at home: No Do you presently have visiting nurse or other home services: Yes (Doctor every month) Alcohol intake: never Patient Tobacco Use Status: Current everyday Tobacco user Tobacco use type: Cigarette Cigarettes Per Day: 6 service: No Current occupational status: unemployed Current occupation: right handed Review of Systems Const All systems reviewed & are unremarkable except as noted in HPI and below Eyes Reports no additional complaints ENT Reports no additional complaints Card Denies chest pain, Denies leg edema and Reports dyspnea on exertion (ONLY ON WALKING UP HILL , ) Resp Reports cough (MILD ,INTERMITTENT ) and Reports dyspnea on exertion (ONLY ON WALKING UP HILL , ) GI Reports no additional complaints and Reports heartburn (CONTROLLED WITH MED , ) Musc Reports back pain (CONTROLLED .) Neuro Reports no additional complaints Psych Reports no additional complaints Physical Exam Vital Signs: Last Vital Signs Pulse 66 07/25/24 13:19 BP 110/60 07/25/24 13:19 Pulse Ox 100 07/25/24 13:19 Oxygen Delivery Method Room Air 07/25/24 13:19 BMI result Body Mass Index 34.7 Appearance: Alert. Oriented X3. No acute distress. HEENT: There is an appropriate healing small laceration to the right occipital/parietal area with [address], scabbing present, no active bleeding. Nontender CVS: Normal heart rate and rhythm. Pulses normal. Respiratory: No respiratory distress. Skin: Skin warm and dry. Normal skin color. Normal skin turgor. No rashes. Extremities: normal inspection Neuro: Oriented X 3. Grossly normal, nonfocal Const General: comfortable, no acute distress, alert and awake Orientation/consciousness: patient oriented x3 HEENT Head: Yes normal to inspection General nose exam: No nasal polyps present and No nasal discharge present Face and sinus: Yes sinuses nontender Mouth: oropharynx normal Throat: Yes posterior oropharynx normal Eyes General: appearance normal, both eyes and all related structures Neck Neck: Yes normal visual inspection, Yes no lymphadenopathy, Yes trachea midline and Yes no JVD Thyroid: Thyroid normal Chest Chest palpation & inspection: normal inspection of the chest, normal palpation of entire chest wall and no tenderness Resp Other: PERCUSSION NOTE IS RESONANT, BREATH SOUNDS ARE EQUAL AND NORMAL ON BOTH SIDES. NO WHEEZES OR CREPITATIONS ARE HEARD TODAY. Cardio Palpation: normal PMI Rate: regular rate Rhythm: regular rhythm Heart sounds: no gallops and no murmurs GI Palpation (GI): Soft to palpation, nontender, No hepatosplenomegaly present and no masses Auscultation: normal bowel sounds Back/Spine/Pelvis Thoracic/Lumbar Spine: thoracic and lumbar spine normal to inspection Skin General skin exam: no rashes or lesions noted Neuro General: patient oriented x3 and no focal motor deficits Cranial nerves: Yes CN's II-XII intact bilaterally Extrem General: Yes normal to inspection, Yes no clubbing, cyanosis or edema and Yes no calf tenderness Psych Speech and movement: Normal speech and movement present Assessment & Plan Assessment & Plan (1) Asthma-COPD overlap syndrome: Comment: HE DOES HAVE PAST HISTORY OF BRONCHIAL ASTHMA/COPD. CURRENTLY IT IS WELL CONTROLLED AND HE REMAINS ASYMPTOMATIC. PULMONARY FUNCTION TEST IN FEBRUARY 2022 WAS ESSENTIALLY NORMAL. Code(s): J44.9 - Chronic obstructive pulmonary disease, unspecified Category: Medical Plan: USE VENTOLIN HFA 1 OR 2 PUFFS Q 6 HOURS ONLY P.R.N.. (2) JESSICA (obstructive sleep apnea): Comment: PATIENT HAS PAST HISTORY OF OBSTRUCTIVE SLEEP APNEA SECONDARY TO HIS OBESITY. HE LOST SIGNIFICANT AMOUNT OF WEIGHT, AND SYMPTOMS OF SLEEP APNEA SYMPTOMS HAVE RESOLVED COMPLETELY. HE HAS NOT NEEDED TO USE THE CPAP FOR THE PAST 2-3 YEARS. Code(s): G47.33 - Obstructive sleep apnea (adult) (pediatric) Category: Medical Plan: ADVISED TO KEEP THE WEIGHT IN CONTROL. SLEEP HYGIENE EXPLAINED. (3) Smoking history: Comment: THIS PATIENT HAS PAST HISTORY OF SMOKING. HE HAD CUT IT DOWN TO 1 OR 2 CIGARETTES A DAY. LATELY HE HAS INCREASED TO 6 CIGARETTES A DAY. HE DOES HAVE MILD INTERMITTENT COUGH RELATED TO SMOKING. Code(s): Z87.891 - Personal history of nicotine dependence Category: Social Hx Plan: COUNSELED TO QUIT SMOKING COMPLETELY. RISKS OF CONTINUED SMOKING EXPLAINED. Coding Level of Care Code Est Pt Level 3 (54746) Diagnoses Asthma-COPD overlap syndrome J44.9 JESSICA (obstructive sleep apnea) G47.33 Smoking history Z87.891
--- OUTSIDE RECORDS SUMMARY | 2024-07-25 14:34 | XMS_ITS | Clinical Summary ---
Author Organization [employer] Address [address] [facility] [address] [place] [address] Care Team Providers Care Eviscerator Name Role Phone Nu Babin MD Primary Care Provide r Allergies Active Allergy Reactions Criticality Noted Date Comments Ibuprofen 02/22/2019 Lisinopril Angioedema 11/13/2020 Other reaction(s): Tongue swelling Medications * This document contains information received from the source organization and may not represent a complete record from that organization. nicotine (Nicoderm, Step 3) 7 MG/24HR patch Place 1 patch on the skin 1 (one) time each day. 019 Active nitroglycerin (Nitrostat) 0.[address] 1 tablet under the tongue. place 1 tablet by sublingual route at the first sign of an attack; no more than 3 tabs are recommended within a 15 minute period. 019 Active zoster vaccine-recombina nt adjuvanted (Shingrix) 50 MCG/0.5ML vaccine Inject 0.5 mL into the shoulder, thigh, or buttocks. 021 Active Ventolin HFA 108 (90 Base) MCG/ACT inhaler 2 PUFF INHALED EVERY 4 TO 6 HOURS NEEDED FOR SHORTNESS OF BREATH OR WHEEZING FOR 60 DAYS 023 Active Blood Glucose Monitoring Suppl (FreeStyle [place] Lite) w/Device kit USE TO TEST BLOOD SUGAR TWICE DAILY 1 kit 023 Active glucose blood (FREESTYLE LITE) test strip USE TO TEST BLOOD SUGAR TWICE DAILY 100 each 5 024 Active hydroCHLOROthiazi de (HYDRODiuril) 25 MG tabletIndications :Resistant hypertension Take 1 tablet (25 mg) by mouth Once per day. 90 tablet 3 024 2024 Active amLODIPine (Norvasc) 10 MG tabletIndications :Essential hypertension Take 1 tablet (10 mg) by mouth Once per day. 30 tablet 11 024 2024 Active baclofen (Lioresal) 10 MG tabletIndications :Acute right-sided low back pain with right-sided sciatica Take one tablet TID PRN 30 tablet 024 Active predniSONE (Deltasone) 20 MG tabletIndications :Chronic right-sided low back pain with right-sided sciatica 2 tabs po daily for 5 days 10 tablet 024 Active LORazepam (Ativan) 0.5 MG tabletIndications :Anxiety Take one tablet 1-2 hrs before procedure 4 tablet 024 Active atorvastatin (Lipitor) 80 MG tabletIndications :Mixed hyperlipidemia Take 1 tablet (80 mg) by mouth Once per day. 90 tablet 1 024 Active ezetimibe (Zetia) 10 MG tabletIndications :Mixed hyperlipidemia Take 1 tablet (10 mg) by mouth Once per day. 90 tablet 1 024 Active Diclofenac Sodium 1 % gelIndications:Ch ronic right-sided low back pain with right-sided sciatica APPLY 1 APPLICATION TOPICALLY IF NEEDED EACH DAY (TO USE IN LOWER BACK). 100 g 1 024 Active gabapentin (Neurontin) 600 MG tabletIndications :Lumbar back pain with radiculopathy affecting lower extremity Take 1 tablet (600 mg) by mouth 3 times daily. 90 tablet 1 024 2024 Active acetaminophen (Tylenol 8 Hour) 650 MG ER tabletIndications :Lumbar back pain with radiculopathy affecting lower extremity Take 2 tablets (1,300 mg) by mouth every 8 (eight) hours if needed for moderate pain. Swallow whole with water. Do not break, crush, dissolve and or chew 50 tablet 2 024 2024 Active hydrocortisone 2.5 % creamIndications: Dermatitis of left foot Apply topically 2 times daily. 28 g 1 Active hydrocortisone 2.5 % creamIndications: Dermatitis of left foot Apply topically 2 times daily. 28 g 1 024 2023 Discontinued(R eorder (will not trigger notification to Pharmacy)) acetaminophen (Tylenol 8 Hour) 650 MG ER tabletIndications :Lumbar back pain with radiculopathy affecting lower extremity Take 2 tablets (1,300 mg) by mouth every 8 (eight) hours if needed for moderate pain. Swallow whole with water. Do not break, crush, dissolve and or chew 30 tablet 2 024 2023 Discontinued(R eorder (will not trigger notification to Pharmacy)) Active Problems Problem Noted Date Diagnosed Date Preop examination 07/04/2024 Assessment & Plan (07/04/2024 12:12 PM EST): RCRI score is 0 which means a 3.9% risk Surgery should proceed as schedule It was advise NPO before midnight the day of the procedure and take blood pressure medications the morning of the procedure with small sip of water EKG ordered (patient is known to have RBBB he was seen by cardiology on 08/31/23 and he is stable) CMP ordered Lumbar back pain with radicu lopathy affecting lower extremity 03/28/2024 Assessment & Plan (06/06/2024 12:18 PM EST): I will increase his gabapentin to 600mg TID C/w actamonophen arthritis PRN Patient will be schedule for preop for his lumbar surgery Assessment & Plan (05/05/2024 1:47 PM EDT): Do not miss neurosurgery appointment Acetaminophen max dose PRN + gabapentin 300mg Q 8hrs patient is aware of side effects RTC 4 weeks televisit Assessment & Plan (03/28/2024 10:07 PM EDT): 01/2024 LFTS and renal fucntion wnl -lumbar XR 03/2024 There is rightward curvature of the lumbar spine. There are 5 nonrib-bearing lumbar vertebral bodies. There is 6 mm retrolisthesis of L4 and L5. Vertebral body heights are maintained. Moderate intervertebral disc space narrowing at L1-L2, L3-L4 and L4-L5. There is bilateral L5 spondylolysis suspected. -States started PT 5 days ago states no improvement -referred for lumbar MRI today w ongoing lower back pain,worsening w tingling in right leg ,has rethrolisthesis in lower back on recent XR -call w result,depensds on result to refere to PM or ortho -continue PT -continue tylenol 1-2 tab of 650 mg states has at gome Q 6 h PRN , Lidoderm patch,Baclofen -px diclofenac topical -denies NSAIDS allergy told not use for CKD hx -prednisone 40 mg x 5 days Prediabetes 01/07/2024 Assessment & Plan (01/07/2024 1:21 PM EDT): Patient with A1c that under 6.4 for some time now, no longer consider diabetic, not on medications Today extensive discussion was done about life style modifications I advise healthy diet (low calorie) and cardiovascular exercise Encounter for preventive care 07/23/2023 Assessment & Plan (07/23/2023 10:43 AM EST): See HPI Left hand pain 03/16/2023 Carpal tunnel syndrome of left wrist 03/16/2023 Assessment & Plan (03/17/2023 2:37 PM EDT): Wrist brace will be prescribe for patient Waiting for nerve conduction test Referral to hand surgery Numbness and tingling in left hand 02/19/2023 Assessment & Plan (02/19/2023 1:30 PM EDT): Wrist brace will be prescribe today Dermatitis of left foot 02/19/2023 Assessment & Plan (03/02/2024 4:48 PM EDT): Apply hydrocortisone BID no more than 2 weeks Colon cancer screening 02/19/2023 Encounter for preventive health examination 07/05 Assessment & Plan (07/22/2022 11:31 AM EST): -Patient is encouraged to exercise moderately 4-5x/week. -Counseled to increase consumption of fresh fruit, veggies and water. To have frequent and small meals. -Pt does not smoke, uses alcohol or any illicit drugs, seems to feel safe at home. -His adult IZs are up-to-date. Pt will obtain iz titers for MMR, Hep B and Varicella. He is getting influenza IZ today. -Opthalmology up to date, next one due on May 2023. -Lipids up to date, next one due February 2023. Angioedema 06/16/2022 Asthma-chronic obstructive p ulmonary disease overlap syndrome 06/16/2022 Essential hypertension 06/16/2022 Assessment & Plan (03/02/2024 4:48 PM EDT): Controlled c/w same interventions Assessment & Plan (01/07/2024 1:20 PM EDT): I will increase his amlodipine to 5mg daily RTC 2 weeks with nuse with BP log if not at goal plan is to increase amlodipine to 10mg daily Assessment & Plan (07/23/2023 10:42 AM EST): Maintenance: BMP: up to date Lipid Panel: up to date ASCVD Risk:high risk on atorvastatin 80mg - Aerobic exercise to reduce BP. Initial goal of 30 min walk 3-5x/week. Increase as tolerated. - low-sodium diet (goal: <2g/day) and heart healthy diet such as DASH to reduce BP and prevent ASCVD. - Home BP monitoring 1-2 x day with goal of <140/90. - Seek immediate medical attention for chest pain, palpitations, SOB, syncope, or sudden changes in mental status. - Do not change or discontinue current prescriptions without first consulting health care provider Assessment & Plan (02/19/2023 1:30 PM EDT): - Aerobic exercise to reduce BP. Initial goal of 30 min walk 3-5x/week. Increase as tolerated. - low-sodium diet (goal: <2g/day) and heart healthy diet such as DASH to reduce BP and prevent ASCVD. - Home BP monitoring 1-2 x day with goal of <140/90. - Seek immediate medical attention for chest pain, palpitations, SOB, syncope, or sudden changes in mental status. - Do not change or discontinue current prescriptions without first consulting health care provider Assessment & Plan (11/23/2022 3:30 PM EDT): - Aerobic exercise to reduce BP. Initial goal of 30 min walk 3-5x/week. Increase as tolerated. - low-sodium diet (goal: <2g/day) and heart healthy diet such as DASH to reduce BP and prevent ASCVD. - Home BP monitoring 1-2 x day with goal of <140/90. - Seek immediate medical attention for chest pain, palpitations, SOB, syncope, or sudden changes in mental status. - Do not change or discontinue current prescriptions without first consulting health care provider Assessment & Plan (07/22/2022 11:33 AM EST): -Continue current treatment regimen, amlodipine, HCTZ. -Encouraged to increase physical activity and limit sodium intake. Hip pain 06/16/2022 History of bariatric surgery 06/16/2022 History of decompression of median nerve 022 History of operative procedure on hip 06/16/2022 Assessment & Plan (07/22/2022 11:37 AM EST): Patient with several orthopedic procedures that limit ambulation. -Needs to continue with home care and assistance with some ADLs. -Order labs and continue Home care program. -Counseled to use cane PRN ambulation. Leg length inequality 03/25/2018 Full dentures 03/25/2018 Continuous opioid dependence 09/27/2017 Aortic valve stenosis 06/16/2017 Assessment & Plan (07/22/2022 11:32 AM EST): No s/s of CHF, last echo in 2019 had an EF of 65%. -FU with cardiology Chronic obstructive lung disease 06/16/2017 CKD stage 2 due to type 2 diabetes mellitus ([facility]) 06/16/2017 Coronary arteriosclerosis 06/16/2017 Hyperlipidemia associated wi th type 2 diabetes mellitus ([facility]) 06/16/2017 Eczema 06/16/2017 Hypertensive disorder 06/16/2017 Assessment & Plan (03/28/2024 10:08 PM EDT): Elevated BP seems reactive to pain States BP at home <140/90 -advised to bring to PCP home BP -explained pt steroids may increase BP while taking med Obstructive sleep apnea syndrome 06/16/2017 Onychomycosis of multiple to enails with type 2 diabetes mellitus ([facility]) 06/16/2017 Osteoarthritis of multiple joints 06/16/2017 History of cholecystectomy 06/16/2017 History of bilateral knee replacement 06/16/2017 Resolved Problems Problem Noted Date Diagnosed Date Resolved Date Type 2 diabetes mellitus 06/16/201711/2023 Assessment & Plan (07/23/2023 10:43 AM EST): - Lab Results Component Value Date HGBA1C 5.8 07/23/2023 HGBA1C 5.8 02/19/2023 HGBA1C 5.3 11/23/2022 - Lab Results Component Value Date CREATININE 0.97 11/24/2022 - Diabetic eye exam:up to date - Diabetic foot exam:referral done - Continue lifestyle modifications Assessment & Plan (03/17/2023 2:37 PM EDT): Controlled C/w same intervention Assessment & Plan (02/19/2023 1:29 PM EDT): - Lab Results Component Value Date HGBA1C 5.8 02/19/2023 HGBA1C 5.3 11/23/2022 HGBA1C 5.6 06/19/2022 - Lab Results Component Value Date CREATININE 0.97 11/24/2022 - Continue lifestyle modifications - Continue current interventions Assessment & Plan (11/23/2022 3:31 PM EDT): - Lab Results Component Value Date HGBA1C 5.3 11/23/2022 HGBA1C 5.6 06/19/2022 - Lab Results Component Value Date CREATININE 0.99 02/19/2022 - Diabetic eye exam: up to date - Diabetic foot exam: pending - Continue lifestyle modifications - Continue current medications - Assessment & Plan (07/22/2022 11:35 AM EST): Last A1C in June was at goal. -Currently off medications s/p bariatric surgery. -Needs close FU by PCP every 3 months.. Encounters Date Type Department Care Team Description 07/25/[address] [address] Nu Babin MD No Show 07/18/2024 Orders Only [facility] External Provider, [facility] 07/13/2024 Patient Outreach [address] [address] Nu Babin MD Pre-visit Planning (SDOH screening negative and tobacco screening negative) 07/04/2024 11:15 AM EST Office Visit [address] [address] Nu Babin MD Preop examination (Primary Dx); Lumbar back pain with radiculopathy affecting lower extremity; Dermatitis of left foot 07/04/2024 Travel 06/09/[address] [address] Macie Bull RN Pre-op 06/06/2024 11:15 AM EST Telemedicine [address] [address] Nu Babin MD Lumbar back pain with radiculopathy affecting lower extremity (Primary Dx) 06/05/[address] [address] Kristofer Pelayo [place] Chart Prep 05/24/[address] [address] Nu Babin MD Chronic right-sided low back pain with right-sided sciatica 05/19/[address] [address] Nu Babin MD Care Coordination 05/10/[address] [address] Nu Babin MD HILARIO RECALL 05/08/2024 Orders Only [facility] External Provider, [facility] 05/08/[address] [address] Nu Babin MD Care Coordination ([facility] Tax Lawyer ) 05/05/2024 10:45 AM EDT Office Visit [facility] [address] [place] [address] Nu Babin MD Lumbar back pain with radiculopathy affecting lower extremity (Primary Dx); Mixed hyperlipidemia 05/05/2024 Travel 05/02/2024 Telephone [facility] [address] [place] [phone] Carnia Holder RN Results; Referral 05/01/2024 Orders Only [facility] [address] [place] [address] Nu White MD Chronic right-sided low back pain with right-sided sciatica (Primary Dx); Lumbar back pain with radiculopathy affecting lower extremity 04/24/2024 Orders Only [address] [address] Nu Babin MD Anxiety (Primary Dx) 04/24/2024 Telephone [facility] [address] [place] [address] Nu Babin MD telephone call from Last 3 Months Immunizations Name Administration Dates Next Due Influenza injectable quadriv alent IIV4 with preservative 05/03/2019,03/25/2018,04/11/2015 Influenza injectable quadriv alent preservative free 07/23/2023,06/19/2022,06/02/2021,05/29,04/20/2017,05/14/2016 Influenza, IIV3, injectable 03/28/2014 Influenza, Split (incl. debbie fied surface antigen) 03/31/2013,03/22/2012 Pfizer Covid-19 Vaccine 12+ 07/23/2023 Pfizer Covid-19 Vaccine 12+ dilcia-sucrose (Noe Cap) 02/02/2022 Pneumococcal Conjugate PCV 20 01/07/2024 Pneumococcal Conjugate PCV 7 08/17/2005 Pneumococcal Polysaccharide PPSV23 01/16/2014 RSV Bivalent 07/26/2023 TD (adult), 2 Lf tetanus tox oid, preservative free, adsorbed 04/20/2005 Tdap 06/04/2022,01/07/2021,03/22/2012 Social History Tobacco Use Types Packs/Day Years Used Date Smoking Tobacco: Every Day Cigarettes Passive Smoke Exposure: Current Smokeless Tobacco: Never Alcohol Use Standard Drinks/Week Comments Never 0 (1 standard drink = 0.6 oz pur e alcohol) Depression Answer Date Recorded Patient Health Questionnaire-9 Score 0 01/07/2024 Patient Health Questionnaire-9 Score 0 01/07/2024 Last PHQ-9: Questionnaire Data Not on file 0 01/07/2024 Housing Stability Answer Date Recorded What is your housing situation today? I have francia martinez 07/12/[address] you li ve. Do you have problems with any of the following? None of the above 07/12/2023 Food Insecurity Answer Date Recorded Within the past 12 months, y ou worried that your food would run out before you got money to buy more: Never True 07/12/2023 Within the past 12 months,th e food you bought just didn't last and you didn't have enough money to get more: Never True 02/2024 Transportation Answer Date Recorded In the past 12 months, has l ack of transportation kept you from medical appts, meetings, work or from getting things needed for daily living? No 07/12/2023 Utilities Answer Date Recorded In the past 12 months, has t he electric, gas, oil or water company threatened to shut off services in your home? No 07/12/2023 Depression Answer Date Recorded Patient Health Questionnaire-2 Score 0 01/07/2024 Internet Access Answer Date Recorded Internet Access Q1 Yes 07/13/2024 Internet Access Q2 Not on file 07/13/2024 Sex and Gender Information Value Date Recorded Sex Assigned at Male 05/04/2022 10:15 AM EDT Legal Sex Male 10:15 AM EDT Gender Identity Male 05/04/2022 10:15 AM EDT Sexual Orientation Straight 05/04/2022 10 :15 AM EDT Last Filed Vital Signs Vital Sign Reading Time Taken Comments Blood Pressure 136/78 07/04/2024 11:14 AM EST Pulse 76 07/04/2024 11:14 AM EST Temperature 37.2 ??C (99 ??F) 07/04/2024 11:14 AM EST Respiratory Rate 16 07/04/2024 11:14 AM EST Oxygen Saturation 99% 05/05/2024 10:56 AM EDT Inhaled Oxygen Concentration - - Weight 94.3 kg (208 lb) 07/04/2024 11:14 AM EST Height 167.6 cm (5' 6 ) 07/04/2024 11:14 AM EST Body Mass Index 33.57 07/04/2024 11:14 AM EST Plan of Treatment Health Maintenance Due Date Last Done Comments CT Colonography 1960 Colonoscopy 1960 Colorectal Cancer Screening 1960 FIT DNA/Cologuard 1961 FIT 1961 FOBT 1960 Sigmoidoscopy 1961 Diabetes: Foot Exam 1971 Zoster Vaccines (1 of 2) 2011 COVID-19 Vaccine ( season) 2024 07/23/2023, 02/02/2022, 04/28/2021, Additional history exists Influenza Vaccine (#1) 2024 , 06/19/2022, 06/02/2021, Additional history exists Diabetes: Hemoglobin A1C 07/09/2024 024, 07/23/2023, 02/19/2023, Additional history exists Depression Screening 01/06/2025 01/07/2024, 01/07/20 24 Lipid Panel 01/11/2025 01/12/2024, 11/03, 02/19/2022, Additional history exists Eye Exam 04/02/2025 04/02/2023, 03/06, 04/02/2023, Additional history exists Alcohol/Substance Use Screening 05/05/2025 05/05/2024 Tobacco Screening 07/04/2025 07/04/2024 SDOH Screening 07/13/2025 07/13/2024 DTaP/Tdap/Td Vaccines (4 - Td or Tdap) 06/04/2032 06/04/2022, 01/07/2021, 03/22/2012, Additional history exists HIV Screening Completed 07/23/2022 Hepatitis C Screening Completed 07/23/2022 RSV Patients and Patients Aged 60 years or older Completed 07/26/2023 Pneumococcal Vaccine: Pediatrics (0 to 5 Years) and At-Risk Patients (6 to 64 Years) Completed 01/07/2024, 01/16/2014, 08/17/2005 HIB Vaccines Aged Out No longer eligi ble based on patient's age to complete this topic HPV Vaccines Aged Out No longer eligi ble based on patient's age to complete this topic Hepatitis A Vaccines Aged Out No long er eligible based on patient's age to complete this topic Hepatitis B Vaccines Aged Out No long er eligible based on patient's age to complete this topic IPV Vaccines Aged Out No longer eligi ble based on patient's age to complete this topic Meningococcal Vaccine Aged Out No king pati eligible based on patient's age to complete this topic RSV under 20 months Aged Out No longe r eligible based on patient's age to complete this topic Rotavirus Vaccines Aged Out No longer eligible based on patient's age to complete this topic Procedures Procedure Name Priority Date/Time Associated Diagnosis Comments FL GUIDANCE IN OR Routine 07/18/2024 7:4 3 AM EST COMPREHENSIVE METABOLIC PANEL Routine 07/04/2024 12:03 PM EST Preop examination ECG 12-LEAD Routine 07/04/2024 11:48 AM EST Preop examination XR LUMBAR SPINE COMPLETE 4+ VIEWS Routine 05/08/2024 11:14 AM EST MR LUMBAR SPINE WO CONTRAST Routine 04/30/2024 5:50 PM EDT Chronic right-sided low back pain with right-sided sciatica LIPID PANEL WITH REFLEX TO DIRECT LDL Routine 01/12/2024 8:13 AM EDT Essential hypertension POCT GLYCATED HEMOGLOBIN, TOTAL Routine 01/07/2024 10:08 AM EDT Prediabetes HEPATITIS PANEL, GENERAL Routine 07/23/2022 10:45 AM EST Encounter for preventive health examination HIV 1/2 ANTIGEN/ANTIBODY, FOURTH GENERATION W/RFL Routine 07/23/2022 10:45 AM EST Encounter for preventive health examination from Last 3 Months or Most Recently Relevant to Health Maintenance Results * FL Guidance in OR (07/18/2024 7:43 AM EST) Anatomical Region Laterality Modality X-Ray Angiograph y 07/18/2024 7:43 AM EST Narrative 07/19/2024 12:22 PM EST ? [facility] ?[address] ?[place] [address] ? Fluoroscopy Report ? Signed ? Patient: Griffin Kam ?MR#: [id number] ?? 34 ? : 1960 ?Acct:[id number] ? Age/Sex: 64 / M ?ADM Date: 07/18/24 ? Loc: HO.S3 ?345-1 ? Attending Dr: Mayito Robison MD, PhD ? Ordering Physician: Mayito Robison MD, PhD ?? Date of Service: 07/18/24 ?? Procedure(s): FL guidance in OR ?? Accession Number(s): [id number] ? cc: Mayito Robison MD, PhD; Nu White MD ? EXAMINATION: ?? XR FLUOROSCOPY WITH IMAGES ? CLINICAL INFORMATION: ?? Posterior instrumented fusion and discectomy L3-L5. ? COMPARISON: ?? None. Correlation made with MR lumbar 04/30/2024, lumbar plain film ?? 07/08/2023. ? TECHNIQUE: ?? Fluoroscopy provided to: Dr. Robison ?? Fluoroscopy time: 3 minutes, 19 seconds ?? DAP: 36.45 mGycm2 ?? Images: 5 ? FINDINGS: ?? 5 images demonstrate sequential placement of ??L3-4 and L4-5 disc ?? prostheses, with subsequent placement of dorsal transpedicular screws ?? and posterior connecting rods. No gross complication seen on these ?? limited images. Refer to the full operative report for details. ? FL/FL guidance in OR ?? IMPRESSION: ?? Fluoroscopic guidance. ? Electronically signed by: ??Tashi Garcia MD ??07/19/2024 12:19 PM EST RP ? Dictated By: ?Tashi Garcia MD ? Signed By: ?<Electronically signed by Tashi Garcia MD in OV> ?07/19/24 1219 ? DD/ 0743 ? TD/TT: 07/18/24 1120 ? Urgent Care Nurse Practitioner: ? Procedure Note Donlavonter, Image - 07/19/[address] [address] Fluoroscopy Report Signed Patient: Griffin Kam GMR#: [id number] 34 : 1960cct:[id number] Age/Sex: 64 / MADM Date: 07/18/24 Loc: HO.S3 345-[address]: Mayito Robison MD, PhD Ordering Physician: Mayito Robison MD, PhD Date of Service: 07/18/24 Procedure(s): FL guidance in OR Accession Number(s): [id number] cc: Mayito Robison MD, PhD; Nu White MD EXAMINATION: XR FLUOROSCOPY WITH IMAGES CLINICAL INFORMATION: Posterior instrumented fusion and discectomy L3-L5. COMPARISON: None. Correlation made with MR lumbar 04/30/2024, lumbar plain film 07/08/2023. TECHNIQUE: Fluoroscopy provided to: Dr. Robison Fluoroscopy time: 3 minutes, 19 seconds DAP: 36.45 mGycm2 Images: 5 FINDINGS: 5 images demonstrate sequential placement of L3-4 and L4-5 disc prostheses, with subsequent placement of dorsal transpedicular screws and posterior connecting rods. No gross complication seen on these limited images. Refer to the full operative report for details. FL/FL guidance in OR IMPRESSION: Fluoroscopic guidance. Electronically signed by: Tashi Garcia MD 07/19/2024 12:19 PM EST Dictated By: Tashi Garcia MD Signed By: <Electronically signed by Tashi Garcia MD in OV> 07/19/24 1219 DD/ 0743 TD/TT: 07/18/24 1120 Urgent Care Nurse Practitioner: [facility] External Provider IMG IR PROCEDURES Final Result * (ABNORMAL) Comprehensive Metabolic Panel (07/04/2024 12:03 PM EST) Sodium 141 135 - 145 mmol/L [facility] Potassium 3.3 3.3 - 5.1 mmol/L [facility] Chloride 104 96 - 108 mmol/L [facility] Carbon Dioxide 31(H) 22 - 29 mmol/L [facility] Anion Gap 9(L) 12 - 20 [facility] Urea Nitrogen (BUN) 16 9 - 16 mg/dL [facility] Creatinine, Serum 1.31 0.5 - 1.4 mg/dL [facility] Estimated Glomerular Filt Rate 55 [facility] Comment:Chronic Kidney Disea se: Estimated GFR < 60 mL/min/1.27f3Xcleiz Kidney Disease: Estimated GFR < 15 mL/min/1.73m2 Glucose 118(H) 60 - 115 mg/dL [facility] Calcium 9.4 8.4 - 10.2 mg/dL [facility] Bilirubin, Total 0.4 0.0 - 1.0 mg/dL [facility] Aspartate Amino Transferase 44(H) 5 - 37 U/L [facility] Alanine Aminotransferase 43(H) 0 - 40 U/L [facility] Total Protein 7.6 6.5 - 8.0 g/dL [facility] Albumin Level 4.3 3.5 - 5.0 g/dL [facility] Alkaline Phosphatase 118(H) 39 - 117 U/L [facility] Blood Venous blood specimen / Unknown 07/04/2024 12:03 PM EST 07/04/2024 1:25 PM EST us Nu Shipley MD LAB BLOOD ORDERABLES Final Result [facility] [address] [place] [address] [phone] * ECG 12 lead (07/04/2024 11:48 AM EST) Narrative Nu Babin MD - 07/04/2024 11:48 AM EST RBBB, PVCs HR 75 us Nu Zaragozazman MD ECG ORDERABLES Final Result * XR Lumbar Spine Complete 4+ Views (05/08/2024 11:14 AM EST) Anatomical Region Laterality Modality Spine, L-spine Radiographic Merline ging 05/08/2024 11:1 4 AM EST Narrative 06/29/2024 9:13 AM EST ? [facility] ? [address] ?[place] [address] ?XRay Report ? Signed ? Patient: Griffin Kam ?MR#: [id number] ?? 33 ? : 1960 ?Acct:[id number] ? Age/Sex: 64 / M ?ADM Date: 05/08/24 ? Loc: HO.HOSX ? Attending Dr: Jorge Alberto DE LA ROSA ? Ordering Physician: Jorge Alberto Servin ?? Date of Service: 05/08/24 ?? Procedure(s): XR lumbar spine 4V min ?? Accession Number(s): [id number] ? cc: Jorge Alberto Servin; Nu White MD ? EXAMINATION: ?? XR LUMBAR SPINE ? CLINICAL INFORMATION: ?? Radiculopathy, lumbar region M54.16. ? COMPARISON: ?? XR Lumbar spine 03/20/2024 ? TECHNIQUE: ?? AP/LAT/FLEX/EX views of lumbar spine were obtained. ? FINDINGS: ? Five waz-kgz-ugpjmxl lumbar vertebrae were identified maintaining ?? normal height and alignments. Narrowing of intervertebral disc spaces ?? suggest underlying degenerative disc disease. Mild dextroscoliosis This ?? is seen at all visualized levels some of which combined with large ?? anterior near bridging osteophytes, also right and left lateral ?? osteophytes., Heavy vascular calcification of the aorta. Surgical clips ?? in the right upper quadrant from prior cholecystectomy and left upper ?? quadrant probably gastric surgery. Left hip prosthesis. Otherwise ?? Paravertebral soft tissues are unremarkable. There are radiolucencies, ?? most likely superimposed bowel gas.. No radiographic evidence of ?? osteolytic or osteoblastic lesions. ? XR/XR lumbar spine 4V min ?? IMPRESSION: ? * ??No fracture. ? * ??Narrowing of intervertebral disc spaces suggest underlying advanced ?? degenerative disc disease. ? * ??Mild dextroscoliosis. ? * ??Heavy vascular calcification. ? * ??Left hip prosthesis. ? Electronically signed by: ??Helena Park MD ??06/29/2024 09:10 AM EST ?? RP ? Dictated By: ?Helena Park MD ? Signed By: ?<Electronically signed by Helena Park MD in OV> ?06/29/24 0910 ? DD/ 1114 ? TD/TT: 05/08/24 1118 ? Urgent Care Nurse Practitioner: HS ? Procedure Note Donotelidainterpreter, Image - 06/29/2024 [facility] [address] [place] [address] [address] [place] [address] XRay Report Signed Patient: Griffin Kam GMR#: [id number] 33 : 1960cct:[id number] Age/Sex: 64 / MADM Date: 05/08/24 Loc: ТАТЬЯНА Attending Dr: Jorge Alberto DE LA ROSA Ordering Physician: Jorge Alberto Servin Date of Service: 05/08/24 Procedure(s): XR lumbar spine 4V min Accession Number(s): [id number] cc: Jorge Alberto Servin; Nu White MD EXAMINATION: XR LUMBAR SPINE CLINICAL INFORMATION: Radiculopathy, lumbar region M54.16. COMPARISON: XR Lumbar spine 03/20/2024 TECHNIQUE: AP/LAT/FLEX/EX views of lumbar spine were obtained. FINDINGS: Five gex-ocq-mrulbms lumbar vertebrae were identified maintaining normal height and alignments. Narrowing of intervertebral disc spaces suggest underlying degenerative disc disease. Mild dextroscoliosis This is seen at all visualized levels some of which combined with large anterior near bridging osteophytes, also right and left lateral osteophytes., Heavy vascular calcification of the aorta. Surgical clips in the right upper quadrant from prior cholecystectomy and left upper quadrant probably gastric surgery. Left hip prosthesis. Otherwise Paravertebral soft tissues are unremarkable. There are radiolucencies, most likely superimposed bowel gas.. No radiographic evidence of osteolytic or osteoblastic lesions. XR/XR lumbar spine 4V min IMPRESSION: * No fracture. * Narrowing of intervertebral disc spaces suggest underlying advanced degenerative disc disease. * Mild dextroscoliosis. * Heavy vascular calcification. * Left hip prosthesis. Electronically signed by: Helena Park MD 06/29/2024 09:10 AM EST Dictated By: Helena Park MD Signed By: <Electronically signed by Helena Park MD in OV> 06/29/24 0910 DD/ 1114 TD/TT: 05/08/24 1118 Urgent Care Nurse Practitioner: HS us [facility] External Provider IMG XR PROCEDURES Final Result * MR Lumbar Spine w/o Contrast (04/30/2024 5:50 PM EDT) Anatomical Region Laterality Modality Spine, L-spine Magnetic Resonan ce 04/30/2024 5:50 PM EDT Narrative 05/01/2024 3:49 PM EDT ? [facility] ?[address] ?[place] [address] ? Magnetic Resonance Report ? Signed ? Patient: Griffin Kam ?MR#: [id number] ?? 33 ? : 1960 ?Acct:[id number] ? Age/Sex: 64 / M ?ADM Date: 04/30/24 ? Loc: HO.MRI ? Attending Dr: Nu Yañez MD ? Ordering Physician: Nu White MD ?? Date of Service: 04/30/24 ?? Procedure(s): MR lumbar spine wo con ?? Accession Number(s): [id number] ? cc: Nu White MD ? EXAMINATION: ?? MR LUMBAR SPINE WITHOUT CONTRAST ? CLINICAL INFORMATION: ?? Low back pain into both lower extremities. Numbness and weakness. ? COMPARISON: ?? MRI lumbar spine report dated December 07, 2018. Images are not available ?? PACS. ? TECHNIQUE: ?? MRI of the lumbar spine was obtained using routine sequences without ?? contrast. ? FINDINGS: ?? Last rib-bearing vertebra labeled T12. ?? Multilevel marginal osteophyte formation and disc desiccation. ?? Dextroconvex rotoscoliosis apex at L2-3. ?? Bone marrow inhomogeneity. ?? No bone marrow STIR signal abnormality. ?? Grade 1 retrolisthesis, L2-3 and L4-5. ?? Grade 1 anterolisthesis, L3-4. ?? Conus medullaris ends at pedicle of L1 with normal signal. ? T12-L1: ?? No compression upon neural elements. ? L1-2: ?? Broad-based disc bulging. Facet joint and ligamentum flavum ?? hypertrophy. Bilateral neuroforamina narrowing. Reduced AP diameter of ?? the thecal sac. ? L2-3: ?? Grade 1 retrolisthesis. Uncovertebral disc. Facet joint and ligamentum ?? flavum hypertrophy. Reduced AP diameter of the thecal sac and ?? neuroforamina. ? L3-4: Broad-based disc bulging. Facet joint and ligamentum flavum ?? hypertrophy. Reduced AP diameter of the thecal sac and encroaching the ?? neural elements and bilateral neuroforamina narrowing encroaching the ?? L3 exiting nerve roots. ? L4-5: ?? Broad-based disc bulging. Facet joint and ligamentum flavum ?? hypertrophy. Reduced AP diameter the thecal sac. Bilateral ?? neuroforamina stenosis compressing the exiting nerve roots of L4 right ?? greater than left side. ? L5-S1: ?? Broad-based disc bulging. Facet joint hypertrophy. Bilateral ?? neuroforamina stenosis compressing the exiting nerve roots. ? No prevertebral compartment hematoma, mass or fluid collection. ?? Fatty atrophy of the left psoas iliac muscle likely denervation. ? MR/MR lumbar spine wo con ?? IMPRESSION: ?? Multilevel spondylosis, L1-2 to L5-S1 resulting in central spinal canal ?? stenosis at L3-4 and multilevel neural foramina stenosis encroaching ?? likely compressing the exiting nerve roots. ? Electronically signed by: ??Dwight Alford MD ??05/01/2024 03:46 PM ?? EDT RP ? Dictated By: ?Dwight Nowak ? Signed By: ?<Electronically signed by Dwight Leroy in OV> ? 05/01/24 1546 ? DD/DT: 04/30/ 1750 ? TD/TT: 04/30/24 1815 ? Urgent Care Nurse Practitioner: ? Procedure Note Donotuseinterpreter, Image - 05/01/[address] [address] Magnetic Resonance Report Signed Patient: Griffin Kam GMR#: [id number] 33 : 1Acct:[id number] Age/Sex: 64 / MADM Date: 04/30/24 Loc: HO.MRI Attending Dr: Nu Yañez MD Ordering Physician: Nu White MD Date of Service: 04/30/24 Procedure(s): MR lumbar spine wo con Accession Number(s): [id number] cc: Nu White MD EXAMINATION: MR LUMBAR SPINE WITHOUT CONTRAST CLINICAL INFORMATION: Low back pain into both lower extremities. Numbness and weakness. COMPARISON: MRI lumbar spine report dated December 07, 2018. Images are not available PACS. TECHNIQUE: MRI of the lumbar spine was obtained using routine sequences without contrast. FINDINGS: Last rib-bearing vertebra labeled T12. Multilevel marginal osteophyte formation and disc desiccation. Dextroconvex rotoscoliosis apex at L2-3. Bone marrow inhomogeneity. No bone marrow STIR signal abnormality. Grade 1 retrolisthesis, L2-3 and L4-5. Grade 1 anterolisthesis, L3-4. Conus medullaris ends at pedicle of L1 with normal signal. T12-L1: No compression upon neural elements. L1-2: Broad-based disc bulging. Facet joint and ligamentum flavum hypertrophy. Bilateral neuroforamina narrowing. Reduced AP diameter of the thecal sac. L2-3: Grade 1 retrolisthesis. Uncovertebral disc. Facet joint and ligamentum flavum hypertrophy. Reduced AP diameter of the thecal sac and neuroforamina. L3-4: Broad-based disc bulging. Facet joint and ligamentum flavum hypertrophy. Reduced AP diameter of the thecal sac and encroaching the neural elements and bilateral neuroforamina narrowing encroaching the L3 exiting nerve roots. L4-5: Broad-based disc bulging. Facet joint and ligamentum flavum hypertrophy. Reduced AP diameter the thecal sac. Bilateral neuroforamina stenosis compressing the exiting nerve roots of L4 right greater than left side. L5-S1: Broad-based disc bulging. Facet joint hypertrophy. Bilateral neuroforamina stenosis compressing the exiting nerve roots. No prevertebral compartment hematoma, mass or fluid collection. Fatty atrophy of the left psoas iliac muscle likely denervation. MR/MR lumbar spine wo con IMPRESSION: Multilevel spondylosis, L1-2 to L5-S1 resulting in central spinal canal stenosis at L3-4 and multilevel neural foramina stenosis encroaching likely compressing the exiting nerve roots. Electronically signed by: Dwight Alford MD 05/01/2024 03:46 PM EDT RP Dictated By: Dwight Nowak Signed By: <Electronically signed by Dwight Leroy inOV> 05/01/24 1546 DD/ 1750 TD/TT: 04/30/24 1815 Urgent Care Nurse Practitioner: Nu Yañez MD IMG MRI PROCEDURE S Final Result * Lipid Panel with Reflex to Direct LDL (01/12/2024 8:13 AM EDT) Triglycerides 78 <150 mg/dL [facility] Comment:Desirable Triglyceri de: less than 150 mg/dLBorderline High Triglyceride 150-199 mg/dLHigh Triglyceride: 200-499 mg/dLVery High Triglyceride: greater than or equal to 5OO mg/dL Cholesterol 154 <200 mg/dL [facility] Comment:Desirable Cholestero l: less than 200 mg/dLBorderline High Cholesterol: 200-239 mg/dLHigh Cholesterol: greater than 239 mg/dL LDL Cholesterol Calculated 68 <100 mg/dL [facility] Comment:Desirable LDL: less than 100 mg/dLNear Optimal/Above Optimal LDL: 110- 129 mg/dLBorderline High LDL: 130-159 mg/dLHigh LDL: 160-189 mg/dLVery High LDL: greater than or equal to 190 mg/dL HDL Cholesterol 71 >40 mg/dL [facility] Comment:Desirable HDL: great er than 40 mg/dL Note: This HDL assay may give artificially low results in patients with liver disease. Blood 01/12/2024 8:13 AM EDT 01/12/2024 10:59 AM EDT us Nu Shipley MD LAB BLOOD ORDERABLES Final Result [facility] [address] [place] [phone] * POCT HGB A1C (01/07/2024 10:08 AM EDT) Hemoglobin A1C 5.6 4.0 - 6.0 % QC Media Lot # [id number] Lot# Expiration Date Blood 01/07/2024 10:0 8 AM EDT us Nu Shipley MD POINT OF CARE TEST EN TER/EDIT ORDERABLES Final Result * (ABNORMAL) Hepatitis Panel, General (07/23/2022 10:45 AM EST) Hepatitis A Antibody Total REACTIVE( A) NON-REACT [facility] [place] [employer] Comment: For additional information, please refer to http://Nuvola.[email or web address]/faq/JBS934 (This link is being provided for informational/ educational purposes only.) Hepatitis B Surface Antibody QL NON-REACT MICAELA NON-REACT MICAELA [facility] Hepatitis B Surface Ag NON-REACT MICAELA NON-REACT MICAELA [facility] Hepatitis B Core Antibody Total NON-REACT MICAELA NON-REACT MICAEAL [facility] [place] [employer] Hepatitis C Antibody NON-REACT MICAELA NON-REACT MICAELA [facility] [place] [facility] [employer] Index <0.02 <1.00 [facility] [place] [employer] Comment: HCV antibody was non-reactive. There is no laboratory evidence of HCV infection. In most cases, no further action is required. However, if recent HCV exposure is suspected, a test for HCV RNA (test code 67399) is suggested. For additional information please refer to http://Nuvola.[email or web address]/faq/SIK33s1 (This link is being provided for informational/ educational purposes only.) 07/23/2022 10:4 5 AM EST 07/23/2022 10:45 AM EST Narrative [facility] - 07/29/2022 12:44 AM EST FASTING:NO FASTING: NO Nahomi Sharma MD LAB BLOOD ORDERABLES Fin al Result Performing Organization Address City/State/[facility] Co de Phone Number [facility] [address] [facility], [address], [place] [address] [facility] [place] [facility] [address] [facility], ([address]) [place] [address] * HIV-1/2 Antigen and Antibodies, Fourth Generation, with Reflexes (07/23/2022 10:45 AM EST) Pathologist [facility] HIV Antigen/Antibody, 4th Generation NON-REAC TIVE NON-REAC TIVE PICS [facility] [place] [facility] Comment: HIV-1 antigen and HIV-1/HIV-2 antibodies were not detected. There is no laboratory evidence of HIV infection. PLEASE NOTE: This information has been disclosed to you from records whose confidentiality may be protected by state law. ??If your state requires such protection, then the state law prohibits you from making any further disclosure of the information without the specific written consent of the person to whom it pertains, or as otherwise permitted by law. A general authorization for the release of medical or other information is NOT sufficient for this purpose. ?? For additional information please refer to http://education.MarketVibe.Instacoach/faq/HGS715 (This link is being provided for informational/ educational purposes only.) The performance of this assay has not been clinically validated in patients less than 2 years old. Blood Venous blood specimen / Unknown 07/23/2022 10:45 AM EST 07/23/2022 10:45 AM EST Narrative [facility] - 07/29/2022 12:44 AM EST FASTING:NO FASTING: NO Nahomi Sharma MD LAB BLOOD ORDERABLES Fin al Result [facility], [address]rd [address], [place] [address] [facility] [address] [facility], ([address]) [place] [address] from Last 3 Months or Most Recently Relevant to Health Maintenance Insurance [id number] C3 Care Teams Eviscerator Relationship Specialty Start Date End Date Nu Babin MD [address] [place] [address] PCP - General Family Medicine 02/14/19 Meaghan Leroy Lay Out HelperWind Site Manager 05/08/24
--- OUTSIDE RECORDS SUMMARY | 2024-07-25 14:34 | XMS_ITS | Encounter Summary ---
Author Organization [employer] Address [address] [facility] 7t [place] [address] Care Team Providers Care Factory Worker Name Role Phone Nu Babin MD Primary Care Provide r Encounter Details Date Type Department Care Team ([facility] Contact Info) Description 05/08/2024 Orders Only [facility] External Provider, [facility] Social History Tobacco Use Types Packs/Day Years [...] Recorded Patient Health Questionnaire-2 Score 0 01/07/2024 Sex and Gender Information Value Date Recorded Sex Assigned at Male 05/04/2022 10:15 AM EDT Legal Sex Male 10:15 AM EDT Gender Identity Male 05/04/2022 10:15 AM EDT Sexual Orientation Straight 05/04/2022 10 :15 AM EDT documented as of this encounter Plan of Treatment Not on file documented as of this encounter Procedures Procedure Name Priority Date/Time Associated Diagnosis Comments XR LUMBAR SPINE COMPLETE 4+ VIEWS Routine 05/08/2024 11:14 AM EST documented in this encounter Results * XR Lumbar Spine Complete 4+ Views (05/08/2024 11:14 AM EST) Anatomical Region Laterality Modality Spine, L-spine Radiographic Merline ging 05/08/2024 11:1 4 AM EST Narrative 06/29/2024 9:13 AM EST ? [facility] ? [address] ?[place] [address] ?XRay Report ? Signed ? Patient: Griffin Kam ?MR#: [id number] ?? 33 ? : 1960 ?Acct:[id number] ? Age/Sex: 64 / M ?ADM Date: 05/08/24 ? Loc: HO.HOSX ? Attending Dr: Jorge Alberto DE LA ROSA ? Ordering Physician: Jorge Alberto Servin ?? Date of Service: 05/08/24 ?? Procedure(s): XR lumbar spine 4V min ?? Accession Number(s): [id number] ? cc: Jorge Alberto Servin; Nu White MD ? EXAMINATION: ?? XR LUMBAR SPINE ? CLINICAL INFORMATION: ?? Radiculopathy, lumbar region M54.16. ? COMPARISON: ?? XR Lumbar spine 03/20/2024 ? TECHNIQUE: ?? AP/LAT/FLEX/EX views of lumbar spine were obtained. ? FINDINGS: ? Five uqj-dof-brwoouk lumbar vertebrae were identified maintaining ?? normal [...] ??Helena Park MD ??06/29/2024 09:10 AM EST ? Dictated By: ?Helena Park MD ? Signed By: ?<Electronically signed by Helena Park MD in OV> ?06/29/24 0910 ? DD/ 1114 ? TD/TT: 05/08/24 1118 ? Oil Well Cable Tool Operator: HS ? Procedure Note Cornelia, Anil - 06/29/2024 [facility] [address] [place] [address] [address] [place] [address] XRay Report Signed Patient: Griffin Kam R#: [id number] 34 : 1960cct:[id number] Age/Sex: 64 / MADM Date: 05/08/24 Loc: HO.HOSX Attending Dr: Jorge Alberto DE LA ROSA Ordering Physician: Jorge Alberto Servin Date of Service: 05/08/24 Procedure(s): XR lumbar spine 4V min Accession Number(s): [id number] cc: Jorge Alberto Servin; Nu White MD EXAMINATION: XR LUMBAR SPINE CLINICAL INFORMATION: Radiculopathy, lumbar region M54.16. COMPARISON: XR Lumbar spine 03/20/2024 TECHNIQUE: AP/LAT/FLEX/EX views of lumbar spine were obtained. FINDINGS: Five iug-qkp-cfxwvlm lumbar vertebrae were identified maintaining normal height [...] by: Helena Park MD 06/29/2024 09:10 AM [facility] Dictated By: Helena Park MD Signed By: <Electronically signed by Helena Park MD in OV> 06/29/24 0910 DD/ 1114 TD/TT: 05/08/24 1118 Oil Well Cable Tool Operator: HS [facility] External Provider IMG XR PROCEDURES Final Result documented in this encounter Visit Diagnoses Not on filedocumented in this encounter Additional Health Concerns Assessment Noted Time PHQ-9 Depression Total Score: 0 01/07/20 9:59 AM EDT documented as of this encounter Care Teams Factory Worker Relationship Specialty Start Date End Date Nu Babin MD [address] [place] [phone] PCP - General Family Medicine 02/14/19 Meaghan Leroy Chief Of Staff DoctorUser Interface Engineer 05/08/24 documented as of this encounter
--- OUTSIDE RECORDS SUMMARY | 2024-07-25 14:34 | XMS_ITS | Encounter Summary ---
Author Organization [employer] Address [address] [facility] [address]t [place] [address] Care Team Providers Care Screener Perfumer Name Role Phone Nu Babin MD Primary Care Provide r Reason for Visit * Reason Comments Med Refill Encounter Details Date Type Department Care Team ([facility] st Contact Info) Description 04/09/2024 Refill [facility] [address] [place] [address] Nu Babin MD [address] [place] [address] Hypokalemia Social History Tobacco Use Types Packs/Day Years [...] on file documented as of this encounter Visit Diagnoses Diagnosis Hypokalemia Hypopotassemia documented in this encounter Additional Health Concerns Assessment Noted Time PHQ-9 Depression Total Score: 0 01/07/20 24 9:59 AM EDT documented as of this encounter Care Teams Screener Perfumer Relationship Specialty Start Date End Date Nu Babin MD [address] [place] [address] PCP - General Family Medicine 02/14/19 Meaghan Leroy Repairer HandtoolsSupervisor Shuttle Preparation 05/08/24 documented as of this encounter
--- OUTSIDE RECORDS SUMMARY | 2024-07-25 14:34 | XMS_ITS | Encounter Summary ---
Author Organization [employer] Address [address] [facility] [address] [place] [address] Care Team Providers Care Quality Review Specialist Name Role Phone Nu Babin MD Primary Care Provide r Reason for Visit * Reason Comments Pre-visit Planning SDOH screening negat akilah and tobacco screening negative Encounter Details Date Type Department Care Team ([facility] st Contact Info) Description 07/13/2024 Patient Outreach [facility] [address] [place] [address] Nu Babin MD [address] [place] [address] Pre-visit Planning (SDOH screening negative and tobacco screening negative) Social History Tobacco Use Types Packs/Day Years [...] AM EDT documented as of this encounter Progress Notes * Mila Reyes - 07/13/2024 12:50 PM EST CC Mila placed successful outbound call to patient for pre-visit planning. Patient name and confirmed. Patient confirms appt date and time, and has transportation. Biggest concern for appointment at this time is none Patient advised to bring to appointment a photo id and insurance card. Appropriate screenings completed in anticipation of appointment. documented in this encounter Plan of Treatment Not on file documented as of this encounter Visit Diagnoses Not on filedocumented in this encounter Additional Health Concerns Assessment Noted Time PHQ-9 Depression Total Score: 0 01/07/20 24 9:59 AM EDT documented as of this encounter Care Teams Quality Review Specialist Relationship Specialty Start Date End Date Nu Babin MD [address] [place] [address] PCP - General Family Medicine 02/14/19 Meaghan Leroy Electronic Science TeacherOil Well Service Operator Helper 05/08/24 documented as of this encounter
--- OUTSIDE RECORDS SUMMARY | 2024-07-25 14:34 | XMS_ITS | Encounter Summary ---
Author Organization [employer] Address [address] [facility] [address]t [place] [address] Care Team Providers Care Grizzlyman Name Role Phone Nu Babin MD Primary Care Provide r Reason for Visit * Reason Onset Date Comments No Show 07/25/2024 Encounter Details Date Type Department Care Team ([facility] Contact Info) Description 07/25/2024 Telephone [facility] [address] [place] [address] Nu Babin MD [address] [place] [address] No Show Social History Tobacco Use Types Packs/Day Years [...] AM EDT documented as of this encounter Miscellaneous Notes * Telephone Encounter - Torri Bynum - 07/25/2024 1:26 PM EST Pt no showed to appt on 07/25/24 documented in this encounter Plan of Treatment Not on file documented as of this encounter Visit Diagnoses Not on filedocumented in this encounter Additional Health Concerns Assessment Noted Time PHQ-9 Depression Total Score: 0 01/07/20 24 9:59 AM EDT documented as of this encounter Care Teams Grizzlyman Relationship Specialty Start Date End Date Nu Babin MD [address] [place] [id number] PCP - General Family Medicine 02/14/19 Meaghan Leroy Violin MechanicChildren Counselor 05/08/24 documented as of this encounter
--- OUTSIDE RECORDS SUMMARY | 2024-07-25 14:34 | XMS_ITS | Encounter Summary ---
Author Organization [employer] Address [address] [facility] 7t [place] [address] Care Team Providers Care Extermination Supervisor Name Role Phone Nu Babin MD Primary Care Provide r Encounter Details Date Type Department Care Team (Latest Contact Info) Description 07/04/2024 11:15 AM EST Office Visit [facility] [address] [place] [address] Nu Babin MD [address] [place] [address] Preop examination (Primary Dx); Lumbar back pain with radiculopathy affecting lower extremity; Dermatitis of left foot Social History Tobacco Use Types Packs/Day Years [...] is your housing situation today? I have franciacraig martinez 07/12/[address] [...] AM EDT documented as of this encounter Last Filed Vital Signs Vital Sign Reading Time Taken Comments Blood Pressure 136/78 07/04/2024 11:14 AM EST Pulse 76 07/04/2024 11:14 AM EST Temperature 37.2 ??C (99 ??F) 07/04/2024 11:14 AM EST Respiratory Rate 16 07/04/2024 11:14 AM EST Oxygen Saturation - - Inhaled Oxygen Concentration - - Weight 94.3 kg (208 lb) 07/04/2024 11:14 AM EST Height 167.6 cm (5' 6 ) 07/04/2024 11:14 AM EST Body Mass Index 33.57 07/04/2024 11:14 AM EST documented in this encounter Progress Notes * Nu Shipley MD - 07/04/2024 11:15 AM EST SUBJECTIVE: Griffin Kam is a 64 y.o. year old male who presents for Pre Op . Griffin is here today for pre-operative evaluation. Reports no sx of CP, SOB, HUNTER, at rest or with exertion. No paroxsysmal nocturnal orthopnea, LE swelling or palpitations. No recent anticoagulant or antithrombotic use, personal h/o coagulopathy. No allergies to iodine, latex or tape. Can run across street or walk up flight of stairs without SOB or CP. Patient has had many surgeries in the past and has never had a bad reaction to anesthesia Acute Concerns: None Social History Social History Narrative Not on file Patient Active Problem List Diagnosis Angioedema Aortic valve stenosis Asthma-chronic obstructive pulmonary disease overlap syndrome (CMS/HCC) Chronic obstructive lung disease ([facility]/HCC) CKD stage 2 due to type 2 diabetes mellitus (CMS/HCC) ([facility]/HCC) Continuous opioid dependence ([facility]/HCC) Coronary arteriosclerosis Hyperlipidemia associated with type 2 diabetes mellitus (CMS/HCC) (CMS/HCC) Eczema Essential hypertension Hypertensive disorder Hip pain Leg length inequality Obstructive sleep apnea syndrome Onychomycosis of multiple toenails with type 2 diabetes mellitus (CMS/HCC) ([facility]) Osteoarthritis of multiple joints Full dentures History of cholecystectomy History of bilateral knee replacement History of bariatric surgery History of decompression of median nerve History of operative procedure on hip Encounter for preventive health examination Numbness and tingling in left hand Dermatitis of left foot Colon cancer screening Left hand pain Carpal tunnel syndrome of left wrist Encounter for preventive care Prediabetes Lumbar back pain with radiculopathy affecting lower extremity Preop examination No family history on file. Review of Systems Constitutional: Negative. HENT: Negative. Respiratory: Negative. Cardiovascular: Negative. Musculoskeletal: Positive for arthralgias, back pain and myalgias. OBJECTIVE: Vitals: 07/04/24 1114 BP: 136/78 BP Location: Left arm Patient Position: Sitting BP Cuff Size: Adult Pulse: 76 Resp: 16 Temp: 99 ??F (37.2 ??C) TempSrc: Oral Weight: 208 lb (94.3 kg) Height: 5' 6 (1.676 m) Physical Exam Constitutional: Appearance: Normal appearance. Cardiovascular: Rate and Rhythm: Normal rate and regular rhythm. Heart sounds: Murmur heard. Systolic murmur is present. Abdominal: General: Abdomen is flat. Palpations: Abdomen is soft. Musculoskeletal: Right lower leg: No edema. Left lower leg: No edema. Neurological: Mental Status: He is alert. Follow Up: No follow-ups on file. Current Outpatient Medications on File Prior to Visit Medication Sig Dispense Refill amLODIPine (Norvasc) 10 MG tablet Take 1 tablet (10 mg) by mouth Once per day. 30 tablet 11 atorvastatin (Lipitor) 80 MG tablet Take 1 tablet (80 mg) by mouth Once per day. 90 tablet 1 baclofen (Lioresal) 10 MG tablet Take one tablet TID PRN 30 tablet 0 Blood Glucose Monitoring Suppl (FreeStyle Pisek Lite) w/Device kit USE TO TEST BLOOD SUGAR TWICE DAILY 1 kit 0 Diclofenac Sodium 1 % gel APPLY 1 APPLICATION TOPICALLY IF NEEDED EACH DAY (TO USE IN LOWER BACK). 100 g 1 ezetimibe (Zetia) 10 MG tablet Take 1 tablet (10 mg) by mouth Once per day. 90 tablet 1 gabapentin (Neurontin) 600 MG tablet Take 1 tablet (600 mg) by mouth 3 times daily. 90 tablet 1 glucose blood (FREESTYLE LITE) test strip USE TO TEST BLOOD SUGAR TWICE DAILY 100 each 5 hydroCHLOROthiazide (HYDRODiuril) 25 MG tablet Take 1 tablet (25 mg) by mouth Once per day. 90 tablet 3 LORazepam (Ativan) 0.5 MG tablet Take one tablet 1-2 hrs before procedure 4 tablet 0 nicotine (Nicoderm, Step 3) 7 MG/24HR patch Place 1 patch on the skin 1 (one) time each day. nitroglycerin (Nitrostat) 0.[address] 1 tablet under the tongue. place 1 tablet by sublingual route at the first sign of an attack; no more than 3 tabs are recommended within a 15 minute period. predniSONE (Deltasone) 20 MG tablet 2 tabs po daily for 5 days 10 tablet 0 Ventolin HFA 108 (90 Base) MCG/ACT inhaler 2 PUFF INHALED EVERY 4 TO 6 HOURS NEEDED FOR SHORTNESS OF BREATH OR WHEEZING FOR 60 DAYS zoster vaccine-recombinant adjuvanted (Shingrix) 50 MCG/0.5ML vaccine Inject 0.5 mL into the shoulder, thigh, or buttocks. [DISCONTINUED] acetaminophen (Tylenol 8 Hour) 650 MG ER tablet Take 2 tablets (1,300 mg) by mouth every 8 (eight) hours if needed for moderate pain. Swallow whole with water. Do not break, crush, dissolve and or chew 30 tablet 2 [DISCONTINUED] hydrocortisone 2.5 % cream Apply topically 2 times daily. 28 g 1 No current facility-administered medications on file prior to visit. Problem List Items Addressed This Visit Preop examination - Primary RCRI score is 0 which means a 3.9% risk Surgery should proceed as schedule It was advise NPO before midnight the day of the procedure and take blood pressure medications the morning of the procedure with small sip of water EKG ordered (patient is known to have RBBB he was seen by cardiology on 08/31/23 and he is stable) CMP ordered Relevant Orders Comprehensive Metabolic Panel ECG 12 lead (Completed) Lumbar back pain with radiculopathy affecting lower extremity Relevant Medications acetaminophen (Tylenol 8 Hour) 650 MG ER tablet Dermatitis of left foot Relevant Medications hydrocortisone 2.5 % cream documented in this encounter Miscellaneous Notes * Assessment & Plan Note - Nu Shipley MD - 07/04/2024 12:12 PM EST Associated Problem(s): Preop examination RCRI score is 0 which means a 3.9% risk Surgery should proceed as schedule It was advise NPO before midnight the day of the procedure and take blood pressure medications the morning of the procedure with small sip of water EKG ordered (patient is known to have RBBB he was seen by cardiology on 08/31/23 and he is stable) CMP ordered documented in this encounter Plan of Treatment Not on file documented as of this encounter Procedures Procedure Name Priority Date/Time Associated Diagnosis Comments COMPREHENSIVE METABOLIC PANEL Routine 07/04/2024 12:03 PM EST Preop examination ECG 12-LEAD Routine 07/04/2024 11:48 AM EST Preop examination documented in this encounter Results * (ABNORMAL) Comprehensive Metabolic Panel (07/04/2024 12:03 PM EST) Sodium 141 135 - 145 mmol/L [facility] Potassium 3.3 3.3 - 5.1 mmol/L [facility] Chloride 104 96 - 108 mmol/L [facility] Carbon Dioxide 31(H) 22 - 29 mmol/L [facility] Anion Gap 9(L) 12 - 20 [facility] Urea Nitrogen (BUN) 16 9 - 16 mg/dL [facility] Creatinine, Serum 1.31 0.5 - 1.4 mg/dL [facility] Estimated Glomerular Filt Rate 55 [facility] Comment:Chronic Kidney Disea se: Estimated GFR < 60 mL/min/1.99e0Plszdc Kidney Disease: Estimated GFR < 15 mL/min/1.73m2 Glucose 118(H) 60 - 115 mg/dL [facility] Calcium 9.4 8.4 - 10.2 mg/dL [facility] Bilirubin, Total 0.4 0.0 - 1.0 mg/dL [facility] Aspartate Amino Transferase 44(H) 5 - 37 U/L [facility] Alanine Aminotransferase 43(H) 0 - 40 U/L [facility] Total Protein 7.6 6.5 - 8.0 g/dL [facility] Albumin Level 4.3 3.5 - 5.0 g/dL [facility] Alkaline Phosphatase 118(H) 39 - 117 U/L [facility] Blood Venous blood specimen / Unknown 07/04/2024 12:03 PM EST 07/04/2024 1:25 PM EST us Nu Shipley MD LAB BLOOD ORDERABLES Final Result Performing Organization Address City/State/[facility] Co de Phone Number [facility] [address] [place] [phone] * ECG 12 lead (07/04/2024 11:48 AM EST) Narrative Nu Babin MD - 07/04/2024 11:48 AM EST RBBB, PVCs HR 75 us Nu Shipley MD ECG ORDERABLES Final Result documented in this encounter Visit Diagnoses Diagnosis Preop examination- Primary Unspecified pre-operative examination Lumbar back pain with radiculopathy affecting lower extremity Dermatitis of left foot documented in this encounter Additional Health Concerns Assessment Noted Time PHQ-9 Depression Total Score: 0 01/07/20 24 9:59 AM EDT documented as of this encounter Care Teams Extermination Supervisor Relationship Specialty Start Date End Date Nu Babin MD [address] [place] [phone] PCP - General Family Medicine 02/14/19 Meaghan Leroy Menswear SalespersonFiller Block Inserter Remover 05/08/24 documented as of this encounter
--- OUTSIDE RECORDS SUMMARY | 2024-07-25 14:34 | XMS_ITS | Encounter Summary ---
Author Organization [employer] Address [address] [facility] 7t [place] [address] Care Team Providers Care Supervisor Prepress Name Role Phone Nu Babin MD Primary Care Provide r Encounter Details Date Type Department Care Team ([facility] Contact Info) Description 07/18/2024 Orders Only [facility] External Provider, [facility] Social History Tobacco Use Types Packs/Day [...] OR Routine 07/18/2024 7:4 3 AM EST documented in this encounter Results * FL Guidance in OR (07/18/2024 7:43 AM EST) Anatomical Region Laterality Modality X-Ray Angiograph y 07/18/2024 7:43 AM EST Narrative 07/19/2024 12:22 PM EST ? [facility] ?[address] ?[place] [address] ? Fluoroscopy Report ? Signed ? Patient: Griffin Kam ?MR#: [id number] ?? 33 ? : 1960 ?Acct:[id number] ? Age/Sex: 64 / M ?ADM Date: 07/18/24 ? Loc: HO.S3 ?345-1 ? Attending Dr: Mayito Robison MD, PhD ? Ordering Physician: Mayito Robison MD, PhD ?? Date of Service: 07/18/24 ?? Procedure(s): FL guidance in OR ?? Accession Number(s): [id number] ? cc: Mayito Robison MD, PhD; Nu [...] DD/ 0743 ? TD/TT: 07/18/24 1120 ? Yarding Engineer: ? Procedure Note Donotuseinterpreter, Image - 07/19/2024 [place] [address] Fluoroscopy Report Signed Patient: Griffin Kam GMR#: [id number] 33 : 1960cct:[id number] Age/Sex: 64 / MADM Date: 07/18/24 Loc: .S3 345-[address]: Mayito Robison MD, PhD Ordering Physician: Mayito Robison MD, PhD Date of Service: 07/18/24 Procedure(s): FL guidance in OR Accession Number(s): [id number] cc: Mayito Robison MD, PhD; Nu White [...] by: Tashi Garcia MD 07/19/2024 12:19 PM [facility] Dictated By: Tashi Garcia MD Signed By: <Electronically signed by Tashi Garcia MD in OV> 07/19/24 1219 DD/ 0743 TD/TT: 07/18/24 1120 Yarding Engineer: [facility] External Provider IMG IR PROCEDURES Final Result documented in this encounter Visit Diagnoses Not on filedocumented in this encounter Additional Health Concerns Assessment Noted Time PHQ-9 Depression Total Score: 0 01/07/20 24 9:59 AM EDT documented as of this encounter Care Teams Supervisor Prepress Relationship Specialty Start Date End Date Nu Babin MD [address] [place] [phone] PCP - General Family Medicine 02/14/19 Meaghan Leroy Hide And Skin Fleshing Machine OperatorShore Worker 05/08/24 documented as of this encounter
--- OUTSIDE RECORDS SUMMARY | 2024-07-25 14:34 | XMS_ITS | Encounter Summary ---
Author Organization [employer] Address [address] [facility] 7t [place] [address] Care Team Providers Care Quarry Equipment Operator Name Role Phone Nu Babin MD Primary Care Provide r Encounter Details Date Type Department Care Team (Latest Contact Info) Description 07/04/2024 Travel Social History Tobacco Use Types Packs/Day Years [...] documented as of this encounter Care Teams Quarry Equipment Operator Relationship Specialty Start Date End Date Nu Babin MD [address] [place] [id number] PCP - General Family Medicine 02/14/19 Meaghan Leroy Interactive Project ManagerFourdrinier Tender 05/08/24 documented as of this encounter
== END 2024-07-25 13:43 | disposition home or self-care (01) ==
PROVIDERS: PCP Student in an Organized Health Care Education/Training Program; Visit Provider Internal Medicine
DX: J44.9 Chronic obstructive pulmonary disease, unspecified (principal); G47.33 Obstructive sleep apnea (adult) (pediatric); Z87.891 Personal history of nicotine dependence
CPT/HCPCS: 99213

== ENCOUNTER → 2024-07-25 12:55 | Outpatient (BNVA) | payer MEDICAID, SELFPAY | PROVIDERS: PCP Student in an Organized Health Care Education/Training Program; Visit Provider Internal Medicine | DX: J44.9 Chronic obstructive pulmonary disease, unspecified (principal); G47.33 Obstructive sleep apnea (adult) (pediatric); F17.210 Nicotine dependence, cigarettes, uncomplicated; Z79.899 Other long term (current) drug therapy | CPT/HCPCS: 99212 ==

== ENCOUNTER 2024-08-08 12:06 | Outpatient (AMB) | payer MEDICAID, SELFPAY ==
--- OUTSIDE RECORDS SUMMARY | 2024-08-08 12:50 | XMS_ITS | Encounter Summary ---
Author Organization [employer] Address [address] [facility] 7t [place] [address] Care Team Providers Care Alley Worker Name Role Phone Nu Babin MD Primary Care Provide r Reason for Visit * Reason Comments Pre-visit Planning SDOH screening negat akilah and tobacco screening negative Encounter Details Date Type Department Care Team ([facility] st Contact Info) Description 07/13/2024 Patient Outreach [facility] [address] [place] [address] Nu Babin MD [address] [place] [address] Pre-visit Planning (SDOH screening negative and tobacco [...] documented in this encounter Plan of Treatment Upcoming Encounters Date Type Department Care Team (Late st Contact Info) Description 09/11/2024 10:15 AM EDT Office Visit [facility] [address] [place] [address] Nu Babin MD [address] [place] [address] documented as of this encounter Visit Diagnoses Not on filedocumented in this encounter Additional Health Concerns Assessment Noted Time PHQ-9 Depression Total Score: 0 01/07/20 24 9:59 AM EDT documented as of this encounter Care Teams Alley Worker Relationship Specialty Start Date End Date Nu Babin MD [address] [place] [address] [place] [address] PCP - General Family Medicine 02/14/19 Meaghan Leroy Pedal AssemblerSurgical Scrub Technologist 05/08/24 documented as of this encounter
--- OUTSIDE RECORDS SUMMARY | 2024-08-08 12:50 | XMS_ITS | Encounter Summary ---
Author Organization [employer] Address [address] [facility] 7t [place] [address] Care Team Providers Care Debug Technician Name Role Phone Nu Babin MD Primary Care Provide r Encounter Details Date Type Department Care Team ([facility] Contact Info) Description 07/18/2024 Orders Only [facility] External Provider, Social History Tobacco Use Types Packs/Day Years [...] as of this encounter Plan of Treatment Upcoming Encounters Date Type Department Care Team (Late st Contact Info) Description 09/11/2024 10:15 AM EDT Office Visit [facility] MEDICINE [address] [place] [address] Nu Babin MD [address] [place] [address] documented as of this encounter Procedures Procedure Name Priority Date/Time Associated Diagnosis Comments FL GUIDANCE IN OR Routine 07/18/2024 7:4 3 AM EST documented in this encounter Results * FL Guidance in OR (07/18/2024 7:43 AM EST) Anatomical Region Laterality Modality X-Ray Angiograph y 07/18/2024 7:43 AM EST Narrative 07/19/2024 12:22 PM EST ?[address] ?[place] [address] ? Fluoroscopy Report ? Signed ? Patient: Griffin Kam ?MR#: [id number] ?? 34 ? : 1960 ?Acct:[id number] ? Age/Sex: 64 / M ?ADM Date: 01/14/25 ? Loc: HO.S3 ?345-1 ? Attending Carla Robison MD, PhD ? Ordering Physician: Mayito Robison MD, PhD ?? Date of Service: 07/18/24 ?? Procedure(s): FL guidance in OR ?? Accession Number(s): [id number] ? cc: Mayito Robison MD, PhD; Nu [...] Garcia MD ??07/19/2024 12:19 PM EST RP ?? Workstation: [id number] ? Dictated By: ?Tashi Garcia MD ? Signed By: ?<Electronically signed by Tashi Garcia MD in OV> ?07/19/24 1219 ? DD/ 0743 ? TD/TT: 07/18/24 1120 ? Supervisor Edging: ? Procedure Note Cornelia, Anil - 07/19/[address] [address] Fluoroscopy Report Signed Patient: Griffin Kam R#: [id number] 33 : 1960cct:[id number] Age/Sex: 64 / MADM Date: 07/18/24 Loc: .S3 345-[address]: Mayito Robison MD, PhD Ordering Physician: Mayito Robison MD, PhD Date of Service: 07/18/24 Procedure(s): FL guidance in OR Accession Number(s): [id number] cc: Mayito Robison MD, PhD; Nu White [...] by: Tashi Garcia MD 07/19/2024 12:19 PM [facility] Dictated By: Tashi Garcia MD Signed By: <Electronically signed by Tashi Garcia MD in OV> 07/19/24 1219 DD/ 0743 TD/TT: 07/18/24 1120 Supervisor Edging: [facility] External Provider IMG IR PROCEDURES Final Result documented in this encounter Visit Diagnoses Not on filedocumented in this encounter Additional Health Concerns Assessment Noted Time PHQ-9 Depression Total Score: 0 01/07/20 24 9:59 AM EDT documented as of this encounter Care Teams Debug Technician Relationship Specialty Start Date End Date Nu Babin MD [address] [place] [address] PCP - General Family Medicine 02/14/19 Meaghan Leroy Sales And Marketing AssociateWeld Engineer 05/08/24 documented as of this encounter
--- OUTSIDE RECORDS SUMMARY | 2024-08-08 12:50 | XMS_ITS | Encounter Summary ---
Author Organization [employer] Address [address] [facility] 7t [place] [address] Care Team Providers Care Packager And Strapper Name Role Phone Nu Babin MD Primary Care Provide r Reason for Visit * Reason Comments Med Refill Encounter Details Date Type Department Care Team ([facility] st Contact Info) Description 07/30/2024 Refill [facility] MEDICINE [address] [place] [address] Nu Babin MD [address] [place] [address] Chronic right-sided low back pain with right-sided sciatica Social History Tobacco Use Types Packs/Day Years [...] Description 09/11/2024 10:15 AM EDT Office Visit [facility] MED[facility]INE [address] [place] [address] Nu Babin MD [address] [place] [address] documented as of this encounter Visit Diagnoses Diagnosis Chronic right-sided low back pain with right-sided sciatica documented in this encounter Additional Health Concerns Assessment Noted Time PHQ-9 Depression Total Score: 0 01/07/20 24 9:59 AM EDT documented as of this encounter Care Teams Packager And Strapper Relationship Specialty Start Date End Date Nu Babin MD [address] [place] [address] PCP - General Family Medicine 02/14/19 Meaghan Leroy Medical Transcription EditorSpecialized Language Instructor 05/08/24 documented as of this encounter
--- OUTSIDE RECORDS SUMMARY | 2024-08-08 12:50 | XMS_ITS | Encounter Summary ---
Author Organization [employer] Address [address] [facility] 7t [place] [address] Care Team Providers Care Transfer And Pumphouse Operator Chief Name Role Phone Nu Babin MD Primary Care Provide r Reason for Visit * Reason Comments Med Refill Encounter Details Date Type Department Care Team ([facility] st Contact Info) Description 04/09/2024 Refill [facility] MED[facility]INE [address] [place] [address] Nu Babin MD [address] [place] [address] Hypokalemia Social History Tobacco Use Types Packs/Day [...] Description 09/11/2024 10:15 AM EDT Office Visit [facility] MED[facility]INE [address] [place] [address] Nu Babin MD [address] [place] [address] documented as of this encounter Visit Diagnoses Diagnosis Hypokalemia Hypopotassemia documented in this encounter Additional Health Concerns Assessment Noted Time PHQ-9 Depression Total Score: 0 01/07/20 24 9:59 AM EDT documented as of this encounter Care Teams Transfer And Pumphouse Operator Chief Relationship Specialty Start Date End Date Nu Babin MD [address] [place] [address] PCP - General Family Medicine 02/14/19 Meaghan Leroy Or Scrub TechHelicopter Utility Aircrewman 05/08/24 documented as of this encounter
--- OUTSIDE RECORDS SUMMARY | 2024-08-08 12:50 | XMS_ITS | Clinical Summary ---
Author Organization [employer] Address [address] [facility] 7[address] [place] [address] Care Team Providers Care [facility]keeper [facility] Name Role Phone Nu Babin MD Primary [...] 023 Active Blood Glucose Monitoring Suppl (FreeStyle Linwood Lite) w/Device kit USE TO TEST BLOOD [...] per day. 90 tablet 1 024 Active gabapentin (Neurontin) 600 MG [...] 2 times daily. 28 g 1 024 Active Diclofenac Sodium 1 % gelIndications:Ch ronic right-sided low back pain with right-sided sciatica APPLY 1 APPLICATION TOPICALLY IF NEEDED EACH DAY (TO USE IN LOWER BACK). 100 g 1 025 Active Diclofenac Sodium 1 % gelIndications:Ch ronic right-sided low back pain with right-sided sciatica APPLY 1 APPLICATION TOPICALLY IF NEEDED EACH DAY (TO USE IN LOWER BACK). 100 g 1 024 2024 Discontinued Active Problems Problem Noted Date Diagnosed Date [...] 2 due to type 2 diabetes mellitus ([facility]) 06/16/2017 Coronary arteriosclerosis 06/16/2017 Hyperlipidemia associated wi th type 2 diabetes mellitus ([facility]) 06/16/2017 Eczema 06/16/2017 Hypertensive disorder 06/16/2017 Assessment & Plan (03/28/2024 10:08 PM EDT): Elevated BP seems reactive to pain States BP at home <140/90 -advised to bring to PCP home BP -explained pt steroids may increase BP while taking med Obstructive sleep apnea syndrome 06/16/2017 Onychomycosis of multiple to enails with type 2 diabetes mellitus ([facility]) 06/16/2017 Osteoarthritis of multiple joints 06/16/2017 History [...] Encounters Date Type Department Care Team Description 07/30/2024 Refill [facility] [address] [place] [address] Nu Babin MD Chronic right-sided low back pain with right-sided sciatica 07/25/2024 Telephone [facility] [address] [place] [address] Nu Babin MD No Show 07/18/2024 Orders Only [facility] External Provider, [facility] 07/13/2024 Patient Outreach [address] [address] Nu Babin MD Pre-visit Planning (SDOH screening negative and tobacco screening negative) 07/04/2024 11:15 AM EST Office Visit [address] [address] Nu Babin MD Preop examination (Primary Dx); Lumbar back pain with radiculopathy affecting lower extremity; Dermatitis of left foot 07/04/2024 Travel 06/09/[address] [address] Macie Bull RN Pre-op 06/06/2024 11:15 AM EST Telemedicine [address] [address] Nu Babin MD Lumbar back pain with radiculopathy affecting lower extremity (Primary Dx) 06/05/[address] [address] Kristofer Pelayo [place] Chart Prep 05/24/[address] [address] Nu Babin MD Chronic right-sided low back pain with right-sided sciatica 05/19/[address] [address] Nu Babin MD Care Coordination 05/10/[address] [address] Nu Babin MD HILARIO RECALL 05/08/2024 Orders Only [facility] External Provider, [facility] 05/08/[address] [address] Nu Babin MD Care Coordination ([facility] Clinical Rehabilitation Aide ) from Last 3 Months Immunizations Name Administration [...] 07/04/2024 11:14 AM EST Plan of Treatment Upcoming Encounters Date Type Department Care Team (Late st Contact Info) Description 09/11/2024 10:15 AM EDT Office Visit [facility] [address] [place] [id number] Nu Babin MD [address] [place] [address] Health Maintenance Due Date Last Done Comments CT Colonography 1960 Colonoscopy 1960 Colorectal Cancer Screening 1960 FIT DNA/Cologuard 1961 FIT 1960 FOBT 1960 Sigmoidoscopy 1961 Diabetes: Foot Exam 1971 Zoster Vaccines (1 of 2) 2011 COVID-19 Vaccine ( season) 2024 07/23/2023, 02/02/2022, 04/28/2021, Additional history exists Influenza Vaccine (#1) 2024 4, 06/19/2022, 06/02/2021, Additional history exists Diabetes: Hemoglobin [...] years or older Completed 07/26/2023 Pneumococcal Vaccine: 50+ Years Completed 01/07/2024, 01/16/2014, 08/17/2005 Pneumococcal Vaccine: Pediatrics (0 to 5 Years) and At-Risk Patients (6 to 49) Years) Completed 01/07/2024, 01/16/2014, 08/17/2005 HIB Vaccines [...] 4+ VIEWS Routine 05/08/2024 11:14 AM EST LIPID PANEL WITH REFLEX TO DIRECT LDL [...] EST Narrative 07/19/2024 12:22 PM EST ? [facility] ?[address] ?[place] [address] ? Fluoroscopy Report ? Signed ? Patient: Griffin Kam ?MR#: [id number] ?? 33 ? : 1960 ?Acct:[id number] ? Age/Sex: 64 / M ?ADM Date: 01/14/25 ? Loc: HO.S3 ?345-1 ? Attending Dr: Mayito Robison MD, PhD ? Ordering Physician: Mayito Robison MD, PhD ?? Date of Service: 07/18/24 ?? Procedure(s): FL guidance in OR ?? Accession Number(s): [id number] ? cc: Mayito Robison MD, PhD; Nu [...] DD/ 0743 ? TD/TT: 07/18/24 1120 ? Mooner: ? Procedure Note Cornelia, Image - 07/19/2024 [place] [address] Fluoroscopy Report Signed Patient: Griffin Kam R#: [id number] 33 : 1Acct:[id number] Age/Sex: 64 / MADM Date: 07/18/24 Loc: HO.S3 345-[address]: Mayito Robison MD, PhD Ordering Physician: Mayito Robison MD, PhD Date of Service: 07/18/24 Procedure(s): FL guidance in OR Accession Number(s): [id number] cc: Mayito Robison MD, PhD; Nu White [...] 07/19/24 1219 DD/ 0743 TD/TT: 07/18/24 1120 Mooner: [facility] External Provider IMG IR PROCEDURES Final Result * (ABNORMAL) Comprehensive Metabolic Panel (07/04/2024 12:03 PM EST) Sodium 141 135 - 145 mmol/L [facility] Potassium 3.3 3.3 - 5.1 mmol/L [facility] Chloride 104 96 - 108 mmol/L [facility] Carbon Dioxide 31(H) 22 - 29 mmol/L [facility] Anion Gap 9(L) 12 - 20 [facility] Urea Nitrogen (BUN) 16 9 - 16 mg/dL [facility] Creatinine, Serum 1.31 0.5 - 1.4 mg/dL [facility] Estimated Glomerular Filt Rate 55 [facility] Comment:Chronic Kidney Disea se: Estimated GFR < 60 mL/min/1.93l9Asmvjc Kidney Disease: Estimated GFR < 15 mL/min/1.73m2 Glucose 118(H) 60 - 115 mg/dL [facility] Calcium 9.4 8.4 - 10.2 mg/dL [facility] Bilirubin, Total 0.4 0.0 - 1.0 mg/dL [facility] Aspartate Amino Transferase 44(H) 5 - 37 U/L [facility] Alanine Aminotransferase 43(H) 0 - 40 U/L [facility] Total Protein 7.6 6.5 - 8.0 g/dL [facility] Albumin Level 4.3 3.5 - 5.0 g/dL [facility] Alkaline Phosphatase 118(H) 39 - 117 U/L [facility] Blood Venous blood specimen / Unknown 07/04/2024 12:03 PM EST 07/04/2024 1:25 PM EST us Nu Shipley MD LAB BLOOD ORDERABLES Final Result Performing Organization Address City/State/[facility] Co de Phone Number [facility] [address] [place] [address] [phone] * ECG 12 lead (07/04/2024 11:48 AM EST) Narrative Nu Babin MD - 07/04/2024 11:48 AM EST RBBB, PVCs HR 75 us Nu Shipley MD ECG ORDERABLES Final Result * XR Lumbar Spine Complete 4+ Views (05/08/2024 11:14 AM EST) Anatomical Region Laterality Modality Spine, L-spine Radiographic Merline ging 05/08/2024 11:1 4 AM EST Narrative 06/29/2024 9:13 AM EST ? [place] [facility] ? [address] ?[place] [address] ?XRay Report ? Signed ? Patient: Griffin Kam ?MR#: [id number] ?? 33 ? : 1960 ?Acct:[id number] ? Age/Sex: 64 / M ?ADM Date: 11/04/24 ? Loc: HO.HOSX ? Attending Dr: Jorge Alberto DE LA ROSA ? Ordering Physician: Jorge Alberto Servin ?? Date of Service: 05/08/24 ?? Procedure(s): XR lumbar spine 4V min ?? Accession Number(s): [id number] ? cc: Jorge Alberto Servin; Nu White MD ? EXAMINATION: ?? XR LUMBAR SPINE ? CLINICAL INFORMATION: ?? Radiculopathy, lumbar region M54.16. ? COMPARISON: ?? XR Lumbar spine 03/20/2024 ? TECHNIQUE: ?? AP/LAT/FLEX/EX views of lumbar spine were obtained. ? FINDINGS: ? Five uzh-jtg-skgwjvj lumbar vertebrae were identified maintaining ?? normal [...] DD/ 1114 ? TD/TT: 05/08/24 1118 ? Mooner: HS ? Procedure Note Anil Locke - 06/29/2024 [facility] [address] [place] [address] [address] FIDEL Sinha [address] XRay Report Signed Patient: Griffin Kam GMR#: [id number] 33 : 1Acct:[id number] Age/Sex: 64 / MADM Date: 05/08/24 Loc: HO.HOSX Attending Dr: Jorge Alberto DE LA ROSA Ordering Physician: Jorge Alberto Servin Date of Service: 05/08/24 Procedure(s): XR lumbar spine 4V min Accession Number(s): [id number] cc: Jorge Alberto Servin; Nu White MD EXAMINATION: XR LUMBAR SPINE CLINICAL INFORMATION: Radiculopathy, lumbar region M54.16. COMPARISON: XR Lumbar spine 03/20/2024 TECHNIQUE: AP/LAT/FLEX/EX views of lumbar spine were obtained. FINDINGS: Five nby-xkz-uxjvaff lumbar vertebrae were identified maintaining normal height [...] by: Helena Park MD 06/29/2024 09:10 AM [facility] Dictated By: Helena Park MD Signed By: <Electronically signed by Helena Park MD in OV> 06/29/24 0910 DD/ 1114 TD/TT: 05/08/24 1118 Mooner: HS us [facility] External Provider IMG XR PROCEDURES Final Result * Lipid Panel with Reflex to Direct LDL (01/12/2024 8:13 AM EDT) Triglycerides 78 <150 mg/dL [facility] Comment:Desirable Triglyceri de: less than 150 mg/dLBorderline High Triglyceride 150-199 mg/dLHigh Triglyceride: 200-499 mg/dLVery High Triglyceride: greater than or equal to 5OO mg/dL Cholesterol 154 <200 mg/dL [facility] Comment:Desirable Cholestero l: less than 200 mg/dLBorderline High Cholesterol: 200-239 mg/dLHigh Cholesterol: greater than 239 mg/dL LDL Cholesterol Calculated 68 <100 mg/dL [facility] Comment:Desirable LDL: less than 100 mg/dLNear Optimal/Above Optimal LDL: 110- 129 mg/dLBorderline High LDL: 130-159 mg/dLHigh LDL: 160-189 mg/dLVery High LDL: greater than or equal to 190 mg/dL HDL Cholesterol 71 >40 mg/dL [facility] Comment:Desirable HDL: great er than 40 mg/dL Note: This HDL assay may give artificially low results in patients with liver disease. Blood 01/12/2024 8:13 AM EDT 01/12/2024 10:59 AM EDT us Nu Shipley MD LAB BLOOD ORDERABLES Final Result [facility] [address] [place] [phone] * POCT HGB A1C (01/07/2024 10:08 AM EDT) Hemoglobin A1C 5.6 4.0 - 6.0 % QC Media Lot # [id number] Lot# Expiration Date [id number] Blood 01/07/2024 10:0 8 AM EDT Nu Shipley MD POINT OF CARE TEST EN TER/EDIT ORDERABLES Final Result * (ABNORMAL) Hepatitis Panel, General (07/23/2022 10:45 AM EST) Hepatitis A Antibody Total REACTIVE( A) NON-REACT MICAELA jigl [facility] Comment: For additional information, please refer to http://education.Spotzer.SpineAlign Medical/faq/XTH754 (This link is being provided for informational/ educational purposes only.) Hepatitis B Surface Antibody QL NON-REACT MICAELA NON-REACT MICAELA [facility] Hep[facility] B Surface Ag NON-REACT MICAELA NON-REACT MICAELA [facility] Hepatitis B Core Antibody Total NON-REACT MICAELA NON-REACT MICAELA [facility] Hepatitis C Antibody NON-REACT MICAELA NON-REACT MICAELA jigl [place] Index <0.02 <1.00 jigl [place] Comment: HCV antibody was non-reactive. There is no laboratory evidence of HCV infection. In most cases, no further action is required. However, if recent HCV exposure is suspected, a test for HCV RNA (test code 42124) is suggested. For additional information please refer to http://education.CollabFinder/faq/ADV30p9 (This link is being provided for informational/ educational purposes only.) 07/23/2022 10:4 5 AM EST 07/23/2022 10:45 AM EST Narrative [facility] - 07/29/2022 12:44 AM EST FASTING:NO FASTING: NO Nahomi Sharma MD LAB BLOOD ORDERABLES Fin al Result [facility] [address], [place] [address] jigl [place] [address] [facility], ([address]) [place] [address] * HIV-1/2 Antigen and Antibodies, Fourth Generation, with Reflexes (07/23/2022 10:45 AM EST) HIV Antigen/Antibody, 4th Generation NON-REAC TIVE NON-REAC TIVE jigl [place] [employer] [place] Comment: HIV-1 antigen and HIV-1/HIV-2 antibodies were [...] ?? For additional information please refer to http://education.CollabFinder/faq/MAI337 (This link is being provided for informational/ educational purposes only.) The performance of this assay has not been clinically validated in patients less than 2 years old. Blood Venous blood specimen / Unknown 07/23/2022 10:45 AM EST 07/23/2022 10:45 AM EST Narrative [facility] - 07/29/2022 12:44 AM EST FASTING:NO FASTING: NO Nahomi Sharma MD LAB BLOOD ORDERABLES Fin al Result [facility] [address], [place] [address] jigl [facility] [address] [facility], ([address]) [place] [address] from Last 3 Months or Most Recently Relevant to Health Maintenance [place] [address] [place] [address] C3 Care Teams [facility]keeper [facility] Relationship Specialty Start Date End Date Nu Babin MD [address] [place] [address] PCP - General Family Medicine 02/14/19 Meaghan Leroy Finished [employer] ExaminerHealth Clinician 05/08/24
--- OUTSIDE RECORDS SUMMARY | 2024-08-08 12:50 | XMS_ITS | Encounter Summary ---
Author Organization [employer] Address [address] [facility] 7t [place] [address] Care Team Providers Care Drop Board Man Name Role Phone Nu Babin MD Primary Care Provide r Reason for Visit * Reason Onset Date Comments No Show 07/25/2024 Encounter Details Date Type Department Care Team ([facility] Contact Info) Description 07/25/2024 Telephone [facility] [address] [place] [address] Nu Babin MD [address] [place] [address] No Show Social History Tobacco Use Types [...] Description 09/11/2024 10:15 AM EDT Office Visit [facility] [address] [place] [address] Nu Babin MD [address] [place] [address] documented as of this encounter Visit Diagnoses Not on filedocumented in this encounter Additional Health Concerns Assessment Noted Time PHQ-9 Depression Total Score: 0 01/07/20 24 9:59 AM EDT documented as of this encounter Care Teams Drop Board Man Relationship Specialty Start Date End Date Nu Babin MD [address] [place] [address] PCP - General Family Medicine 02/14/19 Meaghan Leroy [employer] Fitter 05/08/24 documented as of this encounter
--- NOTE | 2024-08-08 13:02 | A.SPINEOV_ITS ---
Intake Visit Reasons: 1st post op Intake Note: Mr. Kam is here today for his 1st post op visit. [employer] Supervisor Required: Yes [employer] Supervisor Name: Tablet Allergies COLIN Inhibitors Allergy (Severe, Verified 07/25/24 13:41) Angioedema ibuprofen [From MOTRIN] Allergy (Unknown, Verified 07/25/24 13:41) Unknown Assessment & Plan Assessment & Plan (1) S/P lumbar fusion: Code(s): Z98.1 - Arthrodesis status Category: Surgical Plan [employer] Supervisor [phone] utilized for this visit Procedure: L3-4, L4-5 OLIF Griffin is a pleasant 64-year-old male who comes in today for his 1st postop visit after having L3-4, L4-[address] Robison a few weeks ago. He reports that overall he has been doing very well since surgery. He feels his pain is about half of what it was prior to surgery. He still has dull aching pains in his low back and near the bilateral hips, and we discussed how this is likely related to postoperative inflammation. I partially refilled his prescription of oxycodone during this visit, he has thus far only taken the 1 prescription we gave him when he was discharged from the hospital. He feels that functionally he is also doing well, completing the majority of his ADLs and doing stairs without much issue. No new neurological deficits. The patient ambulates well and rises from a seated position without difficulty. His oblique and posterior incision sites appear clean, dry, well healing. He does have a small scab over the surface of his right upper incision site on his back, but this also appears fairly normal and well healing. I encouraged Amaury to follow up with us again in 6 weeks for a subsequent postoperative visit into obtain a set of x-rays for review. Jorge Alberto Robison MD,PhD [facility] Medications: Changed From oxycodone 5 mg PO Q4-6H PRN 30 tabs 0RF severe pain (scale score 7-10) To oxycodone 5 mg PO Q6H PRN 20 tabs 0RF severe pain (scale score 7-10) Coding Level of Care Code Global (44386) Diagnoses S/P lumbar fusion Z98.1
== END 2024-08-08 14:00 | disposition home or self-care (01) ==
PROVIDERS: PCP Student in an Organized Health Care Education/Training Program; Visit Provider Physician Assistant
DX: Z98.1 Arthrodesis status (principal)
CPT/HCPCS: 99024

== ENCOUNTER → 2024-08-08 12:06 | Outpatient (BNVA) | payer MEDICAID, SELFPAY | PROVIDERS: PCP Student in an Organized Health Care Education/Training Program; Visit Provider Physician Assistant | DX: Z98.1 Arthrodesis status (principal) | CPT/HCPCS: 99212 ==

== ENCOUNTER 2024-08-24 10:43 | Outpatient (AMB) | payer MEDICAID, SELFPAY ==
[2024-08-24 10:50] VITALS: BP 118/60; PULSE 84; BMI 34.8
--- NOTE | 2024-08-24 10:50 | MHC.OFFVIS ---
Vital Signs 08/24/24 10:50 Height 5 ft 6 in Weight 215 lb 9.793 oz BMI 34.8 BP 118/60 Blood Pressure Location Lt brachial Position Sitting Pulse 84 Pulse Source Pulse Oximeter Intake Visit Reasons: 1 yr s/p echo Intake Note: 1yr F/U. Pt feeling good. No complaints. Vp Of Digital Marketing Required: Yes Vp Of Digital Marketing Services: Vp Of Digital Marketing Present Vp Of Digital Marketing Name: [email or web address] [id number] Accompanied by: Self / Same As Patient Allergies COLIN Inhibitors Allergy (Severe, Verified 07/25/24 13:41) Angioedema ibuprofen [From MOTRIN] Allergy (Unknown, Verified 07/25/24 13:41) Unknown Medication List - Last Reconciled 08/24/24 by Martinez Meadows MD acetaminophen (Tylenol Extra Strength) 500 mg PO Q6H PRN amlodipine 10 mg PO DAILY ascorbic acid (vitamin C) ER (Vitamin C ER) 500 mg PO DAILY atorvastatin 80 mg PO DAILY blood sugar diagnostic (FreeStyle Lite Strips) 3 times a day blood-glucose meter (FreeStyle Lite Meter kit) As directed diclofenac sodium 1% 1 ea topical DAILY PRN ezetimibe 10 mg PO DAILY gabapentin 600 mg PO TID hydrochlorothiazide 25 mg PO DAILY hydrocortisone 2.5% 1 appl topical BID PRN ketoconazole 2% 1 appl topical BID lancets (FreeStyle Lancets) 3 times a day lidocaine 5% 1 patch topical DAILY [orthopaedic shoe lift, left As directed] oxycodone 5 mg PO BID PRN pantoprazole 40 mg PO DAILY Ventolin HFA 90 mcg/actuation (albuterol sulfate) 2 puffs inhalation Q4-6H PRN 60 days NS HPI Comments Details: Griffin comes for follow-up. He has been doing well from cardiac perspective. History was obtained with the meteorological engineer in the room. Patient denied any cardiac symptoms. He said he remains active and functional without any exertional chest pain or shortness of breath. Currently not on aspirin therapy for unclear reason. He denies any symptoms of lightheadedness, syncope. Denies any prolonged palpitation irregular heartbeat. No heart failure symptoms. Takes all his medications. [facility] Medical History (Updated 07/25/24 @ 13:48 by Ursula Pearl MD) Smoking history Back pain Arthritis Numbness Murmur Ulnar neuropathy at elbow of left upper extremity Carpal tunnel syndrome of left wrist JESSICA (obstructive sleep apnea) HTN (hypertension) Asthma-COPD overlap syndrome JESSICA on CPAP Aortic stenosis Obesity (BMI 30-39.9) Dyslipidemia Vitamin D deficiency Diabetic nephropathy associated with type 2 diabetes mellitus Diabetes type 2, controlled Diabetes Surgical History History of left knee replacement History of decompression of ulnar nerve History of carpal tunnel surgery of left wrist Hx of carpal tunnel syndrome Hx of cholecystectomy History of total right knee replacement (TKR) History of left hip replacement Hx of hernia repair History of back surgery Hx of colonoscopy Family History Father Hypertension Diabetes mellitus Mother Hypertension Social History Household Members: Family Household Members Other:: sister Housing: Apartment Are you a primary childcare attendant to a significant other at home: No Do you presently have visiting nurse or other home services: Yes (Doctor every month) Alcohol intake: never Patient Tobacco Use Status: Current everyday Tobacco user Tobacco use type: Cigarette Cigarettes Per Day: 6 service: No Current occupational status: unemployed Current occupation: right handed Review of Systems Const Denies chills, Denies fatigue, Denies fever(s), Denies weight gain and Denies weight loss ENT Denies dizziness Card Denies chest pain, Denies leg edema, Denies lightheadedness, Denies palpitations, Denies dyspnea on exertion, Denies orthopnea and Denies other Resp Denies cough and Denies dyspnea on exertion GI Denies hematochezia and Denies change in stool character Musc Denies abnormal gait, Denies muscle weakness, Denies numbness, Denies radiating pain into limb and Denies tingling Neuro Denies abnormal gait, Denies dizziness, Denies numbness and Denies tingling Endo Denies fatigue and Denies palpitations Physical Exam Vital Signs: Last Vital Signs Pulse 84 08/24/24 10:50 BP 118/60 08/24/24 10:50 BMI result Body Mass Index 34.8 Const General: comfortable, no acute distress, alert and awake Nutritional Appearance: overweight Orientation/consciousness: patient oriented x3 Limitations: no limitations HEENT Head: Yes normal to inspection General nose exam: No nasal polyps present and No nasal discharge present Face and sinus: Yes sinuses nontender Mouth: oropharynx normal Throat: Yes posterior oropharynx normal Eyes General: appearance normal, both eyes and all related structures Neck Neck: Yes normal visual inspection, Yes no lymphadenopathy, Yes trachea midline and Yes no JVD Thyroid: Thyroid normal Chest Chest palpation & inspection: normal inspection of the chest, normal palpation of entire chest wall and no tenderness Resp Other: PERCUSSION NOTE IS RESONANT, BREATH SOUNDS ARE EQUAL AND NORMAL ON BOTH SIDES. NO WHEEZES OR CREPITATIONS ARE HEARD TODAY. Effort & Inspection: normal respiratory effort Auscultation: clear to auscultation bilaterally Cardio Jugular venous distension: no JVD Palpation: normal PMI Rate: regular rate Rhythm: regular rhythm Heart sounds: no gallops and Murmur heart sound present systolic mid, decrescendo and crescendo GI Palpation (GI): Soft to palpation, nontender, No hepatosplenomegaly present and no masses Auscultation: normal bowel sounds Back/Spine/Pelvis Thoracic/Lumbar Spine: thoracic and lumbar spine normal to inspection Skin General skin exam: no rashes or lesions noted Neuro General: patient oriented x3 and no focal motor deficits Cranial nerves: Yes CN's II-XII intact bilaterally Extrem General: Yes normal to inspection, Yes no clubbing, cyanosis or edema and Yes no calf tenderness Psych Appearance: grossly normal Speech and movement: Normal speech and movement present Assessment & Plan Assessment & Plan (1) Aortic stenosis: Code(s): I35.0 - Nonrheumatic aortic (valve) stenosis Category: Medical Plan: Aortic stenosis which clinically appears to be moderate could be [id number]. Will obtain echocardiogram near future. Recommend low-dose aspirin therapy. Denies any allergic reaction to aspirin in the past. Unsure as to why this was stopped. Resume the same. Continue aggressive vascular risk factor modification. Goal LDL less than 70 mg/dL. This is being pursue through office. Continue aggressive blood pressure control. Continue to maintain activity level as tolerated. Smoking cessation was advised. (2) HTN (hypertension): Code(s): I10 - Essential (primary) hypertension Category: Medical Plan: Hypertension which is currently well optimized advised to monitor blood pressure and maintain a log. Goal blood pressure less than 130/84. Low-salt diet was discussed. Continue current therapy for hypertension which is currently well optimized. Will follow up in the clinic in 1 year's time, sooner p.r.n.. Thank you for allowing me to partake in his care Orders: Orders CA echo transthoracic complete Today I35.0 - Nonrheumatic aortic (valve) stenosis Medications: New aspirin (Ecotrin Low Strength) 81 mg PO DAILY 30 tabs 5RF Coding Level of Care Code Est Pt Level 4 (05517) Complex EM visit Add On G2211 Diagnoses Aortic stenosis I35.0 HTN (hypertension) I10
== END 2024-08-24 11:12 | disposition home or self-care (01) ==
PROVIDERS: PCP Internal Medicine; Visit Provider Internal Medicine Cardiovascular Disease
DX: I35.0 Nonrheumatic aortic (valve) stenosis (principal); I10 Essential (primary) hypertension
CPT/HCPCS: 99214

== ENCOUNTER → 2024-08-24 10:43 | Outpatient (BNVA) | payer MEDICAID, SELFPAY | PROVIDERS: PCP Internal Medicine; Visit Provider Internal Medicine Cardiovascular Disease | DX: I35.0 Nonrheumatic aortic (valve) stenosis (principal); I10 Essential (primary) hypertension | CPT/HCPCS: 99212 ==

== ENCOUNTER → 2024-08-25 07:47 | Outpatient (REF) | payer MEDICAID, SELFPAY ==
--- OUTSIDE RECORDS SUMMARY | 2024-08-25 07:48 | XMS_ITS | Encounter Summary ---
Author Organization [employer] Address [address] [facility] [address] [place] [address] Care Team Providers Care Combination Operator Name Role Phone Nu Babin MD Primary Care Provide r Reason for Visit * Reason Comments Med Refill Encounter Details Date Type Department Care Team ([facility] st Contact Info) Description 07/30/2024 Refill [facility] [address] [place] [address] Nu Babin MD [address] [place] [address] Chronic right-sided low back pain with right-sided [...] 09/11/2024 10:15 AM EDT Office Visit [facility] [address] [place] [address] Nu Babin MD [address] [place] [address] documented as of this encounter Visit Diagnoses Diagnosis Chronic right-sided low back pain with right-sided sciatica documented in this encounter Additional Health Concerns Assessment Noted Time PHQ-9 Depression Total Score: 0 01/07/20 24 9:59 AM EDT documented as of this encounter Care Teams Combination Operator Relationship Specialty Start Date End Date Nu Babin MD [address] [place] [address] PCP - General Family Medicine 02/14/19 Meaghan Leroy Modern DancerDealmaker 05/08/24 documented as of this encounter
--- OUTSIDE RECORDS SUMMARY | 2024-08-25 07:48 | XMS_ITS | Encounter Summary ---
Author Organization [employer] Address [address] [facility] [address] [place] [address] Care Team Providers Care Physician Relations Representative Name Role Phone Nu Babin MD Primary Care Provide r Reason for Visit * Reason Onset Date Comments Nurse Triage 08/15/2024 Encounter Details Date Type Department Care Team ([facility] st Contact Info) Description 08/15/2024 Telephone [facility] [address] [place] [address] Nu Babin MD [address] [place] [address] Nurse Triage Social History Tobacco Use Types Packs/Day Years [...] encounter Miscellaneous Notes * Telephone Encounter - Arely Delgado RN - 08/15/2024 4:37 PM EST called pt to triage, spoke to pt. through [employer] fourdrinier tender. pt states 2-3 days duration of constipation with only a small stool and has been intermittent since starting the Gabapentin. pt denies significant abdominal pain, vomiting, diarrhea, fevers, or other associated symptoms. pt thinks the Gabapentin he takes is causing this. advised home care: rest, fluids, fiber, monitor stools and call back as needed. advised if severe symptoms or >5 days without any stool to seek ER evaluation. ptunderstands and agrees with plan. insurance verified. Protocol Used: Constipation (Adult) Protocol-Based Disposition: See in Office or Video Visit within 2 Weeks Video visit offer not recorded Positive Triage Question: * Constipation persists * All higher-acuity triage questions were negative Care Advice Discussed: * Reassurance and Education - Constipation * General Constipation Instructions * High Fiber Diet * Drink Adequate Liquids * Get Into a Rhythm * Reasons To Call Back * Telephone Encounter - Rojelio Sr - 08/15/2024 3:32 PM EST Symptom: Constipation Outcome: Schedule an appointment to be seen within 24 hours Reason: Caller denied all higher acuity questions Please contact pt at [phone]. (Kazakh Speaker) documented in this encounter Plan of Treatment Upcoming Encounters Date Type Department Care Team (Late st Contact Info) Description 09/11/2024 10:15 AM EDT Office Visit [facility] [address] [place] [address] Nu Babin MD [address] [place] [address] documented as of this encounter Visit Diagnoses Not on filedocumented in this encounter Additional Health Concerns Assessment Noted Time PHQ-9 Depression Total Score: 0 01/07/20 24 9:59 AM EDT documented as of this encounter Care Teams Physician Relations Representative Relationship Specialty Start Date End Date Nu Babin MD [address] [place] [address] [phone] PCP - General Family Medicine 02/14/19 Meaghan Leroy Plastics Bench MechanicRace Steward 05/08/24 documented as of this encounter
--- OUTSIDE RECORDS SUMMARY | 2024-08-25 07:48 | XMS_ITS | Encounter Summary ---
Author Organization [employer] Address [address] [facility] [address] [place] [address] Care Team Providers Care Narrow Gauge Operator Name Role Phone Nu Babin MD Primary Care Provide r Encounter Details Date Type Department Care Team ([facility] st Contact Info) Description 08/18/2024 11:45 AM EST Office Visit [facility] MED[facility]INE [address] [place], [place] [phone] Sarita Foster DO [address] [place] [address] Constipation, unspecified constipation type (Primary Dx); Medication side effect Social History Tobacco Use Types Packs/Day Years [...] Sign Reading Time Taken Comments Blood Pressure 137/83 08/18/2024 11:23 AM EST Pulse 77 08/18/2024 11:23 AM EST Temperature 36.3 ??C (97.3 ??F) 08/18/2024 11:[address] Respiratory Rate 21 08/18/2024 11:23 AM EST Oxygen Saturation 100% 08/18/2024 11:23 AM EST Inhaled Oxygen Concentration - - Weight 98.4 kg (217 lb) 08/18/2024 11:23 AM EST Height 167.6 cm (5' 6 ) 08/18/2024 11:23 AM EST Body Mass Index 35.02 08/18/2024 11:23 AM EST documented in this encounter Progress Notes * Sarita Foster, DO - 08/18/2024 11:45 AM EST SUBJECTIVE: Griffin Kam is a 64 y.o. year old male who presents for sick visit . 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 He says that he has bowel movements but that the stools are very hard and he goes just a little bitat a time. He says that he has to push every time that he has a bowel movement. He has not had any rectal pain or bleeding. He was started on gabapentin in May for his back pain. He stopped the gabapentin 4 days ago and since then he says that he has been going to the bathroom fine. He had a BM this morning with just a little bit of pushing. He has also been using prune juice to help his sx. He says that he is going to bring the bottle of gabapentin back to his PCP at his visit next mos rosemarie doesn't want to take them any more. He has not had any withdrawal sx since he stopped taking them. Review of Systems Constitutional: Negative for chills, fatigue and fever. HENT: Negative for congestion. Eyes: Negative for visual disturbance. Respiratory: Negative for cough and shortness of breath. Cardiovascular: Negative for chest pain, palpitations and leg swelling. Gastrointestinal: Positive for constipation. Negative for abdominal distention, abdominal pain, anal bleeding, blood in stool, diarrhea, nausea, rectal pain and vomiting. Skin: Negative for rash. Neurological: Negative for dizziness and headaches. Patient Active Problem List Diagnosis Angioedema Aortic valve stenosis Asthma-chronic obstructive pulmonary disease overlap syndrome (CMS/HCC) Chronic obstructive lung disease (CMS/HCC) CKD stage 2 due to type 2 diabetes mellitus (CMS/HCC) (CMS/HCC) Continuous opioid dependence (CMS/HCC) Coronary arteriosclerosis Hyperlipidemia associated with type 2 diabetes mellitus (CMS/HCC) (CMS/HCC) Eczema Essential hypertension Hypertensive disorder Hip pain Leg length inequality Obstructive sleep apnea syndrome Onychomycosis of multiple toenails with type 2 diabetes mellitus (CMS/HCC) (CMS/HCC) Osteoarthritis of multiple joints Full dentures History [...] with radiculopathy affecting lower extremity Preop examination Viral upper respiratory tract infection Tobacco use Allergies Allergen Reactions Ibuprofen Lisinopril Angioedema Other reaction(s): Tongue swelling OBJECTIVE Vitals: 08/18/24 1123 BP: 137/83 BP Location: Left arm Patient Position: Sitting BP Cuff Size: Adult Pulse: 77 Resp: 21 Temp: 97.3 ??F (36.3 ??C) TempSrc: Oral SpO2: 100% Weight: 217 lb (98.4 kg) Height: 5' 6 (1.676 m) Physical Exam Constitutional: General: He is not in acute distress. Appearance: Normal appearance. Cardiovascular: Rate and Rhythm: Normal rate and regular rhythm. Heart sounds: Normal heart sounds. No murmur heard. Pulmonary: Effort: Pulmonary effort is normal. Breath sounds: Normal breath sounds. No wheezing or rhonchi. Neurological: General: No focal deficit present. Mental Status: He is alert and oriented to person, place, and time. Cranial Nerves: No cranial nerve deficit. Motor: No weakness. Psychiatric: Mood and Affect: Mood normal. ASSESSMENT/PLAN Diagnoses and all orders for this visit: Constipation, unspecified constipation type Sx significantly improved since stopping gabapentin, likely medication SE -provided reassurance -start colace and fiber supplementation BID x one mos then cont prn -advised stay well hydrated -cont prune juice prn -advised contact C if sx persist Medication side effect -encouraged pt to contact pt to contact [facility] prior to discontinuing medications in the future as certain medications should be tapered to prevent withdrawal sx -advised contact [facility] with any concerning sx, he agrees with plans F/U with PCP as scheduled or sooner prn Current Outpatient Medications: acetaminophen (Tylenol 8 Hour) 650 MG ER tablet, Take 2 tablets (1,300 mg) by mouth every 8 (eight)hours if needed for moderate pain. Swallow whole with water. Do not break, crush, dissolve and or chew, Disp: 50 tablet, Rfl: 2 amLODIPine (Norvasc) 10 MG tablet, Take 1 tablet (10 mg) by mouth Once per day., Disp: 30 tablet, Rfl: 11 atorvastatin (Lipitor) 80 MG tablet, Take 1 tablet (80 mg) by mouth Once per day., Disp: 90 tablet,Rfl: 1 baclofen (Lioresal) 10 MG tablet, Take one tablet TID PRN, Disp: 30 tablet, Rfl: 0 Blood Glucose Monitoring Suppl ([employer] Lite) w/Device kit, USE TO TEST BLOOD SUGAR TWICEDAILY, Disp: 1 kit, Rfl: 0 Diclofenac Sodium 1 % gel, APPLY 1 APPLICATION TOPICALLY IF NEEDED EACH DAY (TO USE IN LOWER BACK)., Disp: 100 g, Rfl: 1 docusate sodium (Colace) 100 MG capsule, Take 1 capsule (100 mg) by mouth 2 times daily., Disp: 180capsule, Rfl: 0 ezetimibe (Zetia) 10 MG tablet, Take 1 tablet (10 mg) by mouth Once per day., Disp: 90 tablet, Rfl:1 gabapentin (Neurontin) 600 MG tablet, Take 1 tablet (600 mg) by mouth 3 times daily., Disp: 90 tablet, Rfl: 1 glucose blood (FREESTYLE LITE) test strip, USE TO TEST BLOOD SUGAR TWICE DAILY, Disp: 100 each, Rfl: 5 hydroCHLOROthiazide (HYDRODiuril) 25 MG tablet, Take 1 tablet (25 mg) by mouth Once per day., Disp:90 tablet, Rfl: 3 hydrocortisone 2.5 % cream, Apply topically 2 times daily., Disp: 28 g, Rfl: 1 LORazepam (Ativan) 0.5 MG tablet, Take one tablet 1-2 hrs before procedure, Disp: 4 tablet, Rfl: 0 nicotine (Nicoderm, Step 3) 7 MG/24HR patch, Place 1 patch on the skin 1 (one) time each day., Disp: , Rfl: nitroglycerin (Nitrostat) 0.3 MG SL tablet, Place 1 tablet under the tongue. place 1 tablet by sublingual route at the first sign of an attack; no more than 3 tabs are recommended within a 15 minute period., Disp: , Rfl: polycarbophil (FiberCon) 625 MG tablet, Take 1 tablet (625 mg) by mouth Once per day., Disp: 90 tablet, Rfl: 0 predniSONE (Deltasone) 20 MG tablet, 2 tabs po daily for 5 days, Disp: 10 tablet, Rfl: 0 Ventolin HFA 108 (90 Base) MCG/ACT inhaler, Inhale 2 puffs every 6 (six) hours if needed for wheezing., Disp: 18 g, Rfl: 2 zoster vaccine-recombinant adjuvanted (Shingrix) 50 MCG/0.5ML vaccine, Inject 0.5 mL into the shoulder, thigh, or buttocks., Disp: , Rfl: documented in this encounter Plan of Treatment Upcoming Encounters Date Type Department Care Team (Late st Contact Info) Description 09/11/2024 10:15 AM EDT Office Visit [facility] [address] [place] [phone] Nu Babin MD [address] [place], [place] [phone] documented as of this encounter Visit Diagnoses Diagnosis Constipation, unspecified constipation type- Primary Medication side effect documented in this encounter Additional Health Concerns Assessment Noted Time PHQ-9 Depression Total Score: 0 01/07/20 24 9:59 AM EDT documented as of this encounter Care Teams Narrow Gauge Operator Relationship Specialty Start Date End Date Nu Babin MD [address] [place] [address] PCP - General Family Medicine 02/14/19 Meaghan Leroy Methods Study AnalystDeputy Director Of Finance 05/08/24 documented as of this encounter
--- OUTSIDE RECORDS SUMMARY | 2024-08-25 07:48 | XMS_ITS | Encounter Summary ---
Author Organization [employer] Address [address] [facility] [address] [place] [address] Care Team Providers Care Land Leasing Information Clerk Name Role Phone Nu Babin MD Primary Care Provide r Encounter Details Date Type Department Care Team (Latest Contact Info) Description 08/18/2024 Travel Social History Tobacco Use Types Packs/Day [...] Description 09/11/2024 10:15 AM EDT Office Visit [facility] [address] [place] [address] Nu Babin MD [address] [place] [address] documented as of this encounter Visit Diagnoses Not on filedocumented in this encounter Additional Health Concerns Assessment Noted Time PHQ-9 Depression Total Score: 0 01/07/20 24 9:59 AM EDT documented as of this encounter Care Teams Land Leasing Information Clerk Relationship Specialty Start Date End Date Nu Babin MD [address] [place] [address] PCP - General Family Medicine 02/14/19 Meaghan Leroy Internet Database SpecialistSliver Chopper 05/08/24 documented as of this encounter
--- OUTSIDE RECORDS SUMMARY | 2024-08-25 07:48 | XMS_ITS | Encounter Summary ---
Author Organization [employer] Address [address] [facility] [address] [facility] [address] [place] [address] Care Team Providers Care Beer Still Runner Compounder Name Role Phone Nu Babin MD Primary Care Provide r Encounter Details Date Type Department Care Team ([facility] st Contact Info) Description 08/14/2024 9:45 AM EST Office Visit [facility] [address] [place] [address] Misty Wagner NP [address] [place] [address] Viral upper respiratory tract infection (Primary Dx); Asthma-chronic obstructive pulmonary disease overlap syndrome (CMS/HCC); Tobacco use Social History Tobacco Use Types Packs/Day Years [...] Sign Reading Time Taken Comments Blood Pressure 134/82 08/14/2024 9:43 AM EST Pulse 83 08/14/2024 9:43 AM EST Temperature 36.1 ??C (96.9 ??F) 08/14/2024 9:43 AM ES T Respiratory Rate 18 08/14/2024 9:43 AM EST Oxygen Saturation 97% 08/14/2024 9:43 AM EST Inhaled Oxygen Concentration - - Weight 99.9 kg (220 lb 3.2 oz) 08/14/2024 9:43 A M EST Height 167.6 cm (5' 6 ) 08/14/2024 9:43 AM EST Body Mass Index 35.54 08/14/2024 9:43 AM EST documented in this encounter Progress Notes * Misty Wagner NP - 08/14/2024 9:45 AM EST Subjective: Griffin Kam is a 64 y.o. male who presents to the office for a sick visit. HPI Cold weather is trigger for breathing, cough and wheeze, only when going outside, inhaler is helpful, does not have currently Does smoke, has patches at home does not have preventative inhaler, denies fever, sob Patient Active Problem List Diagnosis Angioedema Aortic [...] toenails with type 2 diabetes mellitus (CMS/HCC) (CMS/FORMERLY [facility]) Osteoarthritis of multiple joints Full dentures History [...] Viral upper respiratory tract infection Tobacco use Review of Systems Constitutional: Negative for activity change and appetite change. Respiratory: Positive for cough and wheezing. Negative for chest tightness, shortness of breath andstridor. Cardiovascular: Negative for chest pain and leg swelling. Genitourinary: Negative for difficulty urinating and dysuria. Allergies Allergen Reactions Ibuprofen Lisinopril Angioedema Other reaction(s): Tongue swelling Objective: Visit Vitals BP 134/82 (BP Location: Left arm, Patient Position: Sitting, BP Cuff Size: Large adult) Pulse 83 Temp 96.9 ??F (36.1 ??C) (Temporal) Resp 18 Ht 5' 6 (1.676 m) Wt 220 lb 3.2 oz (99.9 kg) SpO2 97% BMI 35.54 kg/m?? Smoking Status Every Day BSA 2.16 m?? Physical Exam Vitals reviewed. Constitutional: Appearance: Normal appearance. HENT: Head: Normocephalic. Cardiovascular: Rate and Rhythm: Normal rate and regular rhythm. Heart sounds: Normal heart sounds. Pulmonary: Breath sounds: Wheezing and rhonchi present. Abdominal: Palpations: Abdomen is soft. Musculoskeletal: Cervical back: Neck supple. Neurological: Mental Status: He is alert. Psychiatric: Mood and Affect: Mood normal. Poct test covid, flu and rsv neg Assessment/Plan: Problem List Items Addressed This Visit Asthma-chronic obstructive pulmonary disease overlap syndrome (CMS/HCC) Current Assessment & Plan Diffuse rhonchi on exam, no focal findings, pt reports relief with inhaler, and trigger is cold weather, if no improvement in 48 hours Return to clinic Relevant Medications Ventolin HFA 108 (90 Base) MCG/ACT inhaler Viral upper respiratory tract infection - Primary Relevant Orders POCT Rapid Covid-19 BinaxNOW (Completed) POCT Rapid Influenza A OSOM (Completed) POCT Rapid Influenza B OSOM (Completed) POCT Rapid RSV ROSALES ID NOW (Completed) Tobacco use Current Assessment & Plan Encouraged smoking cessation Current Outpatient Medications Medication Sig Dispense Refill acetaminophen (Tylenol 8 Hour) 650 MG ER tablet Take 2 tablets (1,300 mg) by mouth every 8 (eight) hours if needed for moderate pain. Swallow whole with water. Do not break, crush, dissolve and or chew 50 tablet 2 amLODIPine (Norvasc) 10 MG tablet Take 1 tablet (10 mg) by mouth Once per day. 30 tablet 11 atorvastatin (Lipitor) 80 MG tablet Take 1 tablet (80 mg) by mouth Once per day. 90 tablet 1 baclofen (Lioresal) 10 MG tablet Take one tablet TID PRN 30 tablet 0 Blood Glucose Monitoring Suppl (FreeStyle [place] Lite) w/Device kit USE TO TEST BLOOD [...] mouth Once per day. 90 tablet 3 hydrocortisone 2.5 % cream Apply topically 2 times daily. 28 g 1 LORazepam (Ativan) 0.5 MG tablet Take one [...] Ventolin HFA 108 (90 Base) MCG/ACT inhaler Inhale 2 puffs every 6 (six) hours if needed for wheezing. 18 g 2 zoster vaccine-recombinant adjuvanted (Shingrix) 50 MCG/0.5ML vaccine Inject 0.5 mL into the shoulder, thigh, or buttocks. No current facility-administered medications for this visit. Visit Conducted in: Latvian Translation by: Provided by [facility] staff member Humza PARRA , documented in this encounter Miscellaneous Notes * Assessment & Plan Note - Misty Wagner NP - 08/14/2024 10:15 AM ESTAssociated Problem(s): Tobacco use Encouraged smoking cessation * Assessment & Plan Note - Misty Wagner NP - 08/14/2024 10:14 AM ESTAssociated Problem(s): Asthma-chronic obstructive pulmonary disease overlap syndrome (CMS/HCC) Diffuse rhonchi on exam, no focal findings, pt reports relief with inhaler, and trigger is cold weather, if no improvement in 48 hours Return to clinic documented in this encounter Plan of Treatment Upcoming Encounters Date Type Department Care Team (Late st Contact Info) Description 09/11/2024 10:15 AM EDT Office Visit [facility] [address] [place] [address] Nu Babin MD [address] [place] [address] documented as of this encounter Procedures Procedure Name Priority Date/Time Associated Diagnosis Comments POCT INFLUENZA B Routine 08/14/2024 10:0 4 AM EST Viral upper respiratory tract infection POCT INFLUENZA A Routine 08/14/2024 10:0 4 AM EST Viral upper respiratory tract infection POCT RSV (ID NOW RAPID ANTIGEN) Routine 08/14/2024 10:03 AM EST Viral upper respiratory tract infection POCT RAPID COVID ANTIGEN Routine 08/14/2024 10:02 AM EST Viral upper respiratory tract infection documented in this encounter Results * POCT Rapid Influenza B OSOM (08/14/2024 10:04 AM EST) [facility] Rapid Influenza B Ag Negative Negative, Indeterminate QC Media Lot # [id number] Lot# Expiration Date 43 Swab 08/14/2024 10:0 4 AM EST Misty Wagner KINESEOLOGIST POINT OF CARE TEST ENTER/EDIT OR DERABLES Final Result * POCT Rapid Influenza A OSOM (08/14/2024 10:04 AM EST) [facility] Rapid Influenza A Ag Negative Negative, Indeterminate QC Media Lot # [id number] Lot# Expiration Date 43, Swab Nasopharyngeal structure / Unknown 08/14/2024 10:04 AM EST Misty Wagner KINESEOLOGIST POINT OF CARE TEST ENTER/EDIT OR DERABLES Final Result * POCT Rapid RSV ROSALES ID NOW (08/14/2024 10:03 AM EST) [facility] RSV Rapid Ag POC Negative Negative QC Media Lot # [id number] Lot# Expiration Date [id number] Swab 08/14/2024 10:0 3 AM EST Misty Graharriett KINESEOLOGIST POINT OF CARE TEST ENTER/EDIT OR DERABLES Final Result * POCT Rapid Covid-19 BinaxNOW (08/14/2024 10:02 AM EST) [facility] Rapid COVID Ag Negative QC Media Lot # [id number] Lot# Expiration Date [id number] Swab 08/14/2024 10:0 2 AM EST Result [facility] Misty Wagner KINESEOLOGIST POINT OF CARE TEST ENTER/EDIT OR DERABLES Final Result documented in this encounter Visit Diagnoses Diagnosis Viral upper respiratory tract infection- Primary Acute upper respiratory infections of unspecified site Asthma-chronic obstructive pulmonary disease overlap syndrome (CMS/HCC) Tobacco use documented in this encounter Additional Health Concerns Assessment Noted Time PHQ-9 Depression Total Score: 0 01/07/20 24 9:59 AM EDT documented as of this encounter Care Teams Beer Still Runner Compounder Relationship Specialty Start Date End Date Nu Babin MD [address] [place] [address] PCP - General Family Medicine 02/14/19 Meaghan Leroy Engineering TeacherSolar Panel Installation Supervisor 05/08/24 documented as of this encounter
--- OUTSIDE RECORDS SUMMARY | 2024-08-25 07:49 | XMS_ITS | Clinical Summary ---
Author Organization [employer] Address [address] [facility] [address] [place] [address] Care Team Providers Care Cable Coverer Name Role Phone Nu Babin MD Primary [...] the skin 1 (one) time each day. Active nitroglycerin (Nitrostat) 0.[address] 1 tablet under the tongue. place 1 tablet by sublingual route at the first sign of an attack; no more than 3 tabs are recommended within a 15 minute period. 019 Active zoster vaccine-recombina nt adjuvanted (Shingrix) 50 MCG/0.5ML vaccine Inject 0.5 mL into the shoulder, thigh, or buttocks. 021 Active Blood Glucose Monitoring Suppl (FreeStyle [place] Lite) w/Device kit USE TO TEST BLOOD [...] Take one tablet TID PRN 30 tablet Active predniSONE (Deltasone) 20 MG tabletIndications :Chronic [...] LOWER BACK). 100 g 1 025 Active Ventolin HFA 108 (90 Base) MCG/ACT inhalerIndication s:Asthma-chronic obstructive pulmonary disease overlap syndrome (CMS/HCC) Inhale 2 puffs every 6 (six) hours if needed for wheezing. 18 g 2 025 Active docusate sodium (Colace) 100 MG capsule Take 1 capsule (100 mg) by mouth 2 times daily. 180 capsule 025 2025 Active polycarbophil (FiberCon) 625 MG tablet Take 1 tablet (625 mg) by mouth Once per day. 90 tablet 025 2025 Active Ventolin HFA 108 (90 Base) MCG/ACT inhaler 2 PUFF INHALED EVERY 4 TO 6 HOURS NEEDED FOR SHORTNESS OF BREATH OR WHEEZING FOR 60 DAYS 023 2024 Discontinued(R eorder (will not trigger notification to Pharmacy)) Diclofenac Sodium 1 % gelIndications:Ch ronic right-sided low back pain with right-sided sciatica APPLY 1 APPLICATION TOPICALLY IF NEEDED EACH DAY (TO USE IN LOWER BACK). 100 g 1 024 2024 Discontinued Active Problems Problem Noted Date Diagnosed Date Viral upper respiratory tract infection 08/14/19 25 Tobacco use 08/14/2024 Assessment & Plan (08/14/2024 10:15 AM EST): Encouraged smoking cessation Preop examination 07/04/2024 Assessment & Plan (07/04/2024 [...] obstructive p ulmonary disease overlap syndrome 06/16/2022 Assessment & Plan (08/14/2024 10:14 AM EST): Diffuse rhonchi on exam, no focal findings, pt reports relief with inhaler, and trigger is cold weather, if no improvement in 48 hours Return to clinic Essential hypertension 06/16/2022 Assessment & Plan (03/02/2024 [...] 2 due to type 2 diabetes mellitus ([facility]) 06/16/2017 Coronary arteriosclerosis 06/16/2017 Hyperlipidemia associated wi th type 2 diabetes mellitus ([facility]) 06/16/2017 Eczema 06/16/2017 Hypertensive disorder 06/16/2017 Assessment & Plan (03/28/2024 10:08 PM EDT): Elevated BP seems reactive to pain States BP at home <140/90 -advised to bring to PCP home BP -explained pt steroids may increase BP while taking med Obstructive sleep apnea syndrome 06/16/2017 Onychomycosis of multiple to enails with type 2 diabetes mellitus ([facility]) 06/16/2017 Osteoarthritis of multiple joints 06/16/2017 [...] Encounters Date Type Department Care Team Description 08/18/2024 11:45 AM EST Office Visit [address] [address] Sarita Foster DO Constipation, unspecified constipation type (Primary Dx); Medication side effect 08/18/2024 Travel 08/15/[address] [address] Nu Babin MD Nurse Triage 08/14/2024 9:45 AM EST Office Visit [address] [address] Misty Wagner NP Viral upper respiratory tract infection (Primary Dx); Asthma-chronic obstructive pulmonary disease overlap syndrome (CMS/HCC); Tobacco use 07/30/[address] [address] Nu Babin MD Chronic right-sided low back pain with right-sided sciatica 07/25/[address] [address] Nu Babin MD No Show 07/18/2024 Orders Only [facility] External Provider, [facility] 07/13/2024 Patient Outreach [address] [address] Nu Babin MD Pre-visit Planning (SDOH screening negative and tobacco screening negative) 07/04/2024 11:15 AM EST Office Visit [facility] [address] [place] [address] Nu Babin MD Preop examination (Primary Dx); Lumbar back pain with radiculopathy affecting lower extremity; Dermatitis of left foot 07/04/2024 Travel 06/09/2024 Telephone [facility] [address] [place] [address] Macie Bull RN Pre-op 06/06/2024 11:15 AM EST Telemedicine [facility] [address] [place] [address] Nu Babin MD Lumbar back pain with radiculopathy affecting lower extremity (Primary Dx) 06/05/[address] [address] Kristofer Pelayo [place] Chart Prep from Last 3 Months Immunizations Name Administration [...] Mass Index 35.02 08/18/2024 11:23 AM EST Plan of Treatment Upcoming Encounters Date Type Department Care Team (Late st Contact Info) Description 09/11/2024 10:15 AM EDT Office Visit [facility] [address] [place] [address] Nu Babin MD [address] [place] [address] Health Maintenance Due Date Last Done Comments CT Colonography 1960 Colonoscopy 1960 Colorectal Cancer Screening 1960 FIT DNA/Cologuard 1960 FIT 1960 FOBT 1960 Sigmoidoscopy 1961 Diabetes: Foot Exam 1971 Zoster Vaccines (1 of 2) 2011 COVID-19 Vaccine ( season) 2024 07/23/2023, 02/02/2022, 04/28/2021, Additional history exists Influenza Vaccine (#1) 2024 , 06/19/2022, 06/02/2021, Additional history exists Diabetes: Hemoglobin A1C 04/08/2024 024, 07/23/2023, 02/19/2023, Additional history exists Depression Screening 01/06/2025 01/07/2024, 01/07/20 24 Lipid Panel 01/11/2025 01/12/2024, 11/03, 02/19/2022, Additional history exists Eye Exam 04/02/2025 04/02/2023, 03/06, 04/02/2023, Additional history exists Alcohol/Substance Use Screening 05/05/2025 05/05/2024 SDOH Screening 07/13/2025 07/13/2024 Tobacco Screening 08/18/2025 08/18/2024 DTaP/Tdap/Td Vaccines (4 - Td or Tdap) 06/04/2032 06/04/2022, 01/07/2021, 03/22/2012, Additional history exists HIV Screening Completed 07/23/2022 Hepatitis C Screening Completed 07/23/2022 RSV Patients and Patients Aged 60 years or older Completed 07/26/2023 Pneumococcal Vaccine: 50+ Years Completed 01/07/2024, 01/16/2014, 08/17/2005 HIB Vaccines Aged [...] AM EST Viral upper respiratory tract infection FL GUIDANCE IN OR Routine 07/18/2024 7:4 3 AM EST COMPREHENSIVE METABOLIC PANEL Routine 07/04/2024 12:03 PM EST Preop examination ECG 12-LEAD Routine 07/04/2024 11:48 AM EST Preop examination LIPID PANEL WITH REFLEX TO DIRECT LDL [...] Recently Relevant to Health Maintenance Results * POCT Rapid Influenza B OSOM (08/14/2024 10:04 AM EST) [facility] Rapid Influenza B Ag Negative Negative, Indeterminate QC Media Lot # [id number] Lot# Expiration Date Swab 08/14/2024 10:0 4 AM EST Misty Wagner HOME HOSPICE AIDE POINT OF CARE TEST ENTER/EDIT OR DERABLES Final Result * POCT Rapid Influenza A OSOM (08/14/2024 10:04 AM EST) [facility] Rapid Influenza A Ag Negative Negative, Indeterminate QC Media Lot # [id number] Lot# Expiration Date Swab Nasopharyngeal structure / Unknown 08/14/2024 10:04 AM EST Misty Wagner HOME HOSPICE AIDE POINT OF CARE TEST ENTER/EDIT OR DERABLES Final Result * POCT Rapid RSV ROSALES ID NOW (08/14/2024 10:03 AM EST) [facility] RSV Rapid Ag POC Negative Negative QC Media Lot # [id number] Lot# Expiration Date [id number] Swab 08/14/2024 10:0 3 AM EST Misty Wagner HOME HOSPICE AIDE POINT OF CARE TEST ENTER/EDIT OR DERABLES Final Result * POCT Rapid Covid-19 BinaxNOW (08/14/2024 10:02 AM EST) [facility] Rapid COVID Ag Negative QC Media Lot # [id number] Lot# Expiration Date [id number] Swab 08/14/2024 10:0 2 AM EST us Misty Kristy LAY POINT OF CARE TEST ENTER/EDIT OR DERABLES Final Result * FL Guidance in OR (07/18/2024 7:43 AM EST) Anatomical Region Laterality Modality X-Ray Angiograph y 07/18/2024 7:43 AM EST Narrative 07/19/2024 12:22 PM EST ? [facility] ?[address] ?[place] [address] ? Fluoroscopy Report ? Signed ? Patient: Griffin Kam ?MR#: [id number] ?? 34 ? : 1960 ?Acct:[id number] ? Age/Sex: 64 / M ?ADM Date: 07/18/24 ? Loc: HO.S3 ?345-1 ? Attending Dr: Mayito Robison MD, PhD ? Ordering Physician: Mayito Robison MD, PhD ?? Date of Service: 07/18/24 ?? Procedure(s): FL guidance in OR ?? Accession Number(s): [id number] ? cc: Mayito Robison MD, PhD; Nu [...] DD/ 0743 ? TD/TT: 07/18/24 1120 ? Ship Joiner: ? Procedure Note Donotuseinterpreter, Image - 07/19/[address] [address] Fluoroscopy Report Signed Patient: Griffin Kam GMR#: [id number] 33 : 1960cct:[id number] Age/Sex: 64 / MADM Date: 07/18/24 Loc: HO.S3 345-[address]: Mayito Robison MD, PhD Ordering Physician: Mayito Robison MD, PhD Date of Service: 07/18/24 Procedure(s): FL guidance in OR Accession Number(s): [id number] cc: Mayito Robison MD, PhD; Nu White [...] Tashi Garcia MD 07/19/2024 12:19 PM [facility] Dictated By: Tashi Garcia MD Signed By: <Electronically signed by Tashi Garcia MD in OV> 07/19/24 1219 DD/ 0743 TD/TT: 07/18/24 1120 Ship Joiner: us [facility] External Provider IMG IR PROCEDURES Final Result * (ABNORMAL) Comprehensive Metabolic Panel (07/04/2024 12:03 PM EST) Sodium 141 135 - 145 mmol/L [facility] Potassium 3.3 3.3 - 5.1 mmol/L [facility] Chloride 104 96 - 108 mmol/L [facility] Carbon Dioxide 31(H) 22 - 29 mmol/L [facility] Anion Gap 9(L) 12 - 20 [facility] Urea Nitrogen (BUN) 16 9 - 16 mg/dL [facility] Creatinine, Serum 1.31 0.5 - 1.4 mg/dL [facility] Estimated Glomerular Filt Rate 55 [facility] Comment:Chronic Kidney Disea se: Estimated GFR < 60 mL/min/1.31d1Eywppo Kidney Disease: Estimated GFR < 15 mL/min/1.73m2 Glucose 118(H) 60 - 115 mg/dL [facility] Calcium 9.4 8.4 - 10.2 mg/dL [facility] Bilirubin, Total 0.4 0.0 - 1.0 mg/dL [facility] Aspartate Amino Transferase 44(H) 5 - 37 U/L [facility] Alanine Aminotransferase 43(H) 0 - 40 U/L [facility] Total Protein 7.6 6.5 - 8.0 g/dL [facility] Albumin Level 4.3 3.5 - 5.0 g/dL [facility] Alkaline Phosphatase 118(H) 39 - 117 U/L [facility] Blood Venous blood specimen / Unknown 07/04/2024 12:03 PM EST 07/04/2024 1:25 PM EST us Nu Shipley MD LAB BLOOD ORDERABLES Final Result [facility] [address] [place] [address] [phone] * ECG 12 lead (07/04/2024 11:48 AM EST) Narrative Nu Babin MD - 07/04/2024 11:48 AM EST RBBB, PVCs HR 75 us Nu Shipley MD ECG ORDERABLES Final Result * Lipid Panel with Reflex to Direct LDL (01/12/2024 8:13 AM EDT) Triglycerides 78 <150 mg/dL [facility] Comment:Desirable Triglyceri de: less than 150 mg/dLBorderline High Triglyceride 150-199 mg/dLHigh Triglyceride: 200-499 mg/dLVery High Triglyceride: greater than or equal to 5OO mg/dL Cholesterol 154 <200 mg/dL [facility] Comment:Desirable Cholestero l: less than 200 mg/dLBorderline High Cholesterol: 200-239 mg/dLHigh Cholesterol: greater than 239 mg/dL LDL Cholesterol Calculated 68 <100 mg/dL [facility] Comment:Desirable LDL: less than 100 mg/dLNear Optimal/Above Optimal LDL: 110- 129 mg/dLBorderline High LDL: 130-159 mg/dLHigh LDL: 160-189 mg/dLVery High LDL: greater than or equal to 190 mg/dL HDL Cholesterol 71 >40 mg/dL [facility] Comment:Desirable HDL: great er than 40 mg/dL Note: This HDL assay may give artificially low results in patients with liver disease. Blood 01/12/2024 8:13 AM EDT 01/12/2024 10:59 AM EDT us Nu Shipley MD LAB BLOOD ORDERABLES Final Result [facility] [address] [place] [address] [phone] * POCT HGB A1C (01/07/2024 10:08 AM EDT) Hemoglobin A1C 5.6 4.0 - 6.0 % QC Media Lot # [id number] Lot# Expiration Date [id number] Blood 01/07/2024 10:0 8 AM EDT us Nu Shipley MD POINT OF CARE TEST EN TER/EDIT ORDERABLES Final Result * (ABNORMAL) Hepatitis Panel, General (07/23/2022 10:45 AM EST) Hepatitis A Antibody Total REACTIVE( A) NON-REACT MICAELA [facility] [place] [employer] Comment: For additional information, please refer to http://Educanon.Prizeo/faq/SCC879 (This link is being provided for informational/ educational purposes only.) Hepatitis B Surface Antibody QL NON-REACT MICAELA NON-REACT MICAELA [employer] [place] [employer] Hepatitis B Surface Ag NON-REACT MICAELA NON-REACT MICAELA [employer] [place] [employer] Hepatitis B Core Antibody Total NON-REACT MICAELA NON-REACT MICAELA [facility] [place] [employer] Hepatitis C Antibody NON-REACT MICAELA NON-REACT MICAELA [employer] [place] [employer] Index <0.02 <1.00 [employer] Comment: HCV antibody was non-reactive. There is no laboratory evidence of HCV infection. In most cases, no further action is required. However, if recent HCV exposure is suspected, a test for HCV RNA (test code 94257) is suggested. For additional information please refer to http://Educanon.Prizeo/faq/FKH50v6 (This link is being provided for informational/ educational purposes only.) 07/23/2022 10:4 5 AM EST 07/23/2022 10:45 AM EST Narrative [facility] - 07/29/2022 12:44 AM EST FASTING:NO FASTING: NO Nahomi Sharma MD LAB BLOOD ORDERABLES Fin al Result [facility] [address] [place] [address] [facility] [place] [employer] [address], ([address]) [place] [address] * HIV-1/2 Antigen and Antibodies, Fourth Generation, with Reflexes (07/23/2022 10:45 AM EST) HIV Antigen/Antibody, 4th Generation NON-REAC TIVE NON-REAC TIVE [facility] [place] [employer] [facility] Comment: HIV-1 antigen and HIV-1/HIV-2 antibodies [...] ?? For additional information please refer to http://education.Prizeo/faq/BSZ275 (This link is being provided for informational/ educational purposes only.) The performance of this assay has not been clinically validated in patients less than 2 years old. Blood Venous blood specimen / Unknown 07/23/2022 10:45 AM EST 07/23/2022 10:45 AM EST Narrative [facility] - 07/29/2022 12:44 AM EST FASTING:NO FASTING: NO Nahomi Sharma MD LAB BLOOD ORDERABLES Fin al Result [facility] [address], [place] [address] [facility] [place] [employer] [facility] [address], [address]) [place] [address] from Last 3 Months or Most Recently Relevant to Health Maintenance Insurance [facility] C[facility] Care Teams Cable Coverer Relationship Specialty Start Date End Date Nu Babin MD [address] [place] [address] PCP - General Family Medicine 02/14/19 Meaghan Leroy Byproducts OperatorLabeling Strategist 05/08/24
--- NOTE | 2024-08-25 07:51 | CA_ITS ---
Transthoracic Echocardiogram Patient (Last, First, Middle): Griffin Kam G Gender: Male Date of : 1960 Age: 64 Procedure Date: 08/25/2024 Procedure Type: Transthoracic Echocardiogram Location: OP Height: 167.64 cm Weight: 97.52 kg BSA: 2.06 m2 Heart Rate: bpm BP: 138 / 68 mmHg Mixing Pan Tender: TO Referring MD: Martinez Maedows MD Symptoms: I35.0 - Nonrheumatic aortic (valve) stenosis Study Quality: Fair ECG Rhythm: Sinus Conclusions: - The left ventricular systolic function is normal. The calculated ejection fraction is 62% by biplane method. - There is mild to moderate aortic valve stenosis. Findings Procedure Information The study quality is limited by the patients inability to tolerate the test. Left Ventricle Normal left ventricular cavity size. There is normal left ventricular wall thickness. The left ventricular systolic function is normal. The calculated ejection fraction is 62% by biplane method. There is no evidence of regional wall motion abnormalities. Diastolic function is normal for age. Right Ventricle Mildly increased right ventricular cavity size. There is normal right ventricular systolic function. Atria Both atria are normal in size. Aortic Valve There is severe calcification of the aortic valve. There is mild to moderate aortic valve stenosis. The peak aortic velocity is 2.86 m/s with a calculated peak gradient of 33 mmHg. The mean gradient is 20 mmHg. The aortic valve area is 1.24 cm2. Trace to mild aortic regurgitation. Dimensionless index 0.36. Stroke volume index 36ml/m2. Mitral Valve There is mild mitral annular calcification. There is no mitral valve regurgitation. There is no mitral valve stenosis. Pulmonic Valve The pulmonic valve is likely normal. Tricuspid Valve There is trace tricuspid valve regurgitation. There is no evidence of pulmonary hypertension. Great Vessels The asc aorta and aortic arch are normal in size. Venous The inferior vena cava is normal in size and collapses greater than 50% with inspiration. Pericardium/Pleural There is no evidence of pericardial effusion. Prior Study Comparison Changes noted compared to prior study dated: 08/10/2022. slight progression of aortic stenosis. Measurements 2D Linear Measurements IVSd: 0.85 0.6-0.9/0.6-1.0 cm LVIDd: 5.19 3.9-5.3/4.2-5.9 cm LVIDd Index: 2.52 2.4-3.2/2.2-3.1 cm/m2 LVIDs: 3.95 2.0-3.6 cm LVPWd: 0.82 0.7-1.1 cm LA Diam: 2.90 2.7-3.8/3.0-4.0 cm LAIDs Index: 1.41 1.5-2.3 cm/m2 LV Mass: 189.91 67-162/88-224 g LV Mass Index: 92.19 43-95/49-115 g/m2 LVOT Diam: 2.10 3.0+(-)1.3 cm 2D Systolic Function EF 4C: 64.60 >55% EF 2C: 59.20 >55% EF BiP: 62.20 >55% Mitral Valve MV VTI: 0.29 MV Pk Leopoldo: 1.08 MV Mn Leopoldo: 0.74 MV Pk Grad: 5.00 MV Mn Grad: 2.00 MV Pk E: 0.87 MV PK A: 0.51 MV Decel Time: 201.00 E/A: 1.70 E'Lateral: 9.36 E'Medial: 6.42 E/E' Med: 13.60 E/E' Lat: 9.30 PHT: 59.00 MVA PHT: 3.73 MVA Continuity: 2.59 Decel Coal: 4.36 Aortic Valve AoV Pk Leopoldo: 2.86 AoV Mn Leopoldo: 2.10 AoV VTI: 0.61 AoV Pk Grad: 33.00 Aov Mn Grad: 20.00 LUCIA Cont.VTI: 1.24 LVOT LVOT Pk Leopoldo: 1.02 LVOT Mn Leopoldo: 0.75 LVOT VTI: 0.22 LVOT Pk Grad: 4.00 LVOT Mn Grad: 2.00 LVOT Diam: 2.10 LVOT Area: 3.46 Diastolic Function MV Pk E: 0.87 MV Pk A: 0.51 E/A: 1.70 E'Medial: 6.42 E/E' Med: 13.60 E' Laterial: 9.36 E/E' Lat: 9.30 Right Ventricle TAPSE (mm): 24.30 TVS' Leopoldo: 14.10 Tricuspid Valve TR Pk Leopoldo: 2.67 TR Pk Grad: 29.00 RA Press: 3.00 RVSP: 32.00 Great Vessels Aorta Sinus of Valsalva: 3.58 2.0-3.5 cm Ao Asc: 3.10 2.1-3.4 cm Ao Arch: 2.80 Updated in Other Vendor System with Status of Final Sander Levin MD electronically signed on 08/26/2024 3:46:23 PM with status of Final
== END ==
LOC: HO.CARD 07:47
PROVIDERS: PCP Internal Medicine; Visit Provider Internal Medicine Cardiovascular Disease
DX: I35.0 Nonrheumatic aortic (valve) stenosis (principal)
CPT/HCPCS: 93306

== ENCOUNTER → 2024-08-25 07:51 | Outpatient (BNV) | payer MEDICAID, SELFPAY | PROVIDERS: PCP Internal Medicine; Visit Provider Internal Medicine | DX: I35.2 Nonrheumatic aortic (valve) stenosis with insufficiency (principal); I34.81 Nonrheumatic mitral (valve) annulus calcification | CPT/HCPCS: 93306 ==

== ENCOUNTER 2024-09-19 10:25 | Outpatient (REF) | payer MEDICAID, SELFPAY ==
--- NOTE | ~2024-09-19 | XR_ITS ---
EXAMINATION: XR LUMBAR SPINE 4 OR MORE VIEWS HISTORY: Z98.1 - Arthrodesis status COMPARISON: Comparison is made with the prior examination dated 05/08/2024. FINDINGS: AP, and neutral, flexion, and extension lateral views of the lumbar spine are submitted. Osseous mineralization is normal. There is mild to moderate dextroscoliosis. The patient is status post posterior fusion of L3-L5 with pedicle screws, spinal stabilization rods, and intervertebral spacers since the prior study. The fusion hardware is intact. The vertebral bodies maintain normal height. There is no spondylolisthesis. There is moderate to severe degenerative disc disease with disc space narrowing and osteophyte formation. There is no abnormal motion with flexion or extension. There is calcification of the abdominal aorta. XR/XR lumbar spine 4V min IMPRESSION: 1. Status post posterior fusion of L3-L5. No abnormal motion is seen with flexion or extension. 2. Mild to moderate dextroscoliosis. Moderate to severe degenerative disc disease. Electronically signed by: Clinton Salguero MD 09/20/2024 03:02 PM EDT
== END 2024-09-19 10:26 | disposition home or self-care (01) ==
LOC: HO.HOSX 10:25
PROVIDERS: Visit Provider Physician Assistant
DX: Z98.1 Arthrodesis status (principal)
CPT/HCPCS: 72110; 99212

== ENCOUNTER 2024-09-19 12:42 | Outpatient (AMB) | payer MEDICAID, SELFPAY ==
--- NOTE | 2024-09-19 13:10 | HO.SPINEOV ---
Intake Visit Reasons: 2nd post op with xrays Intake Note: Mr. Kam is here today for his 2nd post op with x-rays. Wound Care Center Consultant Required: Yes Wound Care Center Consultant Name: Tablet Allergies COLIN Inhibitors Allergy (Severe, Verified 09/19/24 13:34) Angioedema ibuprofen [From MOTRIN] Allergy (Unknown, Verified 09/19/24 13:34) Unknown Assessment & Plan Assessment & Plan (1) S/P lumbar fusion: Code(s): Z98.1 - Arthrodesis status Category: Surgical Plan Wound Care Center Consultant [id number] utilized for this visit Griffin is a pleasant 64-year-old male who underwent L3-[address] Robison on 07/18/24. To recap during his 1st postoperative visit he reported some dull aching pains into his bilateral thighs, and overall reported that his pain had reduced about 50%. Today, he states that his low back pain is fairly severe in nature, and he has severe shooting pains into his bilateral extremities, which is worse with ambulation. I attempted to have the patient explain the distribution of his pain shooting into the bilateral lower extremities, but he was only able to specify that it is the entire leg on both sides. He did state that the left leg does feels much worse. In addition to this he has intermittent numbness in his bilateral anterior thighs, that worsens with prolonged sitting. We reviewed his x-ray imaging during this visit which shows stable placement of the instrumentation with no notable changes from fluoroscopy. On examination Amaury has 4/5 strength with left-sided knee extension and iliopsoas testing. The rest of his strength is 5/5, however he does elicit fairly severe pain in his low back when engaging full strength. He ambulates slowly with the assistance of a cane. It is difficult to accurately ascertain if he is antalgic or not based on the way he walks. (+) left-sided straight leg raise. (-) right-sided straight leg raise. Alanna 64-year-old male who underwent L3-[address] Robison on 07/18/24. He is expressing worsening pain since he saw us last. He is unable to accurately describe when the pain became more severe. However these findings are definitely new from his prior visit. I am concerned that the superior segment at L2-3 may either be herniated or has further degenerated. I would like to send him for an MRI of the lumbar spine to ensure that he does not have a impingement above the level of surgery, as this would match the dermatomal distribution of his numbness (anterior thighs). For the time being I will prescribe him a course of gabapentin in an effort to mitigate some of the pain he was having. Jorge Alberto Robison MD,PhD [facility] Orders: Orders MR lumbar spine wo con Today Z98.1 - Arthrodesis status XR lumbar spine 4V min Today Z98.1 - Arthrodesis status Medications: New gabapentin 300 mg PO TID 30 caps 1RF Coding Level of Care Code Global (49062) Diagnoses S/P lumbar fusion Z98.1
--- OUTSIDE RECORDS SUMMARY | 2024-09-19 14:56 | XMS_ITS | Clinical Summary ---
Author Organization [employer] Address [address] [facility] [address] [place] [address] Care Team Providers Care Manager Media Name Role Phone Nu Babin MD Primary [...] the skin 1 (one) time each day. 05/29/20 19 Active nitroglycerin (Nitrostat) 0.[address] 1 tablet under the tongue. place 1 tablet by sublingual route at the first sign of an attack; no more than 3 tabs are recommended within a 15 minute period. 01/25/20 19 Active zoster vaccine-recombinan t adjuvanted (Shingrix) 50 MCG/0.5ML vaccine Inject 0.5 mL into the shoulder, thigh, or buttocks. 06/02/20 21 Active Blood Glucose Monitoring Suppl (FreeStyle [place] Lite) w/Device kit USE TO TEST BLOOD SUGAR TWICE DAILY 1 kit 06/15/20 23 Active glucose blood (FREESTYLE LITE) test strip USE TO TEST BLOOD SUGAR TWICE DAILY 100 each 5 07/08/19 24 Active hydroCHLOROthiazid e (HYDRODiuril) 25 MG tabletIndications: Resistant hypertension Take 1 tablet (25 mg) by mouth Once per day. 90 tablet 3 01/19/20 24 025 Active amLODIPine (Norvasc) 10 MG tabletIndications: Essential hypertension Take 1 tablet (10 mg) by mouth Once per day. 30 tablet 11 01/31/20 24 025 Active baclofen (Lioresal) 10 MG tabletIndications: Acute right-sided low back pain with right-sided sciatica Take one tablet TID PRN 30 tablet 03/20/20 24 Active predniSONE (Deltasone) 20 MG tabletIndications: Chronic right-sided low back pain with right-sided sciatica 2 tabs po daily for 5 days 10 tablet 03/28/20 24 Active LORazepam (Ativan) 0.5 MG tabletIndications: Anxiety Take one tablet 1-2 hrs before procedure 4 tablet 04/24/20 24 Active atorvastatin (Lipitor) 80 MG tabletIndications: Mixed hyperlipidemia Take 1 tablet (80 mg) by mouth Once per day. 90 tablet 1 05/05/20 24 Active ezetimibe (Zetia) 10 MG tabletIndications: Mixed hyperlipidemia Take 1 tablet (10 mg) by mouth Once per day. 90 tablet 1 05/05/20 24 Active gabapentin (Neurontin) 600 MG tabletIndications: Lumbar back pain with radiculopathy affecting lower extremity Take 1 tablet (600 mg) by mouth 3 times daily. 90 tablet 1 06/06/20 24 025 Active acetaminophen (Tylenol 8 Hour) 650 MG ER tabletIndications: Lumbar back pain with radiculopathy affecting lower extremity Take 2 tablets (1,300 mg) by mouth every 8 (eight) hours if needed for moderate pain. Swallow whole with water. Do not break, crush, dissolve and or chew 50 tablet 2 07/04/20 24 025 Active hydrocortisone 2.5 % creamIndications:D ermatitis of left foot Apply topically 2 times daily. 28 g 1 07/04/20 24 Active Diclofenac Sodium 1 % gelIndications:Chr onic right-sided low back pain with right-sided sciatica APPLY 1 APPLICATION TOPICALLY IF NEEDED EACH DAY (TO USE IN LOWER BACK). 100 g 1 07/31/19 25 Active Ventolin HFA 108 (90 Base) MCG/ACT inhalerIndications :Asthma-chronic obstructive pulmonary disease overlap syndrome (CMS/HCC) Inhale 2 puffs every 6 (six) hours if needed for wheezing. 18 g 2 08/14/19 25 Active docusate sodium (Colace) 100 MG capsule Take 1 capsule (100 mg) by mouth 2 times daily. 180 capsule 08/18/19 Active polycarbophil (FiberCon) 625 MG tablet Take 1 tablet (625 mg) by mouth Once per day. 90 tablet 08/18/19 Active Active Problems Problem Noted Date Diagnosed Date Viral upper respiratory tract infection 08/14/19 Tobacco use 08/14/2024 Assessment & Plan (08/14/2024 [...] 2 due to type 2 diabetes mellitus ([facility]) 06/16/2017 Coronary arteriosclerosis 06/16/2017 Hyperlipidemia associated wi th type 2 diabetes mellitus ([facility]) 06/16/2017 Eczema 06/16/2017 Hypertensive disorder 06/16/2017 Assessment & Plan (03/28/2024 10:08 PM EDT): Elevated BP seems reactive to pain States BP at home <140/90 -advised to bring to PCP home BP -explained pt steroids may increase BP while taking med Obstructive sleep apnea syndrome 06/16/2017 Onychomycosis of multiple to enails with type 2 diabetes mellitus ([facility]) 06/16/2017 Osteoarthritis of multiple joints [...] Encounters Date Type Department Care Team Description 09/15/2024 [facility] Risk Score [facility] (C[facility]) Department [address] [place] [id number] Provider, Population Health Generic 09/04/2024 Patient Outreach [address] [address] Nu Babin MD Pre-visit Planning (SDOH screening was completed on 07/13/2024 / patient requesting appt to be reschedule. ) 08/18/2024 11:45 AM EST Office Visit [address] [address] Sarita Foster DO Constipation, unspecified constipation type (Primary Dx); Medication side effect 08/18/2024 Travel 08/15/[address] [address] Nu Babin MD Nurse Triage 08/14/2024 9:45 AM EST Office Visit [address] [address] Misty Wagner NP Viral upper respiratory tract infection (Primary Dx); Asthma-chronic obstructive pulmonary disease overlap syndrome (CMS/HCC); Tobacco use 07/30/[address] [address] Nu Babin MD Chronic right-sided low back pain with right-sided sciatica 07/25/[address] [address] Nu Babin MD No Show 07/18/2024 Orders Only [facility] External Provider, [facility] 07/13/2024 Patient Outreach [address] [address] Nu Babin MD Pre-visit Planning (SDOH screening negative and tobacco screening negative) 07/04/2024 11:15 AM EST Office Visit [facility] [address] [place] [address] Nu Babin MD Preop examination (Primary Dx); Lumbar back pain with radiculopathy affecting lower extremity; Dermatitis of left foot 07/04/2024 Travel from Last 3 Months Immunizations Name Administration [...] Care Team (Late st Contact Info) Description 10/24/2024 2:00 PM EDT Office Visit [facility] [address] [place], [place] [phone] Nu Babin MD [address] [place] [address] Health Maintenance Due Date Last Done Comments [...] Influenza B OSOM (08/14/2024 10:04 AM EST) [facility] Rapid Influenza B Ag Negative Negative, Indeterminate QC Media Lot # [id number] Lot# Expiration Date Swab 08/14/2024 10:0 4 AM EST Result [facility] Misty Wagner LOADER HELPER SORTING YARD POINT OF CARE TEST ENTER/EDIT OR DERABLES Final Result * POCT Rapid Influenza A OSOM (08/14/2024 10:04 AM EST) [facility] Rapid Influenza A Ag Negative Negative, Indeterminate QC Media Lot # [id number] Lot# Expiration Date Swab Nasopharyngeal structure / Unknown 08/14/2024 10:04 AM EST Result [facility] Misty Wagner LOADER HELPER SORTING YARD POINT OF CARE TEST ENTER/EDIT OR DERABLES Final Result * POCT Rapid RSV ROSALES ID NOW (08/14/2024 10:03 AM EST) [facility] RSV Rapid Ag POC Negative Negative QC Media Lot # [id number] Lot# Expiration Date [id number] Swab 08/14/2024 10:0 3 AM EST Result [facility] Misty Wagner LOADER HELPER SORTING YARD POINT OF CARE TEST ENTER/EDIT OR DERABLES Final Result * POCT Rapid Covid-19 BinaxNOW (08/14/2024 10:02 AM EST) [facility] Rapid COVID Ag Negative QC Media Lot # [id number] Lot# Expiration Date [id number] Swab 08/14/2024 10:0 2 AM EST Result [facility] Misty Wagner LOADER HELPER SORTING YARD POINT OF CARE TEST ENTER/EDIT OR DERABLES Final Result * FL Guidance in OR (07/18/2024 7:43 AM EST) Anatomical Region Laterality Modality X-Ray Angiograph y 07/18/2024 7:43 AM EST Narrative 07/19/2024 12:22 PM EST ? [facility] ?[address] ?[place] [address] ? Fluoroscopy Report ? Signed ? Patient: Eddy,Bernardino ?MR#: [id number] ?? 34 ? : 1960 ?Acct:[id number] ? Age/Sex: 64 / M ?ADM Date: 07/18/24 ? Loc: HO.S3 ?345-1 ? Attending Dr: Mayito Robison MD, PhD ? Ordering Physician: Mayito Robison MD, PhD ?? Date of Service: 07/18/24 ?? Procedure(s): FL guidance in OR ?? Accession Number(s): [id number] ? cc: Mayito Robison MD, PhD; Nu [...] DD/ 0743 ? TD/TT: 07/18/24 1120 ? Fitness Plan Coordinator: ? Procedure Note Anil Locke - 07/19/2024 [place] [id number] [place] [address] Fluoroscopy Report Signed Patient: Griffin Kam GMR#: [id number] 34 : 1960cct:[id number] Age/Sex: 64 / MADM Date: 07/18/24 Loc: HO.S3 345-[address]: Mayito Robison MD, PhD Ordering Physician: Mayito Robison MD, PhD Date of Service: 07/18/24 Procedure(s): FL guidance in OR Accession Number(s): [id number] cc: Mayito Robison MD, PhD; Nu White [...] 07/19/24 1219 DD/ 0743 TD/TT: 07/18/24 1120 Fitness Plan Coordinator: [facility] External Provider IMG IR PROCEDURES Final Result * (ABNORMAL) Comprehensive Metabolic Panel (07/04/2024 12:03 PM EST) Sodium 141 135 - 145 mmol/L [facility] Potassium 3.3 3.3 - 5.1 mmol/L [facility] Chloride 104 96 - 108 mmol/L [facility] Carbon Dioxide 31(H) 22 - 29 mmol/L [facility] Anion Gap 9(L) 12 - 20 [facility] Urea Nitrogen (BUN) 16 9 - 16 mg/dL [facility] Creatinine, Serum 1.31 0.5 - 1.4 mg/dL [facility] Estimated Glomerular Filt Rate 55 [facility] Comment:Chronic Kidney Disea se: Estimated GFR < 60 mL/min/1.86b2Wfxoem Kidney Disease: Estimated GFR < 15 mL/min/1.73m2 Glucose 118(H) 60 - 115 mg/dL [facility] Calcium 9.4 8.4 - 10.2 mg/dL [facility] Bilirubin, Total 0.4 0.0 - 1.0 mg/dL [facility] Aspartate Amino Transferase 44(H) 5 - 37 U/L [facility] Alanine Aminotransferase 43(H) 0 - 40 U/L [facility] Total Protein 7.6 6.5 - 8.0 g/dL [facility] Albumin Level 4.3 3.5 - 5.0 g/dL [facility] Alkaline Phosphatase 118(H) 39 - 117 U/L [facility] Blood Venous blood specimen / Unknown 07/04/2024 12:03 PM EST 07/04/2024 1:25 PM EST us Nu Shipley MD LAB BLOOD ORDERABLES Final Result [facility] [address] [place] [phone] * ECG 12 lead (07/04/2024 11:48 AM EST) Narrative Nu Babin MD - 07/04/2024 11:48 AM EST RBBB, PVCs HR 75 us Nu Shipley MD ECG ORDERABLES Final Result * Lipid Panel with Reflex to Direct LDL (01/12/2024 8:13 AM EDT) Triglycerides 78 <150 mg/dL [facility] Comment:Desirable Triglyceri de: less than 150 mg/dLBorderline High Triglyceride 150-199 mg/dLHigh Triglyceride: 200-499 mg/dLVery High Triglyceride: greater than or equal to 5OO mg/dL Cholesterol 154 <200 mg/dL [facility] Comment:Desirable Cholestero l: less than 200 mg/dLBorderline High Cholesterol: 200-239 mg/dLHigh Cholesterol: greater than 239 mg/dL LDL Cholesterol Calculated 68 <100 mg/dL [facility] Comment:Desirable LDL: less than 100 mg/dLNear Optimal/Above Optimal LDL: 110- 129 mg/dLBorderline High LDL: 130-159 mg/dLHigh LDL: 160-189 mg/dLVery High LDL: greater than or equal to 190 mg/dL HDL Cholesterol 71 >40 mg/dL [facility] Comment:Desirable HDL: great er than 40 mg/dL Note: This HDL assay may give artificially low results in patients with liver disease. Blood 01/12/2024 8:13 AM EDT 01/12/2024 10:59 AM EDT Nu Shipley MD LAB BLOOD ORDERABLES Final Result [facility] [address] [place] [phone] * POCT HGB A1C (01/07/2024 10:08 AM EDT) Hemoglobin A1C 5.6 4.0 - 6.0 % QC Media Lot # [id number] Lot# Expiration Date ,[id number] Blood 01/07/2024 10:0 8 AM EDT Nu Shipley MD POINT OF CARE TEST EN TER/EDIT ORDERABLES Final Result * (ABNORMAL) Hepatitis Panel, General (07/23/2022 10:45 AM EST) Hepatitis A Antibody Total REACTIVE( A) NON-REACT MICAELA [facility] Comment: For additional information, please refer to http://education.[employer].Adictiz/faq/JVU813 (This link is being provided for informational/ educational purposes only.) Hepatitis B Surface Antibody QL NON-REACT MICAELA NON-REACT MICAELA [facility] Hepatitis B Surface Ag NON-REACT MICAELA NON-REACT MICAELA [facility] Hepatitis B Core Antibody Total NON-REACT MICAELA NON-REACT MICAELA [facility] Hepatitis C Antibody NON-REACT MICEALA NON-REACT MICAELA [facility] Index <0.02 <1.00 [facility] Comment: HCV antibody was non-reactive. There is no laboratory evidence of HCV infection. In most cases, no further action is required. However, if recent HCV exposure is suspected, a test for HCV RNA (test code 40758) is suggested. For additional information please refer to http://education.AppMy[employer]/faq/IEC91i2 (This link is being provided for informational/ educational purposes only.) 07/23/2022 10:4 5 AM EST 07/23/2022 10:45 AM EST Narrative [facility] - 07/29/2022 12:44 AM EST FASTING:NO FASTING: NO us Nahomi Sharma MD LAB BLOOD ORDERABLES Fin al Result [facility] [address], [place] [address] [facility] [address] [facility], ([address]) [place] [address] * HIV-1/2 Antigen and Antibodies, Fourth Generation, with Reflexes (07/23/2022 10:45 AM EST) HIV Antigen/Antibody, 4th Generation NON-REAC TIVE NON-REAC TIVE [facility] Comment: HIV-1 antigen and HIV-1/HIV-2 antibodies were [...] ?? For additional information please refer to http://education.[employer]/faq/CUI198 (This link is being provided for informational/ educational purposes only.) The performance of this assay has not been clinically validated in patients less than 2 years old. Blood Venous blood specimen / Unknown 07/23/2022 10:45 AM EST 07/23/2022 10:45 AM EST Narrative [facility] - 07/29/2022 12:44 AM EST FASTING:NO FASTING: NO us Nahomi Sharma MD LAB BLOOD ORDERABLES Fin al Result [facility] [address] [facility], [facility], [place] [address] [facility] [address] [facility], ([address]) [place] [address] from Last 3 Months or Most Recently Relevant to Health Maintenance Insurance [employer] Care Teams Manager Media Relationship Specialty Start Date End Date Nu Babin MD [address] [place] [phone] PCP - General Family Medicine 02/14/19 Meaghan Leroy Health Careers InstructorGraduate Fellow 05/08/24
--- OUTSIDE RECORDS SUMMARY | 2024-09-19 14:56 | XMS_ITS | Encounter Summary ---
Author Organization [employer] Address [address] [facility] [address] [place] [address] Care Team Providers Care Army Helicopter Pilot Name Role Phone Nu Babin MD Primary Care Provide r Reason for Visit * Reason Comments Pre-visit Planning SDOH screening was c ompleted on 07/13/2024 / patient requesting appt to be reschedule. Encounter Details Date Type Department Care Team (Late st Contact Info) Description 09/04/2024 Patient Outreach [facility] [address] [place] [address] Nu Babin MD [address] [place] [address] Pre-visit Planning (SDOH screening was completed on 07/13/2024 / patient requesting appt to be reschedule. ) Social History Tobacco Use Types Packs/Day Years [...] as of this encounter Progress Notes * Lizet Rosas - 09/04/2024 9:35 AM EST CC Lizet Berry placed successful outbound call to patient for pre-visit planning. Patient name and confirmed. Patient unable to confirm 09/11/2024 at 10:15am appointment with . Patient needs to reschedule the Physical Exam. Patient is traveling to [place] and wont be back until 09/12/2024. Please contact patient at [phone]. documented in this encounter Plan of Treatment Upcoming Encounters Date Type Department Care Team (Late st Contact Info) Description 10/24/2024 2:00 PM EDT Office Visit [facility] [address] [place], [place] [phone] Nu Babin MD [address] [place] [address] documented as of this encounter Visit Diagnoses Not on filedocumented in this encounter Additional Health Concerns Assessment Noted Time PHQ-9 Depression Total Score: 0 01/07/20 9:59 AM EDT documented as of this encounter Care Teams Army Helicopter Pilot Relationship Specialty Start Date End Date Nu Babin MD [address] [place] [address] PCP - General Family Medicine 02/14/19 Meaghan Leroy Pharmacy Technician InfusionSoftware Business Analyst 05/08/24 documented as of this encounter
--- OUTSIDE RECORDS SUMMARY | 2024-09-19 14:56 | XMS_ITS | Encounter Summary ---
Author Organization [employer] Address [address] [facility] 7t [place] [address] Care Team Providers Care Tie Bucker Name Role Phone Nu Babin MD Primary Care Provide r Reason for Visit * Reason Comments Med Refill Encounter Details Date Type Department Care Team ([facility] st Contact Info) Description 04/09/2024 Refill [facility] [address] [place] [address] Nu Babin MD [address] [place] [address] Hypokalemia Social History Tobacco Use Types Packs/Day [...] Description 10/24/2024 2:00 PM EDT Office Visit [facility] [address] [place] [phone] Nu Babin MD [address] [place] [address] documented as of this encounter Visit Diagnoses Diagnosis Hypokalemia Hypopotassemia documented in this encounter Additional Health Concerns Assessment Noted Time PHQ-9 Depression Total Score: 0 01/07/20 24 9:59 AM EDT documented as of this encounter Care Teams Tie Bucker Relationship Specialty Start Date End Date Nu Babin MD [address] [place] [phone] PCP - General Family Medicine 02/14/19 Meaghan Leroy Orthotics Prosthetics AssistantEsthetician Makeup Artist 05/08/24 documented as of this encounter
--- OUTSIDE RECORDS SUMMARY | 2024-09-19 14:56 | XMS_ITS | Encounter Summary ---
Author Organization [employer] Address [address] [facility] 7t [place] [address] Care Team Providers Care Hand Assembler For Puller Over Name Role Phone Nu Babin MD Primary Care Provide r Encounter Details Date Type Department Care Team ([facility] st Contact Info) Description 09/15/2024 Population Health Risk Score [facility] ([facility]) Department [address] [phone] Provider, Population Health Generic Social History Tobacco Use Types Packs/Day Years [...] Description 10/24/2024 2:00 PM EDT Office Visit [facility] [address] [place] [phone] Nu Babin MD [address] [place] [address] documented as of this encounter Visit Diagnoses Not on filedocumented in this encounter Additional Health Concerns Assessment Noted Time PHQ-9 Depression Total Score: 0 01/07/20 24 9:59 AM EDT documented as of this encounter Care Teams Hand Assembler For Puller Over Relationship Specialty Start Date End Date Nu Babin MD [address] [place] [phone] PCP - General Family Medicine 02/14/19 Meaghan Leroy Tunnel ManCommercial Roofing Estimator 05/08/24 documented as of this encounter
== END 2024-09-19 13:53 | disposition home or self-care (01) ==
LOC: HO.HNS 12:42
PROVIDERS: PCP Student in an Organized Health Care Education/Training Program; Visit Provider Physician Assistant
DX: Z98.1 Arthrodesis status (principal)
CPT/HCPCS: 99024

== ENCOUNTER 2024-09-19 17:44 | Outpatient (REF) | payer MEDICAID, SELFPAY ==
--- NOTE | ~2024-09-19 | MR_ITS ---
CLINICAL HISTORY: Z98.1 - Arthrodesis status MR lumbar spine without gadolinium Comparison: MR/ID/SR - MR LUMBAR SPINE WO CON - 04/30/24 17:52 EDT Findings: Expected postsurgical straightening of the normal lumbar lordosis There is fusion from L3-L5. No evidence of acute fracture or acute malalignment. No paraspinal fluid collection or evidence of epidural abscess Visualized retroperitoneal structures are unremarkable. The conus terminates normally at L1. The cauda equina are unremarkable. Individual levels: L1-L2: Small right eccentric disc protrusion. Mild bilateral neural foraminal narrowing. No central canal stenosis. L2-L3: Moderate posterior disc protrusion with facet hypertrophy. Moderate bilateral neural foraminal narrowing, [id number]. Mild central canal narrowing. L3-L4: Mild central canal narrowing. Moderate left neural foraminal narrowing. L4-L5: Moderate right neural foraminal narrowing. Minimal central canal stenosis. L5-S1: Severe bilateral neural foraminal narrowing. Mild central canal stenosis. Impression: Postsurgical and degenerative changes This document has been electronically signed by: Humza Rain MD on 09/19/2024 18:50:15
== END 2024-09-19 17:45 | disposition home or self-care (01) ==
LOC: HO.MRI 17:44
PROVIDERS: PCP Internal Medicine; Visit Provider Physician Assistant
DX: Z98.1 Arthrodesis status (principal)
CPT/HCPCS: 72148

== ENCOUNTER → 2024-09-19 17:58 | Outpatient (BNV) | payer MEDICAID, SELFPAY | PROVIDERS: PCP Internal Medicine; Visit Provider Radiology Vascular & Interventional Radiology | DX: Z98.1 Arthrodesis status (principal) | CPT/HCPCS: 72110 ==

== ENCOUNTER 2024-10-03 13:35 | Outpatient (AMB) | payer MEDICAID, SELFPAY ==
--- NOTE | 2024-10-03 13:41 | A.SPINEOV_ITS ---
Intake Visit Reasons: mri f/u Intake Note: Mr. Kam is here today to F/u on the results to his MRI. Calibration Tester Required: Yes Calibration Tester Name: Tablet Allergies COLIN Inhibitors Allergy (Severe, Verified 10/03/24 13:42) Angioedema ibuprofen [From MOTRIN] Allergy (Unknown, Verified 10/03/24 13:42) Unknown Assessment & Plan Assessment & Plan (1) S/P lumbar fusion: Code(s): Z98.1 - Arthrodesis status Category: Surgical Plan Griffin comes in today for a subsequent follow-up visit to discuss his MRI imaging. To recap he had about 50% improvement of pain postoperatively, but seem to express during his last visit that his pain is the same it was prior to surgery. His MRI was reviewed by the attending neurosurgeon Dr. Robison who offered the patient a bilateral L5 foraminotomy to address his severe leg pain. We discussed this. I extensively explained to the patient that this likely will not help with his back pain, as his back pain should continue to improve as he heals from surgery. His instrumentation looks fantastic as far as we can tell, and the central canal and foramen at the level in which he had lumbar fusion appear much better. The only thing we noticed when comparing in his preoperative MRI with his most recent MRI is that the bilateral L5 foramen appear slightly more compressed. When discussing this, the patient states that he is not interested in surgery to address his leg pain, and that his back pain in his worst complaint. I extensively discussed with the patient that this may be pain related to his body accommodating to the screws and rods and interbody cages that were placed during his multilevel fusion. I again reviewed his preoperative MRI, postoperative x-rays, and postoperative MRI during this visit. The findings are consistent with previous reads that I have documented in his office visits. My interpretation appears consistent with the radiologist. At this time Richard is declining the offered intervention of bilateral foraminotomy to address his bilateral leg pain. He does seem interested in potentially meeting with our colleagues from pain management to discuss nonsurgical options to address his low back pain. I did encourage him that he can continue to heal up to 1 year after surgery. I will place the referral at the patient's request. Jorge Alberto Robison MD,PhD [facility] Orders: Referrals Pain Management Referral Z98.1 - Arthrodesis status Coding Level of Care Code Est Pt Level 2 (17953) Diagnoses S/P lumbar fusion Z98.1
--- OUTSIDE RECORDS SUMMARY | 2024-10-03 16:10 | XMS_ITS | Encounter Summary ---
Author Organization [employer] Address [address] [facility] [address] [place] [address] Care Team Providers Care Distribution Clerk Name Role Phone Nu Babin MD Primary Care Provide r Reason for Visit * Reason Comments Back Pain Encounter Details Date Type Department Care Team (Latest Contact Info) Description 09/29/2024 10:00 AM EDT Office Visit [facility] [address] [place] [address] Joe Lindquist MD [address] [place] [address] Lumbar back pain with radiculopathy affecting lower extremity (Primary Dx); Tobacco use Social History Tobacco Use Types [...] Sign Reading Time Taken Comments Blood Pressure 130/77 09/29/2024 9:55 AM EDT Pulse 65 09/29/2024 10:48 AM EDT Temperature 36.6 ??C (97.8 ??F) 09/29/2024 9:55 AM ED T Respiratory Rate 17 09/29/2024 9:55 AM EDT Oxygen Saturation 90% 09/29/2024 9:55 AM EDT Inhaled Oxygen Concentration - - Weight 95.4 kg (210 lb 6.4 oz) 09/29/2024 9:55 A M EDT Height - - Body Mass Index 33.96 08/18/2024 11:23 AM EST documented in this encounter Progress Notes * Joe Lindquist MD - 09/29/2024 10:00 AM EDT Subjective Patient ID: Griffin Kam is a 64 y.o. male. Recruitment Assistant: ARMANDO Moya came to walk-in center today because of recurrence intermittent pain across lower back that radiates down bilat LE that started several years ago. From second postop office visit last week at [facility] spine center: L3-[address] Robison on 07/18/24 was done July 18, 2024. Lumbar spine MRI and x-rays were ordered at visit, he was prescribed gabapentin, which he states doesn't help. States pain improved after surgery, but started to recur 3 weeks later. Pain is worse when laying down. Lidocaine patches, gabapentin don't help. He is requesting Rx for oxycodone. Denies fever, chills, abd. pain, urinary sx, bowel or bladder dysfunction, saddle anesthesia, extremity weakness or numbness. or radiation of pain. Lives with sister. Not employed. Smokes 4 cigarettes/day. Patient Active Problem List Diagnosis Angioedema Aortic [...] Viral upper respiratory tract infection Tobacco use The following portions of the chart were reviewed this encounter and updated as appropriate: Review of Systems Constitutional: Negative for fever. Respiratory: Negative for shortness of breath. Cardiovascular: Negative for chest pain. Gastrointestinal: Negative for abdominal pain. Musculoskeletal: Positive for back pain. Skin: Negative for rash. Neurological: Negative for headaches. Objective Physical Exam Constitutional: Appearance: Normal appearance. HENT: Nose: Nose normal. Eyes: Conjunctiva/sclera: Conjunctivae normal. Pupils: Pupils are equal, round, and reactive to light. Cardiovascular: Rate and Rhythm: Normal rate and regular rhythm. Heart sounds: Murmur heard. Systolic murmur is present with a grade of 3/6. Pulmonary: Effort: Pulmonary effort is normal. Breath sounds: Normal breath sounds. Musculoskeletal: General: Normal range of motion. Cervical back: No tenderness. Comments: Well-healed surgical scars over the lower back. Mild tenderness to palpation across lower back. Skin: Findings: No rash. Neurological: Mental Status: He is alert. Sensory: Sensation is intact. Motor: Motor function is intact. Gait: Gait is intact. Psychiatric: Mood and Affect: Mood normal. Behavior: Behavior normal. Procedures Assessment/Plan Diagnoses and all orders for this visit: Lumbar back pain with radiculopathy affecting lower extremity Prescribed Tylenol and tizanidine. Advised to call Dr. Ackerman's office on Wednesday if not improving. Tobacco use Release excepted prescription for nicotine lozenges; declined patches. documented in this encounter Plan of Treatment Upcoming Encounters Date Type Department Care Team (Late st Contact Info) Description 10/24/2024 2:00 PM EDT Office Visit [facility] [address] [place] [phone] Nu Babin MD [address] [place] [address] documented as of this encounter Visit Diagnoses Diagnosis Lumbar back pain with radiculopathy affecting lower extremity- Primary Tobacco use documented in this encounter Additional Health Concerns Assessment Noted Time PHQ-9 Depression Total Score: 0 01/07/20 24 9:59 AM EDT documented as of this encounter Care Teams Distribution Clerk Relationship Specialty Start Date End Date Nu Babin MD [address] [place] [phone] PCP - General Family Medicine 02/14/19 Meaghan Leroy Television InstallerDirector Of Institutional Research 05/08/24 documented as of this encounter
--- OUTSIDE RECORDS SUMMARY | 2024-10-03 16:10 | XMS_ITS | Encounter Summary ---
Author Organization [employer] Address [address] [facility] [address] [place] [address] Care Team Providers Care Roller Picker Name Role Phone Nu Babin MD Primary Care Provide r Reason for Visit * Reason Comments Med Refill Encounter Details Date Type Department Care Team ([facility] st Contact Info) Description 04/09/2024 Refill [facility] [address] [place] [address] Nu Babin MD [address] [place] [address] Hypokalemia Social History Tobacco Use Types Packs/Day [...] Description 10/24/2024 2:00 PM EDT Office Visit [facility] [address] [place] [address] Nu Babin MD [address] [place] [address] documented as of this encounter Visit Diagnoses Diagnosis Hypokalemia Hypopotassemia documented in this encounter Additional Health Concerns Assessment Noted Time PHQ-9 Depression Total Score: 0 01/07/20 24 9:59 AM EDT documented as of this encounter Care Teams Roller Picker Relationship Specialty Start Date End Date Nu Babin MD [address] [place] [id number] PCP - General Family Medicine 02/14/19 Meaghan Leroy Disintegrator [employer] Building Supervisor 05/08/24 documented as of this encounter
--- OUTSIDE RECORDS SUMMARY | 2024-10-03 16:10 | XMS_ITS | Clinical Summary ---
Author Organization [employer] Address [address] [place] [address] Care Team Providers Care Reverser Name Role Phone Nu Babin MD Primary [...] 021 Active Blood Glucose Monitoring Suppl (FreeStyle [place] Lite) w/Device kit USE TO TEST BLOOD [...] daily. 90 tablet 1 024 2024 Active hydrocortisone 2.5 % creamIndications: [...] per day. 90 tablet 025 2025 Active nicotine polacrilex (Commit) 2 MG lozenge Dissolve 1 lozenge (2 mg) in the mouth every 2 (two) hours if needed for smoking cessation. 100 lozenge 025 2024 Active tiZANidine (Zanaflex) 2 MG tablet Take 1 tablet (2 mg) by mouth if needed in the morning, at noon, and at bedtime for muscle spasms. 30 tablet 1 Active acetaminophen (Tylenol 8 Hour) 650 MG ER tabletIndications :Lumbar back pain with radiculopathy affecting lower extremity Take 2 tablets (1,300 mg) by mouth every 8 (eight) hours if needed for moderate pain. Swallow whole with water. Do not break, crush, dissolve and or chew 50 tablet 2 025 2024 Active acetaminophen (Tylenol 8 Hour) 650 MG ER tabletIndications :Lumbar back pain with radiculopathy affecting lower extremity Take 2 tablets (1,300 mg) by mouth every 8 (eight) hours if needed for moderate pain. Swallow whole with water. Do not break, crush, dissolve and or chew 50 tablet 2 024 2024 Discontinued(R eorder (will not trigger notification [...] 2 due to type 2 diabetes mellitus ([facility]) 06/16/2017 Coronary arteriosclerosis 06/16/2017 Hyperlipidemia associated with type 2 diabetes m ellitus 06/16/2017 Eczema 06/16/2017 Hypertensive disorder 06/16/2017 Assessment & Plan (03/28/2024 10:08 PM EDT): Elevated BP seems reactive to pain States BP at home <140/90 -advised to bring to PCP home BP -explained pt steroids may increase BP while taking med Obstructive sleep apnea syndrome 06/16/2017 Onychomycosis of multiple to enails with type 2 diabetes mellitus ([facility]) 06/16/2017 Osteoarthritis of multiple joints [...] Encounters Date Type Department Care Team Description 09/29/2024 10:00 AM EDT Office Visit [facility] [address] [place] [phone] Joe Lindquist MD Lumbar back pain with radiculopathy affecting lower extremity (Primary Dx); Tobacco use 09/19/2024 Orders Only [facility] External Provider, [facility] 09/15/2024 Population Health Risk Score [facility] Department [address] [place] [phone] Provider, Population Health Generic 09/04/2024 Patient Outreach [facility] [address] [place] [phone] Nu Babin MD Pre-visit Planning (SDOH screening was completed on 07/13/2024 / patient requesting appt to be reschedule. ) 08/18/2024 11:45 AM EST Office Visit [address] [phone] Sarita Foster DO Constipation, unspecified constipation type (Primary Dx); Medication side effect 08/18/2024 Travel 08/15/[address] [address] Nu Babin MD Nurse Triage 08/14/2024 9:45 AM EST Office Visit [address] [phone] Misty Wagner NP Viral upper respiratory tract infection (Primary Dx); Asthma-chronic obstructive pulmonary disease overlap syndrome (CMS/HCC); Tobacco use 07/30/[address] [phone] Nu Babin MD Chronic right-sided low back pain with right-sided sciatica 07/25/[address] [address] Nu Babin MD No Show 07/18/2024 Orders Only [facility] External Provider, [facility] 07/13/2024 Patient Outreach [address] [address] Nu Babin MD Pre-visit Planning (SDOH screening negative and tobacco screening negative) from Last 3 Months Immunizations Name Administration [...] oz) 09/29/2024 9:55 A M EDT Height 167.6 cm (5' 6 ) 08/18/2024 11:23 AM EST Body Mass Index 33.96 08/18/2024 11:23 AM EST Plan of Treatment Upcoming Encounters Date Type Department Care Team (Late st Contact Info) Description 10/24/2024 2:00 PM EDT Office Visit [facility] [address] [place] [address] Nu Babin MD [address] [place] [address] Health Maintenance Due Date Last Done Comments [...] 05/05/2024 SDOH Screening 07/13/2025 07/13/2024 Tobacco Screening 09/29/2025 09/29/2024 DTaP/Tdap/Td Vaccines (4 - Td or Tdap) [...] Procedure Name Priority Date/Time Associated Diagnosis Comments MR LUMBAR SPINE WO CONTRAST Routine 09/19/2024 6:50 PM EDT POCT INFLUENZA B Routine 08/14/2024 10:0 4 [...] OR Routine 07/18/2024 7:4 3 AM EST LIPID PANEL WITH REFLEX TO [...] Recently Relevant to Health Maintenance Results * MR Lumbar Spine w/o Contrast (09/19/2024 6:50 PM EDT) Anatomical Region Laterality Modality Spine, L-spine Magnetic Resonan ce 09/19/2024 6:50 PM EDT Narrative 09/19/2024 6:53 PM EDT ? [facility] ?[address] ?[place] [address] ? Magnetic Resonance Report ? Signed ? Patient: Griffin Kam ?MR#: [id number] ?? 33 ? : 1960 ?Acct:[id number] ? Age/Sex: 64 / M ?ADM Date: 09/19/24 ? Loc: HO.MRI ? Attending Dr: Jorge Alberto DE LA ROSA ? Ordering Physician: Jorge Alberto Servin ?? Date of Service: 09/19/24 ?? Procedure(s): MR lumbar spine wo con ?? Accession Number(s): [id number] ? cc: Nu Babin MD; Jorge Alberto Servin ? CLINICAL HISTORY: Z98.1 - Arthrodesis status ? MR lumbar spine without gadolinium ? Comparison: MR/PA/SR - MR LUMBAR SPINE WO CON - 04/30/24 17:52 EDT ? Findings: ?? Expected postsurgical straightening of the normal lumbar lordosis ?? There is fusion from L3-L5. ?? No evidence of acute fracture or acute malalignment. ?? No paraspinal fluid collection or evidence of epidural abscess ?? Visualized retroperitoneal structures are unremarkable. ?? The conus terminates normally at L1. The cauda equina are unremarkable. ? Individual levels: ? L1-L2: Small right eccentric disc protrusion. Mild bilateral neural ?? foraminal narrowing. No central canal stenosis. ?? L2-L3: Moderate posterior disc protrusion with facet hypertrophy. Moderate ?? bilateral neural foraminal narrowing, [id number]-right. Mild ?? central canal narrowing. ?? L3-L4: Mild central canal narrowing. Moderate left neural foraminal ?? narrowing. ?? L4-L5: Moderate right neural foraminal narrowing. Minimal central canal ?? stenosis. ?? L5-S1: Severe bilateral neural foraminal narrowing. Mild central canal ?? stenosis. ? Impression: ? Postsurgical and degenerative changes ? This document has been electronically signed by: Humza Rain MD on ?? 09/19/2024 18:50:15 ? Dictated By: ?Humza Rain MD ? Signed By: ?<Electronically signed by Humza Rain MD in OV> ? 09/19/24 1852 ? DD/ 1850 ? TD/TT: 09/19/241849 ? Applications Specialist: ? Procedure Note Anil Locke - 09/19/2024 [place] [address] Magnetic Resonance Report Signed Patient: Griffin Kam R#: [id number] 33 : 1960cct:[id number] Age/Sex: 64 / MADM Date: 09/19/24 Loc: HO.MRI Attending Dr: Jorge Alberto DE LA ROSA Ordering Physician: Jorge Alberto Servin Date of Service: 09/19/24 Procedure(s): MR lumbar spine wo con Accession Number(s): [id number] cc: Nu Babin MD; Jorge Alberto Servin CLINICAL HISTORY: Z98.1 - Arthrodesis status MR lumbar spine without gadolinium Comparison: MR/PA/SR - MR LUMBAR SPINE WO CON - 04/30/24 17:52 EDT Findings: Expected postsurgical straightening of the normal lumbar lordosis There is fusion from L3-L5. No evidence of acute fracture or acute malalignment. No paraspinal fluid collection or evidence of epidural abscess Visualized retroperitoneal structures are unremarkable. The conus terminates normally at L1. The cauda equina are unremarkable. Individual levels: L1-L2: Small right eccentric disc protrusion. Mild bilateral neural foraminal narrowing. No central canal stenosis. L2-L3: Moderate posterior disc protrusion with facet hypertrophy. Moderate bilateral neural foraminal narrowing, [id number]-[id number]-right. Mild central canal narrowing. L3-L4: Mild central canal narrowing. Moderate left neural foraminal narrowing. L4-L5: Moderate right neural foraminal narrowing. Minimal central canal stenosis. L5-S1: Severe bilateral neural foraminal narrowing. Mild central canal stenosis. Impression: Postsurgical and degenerative changes This document has been electronically signed by: Humza Rain MD on 09/19/2024 18:50:15 Dictated By: Humza Rain MD Signed By: <Electronically signed by Humza Rain MD in OV> 09/19/241851 DD/ 49 TD/TT: 09/19/241849 Applications Specialist: [facility] External Provider IMG MRI PROCEDURES Final Result * POCT Rapid Influenza B OSOM (08/14/2024 10:04 AM EST) Rapid Influenza B Ag Negative Negative, Indeterminate QC Media Lot # [id number] Lot# Expiration Date Swab 08/14/2024 10:0 4 AM EST Result [facility] Misty Wagner [employer] POINT OF CARE TEST ENTER/EDIT OR DERABLES Final Result * POCT Rapid Influenza A OSOM (08/14/2024 10:04 AM EST) Pathologist [facility] Rapid Influenza A Ag Negative Negative, Indeterminate QC Media Lot # [id number] Lot# Expiration Date Swab Nasopharyngeal structure / Unknown 08/14/2024 10:04 AM EST Misty Wagner [employer] POINT OF CARE TEST ENTER/EDIT OR DERABLES Final Result * POCT Rapid RSV ROSALES ID NOW (08/14/2024 10:03 AM EST) RSV Rapid Ag POC Negative Negative QC Media Lot # [id number] Lot# Expiration Date [id number] Swab 08/14/2024 10:0 3 AM EST Misty Wagner [employer] POINT OF CARE TEST ENTER/EDIT OR DERABLES Final Result * POCT Rapid Covid-19 BinaxNOW (08/14/2024 10:02 AM EST) Pathologist [facility] Rapid COVID Ag Negative QC Media Lot # [id number] Lot# Expiration Date [id number] Swab 08/14/2024 10:0 2 AM EST Misty Wagner [employer] POINT OF CARE TEST ENTER/EDIT OR DERABLES Final Result * FL Guidance in OR (07/18/2024 7:43 AM EST) Anatomical Region Laterality Modality X-Ray Angiograph y 07/18/2024 7:43 AM EST Narrative 07/19/2024 12:22 PM EST ? [facility] ?[address] ?[place] [address] ? Fluoroscopy Report ? Signed ? Patient: Griffin Kam ?MR#: [id number] ?? 33 ? : 1960 ?Acct:[id number] ? Age/Sex: 64 / M ?ADM Date: 07/18/24 ? Loc: HO.S3 ?345-1 ? Attending Dr: Mayito Robison MD, PhD ? Ordering Physician: Mayito Robison MD, PhD ?? Date of Service: 07/18/24 ?? Procedure(s): FL guidance in OR ?? Accession Number(s): [id number] ? cc: Mayito Robison MD, PhD; Nu [...] DD/ 0743 ? TD/TT: 07/18/24 1120 ? Applications Specialist: ? Procedure Note Donlavonter, Image - 07/19/2024 [place] [address] Fluoroscopy Report Signed Patient: Griffin Kam GMR#: [id number] 33 : 1960cct:[id number] Age/Sex: 64 / MADM Date: 07/18/24 Loc: HO.S3 345-[address]: Mayito Robison MD, PhD Ordering Physician: Mayito Robison MD, PhD Date of Service: 07/18/24 Procedure(s): FL guidance in OR Accession Number(s): [id number] cc: Mayito Robison MD, PhD; Nu White [...] by: Tashi Garcia MD 07/19/2024 12:19 PM [facility] Dictated By: Tashi Garcia MD Signed By: <Electronically signed by Tashi Garcia MD in OV> 07/19/24 1219 DD/ 0743 TD/TT: 07/18/24 1120 Applications Specialist: us [facility] External Provider IMG IR PROCEDURES Final Result * Lipid Panel with Reflex to Direct LDL (01/12/2024 8:13 AM EDT) Triglycerides 78 <150 mg/dL [facility] Comment:Desirable Triglyceri de: less than 150 [...] 190 mg/dL HDL Cholesterol 71 >40 mg/dL [facility] Comment:Desirable HDL: great er than 40 mg/dL Note: This HDL assay may give artificially low results in patients with liver disease. Blood 01/12/2024 8:13 AM EDT 01/12/2024 10:59 AM EDT us Nu Shipley MD LAB BLOOD ORDERABLES Final Result [facility] [address] [place], [place] [phone] * POCT HGB A1C (01/07/2024 10:08 AM EDT) Hemoglobin A1C 5.6 4.0 - 6.0 % QC Media Lot # [id number] Lot# Expiration Date [id number] Blood 01/07/2024 10:0 8 AM EDT Nu Shipley MD POINT OF CARE TEST EN TER/EDIT ORDERABLES Final Result * (ABNORMAL) Hepatitis Panel, General (07/23/2022 10:45 AM EST) Hepatitis A Antibody Total REACTIVE( A) NON-REACT MICAELA [facility] Comment: For additional information, please refer to http://[employer]/faq/JRV654 (This link is being provided for informational/ educational purposes only.) Hepatitis B Surface Antibody QL NON-REACT MICAELA NON-REACT MICAELA [facility] Hepatitis B Surface Ag NON-REACT MICAELA NON-REACT MICAELA [employer] Hepatitis B Core Antibody Total NON-REACT MICAELA NON-REACT MICAELA [facility] Hepatitis C Antibody NON-REACT MICAELA NON-REACT MICAELA [facility] Index <0.02 <1.00 [facility] [facility] Comment: HCV antibody was non-reactive. There is no laboratory evidence of HCV infection. In most cases, no further action is required. However, if recent HCV exposure is suspected, a test for HCV RNA (test code 50247) is suggested. For additional information please refer to http://[employer]/faq/LUK40a9 (This link is being provided for informational/ educational purposes only.) 07/23/2022 10:4 5 AM EST 07/23/2022 10:45 AM EST Narrative [facility] - 07/29/2022 12:44 AM EST FASTING:NO FASTING: NO Nahomi Sharma MD LAB BLOOD ORDERABLES Fin al Result [facility] [address] [place] [address], [place] [address] [facility] [address] [place] [address], ([address]) [place] [address] * HIV-1/2 Antigen and Antibodies, Fourth Generation, with Reflexes (07/23/2022 10:45 AM EST) HIV Antigen/Antibody, 4th Generation NON-REAC TIVE NON-REAC TIVE [facility] Comment: HIV-1 antigen and HIV-1/HIV-2 antibodies were [...] ?? For additional information please refer to http://education.[employer]/faq/AQZ712 (This link is being provided for informational/ educational purposes only.) The performance of this assay has not been clinically validated in patients less than 2 years old. Blood Venous blood specimen / Unknown 07/23/2022 10:45 AM EST 07/23/2022 10:45 AM EST Narrative [facility] - 07/29/2022 12:44 AM EST FASTING:NO FASTING: NO Nahomi Sharma MD LAB BLOOD ORDERABLES Fin al Result [facility] [address] [place] [address], [place] [address] [employer] [facility] [address] [place] [address], ([address]) [place] [address] from Last 3 Months or Most Recently Relevant to Health Maintenance Insurance [address] [address] [address] [facility]3 Care Teams Reverser Relationship Specialty Start Date End Date Nu Babin MD [address] [place] [phone] PCP - General Family Medicine 02/14/19 Meaghan [employer] 05/08/24
== END 2024-10-03 13:58 | disposition home or self-care (01) ==
LOC: HO.HNS 13:36
PROVIDERS: PCP Internal Medicine; Visit Provider Physician Assistant
DX: Z98.1 Arthrodesis status (principal)
CPT/HCPCS: 99024

== ENCOUNTER → 2024-10-03 13:35 | Outpatient (BNVA) | payer MEDICAID, SELFPAY | PROVIDERS: PCP Internal Medicine; Visit Provider Physician Assistant | DX: Z98.1 Arthrodesis status (principal) | CPT/HCPCS: 99212 ==

== ENCOUNTER 2024-10-04 08:39 | Emergency (ER) | payer MEDICAID, SELFPAY ==
[2024-10-04 08:53] VITALS: BP 131/84; PULSE 71; RESP 12; TEMP 36.5; O2SAT 100; BMI 32.7
--- NOTE | 2024-10-04 09:36 | ED_ITS ---
HPI - Back Pain/Injury General Chief Complaint: Back Pain/Injury Stated Complaint: Back pain, leg pain Time Seen by Provider: 10/04/24 09:14 Source: patient Mode of arrival: ambulatory Limitations: no limitations History of Present Illness HPI Narrative: this is 63 years old male presented to the emergency department with a chief complaint of lower back pain. He has a history of chronic lower back pain is followed by neuro spine. The gums ambulatory to the emergency room with a cane. Denies any numbness weakness in the legs any urine incontinence denies any fever. MD elicited complaint: back pain Pertinent past history: prior back pain Onset (ago): week(s) Timing: constant Severity: moderate Similar Symptoms Previously: Yes Quality: burning Location: lumbar spine Radiation: none Exacerbating factors: none Relieving factors: none Associated symptoms: denies other symptoms Related Data Home Medications ?Medication ?Instructions ?Recorded ?Confirmed pantoprazole 40 mg tablet,delayed 40 mg PO DAILY 05/22/20 08/24/24 release ascorbic acid (vitamin C) 500 mg 500 mg PO DAILY 09/06/20 08/24/24 tablet,extended release (Vitamin C ER) amlodipine 10 mg tablet 10 mg PO DAILY 07/18/24 08/24/24 diclofenac sodium 1 % topical gel 1 ea topical DAILY PRN Pain 07/18/24 08/24/24 gabapentin 600 mg tablet 600 mg PO TID 07/18/24 08/24/24 hydrochlorothiazide 25 mg tablet 25 mg PO DAILY 07/18/24 08/24/24 hydrocortisone 2.5 % topical cream 1 appl topical BID PRN Rash 07/18/24 08/24/24 atorvastatin 80 mg tablet 80 mg PO DAILY 08/24/24 08/24/24 Previous Rx's ?Medication ?Instructions ?Recorded blood sugar diagnostic (FreeStyle #100 ea 05/22/20 Lite Strips) blood-glucose meter (FreeStyle #1 ea 05/22/20 Lite Meter kit) lancets 28 gauge (FreeStyle #100 ea 05/22/20 Lancets) ketoconazole 2 % topical cream 1 appl topical BID #30 grams 02/06/23 orthopaedic shoe lift, left #1 ea 02/08/23 acetaminophen 500 mg tablet 500 mg PO Q6H PRN pain #30 tabs 08/26/23 (Tylenol Extra Strength) lidocaine 5 % topical patch 1 patch topical DAILY #30 ea 08/26/23 ezetimibe 10 mg tablet 10 mg PO DAILY #90 tabs 09/09/23 oxycodone 5 mg tablet 5 mg PO BID PRN severe pain (scale 08/22/24 score 7-10) #14 tabs aspirin 81 mg tablet,delayed 81 mg PO DAILY #30 tabs 08/24/24 release (Ecotrin Low Strength) Ventolin HFA 90 mcg/actuation 2 puff inhalation Q4-6H PRN 09/19/24 aerosol inhaler (albuterol sulfate) shortness of breath or wheezing 60 days #18 grams gabapentin 300 mg capsule 300 mg PO TID #30 caps 09/19/24 oxycodone 5 mg tablet 5 mg PO Q6H PRN pain #15 tabs 10/04/24 Allergies Allergy/AdvReac Type Severity Reaction Status Date / Time COLIN Inhibitors Allergy Severe Angioedema Verified 10/04/24 08:55 ibuprofen [From MOTRIN] Allergy Unknown Unknown Verified 10/04/24 08:55 Review of Systems Constitutional: Constitutional: Reports no additional constitutional complaints Cardiovascular: Cardiovascular: Reports no additional cardiovascular complaints [facility] Past Medical History [facility] Narrative: Chronic lower back pain followed by the neuro spine service Medical History Smoking history Back pain Arthritis Numbness Murmur Ulnar neuropathy at elbow of left upper extremity Carpal tunnel syndrome of left wrist JESSICA (obstructive sleep apnea) HTN (hypertension) Asthma-COPD overlap syndrome JESSICA on CPAP Aortic stenosis Obesity (BMI 30-39.9) Dyslipidemia Vitamin D deficiency Diabetic nephropathy associated with type 2 diabetes mellitus Diabetes type 2, controlled Diabetes Surgical History History of left knee replacement History of decompression of ulnar nerve History of carpal tunnel surgery of left wrist Hx of carpal tunnel syndrome Hx of cholecystectomy History of total right knee replacement (TKR) History of left hip replacement Hx of hernia repair History of back surgery Hx of colonoscopy Family History Family History Father Hypertension Diabetes mellitus Mother Hypertension Social History Social History Household Members: Family Household Members Other:: sister Housing: Apartment Are you a primary critical care nurse specialist to a significant other at home: No Do you presently have visiting nurse or other home services: Yes (Doctor every month) Alcohol intake: never Patient Tobacco Use Status: Current everyday Tobacco user Tobacco use type: Cigarette Cigarettes Per Day: 6 Advance Directives: No Advance Directives Information Provided: Yes Do you have a plan to hurt others: No Plan service: No Current occupational status: unemployed Current occupation: right handed Physical Exam Vital Signs: Vital Signs: Last Vital Signs Temp 97.7 F 10/04/24 09:51 Pulse 71 10/04/24 09:51 Resp 12 10/04/24 09:51 BP 131/84 10/04/24 09:51 Pulse Ox 100 10/04/24 09:51 BMI result Body Mass Index 32.7 not acute distress Const: General: cooperative Orientation/consciousness: patient oriented x3 Limitations: no limitations Neck: Neck: Yes normal visual inspection Chest: Chest palpation & inspection: normal inspection of the chest Resp: Effort & Inspection: normal respiratory effort Auscultation: clear to auscultation bilaterally Cardio: Jugular venous distension: no JVD Rate: regular rate Rhythm: regular rhythm GI: Inspection: Yes normal to inspection Palpation (GI): Soft to palpation, not firm, nontender and no guarding Skin: General skin exam: no rashes or lesions noted, elasticity normal and turgor normal Lesions: no lesions Rashes: no rashes Wounds: no wounds Neuro: Other: no deficit in strength no deficit in sensation able to ambulate with a cane General: patient oriented x3 Cranial nerves: Yes CN's II-XII intact bilaterally Motor exam (neuro): 5/5 motor strength present throughout Medical Decision Making Medical Decision Making MDM Narrative: patient presented with exacerbation of chronic lower back pain I do not think we need to get any imaging he had an MRI on September 19 Differential Diagnosis Differential Diagnoses: The differential diagnosis associated with the presentation includes muscular strain / lower back pain Admission/Observation Consideration of admission/observation: Escalation of care including admission/observation considered Discharge Plan Discharge Clinical Impression: Back pain Qualifiers: Back pain location: low back pain Chronicity: chronic Back pain laterality: unspecified Sciatica presence: without sciatica Qualified Code(s): M54.50 - Low back pain, unspecified Patient Disposition: Home, Self-Care Instructions: Back Pain (ED) Additional Instructions: follow-up with your spine surgeon return if you worse Prescriptions: New oxycodone 5 mg tablet 5 mg PO Q6H PRN (Reason: pain) Qty: 15 0RF Rx Instructions: partial filing upon pt request; Partial Fill upon patient request. No Action (DME) orthopaedic shoe lift, left 1/2 inch See Rx Instructions .Route .MEDSUPPLY Qty: 1 0RF Rx Instructions: As directed ezetimibe 10 mg tablet 10 mg PO DAILY Qty: 90 3RF oxycodone 5 mg tablet 5 mg PO BID PRN (Reason: severe pain (scale score 7-10)) Qty: 14 0RF albuterol sulfate [Ventolin HFA] 90 mcg/actuation HFA aerosol inhaler 2 puff inhalation Q4-6H PRN (Reason: shortness of breath or wheezing) 60 Days Qty: 18 3RF ascorbic acid (vitamin C) [Vitamin C] 500 mg Tablet Extended Release 500 mg PO DAILY ketoconazole 2 % cream 1 appl topical BID Qty: 30 0RF lidocaine 5 % adhesive patch,medicated 1 patch topical DAILY Qty: 30 0RF Rx Instructions: leave on most painful area for up to 12 hrs acetaminophen [Tylenol Extra Strength] 500 mg tablet 500 mg PO Q6H PRN (Reason: pain) Qty: 30 0RF gabapentin 600 mg tablet 600 mg PO TID amlodipine 10 mg tablet 10 mg PO DAILY hydrocortisone 2.5 % cream 1 appl TOPICAL BID PRN (Reason: Rash) diclofenac sodium 1 % gel 1 ea topical DAILY PRN (Reason: Pain) hydrochlorothiazide 25 mg Tablet 25 mg PO DAILY pantoprazole 40 mg tablet,delayed release (DR/EC) 40 mg PO DAILY (DME) blood-glucose meter [FreeStyle Lite Meter] Kit See Rx Instructions .ROUTE .MEDSUPPLY Qty: 1 0RF Rx Instructions: As directed (DME) FreeStyle Lite Strips Strip See Rx Instructions .ROUTE .MEDSUPPLY Qty: 100 11RF Rx Instructions: 3 times a day (DME) lancets [FreeStyle Lancets] 28 gauge misc See Rx Instructions .ROUTE .MEDSUPPLY Qty: 100 11RF Rx Instructions: 3 times a day atorvastatin 80 mg tablet 80 mg PO DAILY aspirin [Ecotrin Low Strength] 81 mg tablet,delayed release (DR/EC) 81 mg PO DAILY Qty: 30 5RF gabapentin 300 mg capsule 300 mg PO TID Qty: 30 1RF Referrals: Mayito Robison MD, PhD [Physician] - 2 days Interventions: ED Discharge Assessment Last Done: 10/04/24 09:51 Discharge Date/Time: 10/04/24 09:52 Print Language: Greenlandic
[2024-10-04 09:51] VITALS: BP 131/84; PULSE 71; RESP 12; TEMP 36.5; O2SAT 100
--- OUTSIDE RECORDS SUMMARY | 2024-10-04 10:20 | XMS_ITS | Clinical Summary ---
Author Organization [employer] Address [address] [facility] [address]t [place] [address] Care Team Providers Care Tape Weaver Name Role Phone Nu Babin MD Primary [...] 021 Active Blood Glucose Monitoring Suppl (FreeStyle [place] Lite) w/Device kit USE TO TEST BLOOD [...] 2 due to type 2 diabetes mellitus ([facility]) 06/16/2017 Coronary arteriosclerosis [...] to enails with type 2 diabetes mellitus ([facility]) 06/16/2017 Osteoarthritis of multiple [...] Description 09/29/2024 10:00 AM EDT Office Visit [facility] [address] [place] [address] Joe Lindquist MD Lumbar back pain with radiculopathy affecting lower extremity (Primary Dx); Tobacco use 09/19/2024 Orders Only [facility] External Provider, [facility] 09/15/2024 Population Health Risk Score [facility] Department [address] [place] [phone] Provider, Population Health Generic 09/04/2024 Patient Outreach [facility] [address] [place] [address] Nu Babin MD Pre-visit Planning (SDOH screening was completed on 07/13/2024 / patient requesting appt to be reschedule. ) 08/18/2024 11:45 AM EST Office Visit [address] [address] Sarita Foster DO Constipation, unspecified constipation type (Primary Dx); Medication side effect 08/18/2024 Travel 08/15/[address] [address] Nu Babin MD Nurse Triage 08/14/2024 9:45 AM EST Office Visit [address] [phone] Misty Wagner NP Viral upper respiratory tract infection (Primary Dx); Asthma-chronic obstructive pulmonary disease overlap syndrome (CMS/HCC); Tobacco use 07/30/[address] [phone] Nu Babin MD Chronic right-sided low back pain with right-sided sciatica 07/25/[address] [address] Nu Babin MD No Show 07/18/2024 Orders Only [facility] External Provider, [facility] 07/13/2024 Patient Outreach [address] [address] Nu Babin MD Pre-visit Planning (SDOH screening [...] Description 10/24/2024 2:00 PM EDT Office Visit [facility] [address] [place] [address] Nu Babin MD [address] [place] [address] Health Maintenance Due Date Last Done Comments [...] EDT Narrative 09/19/2024 6:53 PM EDT ? [facility] ?[address] ?[place] [address] ? Magnetic Resonance Report ? Signed ? Patient: Griffin Kam ?MR#: [id number] ?? 34 ? : 1960 ?Acct:[id number] ? Age/Sex: 64 / M ?ADM Date: 09/19/24 ? Loc: HO.MRI ? Attending Dr: Jorge Alberto DE LA ROSA ? Ordering Physician: Jorge Alberto Servin ?? Date of Service: 09/19/24 ?? Procedure(s): MR lumbar spine wo con ?? Accession Number(s): [id number] ? cc: Nu Babin MD; Jorge Alberto Servin ? CLINICAL HISTORY: Z98.1 - Arthrodesis status ? MR lumbar spine without gadolinium ? Comparison: MR/WI/SR - MR LUMBAR SPINE WO CON - [...] hypertrophy. Moderate ?? bilateral neural foraminal narrowing, puuo-icsqwww-nbon-right. Mild ?? central canal narrowing. ?? L3-L4: [...] ? DD/ 1850 ? TD/TT: 09/19/241849 ? Bakelite Molder: ? Procedure Note Anil Locke - 09/19/2024 [place] [address] Magnetic Resonance Report Signed Patient: Griffin Kam R#: [id number] 33 : 1960cct:[id number] Age/Sex: 64 / MADM Date: 09/19/24 Loc: HO.MRI Attending Dr: Jorge Alberto DE LA ROSA Ordering Physician: Jorge Alberto Servin Date of Service: 09/19/24 Procedure(s): MR lumbar spine wo con Accession Number(s): [id number] cc: Nu Babin MD; Jorge Alberto Servin CLINICAL HISTORY: Z98.1 - Arthrodesis status MR lumbar spine without gadolinium Comparison: MR/WI/SR - MR LUMBAR SPINE WO CON - [...] facet hypertrophy. Moderate bilateral neural foraminal narrowing, hdwr-oorxpnm-ldmx-right. Mild central canal narrowing. L3-L4: Mild central [...] in OV> 09/19/241851 DD/ 49 TD/TT: 09/19/241849 Bakelite Molder: [facility] External Provider IMG MRI PROCEDURES Final Result * POCT Rapid Influenza B OSOM (08/14/2024 10:04 AM EST) Rapid Influenza B Ag Negative Negative, Indeterminate QC Media Lot # [id number] Lot# Expiration Date Swab 08/14/2024 10:0 4 AM EST Result [facility] Misty Wagner DOLL WIG MAKER ROOTED HAIR POINT OF CARE TEST ENTER/EDIT OR DERABLES Final Result * POCT Rapid Influenza A OSOM (08/14/2024 10:04 AM EST) Pathologist [facility] Rapid Influenza A Ag Negative Negative, Indeterminate QC Media Lot # [id number] Lot# Expiration Date Swab Nasopharyngeal structure / Unknown 08/14/2024 10:04 AM EST Misty Wagner DOLL WIG MAKER ROOTED HAIR POINT OF CARE TEST ENTER/EDIT OR DERABLES Final Result * POCT Rapid RSV ROSALES ID NOW (08/14/2024 10:03 AM EST) RSV Rapid Ag POC Negative Negative QC Media Lot # [id number] Lot# Expiration Date [id number] Swab 08/14/2024 10:0 3 AM EST Misty Wagner DOLL WIG MAKER ROOTED HAIR POINT OF CARE TEST ENTER/EDIT OR DERABLES Final Result * POCT Rapid Covid-19 BinaxNOW (08/14/2024 10:02 AM EST) Pathologist [facility] Rapid COVID Ag Negative QC Media Lot # [id number] Lot# Expiration Date [id number] Swab 08/14/2024 10:0 2 AM EST Misty Wagner DOLL WIG MAKER ROOTED HAIR POINT OF CARE TEST ENTER/EDIT OR DERABLES Final Result * FL Guidance in OR (07/18/2024 7:43 AM EST) Anatomical Region Laterality Modality X-Ray Angiograph y 07/18/2024 7:43 AM EST Narrative 07/19/2024 12:22 PM EST ? [facility] ?[address] ?[place] [address] ? Fluoroscopy Report ? Signed ? Patient: Griffin Kam ?MR#: [id number] ?? 33 ? : 1960 ?Acct:[id number] ? Age/Sex: 64 / M ?ADM Date: 07/18/24 ? Loc: HO.S3 ?345-1 ? Attending Dr: Mayito Robison MD, PhD ? Ordering Physician: Mayito Robison MD, PhD ?? Date of Service: 07/18/24 ?? Procedure(s): FL guidance in OR ?? Accession Number(s): [id number] ? cc: Mayito Robison MD, PhD; Nu [...] DD/ 0743 ? TD/TT: 07/18/24 1120 ? Bakelite Molder: ? Procedure Note Donlavonter, Image - 07/19/2024 [place] [address] Fluoroscopy Report Signed Patient: Griffin Kam GMR#: [id number] 33 : 1960cct:[id number] Age/Sex: 64 / MADM Date: 07/18/24 Loc: HO.S3 345-[address]: Mayito Robison MD, PhD Ordering Physician: Mayito Robison MD, PhD Date of Service: 07/18/24 Procedure(s): FL guidance in OR Accession Number(s): [id number] cc: Mayito Robison MD, PhD; Nu White [...] by: Tashi Garcia MD 07/19/2024 12:19 PM [facility] [place] [place] Dictated By: Tashi Garcia MD Signed By: <Electronically signed by Tashi Garcia MD in OV> 07/19/24 1219 DD/ 0743 TD/TT: 07/18/24 1120 Bakelite Molder: us [facility] External Provider IMG IR PROCEDURES Final Result * Lipid Panel with Reflex to Direct LDL (01/12/2024 8:13 AM EDT) Triglycerides 78 <150 mg/dL [facility] Comment:Desirable Triglyceri de: less than 150 mg/dLBorderline High Triglyceride 150-199 mg/dLHigh Triglyceride: 200-499 mg/dLVery High Triglyceride: greater than or equal to 5OO mg/dL Cholesterol 154 <200 mg/dL [facility] Comment:Desirable Cholestero l: less than 200 mg/dLBorderline High Cholesterol: 200-239 mg/dLHigh Cholesterol: greater than 239 mg/dL LDL Cholesterol Calculated 68 <100 mg/dL [facility] Comment:Desirable LDL: less than 100 mg/dLNear Optimal/Above Optimal LDL: 110- 129 mg/dLBorderline High LDL: 130-159 mg/dLHigh LDL: 160-189 mg/dLVery High LDL: greater than or equal to 190 mg/dL HDL Cholesterol 71 >40 mg/dL [facility] Comment:Desirable HDL: great er than 40 mg/dL Note: This HDL assay may give artificially low results in patients with liver disease. Blood 01/12/2024 8:13 AM EDT 01/12/2024 10:59 AM EDT us Nu Shipley MD LAB BLOOD ORDERABLES Final Result [facility] [address] [place], [place] [phone] * POCT HGB A1C (01/07/2024 10:08 AM EDT) Hemoglobin A1C 5.6 4.0 - 6.0 % QC Media Lot # [id number] Lot# Expiration Date [id number] Blood 01/07/2024 10:0 8 AM EDT Nu Shipley MD POINT OF CARE TEST EN TER/EDIT ORDERABLES Final Result * (ABNORMAL) Hepatitis Panel, General (07/23/2022 10:45 AM EST) Hepatitis A Antibody Total REACTIVE( A) NON-REACT MICAELA [facility] Comment: For additional information, please refer to http://Scrapblog.Coinapult/faq/WMW301 (This link is being provided for informational/ educational purposes only.) Hepatitis B Surface Antibody QL NON-REACT MICAELA NON-REACT MICAELA [facility] Hep[facility] B Surface Ag NON-REACT MICAELA NON-REACT MICAELA [facility] [place] [facility] Hepatitis B Core Antibody Total NON-REACT MICAELA NON-REACT MICAELA [facility] Hepatitis C Antibody NON-REACT MICAELA NON-REACT MICAELA [facility] Index <0.02 <1.00 [facility] [place] [facility] Comment: HCV antibody was non-reactive. There is no laboratory evidence of HCV infection. In most cases, no further action is required. However, if recent HCV exposure is suspected, a test for HCV RNA (test code 06919) is suggested. For additional information please refer to http://Scrapblog.Coinapult/faq/EIX55u0 (This link is being provided for informational/ educational purposes only.) 07/23/2022 10:4 5 AM EST 07/23/2022 10:45 AM EST Narrative [facility] - 07/29/2022 12:44 AM EST FASTING:NO FASTING: NO Nahomi Sharma MD LAB BLOOD ORDERABLES Fin al Result [facility] [address] [place] [address], [place] [address] [facility] [place] [facility] [address] [place] [address], ([address]) [place] [address] * HIV-1/2 Antigen and Antibodies, Fourth Generation, with Reflexes (07/23/2022 10:45 AM EST) HIV Antigen/Antibody, 4th Generation NON-REAC TIVE NON-REAC TIVE [facility] [place] [facility] Comment: HIV-1 antigen and HIV-1/HIV-2 antibodies were [...] ?? For additional information please refer to http://education.Coinapult/faq/KMB125 (This link is being provided for informational/ educational purposes only.) The performance of this assay has not been clinically validated in patients less than 2 years old. Blood Venous blood specimen / Unknown 07/23/2022 10:45 AM EST 07/23/2022 10:45 AM EST Narrative [facility] - 07/29/2022 12:44 AM EST FASTING:NO FASTING: NO Nahomi Sharma MD LAB BLOOD ORDERABLES Fin al Result [facility] [address] [place] [address], [place] [address] [facility] [address] [place] [address], ([address]) [place] [address] from Last 3 Months or Most Recently Relevant to Health Maintenance [place] [address] [address] C3 Care Teams Tape Weaver Relationship Specialty Start Date End Date Nu Babin MD [address] [place] [address] PCP - General Family Medicine 02/14/19 Meaghan Leroy Drafter PlumbingCarpenter Inspector 05/08/24
--- OUTSIDE RECORDS SUMMARY | 2024-10-04 10:20 | XMS_ITS | Encounter Summary ---
Author Organization [employer] Address [address] [place] [address] Care Team Providers Care Roller Machine Operator Name Role Phone Nu Babin MD Primary Care Provide r Reason for Visit * Reason Comments Back Pain Encounter Details Date Type Department Care Team (Latest Contact Info) Description 09/29/2024 10:00 AM EDT Office Visit [facility] [address] [place] [address] Joe Lindquist MD [address] [place] [address] Lumbar back pain with radiculopathy affecting lower [...] Griffin Kam is a 64 y.o. male. Manager Merchandising: ARMANDO Moya came to walk-in center today because of recurrence intermittent pain across lower back that radiates down bilat LE that started several years ago. From second postop office visit last week at [facility] spine center: L3-[address] [...] Description 10/24/2024 2:00 PM EDT Office Visit [facility] [address] [place] [phone] Nu Babin MD [address] [place] [address] documented as of this encounter Visit Diagnoses Diagnosis Lumbar back pain with radiculopathy affecting lower extremity- Primary Tobacco use documented in this encounter Additional Health Concerns Assessment Noted Time PHQ-9 Depression Total Score: 0 01/07/20 24 9:59 AM EDT documented as of this encounter Care Teams Roller Machine Operator Relationship Specialty Start Date End Date Nu Babin MD [address] [place] [address] PCP - General Family Medicine 02/14/19 Meaghan Leroy Compressor Operator PortableBoat Canvas Maker And Installer 05/08/24 documented as of this encounter
--- OUTSIDE RECORDS SUMMARY | 2024-10-04 10:20 | XMS_ITS | Encounter Summary ---
Author Organization [employer] Address [address] [facility] 7t [place] [address] Care Team Providers Care Graduate Research Assistant Name Role Phone Nu Babin MD Primary Care Provide r Reason for Visit * Reason Comments Med Refill Encounter Details Date Type Department Care Team ([facility] st Contact Info) Description 04/09/2024 Refill [facility] [address] [place] [address] Nu Babin MD [address] [place] [address] Hypokalemia Social History Tobacco Use Types Packs/Day [...] Description 10/24/2024 2:00 PM EDT Office Visit [facility] [address] [place] [phone] Nu Babin MD [address] [place] [address] documented as of this encounter Visit Diagnoses Diagnosis Hypokalemia Hypopotassemia documented in this encounter Additional Health Concerns Assessment Noted Time PHQ-9 Depression Total Score: 0 01/07/20 24 9:59 AM EDT documented as of this encounter Care Teams Graduate Research Assistant Relationship Specialty Start Date End Date Nu Babin MD [address] [place] [phone] PCP - General Family Medicine 02/14/19 Meaghan Leroy Blood Bank AssistantRetail Service Representative 05/08/24 documented as of this encounter
== END 2024-10-04 09:52 | disposition home or self-care (01) ==
PROVIDERS: Emergency Provider Emergency Medicine; PCP Internal Medicine
DX: M54.50 Low back pain, unspecified (principal); F17.210 Nicotine dependence, cigarettes, uncomplicated; Z79.899 Other long term (current) drug therapy
CPT/HCPCS: 99283

== ENCOUNTER 2024-10-11 10:01 | Outpatient (AMB) | payer MEDICAID, SELFPAY ==
--- OUTSIDE RECORDS SUMMARY | 2024-10-11 11:11 | XMS_ITS | Encounter Summary ---
Author Organization [employer] Address [address] [facility] 7t [place] [address] Care Team Providers Care Metal Sheet Roller Operator Name Role Phone Nu Babin MD Primary Care Provide r Reason for Visit * Reason Comments Care Coordination C3CM- ED F/U call Encounter Details Date Type Department Care Team (Latest Contact Info) Description 10/06/2024 Patient Outreach [facility] [address] [place] [address] Nu Babin MD [address] [place] [address] Care Coordination (C3CM- ED F/U call) Social History Tobacco Use Types Packs/Day Years [...] as of this encounter Progress Notes * Griffin Henderson RN - 10/06/2024 8:57 AM EDT ADT feed: ED- Pt went [facility] on 10[facility]04[facility]. Patient is externally managed by CP. Care plan is in the chart. forensic manager is Meaghan Leroy. CM will send email to pillowcase cleaner informing of ED visit and CM attempt for status check. CM placed call to pt for status check, no answer, LVM in Kazakh to RTC. documented in this encounter Plan of Treatment Upcoming Encounters Date Type Department Care Team (Late st Contact Info) Description 10/24/2024 2:00 PM EDT Office Visit [facility] [address] [place] [address] Nu Babin MD [address] [place] [address] documented as of this encounter Visit Diagnoses Not on filedocumented in this encounter Additional Health Concerns Assessment Noted Time PHQ-9 Depression Total Score: 0 01/07/20 24 9:59 AM EDT documented as of this encounter Care Teams Metal Sheet Roller Operator Relationship Specialty Start Date End Date Nu Babin MD [address] [place] [address] PCP - General Family Medicine 02/14/19 Meaghan Leroy Air Analysis TechnicianSupervisor Shipping Room 05/08/24 documented as of this encounter
--- OUTSIDE RECORDS SUMMARY | 2024-10-11 11:11 | XMS_ITS | Clinical Summary ---
Author Organization [employer] Address [address] [facility] 7t [place] [address] Care Team Providers Care Automobile Mechanic Supervisor Name Role Phone Nu Babin MD [...] 021 Active Blood Glucose Monitoring Suppl (FreeStyle [place] Lite) w/Device kit USE TO TEST BLOOD [...] 2 due to type 2 diabetes mellitus ([facility]) 06/16/2017 Coronary arteriosclerosis 06/16/2017 Hyperlipidemia associated [...] to enails with type 2 diabetes mellitus ([facility]) 06/16/2017 Osteoarthritis of multiple joints 06/16/2017 [...] Encounters Date Type Department Care Team Description 10/06/2024 Patient Outreach [facility] [address] [place] [phone] Nu Babin MD Care Coordination ([facility]- ED F/U call) 10/05/2024 Patient Outreach [facility] [address] [place] [address] Nu Babin MD 09/29/2024 10:00 AM EDT Office Visit [facility] [address] [place] [phone] Joe Lindquist MD Lumbar back pain with radiculopathy affecting lower extremity (Primary Dx); Tobacco use 09/19/2024 Orders Only [facility] External Provider, [facility] 09/15/2024 Population Health Risk Score [facility] Department [address] [phone] Provider, Population Health Generic 09/04/2024 Patient Outreach [facility] [address] [place] [phone] Nu Babin MD Pre-visit Planning (SDOH screening was completed on 07/13/2024 / patient requesting appt to be reschedule. ) 08/18/2024 11:45 AM EST Office Visit [address] [address] Sarita Foster DO Constipation, unspecified constipation type (Primary Dx); Medication side effect 08/18/2024 Travel 08/15/[address] [address] Nu Babin MD Nurse Triage 08/14/2024 9:45 AM EST Office Visit [address] [address] Misty Wagner NP Viral upper respiratory tract infection (Primary Dx); Asthma-chronic obstructive pulmonary disease overlap syndrome (CMS/HCC); Tobacco use 07/30/[address] [address] Nu Babin MD Chronic right-sided low back pain with right-sided sciatica 07/25/[address] [address] Nu Babin MD No Show 07/18/2024 Orders Only [facility] External Provider, [facility] 07/13/2024 Patient Outreach [address] [address] Nu Babin MD Pre-visit Planning (SDOH screening [...] Description 10/24/2024 2:00 PM EDT Office Visit [facility] [address] [place] [address] Nu Babin MD [address] [place] [address] Health Maintenance Due Date Last Done Comments CT Colonography 1960 Colonoscopy 1960 Colorectal Cancer Screening 1961 FIT DNA/Cologuard 1961 FIT 1961 FOBT 1960 Sigmoidoscopy 1961 Diabetes: Foot Exam 1971 Zoster Vaccines (1 of 2) 2011 COVID-19 Vaccine ( season) 2024 07/23/2023, 02/02/2022, 04/28/2021, Additional history exists Influenza Vaccine (#1) 2024 4, 06/19/2022, 06/02/2021, Additional history exists Diabetes: Hemoglobin A1C 07/09/2024 07 024, 07/23/2023, 02/19/2023, Additional history exists Depression Screening 01/06/2025 01/07/2024, 01/07/20 Lipid Panel 01/11/2025 01/12/2024, 11/03, 02/19/2022, Additional [...] EDT Narrative 09/19/2024 6:53 PM EDT ? [facility] ?[address] ?[place] [address] ? Magnetic Resonance Report ? Signed ? Patient: EddyGriffin Reyes ?MR#: [id number] ?? 34 ? : 1960 ?Acct:[id number] ? Age/Sex: 64 / M ?ADM Date: 03/18/25 ? Loc: HO.MRI ? Attending Dr: Jorge Alberto DE LA ROSA ? Ordering Physician: Jorge Alberto Servin ?? Date of Service: 09/19/24 ?? Procedure(s): MR lumbar spine wo con ?? Accession Number(s): [id number] ? cc: Nu Babin MD; Jorge Alberto Servin ? CLINICAL HISTORY: Z98.1 - Arthrodesis status ? MR lumbar spine without gadolinium ? Comparison: MR/NC/SR - MR LUMBAR SPINE WO CON - [...] hypertrophy. Moderate ?? bilateral neural foraminal narrowing, hrsz-mtgllxj-ufmc-right. Mild ?? central canal narrowing. ?? L3-L4: [...] 09/19/24 1852 ? DD/ 1850 ? TD/TT: 09/19/24 1850 ? Instructor Ballroom Dancing: ? Procedure Note Donlavonter, Image - 09/19/2024 [place] [address] Magnetic Resonance Report Signed Patient: Griffin Kam R#: [id number] 33 : 1960cct:[id number] Age/Sex: 64 / MADM Date: 09/19/24 Loc: HO.MRI Attending Dr: Jorge Alberto DE LA ROSA Ordering Physician: Jorge Alberto Servin Date of Service: 09/19/24 Procedure(s): MR lumbar spine wo con Accession Number(s): [id number] cc: Nu Babin MD; Jorge Alberto Servin CLINICAL HISTORY: Z98.1 - Arthrodesis status MR lumbar spine without gadolinium Comparison: MR/NC/SR - MR LUMBAR SPINE WO CON - [...] facet hypertrophy. Moderate bilateral neural foraminal narrowing, bsve-jgbwevp-hurb-right. Mild central canal narrowing. L3-L4: Mild central [...] in OV> 09/19/241851 DD/ 49 TD/TT: 09/19/241849 Instructor Ballroom Dancing: [facility] External Provider IMG MRI PROCEDURES Final Result * POCT Rapid Influenza B OSOM (08/14/2024 10:04 AM EST) Rapid Influenza B Ag Negative Negative, Indeterminate QC Media Lot # [id number] Lot# Expiration Date Swab 08/14/2024 10:0 4 AM EST Misty Wagner NP POINT OF CARE TEST ENTER/EDIT OR DERABLES Final Result * POCT Rapid Influenza A OSOM (08/14/2024 10:04 AM EST) Rapid Influenza A Ag Negative Negative, Indeterminate QC Media Lot # [id number] Lot# Expiration Date Swab Nasopharyngeal structure / Unknown 08/14/2024 10:04 AM EST Misty Graharriett SURVEY ASSOCIATE POINT OF CARE TEST ENTER/EDIT OR DERABLES Final Result * POCT Rapid RSV ROSALES ID NOW (08/14/2024 10:03 AM EST) [facility] RSV Rapid Ag POC Negative Negative QC Media Lot # [id number] Lot# Expiration Date [id number] Swab 08/14/2024 10:0 3 AM EST Misty Graef SURVEY ASSOCIATE POINT OF CARE TEST ENTER/EDIT OR DERABLES Final Result * POCT Rapid Covid-19 BinaxNOW (08/14/2024 10:02 AM EST) [facility] Rapid COVID Ag Negative QC Media Lot # [id number] Lot# Expiration Date [id number] Swab 08/14/2024 10:0 2 AM EST Mistyluis Wagner SURVEY ASSOCIATE POINT OF CARE TEST ENTER/EDIT OR DERABLES Final Result * FL Guidance in OR (07/18/2024 7:43 AM EST) Anatomical Region Laterality Modality X-Ray Angiograph y 07/18/2024 7:43 AM EST Narrative 07/19/2024 12:22 PM EST ? [facility] ?[address] ?[place] [address] ? Fluoroscopy Report ? Signed ? Patient: Griffin Kam ?MR#: [id number] ?? 33 ? : 1960 ?Acct:[id number] ? Age/Sex: 64 / M ?ADM Date: 01/14/25 ? Loc: HO.S3 ?345-1 ? Attending Dr: Mayito Robison MD, PhD ? Ordering Physician: Mayito Robison MD, PhD ?? Date of Service: 07/18/24 ?? Procedure(s): FL guidance in OR ?? Accession Number(s): [id number] ? cc: Mayito Robison MD, PhD; Nu [...] DD/ 0743 ? TD/TT: 07/18/24 1120 ? Instructor Ballroom Dancing: ? Procedure Note Anil Locke - 07/19/2024 [place] [address] Fluoroscopy Report Signed Patient: Griffin Kam R#: [id number] 33 : 1960cct:[id number] Age/Sex: 64 / MADM Date: 07/18/24 Loc: HO.S3 345-[address]: Mayito Robison MD, PhD Ordering Physician: Mayito Robison MD, PhD Date of Service: 07/18/24 Procedure(s): FL guidance in OR Accession Number(s): [id number] cc: Mayito Robison MD, PhD; Nu White [...] by: Tashi Garcia MD 07/19/2024 12:19 PM [facility] Dictated By: Tashi Garcia MD Signed By: <Electronically signed by Tashi Garcia MD in OV> 07/19/24 1219 DD/ 0743 TD/TT: 07/18/24 1120 Instructor Ballroom Dancing: [facility] External Provider IMG IR PROCEDURES Final Result * Lipid Panel with Reflex to Direct LDL (01/12/2024 8:13 AM EDT) Triglycerides 78 <150 mg/dL [facility] Comment:Desirable Triglyceri de: less than 150 mg/dLBorderline High Triglyceride 150-199 mg/dLHigh Triglyceride: 200-499 mg/dLVery High Triglyceride: greater than or equal to 5OO mg/dL Cholesterol 154 <200 mg/dL [facility] Comment:Desirable Cholestero l: less than 200 mg/dLBorderline High Cholesterol: 200-239 mg/dLHigh Cholesterol: greater than 239 mg/dL LDL Cholesterol Calculated 68 <100 mg/dL [facility] Comment:Desirable LDL: less than 100 mg/dLNear Optimal/Above Optimal LDL: 110- 129 mg/dLBorderline High LDL: 130-159 mg/dLHigh LDL: 160-189 mg/dLVery High LDL: greater than or equal to 190 mg/dL HDL Cholesterol 71 >40 mg/dL [facility] Comment:Desirable HDL: great er than 40 mg/dL Note: This HDL assay may give artificially low results in patients with liver disease. Blood 01/12/2024 8:13 AM EDT 01/12/2024 10:59 AM EDT us Nu Shipley MD LAB BLOOD ORDERABLES Final Result [facility] [address] [place] [phone] * POCT HGB A1C (01/07/2024 10:08 AM EDT) Hemoglobin A1C 5.6 4.0 - 6.0 % QC Media Lot # [id number] Lot# Expiration Date [id number] Blood 01/07/2024 10:0 8 AM EDT us Nu Shipley MD POINT OF CARE TEST EN TER/EDIT ORDERABLES Final Result * (ABNORMAL) Hepatitis Panel, General (07/23/2022 10:45 AM EST) Hepatitis A Antibody Total REACTIVE( A) NON-REACT MICAELA [facility] [place] [employer] Comment: For additional information, please refer to http://Finicity.Xockets/faq/AVN355 (This link is being provided for informational/ educational purposes only.) Hepatitis B Surface Antibody QL NON-REACT MICAELA NON-REACT MICAELA [facility] Hepatitis B Surface Ag NON-REACT MCIAELA NON-REACT MICAELA [facility] Hepatitis B Core Antibody Total NON-REACT MICAELA NON-REACT MICAELA [facility]eut Hepatitis C Antibody NON-REACT MICAELA NON-REACT MICAELA [facility].eut Index <0.02 <1.00 [facility] [place] [employer] Comment: HCV antibody was non-reactive. There is no laboratory evidence of HCV infection. In most cases, no further action is required. However, if recent HCV exposure is suspected, a test for HCV RNA (test code 69280) is suggested. For additional information please refer to http://Finicity.Xockets/faq/ZDX26u7 (This link is being provided for informational/ educational purposes only.) 07/23/2022 10:4 5 AM EST 07/23/2022 10:45 AM EST Narrative [facility] - 07/29/2022 12:44 AM EST FASTING:NO FASTING: NO Nahomi Sharma MD LAB BLOOD ORDERABLES Fin al Result Performing Organization Address [facility] Co de Phone Number [facility] [address] [place] [address], [place] [address] [facility] [place] [facility] [address] [facility], ([address]) [place] [address] * HIV-1/2 Antigen and Antibodies, Fourth Generation, with Reflexes (07/23/2022 10:45 AM EST) Pathologist [facility] HIV Antigen/Antibody, 4th Generation NON-REAC TIVE NON-REAC TIVE [facility] [place] [facility] Comment: HIV-1 antigen and HIV-1/HIV-2 antibodies [...] ?? For additional information please refer to http://education.BuildersCloud.[employer]/faq/LVQ361 (This link is being provided for informational/ educational purposes only.) The performance of this assay has not been clinically validated in patients less than 2 years old. Blood Venous blood specimen / Unknown 07/23/2022 10:45 AM EST 07/23/2022 10:45 AM EST Narrative [facility] - 07/29/2022 12:44 AM EST FASTING:NO FASTING: NO Nahomi Sharma MD LAB BLOOD ORDERABLES Fin al Result Performing Organization Address [facility]/State/ZIP Co de Phone Number [facility] [address] [place] [address], [place] [address] [facility] [address] [facility], ([address]) [place] [address] from Last 3 Months or Most Recently Relevant to Health Maintenance [facility] Care Teams Automobile Mechanic Supervisor Relationship Specialty Start Date End Date Nu Babin MD [address] [place] [phone] PCP - General Family Medicine 02/14/19 Meaghan Leroy Dining Room ManagerShop Clerk 05/08/24
--- OUTSIDE RECORDS SUMMARY | 2024-10-11 11:11 | XMS_ITS | Encounter Summary ---
Author Organization [employer] Address [address] [facility] 7t [place] [address] Care Team Providers Care Chlorinator Operator Name Role Phone Nu Babin MD Primary Care Provide r Reason for Visit * Reason Comments Med Refill Encounter Details Date Type Department Care Team ([facility] st Contact Info) Description 04/09/2024 Refill [facility] [address] [place] [address] Nu Babin MD [address] [place] [address] Hypokalemia Social History Tobacco Use Types Packs/Day [...] 2:00 PM EDT Office Visit [facility] [address] [place] [phone] uN Babin MD [address] [place] [address] documented as of this encounter Visit Diagnoses Diagnosis Hypokalemia Hypopotassemia documented in this encounter Additional Health Concerns Assessment Noted Time PHQ-9 Depression Total Score: 0 01/07/20 24 9:59 AM EDT documented as of this encounter Care Teams Chlorinator Operator Relationship Specialty Start Date End Date Nu Babin MD [address] [place] [phone] PCP - General Family Medicine 02/14/[address] Sql DeveloperLicensed Direct Entry Midwife 05/08/24 documented as of this encounter
--- OUTSIDE RECORDS SUMMARY | 2024-10-11 11:12 | XMS_ITS ---
Author Organization [employer] Address [address] [place] [address] 7t [place] [address] Care Team Providers Care Pathology Laboratory Aides Teacher Name Role Phone Nu Babin MD Primary Care Provide r CM Complex Status:Closed (Closed) Start date:10/05/2024 Enrollment reason:ADT Feed End date:10/06/2024 Close reason:Externally Managed Overview ED- Pt went to [facility] ED on 10/04/24. Continued Care and Services Coordination
--- NOTE | 2024-10-11 11:43 | A.OFFVIS_ITS ---
Vital Signs 10/11/24 11:46 Height 5 ft 7 in Weight 208 lb BMI 32.6 Intake Visit Reasons: Inj-Carpal Tunnel Therapeutic, Left-last 04/18/24 Intake Note: Griffin 64 yr old right hand dominant male presents today for his left hand CTR s/p injection from 04/18/24 done with Randy Perez. Patient states injection lasted about 3-4 months and would like to repeat today. Patient is diabetic. Allergies COLIN Inhibitors Allergy (Severe, Verified 10/11/24 11:46) Angioedema ibuprofen [From MOTRIN] Allergy (Unknown, Verified 10/11/24 11:46) Unknown HPI HPI Inj-Carpal Tunnel Therapeutic, Left-last 04/18/24: Details: Griffin is a 64 year old right hand dominant Diabetic Japanese speaking man who presents to discuss his left carpal tunnel syndrome. He reports dense numbness in the left median nerve distribution for years. He has a Hx of a left carpal & cubital tunnel release in ~2019, which gave him normal sensation for ~5 months before his symptoms returned. He was seen by ESTRELLA Perez on 04/18/24 and received a carpal tunnel injection, due to the severity of his symptoms and him being an unmedication Diabetic at the time. He says this injection gave him ~4 months of relief and he would like to repeat this today. After clarifying these issues, he clarified that he actually had prediabetes which improved with lifestyle changes. He said that it was his doctor who stopped his diabetes medications. [facility] Medical History Smoking history Back pain Arthritis Numbness Murmur Ulnar neuropathy at elbow of left upper extremity Carpal tunnel syndrome of left wrist JESSICA (obstructive sleep apnea) HTN (hypertension) Asthma-COPD overlap syndrome JESSICA on CPAP Aortic stenosis Obesity (BMI 30-39.9) Dyslipidemia Vitamin D deficiency Diabetic nephropathy associated with type 2 diabetes mellitus Diabetes type 2, controlled Diabetes Surgical History History of left knee replacement History of decompression of ulnar nerve History of carpal tunnel surgery of left wrist Hx of carpal tunnel syndrome Hx of cholecystectomy History of total right knee replacement (TKR) History of left hip replacement Hx of hernia repair History of back surgery Hx of colonoscopy Family History Father Hypertension Diabetes mellitus Mother Hypertension Social History Household Members: Family Household Members Other:: sister Housing: Apartment Are you a primary aged or disabled care worker to a significant other at home: No Do you presently have visiting nurse or other home services: Yes (Doctor every month) Alcohol intake: never Patient Tobacco Use Status: Current everyday Tobacco user Tobacco use type: Cigarette Cigarettes Per Day: 6 service: No Current occupational status: unemployed Current occupation: right handed Review of Systems Const All systems reviewed & are unremarkable except as noted in HPI and below Physical Exam Vital Signs: BMI result Body Mass Index 32.6 Const General: cooperative, healthy appearing and no acute distress Orientation/consciousness: patient oriented x3 HEENT Head: Yes normocephalic and Yes atraumatic Eyes EOM: EOMs intact bilaterally Resp Effort & Inspection: normal respiratory effort and able to speak in complete sentences Cardio Jugular venous distension: no JVD Skin General skin exam: turgor normal Rashes: no rashes Neuro General: patient oriented x3 Extrem Other: Evaluation of Left Upper Extremity: The patient is alert, oriented, and in no acute distress Neuro: Dense numbness in the median nerve distribution. Significant thenar wasting Vascular: Cap refill brisk ROM: He can make a fist and extend his fingers Skin: No lacerations or abrasions. General: No Ecchymosis. No Erythema or evidence of infection. Nerve Conduction Study: Left side only Left severe end stage carpal tunnel syndrome Complete denervation of the left APB muscle Dr. Ernandez 04/21/23 Psych Appearance: grossly normal Affect: normal affect Attitude: cooperative Office Procedures AMB Fracture Care Details: No fracture, a carpal tunnel injection Fracture Billing Code: Fracture Billing Code Assessment & Plan Assessment & Plan (1) Severe carpal tunnel syndrome of left wrist: Comment: Severe end stage compression palsy on the left median nerve at the wrist diagnostic for severe end stage carpal tunnel syndrome, EMG on 04/21/2023 Code(s): G56.02 - Carpal tunnel syndrome, left upper limb Category: Medical (2) History of carpal tunnel surgery of left wrist: Code(s): Z98.890 - Other specified postprocedural states Category: Surgical (3) Diabetic nephropathy associated with type 2 diabetes mellitus: Code(s): E11.21 - Type 2 diabetes mellitus with diabetic nephropathy Category: Medical (4) Diabetes type 2, controlled: Code(s): E11.9 - Type 2 diabetes mellitus without complications Category: Medical Plan Assessment & Plan: 1. Left carpal tunnel syndrome, recurrent, end-stage With dense numbness & S/P carpal tunnel injection on 04/18/24 I educated him about this condition I discussed operative and non-operative treatment options I discussed with the patient that due to the severity of the numbness and tingling accompanied by the amount of time his symptoms have been present it is hard to determine if he will have relief of symptoms with surgical intervention, as surgery would important to maintain muscle function and preserve any sensation possible. He expressed understanding and would like to proceed with [surgery, however he is expecting to have a back surgery scheduled in the next few months, and would like to have this done before considering a carpal tunnel surgery He is an unmedicated Diabetic, which he says is well controlled with lifestyle changes. No HgA1c on file. They will need an updated HgA1c that is <8.1% in order to proceed with surgery, and they expressed understanding Injection #1: The risks and benefits of a steroid injection including but not limited to risk of damage to blood vessels, nerves, tendons, infection, skin bleaching, failure to improve symptoms, increased pain, and possible need for further injections or other intervention were discussed with the patient and the patient wishes to proceed with the steroid injection. Once consent was obtained, I sterilely prepped the area over the Left carpal tunnel. I then passed the needle just ulnar to the palmaris longus tendon at the distal palmar crease and injected the carpal tunnel with a combination of 1 mL of dexamethasone (4mg/ml), and 1% lidocaine. The patient tolerated the procedure well with no complications. He will follow up in a few months following his back surgery to discuss possible surgical REPEAT left carpal tunnel release. Scribed for Veena Yusuf MD by [facility] medical lab director, on 10/11/24 at 12:00 PM, EST. Coding Level of Care Code Est Pt Level 4 (36132) Diagnoses Severe carpal tunnel syndrome of left wrist G56.02 History of carpal tunnel surgery of left wrist Z98.890 Diabetic nephropathy associated with type 2 diabetes mellitus E11.21 Diabetes type 2, controlled E11.9 CPT Codes Fracture Care - Fracture Billing Code: Fracture Billing Code ([id number])
[2024-10-11 11:46] VITALS: BMI 32.6
== END 2024-10-11 12:09 | disposition home or self-care (01) ==
PROVIDERS: PCP Internal Medicine; Visit Provider Orthopaedic Surgery
DX: G56.02 Carpal tunnel syndrome, left upper limb (principal); Z98.890 Other specified postprocedural states; E11.21 Type 2 diabetes mellitus with diabetic nephropathy
CPT/HCPCS: 20526; 99214

== ENCOUNTER → 2024-10-11 10:01 | Outpatient (BNVA) | payer MEDICAID, SELFPAY | PROVIDERS: PCP Internal Medicine | DX: G56.02 Carpal tunnel syndrome, left upper limb (principal); E11.21 Type 2 diabetes mellitus with diabetic nephropathy; Z98.890 Other specified postprocedural states | CPT/HCPCS: 20526; 99212; J1100; J2003 ==

== ENCOUNTER 2024-10-21 10:14 | Emergency (ER) | payer MEDICAID, SELFPAY ==
[2024-10-21 10:22] VITALS: BP 137/52; PULSE 76; RESP 18; TEMP 36.4; O2SAT 100; BMI 34.0
--- NOTE | 2024-10-21 10:49 | ED_ITS ---
HPI - Back Pain/Injury General Chief Complaint: Extremity Problem Stated Complaint: back and leg pain Time Seen by Provider: 10/21/24 10:39 Source: patient Mode of arrival: ambulatory Limitations: no limitations History of Present Illness HPI Narrative: This is a 63 years old the patient with history of chronic lower back pain status post back surgery in the past presented to the emergency department with a chief complaint of lower back pain radiated to the left lower extremity for about 3 days. Patient is fully ambulatory to the emergency department denies any weakness, denies any urinary incontinence any saddle anesthesia any fever. MD elicited complaint: back pain Pertinent past history: prior back pain Onset (ago): day(s) (3) Timing: constant Severity: moderate Similar Symptoms Previously: No Quality: burning and sharp Location: lumbar spine Radiation: left upper leg Exacerbating factors: none Relieving factors: none Associated symptoms: denies other symptoms Related Data Home Medications ?Medication ?Instructions ?Recorded ?Confirmed pantoprazole 40 mg tablet,delayed 40 mg PO DAILY 05/22/20 08/24/24 release ascorbic acid (vitamin C) 500 mg 500 mg PO DAILY 09/06/20 08/24/24 tablet,extended release (Vitamin C ER) amlodipine 10 mg tablet 10 mg PO DAILY 07/18/24 08/24/24 diclofenac sodium 1 % topical gel 1 ea topical DAILY PRN Pain 07/18/24 08/24/24 gabapentin 600 mg tablet 600 mg PO TID 07/18/24 08/24/24 hydrochlorothiazide 25 mg tablet 25 mg PO DAILY 07/18/24 08/24/24 hydrocortisone 2.5 % topical cream 1 appl topical BID PRN Rash 07/18/24 08/24/24 atorvastatin 80 mg tablet 80 mg PO DAILY 08/24/24 08/24/24 Previous Rx's ?Medication ?Instructions ?Recorded blood sugar diagnostic (FreeStyle #100 ea 05/22/20 Lite Strips) blood-glucose meter (FreeStyle #1 ea 05/22/20 Lite Meter kit) lancets 28 gauge (FreeStyle #100 ea 05/22/20 Lancets) ketoconazole 2 % topical cream 1 appl topical BID #30 grams 02/06/23 orthopaedic shoe lift, left #1 ea 02/08/23 acetaminophen 500 mg tablet 500 mg PO Q6H PRN pain #30 tabs 08/26/23 (Tylenol Extra Strength) lidocaine 5 % topical patch 1 patch topical DAILY #30 ea 08/26/23 ezetimibe 10 mg tablet 10 mg PO DAILY #90 tabs 09/09/23 oxycodone 5 mg tablet 5 mg PO BID PRN severe pain (scale 08/22/24 score 7-10) #14 tabs aspirin 81 mg tablet,delayed 81 mg PO DAILY #30 tabs 08/24/24 release (Ecotrin Low Strength) gabapentin 300 mg capsule 300 mg PO TID #30 caps 09/19/24 oxycodone 5 mg tablet 5 mg PO Q6H PRN pain #15 tabs 10/04/24 Ventolin HFA 90 mcg/actuation 2 puff inhalation Q4-6H PRN 10/12/24 aerosol inhaler (albuterol sulfate) shortness of breath or wheezing 60 days #18 grams oxycodone 5 mg tablet 5 mg PO Q6H PRN pain #15 tabs 10/21/24 Allergies Allergy/AdvReac Type Severity Reaction Status Date / Time COLIN Inhibitors Allergy Severe Angioedema Verified 10/21/24 10:23 ibuprofen [From MOTRIN] Allergy Unknown Unknown Verified 10/21/24 10:23 Review of Systems Constitutional: Constitutional: Reports no additional constitutional complaints Cardiovascular: Cardiovascular: Reports no additional cardiovascular complaints Psychiatric: Psychiatric: Reports no additional psychiatric complaints [facility] Past Medical History Attestation statement: The following information was validated with the patient. Medical History Smoking history Back pain Arthritis Numbness Murmur Ulnar neuropathy at elbow of left upper extremity Carpal tunnel syndrome of left wrist JESSICA (obstructive sleep apnea) HTN (hypertension) Asthma-COPD overlap syndrome JESSICA on CPAP Aortic stenosis Obesity (BMI 30-39.9) Dyslipidemia Vitamin D deficiency Diabetic nephropathy associated with type 2 diabetes mellitus Diabetes type 2, controlled Diabetes Surgical History History of left knee replacement History of decompression of ulnar nerve History of carpal tunnel surgery of left wrist Hx of carpal tunnel syndrome Hx of cholecystectomy History of total right knee replacement (TKR) History of left hip replacement Hx of hernia repair History of back surgery Hx of colonoscopy Family History Family History Father Hypertension Diabetes mellitus Mother Hypertension Social History Social History Household Members: Family Household Members Other:: sister Housing: Apartment Are you a primary resident care assistant to a significant other at home: No Do you presently have visiting nurse or other home services: Yes (Doctor every month) Alcohol intake: never Patient Tobacco Use Status: Current everyday Tobacco user Tobacco use type: Cigarette Cigarettes Per Day: 6 Smoked in Last 30 Days: No Use of substances other than those prescribed or required for medical reasons: No Advance Directives: No Advance Directives Information Provided: No service: No Current occupational status: unemployed Current occupation: right handed Physical Exam Vital Signs: Vital Signs: Last Vital Signs Temp 97.5 F 10/21/24 11:13 Pulse 76 10/21/24 11:13 Resp 16 10/21/24 11:13 BP 137/52 L 10/21/24 11:13 Pulse Ox 100 10/21/24 11:13 O2 Del Method Room Air 10/21/24 11:13 BMI result Body Mass Index 34.0 He looks well is not toxic-appearing Const: General: cooperative, comfortable and no acute distress Nutritional Appearance: average body habitus Orientation/consciousness: patient oriented x3 Limitations: no limitations HEENT: Head: Yes normal to inspection Face and sinus: Yes normal facial exam Neck: Neck: Yes normal visual inspection and Yes full ROM Chest: Chest palpation & inspection: normal inspection of the chest Resp: Effort & Inspection: normal respiratory effort Auscultation: clear to auscultation bilaterally Cardio: Jugular venous distension: no JVD Rate: regular rate Rhythm: regular rhythm GI: Inspection: Yes normal to inspection Palpation (GI): Soft to palpation Auscultation: normal bowel sounds Skin: General skin exam: no rashes or lesions noted, elasticity normal and turgor normal Neuro: Other: He has an antalgic gait but he is able to ambulate. He has tenderness in the l ower spine he has no deficits in strength, reflexes are present. General: patient oriented x3 and no focal motor deficits Cranial nerves: Yes CN's II-XII intact bilaterally Motor exam (neuro): 5/5 motor strength present throughout Medical Decision Making Medical Decision Making MDM Narrative: Patient presented with complaining of lower back pain radiated to the left lower extremity but is able to ambulate, he has no red flags so I do not think we need to do any MRI today he has a an appointment with the his back specialist. Differential Diagnosis Differential Diagnoses: The differential diagnosis associated with the presentation includes Exacerbation over back pain/sciatic/muscular pain Admission/Observation Consideration of admission/observation: Escalation of care including admission/observation considered Discharge Plan Discharge Clinical Impression: Sciatica Qualifiers: Laterality: left Qualified Code(s): M54.32 - Sciatica, left side Patient Disposition: Home, Self-Care Instructions: Sciatica (ED) Additional Instructions: Follow-up with your primary care physician call and make an appointment. Also follow-up with your back surgeon. Return to the emergency room if worse Prescriptions: New oxycodone 5 mg tablet 5 mg PO Q6H PRN (Reason: pain) Qty: 15 0RF Rx Instructions: partial filing upon pt request; Partial Fill upon patient request. No Action (DME) orthopaedic shoe lift, left 1/2 inch See Rx Instructions .Route .MEDSUPPLY Qty: 1 0RF Rx Instructions: As directed ezetimibe 10 mg tablet 10 mg PO DAILY Qty: 90 3RF oxycodone 5 mg tablet 5 mg PO BID PRN (Reason: severe pain (scale score 7-10)) Qty: 14 0RF albuterol sulfate [Ventolin HFA] 90 mcg/actuation HFA aerosol inhaler 2 puff inhalation Q4-6H PRN (Reason: shortness of breath or wheezing) 60 Days Qty: 18 3RF ascorbic acid (vitamin C) [Vitamin C] 500 mg Tablet Extended Release 500 mg PO DAILY ketoconazole 2 % cream 1 appl topical BID Qty: 30 0RF lidocaine 5 % adhesive patch,medicated 1 patch topical DAILY Qty: 30 0RF Rx Instructions: leave on most painful area for up to 12 hrs acetaminophen [Tylenol Extra Strength] 500 mg tablet 500 mg PO Q6H PRN (Reason: pain) Qty: 30 0RF oxycodone 5 mg tablet 5 mg PO Q6H PRN (Reason: pain) Qty: 15 0RF Rx Instructions: partial filing upon pt request; Partial Fill upon patient request. gabapentin 600 mg tablet 600 mg PO TID amlodipine 10 mg tablet 10 mg PO DAILY hydrocortisone 2.5 % cream 1 appl TOPICAL BID PRN (Reason: Rash) diclofenac sodium 1 % gel 1 ea topical DAILY PRN (Reason: Pain) hydrochlorothiazide 25 mg Tablet 25 mg PO DAILY pantoprazole 40 mg tablet,delayed release (DR/EC) 40 mg PO DAILY (DME) blood-glucose meter [FreeStyle Lite Meter] Kit See Rx Instructions .ROUTE .MEDSUPPLY Qty: 1 0RF Rx Instructions: As directed (DME) FreeStyle Lite Strips Strip See Rx Instructions .ROUTE .MEDSUPPLY Qty: 100 11RF Rx Instructions: 3 times a day (DME) lancets [FreeStyle Lancets] 28 gauge misc See Rx Instructions .ROUTE .MEDSUPPLY Qty: 100 11RF Rx Instructions: 3 times a day atorvastatin 80 mg tablet 80 mg PO DAILY aspirin [Ecotrin Low Strength] 81 mg tablet,delayed release (DR/EC) 81 mg PO DAILY Qty: 30 5RF gabapentin 300 mg capsule 300 mg PO TID Qty: 30 1RF Referrals: Mayito Robison MD, PhD [Physician] - 2 days Interventions: ED Discharge Assessment Last Done: 10/21/24 11:13 Discharge Date/Time: 10/21/24 11:14 Print Language: Danish
[2024-10-21 11:13] VITALS: BP 137/52; PULSE 76; RESP 16; TEMP 36.4; O2SAT 100
== END 2024-10-21 11:14 | disposition home or self-care (01) ==
PROVIDERS: Emergency Provider Emergency Medicine
DX: M54.32 Sciatica, left side (principal); M54.50 Low back pain, unspecified; I10 Essential (primary) hypertension; E11.9 Type 2 diabetes mellitus without complications
CPT/HCPCS: 99283; 99284

== ENCOUNTER 2024-10-25 10:15 | Outpatient (REF) | payer MEDICAID, SELFPAY ==
[2024-10-25 11:31] LABS: MANUAL DIFF FLAG NO
[2024-10-25 11:50] LABS: Basophils Percent Auto 0.6 % (0-2); Eosinophils Absolute Auto 0.2 X10*3/uL (0.0-0.4); Eosinophils Percent Auto 3.4 % (0-4); Hematocrit 37.1 % (42.0-52.0); Hemoglobin 11.9 g/dl (14.0-18.0); Imm Gran Abs Auto 0.02 X10*3/uL (0.00-0.03); Imm Gran Pct Auto 0.3 % (0.0-0.4); Lymphocytes Absolute Auto 2.1 X10*3/uL (1.2-4.9); Lymphocytes Percent Auto 29.7 % (20-40); Mean Corpuscular HGB Conc 32.1 g/dl (31.0-36.0); Mean Corpuscular Hemoglobin 27.8 pg (27.0-33.0); Mean Corpuscular Volume 86.7 fL (80.0-98.0); Monocytes Absolute Auto 0.5 X10*3/uL (0.1-1.2); Monocytes Percent Auto 7.4 % (2-11); Neutrophils Absolute Auto 4.2 x10*3/uL (2.0-8.3); Neutrophils Percent Auto 58.6 % (45-73); Platelet Count 318 X10*3/uL (160-400); Red Blood Count 4.28 X10*6/uL (4.60-5.80); Red Cell Distribution Width 16.3 % (11.0-16.0); White Blood Count 7.1 X10*3/uL (4.8-10.8)
--- OUTSIDE RECORDS SUMMARY | 2024-10-25 11:56 | XMS_ITS | Encounter Summary ---
Author Organization [employer] Address [address] [place] [address] Care Team Providers Care Vp Foundation Name Role Phone Nu Babin MD Primary Care Provide r Reason for Referral * Consultation (Routine) - Pending Review Specialty Diagnoses / Procedures Referred By Cl mckeon Referred To Contact Gastroenterology Diagnoses Colon cancer screening Nu Babin MD [address] [place] [id number] Phone: tel: fax: Referral ID Status Reason Start Date Expiration Date Visits Requested Visits Authorized [id number] Pending Review Specialty Services Required 10/24/2024 10/24/2025 1 1 Encounter Details Date Type Department Care Team (Late st Contact Info) Description 10/24/2024 2:00 PM EDT Office Visit [facility] [address] [place] [address] [phone] Nu Babin MD [address] [place] [address] [phone] Encounter for preventive care (Primary Dx); Type 2 diabetes mellitus with stage 3 chronic kidney disease, without long-term current use of insulin, unspecified whether stage 3a or 3b CKD (CMS/HCC); Pruritus; Colon cancer screening; CKD stage 2 due to type 2 diabetes mellitus (CMS/HCC) (CMS/HCC) Social History Tobacco Use Types Packs/Day Years Used Date Smoking Tobacco: Every Day Cigarettes Passive Smoke Exposure: Current Smokeless Tobacco: Never Alcohol Use Standard Drinks/Week Comments Never 0 (1 standard drink = 0.6 oz pur e alcohol) Depression Answer Date Recorded Patient Health Questionnaire-9 Score 0 10/24/2024 Patient Health Questionnaire-9 Score 0 10/24/2024 Last PHQ-9: Questionnaire Data Not on file 0 10/24/2024 Housing Stability Answer Date Recorded What is [...] Date Recorded Patient Health Questionnaire-2 Score 0 10/24/2024 Internet Access Answer Date Recorded Internet Access [...] Sign Reading Time Taken Comments Blood Pressure 116/71 10/24/2024 1:38 PM EDT Pulse 74 10/24/2024 1:38 PM EDT Temperature 36.4 ??C (97.6 ??F) 10/24/2024 1:38 PM ED T Respiratory Rate 17 10/24/2024 1:38 PM EDT Oxygen Saturation - - Inhaled Oxygen Concentration - - Weight 95.3 kg (210 lb) 10/24/2024 1:38 PM EDT Height 167.6 cm (5' 6 ) 10/24/2024 1:38 PM EDT Body Mass Index 33.89 10/24/2024 1:38 PM EDT documented in this encounter Progress Notes * Nu Shipley MD - 10/24/2024 2:00 PM EDT SUBJECTIVE: Griffin Kam is a 64 y.o. year old male who presents for Physical . Concerns for today's visit: Occupation:retired Lives with:sister Social Hx: denies drinking EtOH, smoking cigarettes 4 daily and denies recreational drug use. Diet:regular Exercise:walks 15min daily Colonoscopy:Patient referred to GI for colonoscopy Eye Care:up to date Dental Care:patient will set up his appointment PMHx:see below Immunizations: Reviewed with patient Acute Concerns: Patient reports he has been having dry skin and itchiness and sometimes at night he scratches really hard without intention Social History Social History Narrative Not on file Patient Active Problem List Diagnosis Angioedema Aortic valve stenosis Asthma-chronic obstructive pulmonary disease overlap syndrome (CMS/HCC) Chronic obstructive lung disease (CMS/HCC) CKD stage 2 due to type 2 diabetes mellitus (CMS/HCC) (CMS/HCC) Continuous opioid dependence (CMS/HCC) Coronary arteriosclerosis Hyperlipidemia associated with type 2 diabetes mellitus (CMS/HCC) Eczema Essential hypertension Hypertensive disorder Hip [...] Viral upper respiratory tract infection Tobacco use Pruritus No family history on file. Review of Systems Constitutional: Negative. HENT: Negative. Respiratory: Negative. Cardiovascular: Negative. Skin: Positive for rash. OBJECTIVE: Vitals: 10/24/24 1338 BP: 116/71 BP Location: Left arm Patient Position: Sitting BP Cuff Size: Adult Pulse: 74 Resp: 17 Temp: 97.6 ??F (36.4 ??C) TempSrc: Oral Weight: 210 lb (95.3 kg) Height: 5' 6 (1.676 m) Physical Exam Constitutional: Appearance: Normal appearance. Cardiovascular: Rate and Rhythm: Normal rate. Pulmonary: Effort: Pulmonary effort is normal. Breath sounds: Normal breath sounds. Abdominal: General: Abdomen is flat. Palpations: Abdomen is soft. Musculoskeletal: Right lower leg: No edema. Left lower leg: No edema. Neurological: Mental Status: He is alert. Follow Up: Follow up in about 6 months (around 04/25/2025) for chronic conditions . Current Outpatient Medications on File Prior to Visit Medication Sig Dispense Refill acetaminophen (Tylenol 8 [...] tablet 0 Blood Glucose Monitoring Suppl (FreeStyle [place] Lite) w/Device kit USE TO TEST BLOOD SUGAR TWICE DAILY 1 kit 0 Diclofenac Sodium 1 % gel APPLY 1 APPLICATION TOPICALLY IF NEEDED EACH DAY (TO USE IN LOWER BACK). 100 g 1 docusate sodium (Colace) 100 MG capsule Take 1 capsule (100 mg) by mouth 2 times daily. 180 capsule0 ezetimibe (Zetia) 10 MG tablet Take 1 [...] the skin 1 (one) time each day. nicotine polacrilex (Commit) 2 MG lozenge Dissolve 1 lozenge (2 mg) in the mouth every 2 (two) hours if needed for smoking cessation. 100 lozenge 0 nitroglycerin (Nitrostat) 0.[address] 1 tablet under the tongue. place 1 tablet by sublingual route at the first sign of an attack; no more than 3 tabs are recommended within a 15 minute period. polycarbophil (FiberCon) 625 MG tablet Take 1 tablet (625 mg) by mouth Once per day. 90 tablet 0 predniSONE (Deltasone) 20 MG tablet 2 tabs po daily for 5 days 10 tablet 0 tiZANidine (Zanaflex) 2 MG tablet Take 1 tablet (2 mg) by mouth if needed in the morning, at noon, and at bedtime for muscle spasms. 30 tablet 1 Ventolin HFA 108 (90 Base) MCG/ACT inhaler Inhale 2 puffs every 6 (six) hours if needed for wheezing. 18 g 2 zoster vaccine-recombinant adjuvanted (Shingrix) 50 MCG/0.5ML vaccine Inject 0.5 mL into the shoulder, thigh, or buttocks. No current facility-administered medications on file prior to visit. Problem List Items Addressed This Visit Pruritus Relevant Medications triamcinolone (Kenalog) 0.1 % cream hydrOXYzine HCl (Atarax) 25 MG tablet Colon cancer screening Relevant Orders Referral to Gastroenterology Encounter for preventive care - Primary See HPI Relevant Orders CBC auto differential Comprehensive Metabolic Panel HIV-1/2 Antigen and Antibodies, Fourth Generation, with Reflexes Hepatitis C Antibody with Reflex to HCV, RNA, Quantitative, Real-Time PCR Lipid Panel, Standard Vitamin D, 25-Hydroxy, Total, Immunoassay TSH with Reflex to Free T4 CKD stage 2 due to type 2 diabetes mellitus (CMS/HCC) ([facility]/HCC) Diabetes is: controlled - Lab Results Component Value Date HGBA1C 6.0 10/24/2024 HGBA1C 5.6 01/07/2024 HGBA1C 5.8 07/23/2023 - Lab Results Component Value Date CREATININE 1.31 07/04/2024 -Changes: None - Diabetic eye exam: Up-to-date - Diabetic foot exam: Pending - Continue lifestyle modifications - Continue current medications - Follow up: 6 months Other Visit Diagnoses Type 2 diabetes mellitus with stage 3 chronic kidney disease, without long-term current use of insulin, unspecified whether stage 3a or 3b CKD ([facility]/HCC) Relevant Medications zoster vaccine-recombinant adjuvanted (Shingrix) 50 MCG/0.5ML vaccine Other Relevant Orders POCT Glucose (Completed) POCT HGB A1C (Completed) documented in this encounter Miscellaneous Notes * Assessment & Plan Note - Nu Shipley MD - 10/24/2024 5:00 PM EDT Associated Problem(s): CKD stage 2 due to type 2 diabetes mellitus (CMS/HCC) ([facility]) Diabetes is: controlled - Lab Results Component Value Date HGBA1C 6.0 10/24/2024 HGBA1C 5.6 01/07/2024 HGBA1C 5.8 07/23/2023 - Lab Results Component Value Date CREATININE 1.31 07/04/2024 -Changes: None - Diabetic eye exam: Up-to-date - Diabetic foot exam: Pending - Continue lifestyle modifications - Continue current medications - Follow up: 6 months * Assessment & Plan Note - Nu Shipley MD - 10/24/2024 4:59 PM EDT Associated Problem(s): Encounter for preventive care See HPI documented in this encounter Plan of Treatment Scheduled Orders Name Type Priority Associated Diagnoses Orde r Schedule Comprehensive Metabolic Panel Lab Routine Encounter for preventive care Expected: 10/24/2024 (Approximate), Expires: 10/24/2025 HIV-1/2 Antigen and Antibodies, Fourth Generation, with Reflexes Lab Routine Encounter for preventive care Expected: 10/24/2024 (Approximate), Expires: 10/24/2025 Hepatitis C Antibody with Reflex to HCV, RNA, Quantitative, Real-Time PCR Lab Routine Encounter for preventive care Expected: 10/24/2024, Expires: 10/24/2025 Lipid Panel, Standard Lab Routine Encounter for preventive care Expected: 10/24/2024 (Approximate), Expires: 10/24/2025 Vitamin D, 25-Hydroxy, Total, Immunoassay Lab Routine Encounter for preventive care Expected: 10/24/2024 (Approximate), Expires: 10/24/2025 TSH with Reflex to Free T4 Lab Routine Encounter for preventive care Expected: 10/24/2024 (Approximate), Expires: 10/24/2025 Scheduled Referrals Name Type Priority Associated Diagnoses Order Schedule Referral to Gastroenterology Outpatient Referral Routine Colon cancer screening Expected: 10/24/2024 (Approximate), Expires: 10/24/2025 documented as of this encounter Procedures Procedure Name Priority Date/Time Associated Diagnosis Comments CBC WITH AUTO DIFFERENTIAL Routine 10/25/2024 10:18 AM EDT Encounter for preventive care POCT GLYCATED HEMOGLOBIN, TOTAL Routine 10/24/2024 1:40 PM EDT Type 2 diabetes mellitus with stage 3 chronic kidney disease, without long-term current use of insulin, unspecified whether stage 3a or 3b CKD (CMS/HCC) POCT GLUCOSE Routine 10/24/2024 1:40 PM EDT Type 2 diabetes mellitus with stage 3 chronic kidney disease, without long-term current use of insulin, unspecified whether stage 3a or 3b CKD (CMS/HCC) documented in this encounter Results * (ABNORMAL) CBC auto differential (10/25/2024 10:18 AM EDT) White Blood Count 7.1 4.8 - 10.8 X10*3/uL [facility] Red Blood Count 4.28(L) 4.60 - 5.80 X10*6/uL [facility] Hemoglobin 11.9(L) 14.0 - 18.0 g/dl [facility] Hematocrit 37.1(L) 42.0 - 52.0 % [facility] Mean Corpuscular Volume 86.7 80.0 - 98.0 fL [facility] Mean Corpuscular Hemoglobin 27.8 27.0 - 33.0 pg [facility] Mean Corpuscular HGB Conc 32.1 31.0 - 36.0 g/dl [facility] Red Cell Distribution Width 16.3(H) 11.0 - 16.0 % [facility] Platelet Count 318 160 - 400 X10*3/uL [facility] Mean Platelet Volume 11.0 9.4 - 12.4 fL [facility] Neutrophils Percent Auto 58.6 45 - 73 % [facility] Imm Gran Pct Auto 0.3 0.0 - 0.4 % [facility] Lymphocytes Percent Auto 29.7 20 - 40 % [facility] Monocytes Percent Auto 7.4 2 - 11 % [facility] Eosinophils Percent Auto 3.4 0 - 4 % [facility] Basophils Percent Auto 0.6 0 - 2 % [facility] NRBC Pct Auto 0.0 0.0 - 0.2 /100WBC [facility] Neutrophils Absolute Auto 4.2 2.0 - 8.3 x10*3/uL [facility] Imm Gran Abs Auto 0.02 0.00 - 0.03 X10*3/uL [facility] Lymphocytes Absolute Auto 2.1 1.2 - 4.9 X10*3/uL [facility] Monocytes Absolute Auto 0.5 0.1 - 1.2 X10*3/uL [facility] Eosinophils Absolute Auto 0.2 0.0 - 0.4 X10*3/uL [facility] Basophils Absolute Auto 0.0 0.0 - 0.2 X10*3/uL [facility] NRBC Abs Auto 0.000 0.0 - 0.012 X10*3/uL [facility] Blood Venous blood specimen / Unknown 10/25/2024 10:18 AM EDT 10/25/2024 11:27 AM EDT us Nu Shipley MD LAB BLOOD ORDERABLES Final Result [facility] [address] [place] [phone] * (ABNORMAL) POCT HGB A1C (10/24/2024 1:40 PM EDT) Hemoglobin A1C 6.0 4.0 - 6.0 % QC Media Lot # [id number] Lot# Expiration Date Blood 10/24/2024 1:40 PM EDT Nu Shipley MD POINT OF CARE TEST EN TER/EDIT ORDERABLES Final Result * POCT Glucose (10/24/2024 1:40 PM EDT) Glucose Blood, POC 110 60 - 200 mg/dL QC Media Lot # [id number] Lot# Expiration Date Blood Capillary blood specimen / Unknown 10/24/2024 1:40 PM EDT Result [facility] Nu Shipley MD POINT OF CARE TEST EN TER/EDIT ORDERABLES Final Result documented in this encounter Visit Diagnoses Diagnosis Encounter for preventive care- Primary Type 2 diabetes mellitus with stage 3 chronic kidney disease, without long-term current use of insulin, unspecified whether stage 3a or 3b CKD (CMS/HCC) Pruritus Unspecified pruritic disorder Colon cancer screening Special screening for malignant neoplasms, colon CKD stage 2 due to type 2 diabetes mellitus (CMS/HCC) (CMS/HCC) documented in this encounter Additional Health Concerns Assessment Noted Time PHQ-9 Depression Total Score: 0 10/25/19 25 1:42 PM EDT documented as of this encounter Care Teams Vp Foundation Relationship Specialty Start Date End Date Nu Babin MD [address] [place] [address] PCP - General Family Medicine 02/14/19 Meaghan Leroy Rubber Production Machine OperatorGastroenterology Professor 05/08/24 documented as of this encounter
--- OUTSIDE RECORDS SUMMARY | 2024-10-25 11:56 | XMS_ITS | Encounter Summary ---
Author Organization [employer] Address [address] [place] [address] Care Team Providers Care Catalyst Unit Operator Name Role Phone Nu Babin MD Primary Care Provide r Encounter Details Date Type Department Care Team (Latest Contact Info) Description 10/24/2024 Travel Social History Tobacco Use Types Packs/Day [...] documented as of this encounter Care Teams Catalyst Unit Operator Relationship Specialty Start Date End Date Nu Babin MD [address] [place] [id number] PCP - General Family Medicine 02/14/19 Meaghan Leroy Dairy ClerkSpeech And Hearing Director 05/08/24 documented as of this encounter
--- OUTSIDE RECORDS SUMMARY | 2024-10-25 11:56 | XMS_ITS | Encounter Summary ---
Author Organization [employer] Address [address] [facility] 7t [place] [address] Care Team Providers Care Test Borer Helper Name Role Phone Nu Babin MD Primary Care Provide r Reason for Visit * Reason Comments Med Refill Encounter Details Date Type Department Care Team ([facility] st Contact Info) Description 04/09/2024 Refill [facility]INE [address] [place], [place] [phone] Nu Babin MD [address] [place] [address] Hypokalemia Social History Tobacco Use Types Packs/Day [...] documented as of this encounter Care Teams Test Borer Helper Relationship Specialty Start Date End Date Nu Babin MD [address] [place] [phone] PCP - General Family Medicine 02/14/19 Meaghan Leroy Admissions SupervisorCandy Feeder 05/08/24 documented as of this encounter
--- OUTSIDE RECORDS SUMMARY | 2024-10-25 11:56 | XMS_ITS | Clinical Summary ---
Author Organization [employer] Address [address] [facility] 7t [place] [address] Care Team Providers Care Creative Writer Name Role Phone Nu Babin MD Primary [...] 021 Active Blood Glucose Monitoring Suppl (FreeStyle Ralph Lite) w/Device kit USE TO TEST BLOOD [...] chew 50 tablet 2 025 2024 Active triamcinolone (Kenalog) 0.1 % creamIndications: Pruritus Apply topically if needed in the morning and at bedtime (pain and swelling). 30 g 2 Active hydrOXYzine HCl (Atarax) 25 MG tabletIndications :Pruritus Take 1 tablet (25 mg) by mouth every 8 (eight) hours if needed for itching. 30 tablet 025 2024 Active acetaminophen (Tylenol 8 Hour) 650 MG ER tabletIndications :Lumbar back pain with radiculopathy affecting lower extremity Take 2 tablets (1,300 mg) by mouth every 8 (eight) hours if needed for moderate pain. Swallow whole with water. Do not break, crush, dissolve and or chew 50 tablet 2 024 2024 Discontinued(R eorder (will not trigger notification to Pharmacy)) zoster vaccine-recombina nt adjuvanted (Shingrix) 50 MCG/0.5ML vaccineIndication s:Type 2 diabetes mellitus with stage 3 chronic kidney disease, without long-term current use of insulin, unspecified whether stage 3a or 3b CKD (CMS/HCC) Inject 0.5 mL (50 mcg) into the muscle 1 (one) time for 1 dose. 0.5 mL 025 2024 Active Problems Problem Noted Date Diagnosed Date Pruritus 10/24/2024 Viral upper respiratory tract infection 08/14/19 25 [...] for preventive care 07/23/2023 Assessment & Plan (10/24/2024 4:59 PM EDT): See HPI Assessment & Plan (07/23/2023 10:43 AM EST): [...] 2 due to type 2 diabetes mellitus ([facility]) 06/16/2017 Assessment & Plan (10/24/2024 5:00 PM EDT): Diabetes is: controlled - Lab Results Component Value Date HGBA1C 6.0 10/24/2024 HGBA1C 5.6 01/07/2024 HGBA1C 5.8 07/23/2023 - Lab Results Component Value Date CREATININE 1.31 07/04/2024 -Changes: None - Diabetic eye exam: Up-to-date - Diabetic foot exam: Pending - Continue lifestyle modifications - Continue current medications - Follow up: 6 months Coronary arteriosclerosis 06/16/2017 Hyperlipidemia associated with type [...] to enails with type 2 diabetes mellitus ([facility]) 06/16/2017 Osteoarthritis of multiple joints [...] Encounters Date Type Department Care Team Description 10/24/2024 2:00 PM EDT Office Visit [address] [phone] Nu Babin MD Encounter for preventive care (Primary Dx); Type 2 diabetes mellitus with stage 3 chronic kidney disease, without long-term current use of insulin, unspecified whether stage 3a or 3b CKD ([facility]/HCC); Pruritus; Colon cancer screening; CKD stage 2 due to type 2 diabetes mellitus ([facility]/HCC) ([facility]/HCC) 10/24/2024 Travel 10/20/[address] [address] Nu Babin MD Chart Prep 10/13/2024 Patient Outreach [address] [address] Nu Babin MD Pre-visit Planning (SDOH screening completed on 07/13/2024) 10/06/2024 Patient Outreach [address] [address] Nu Babin MD Care Coordination ([facility]- ED F/U call) 10/05/2024 Patient Outreach [address] [address] Nu Babin MD 09/29/2024 10:00 AM EDT Office Visit [facility] [address] [address] Joe Lindquist MD Lumbar back pain with radiculopathy affecting lower extremity (Primary Dx); Tobacco use 09/19/2024 Orders Only [facility] External Provider, [facility] 09/15/2024 Population Health Risk Score [facility] Department [address] [facility] [address] [place] [phone] Provider, Population Health Generic 09/04/2024 Patient Outreach [facility] [address] [place] [phone] Nu Babin MD Pre-visit Planning (SDOH screening was completed on 07/13/2024 / patient requesting appt to be reschedule. ) 08/18/2024 11:45 AM EST Office Visit [address] [phone] Sarita Foster DO Constipation, unspecified constipation type (Primary Dx); Medication side effect 08/18/2024 Travel 08/15/[address] [phone] Nu Babin MD Nurse Triage 08/14/2024 9:45 AM EST Office Visit [address] [phone] Misty Wagner NP Viral upper respiratory tract infection (Primary Dx); Asthma-chronic obstructive pulmonary disease overlap syndrome (CMS/HCC); Tobacco use 07/30/[address] [phone] Nu Babin MD Chronic right-sided low back pain with right-sided sciatica from Last 3 Months Immunizations Name Administration [...] 17 10/24/2024 1:38 PM EDT Oxygen Saturation 90% 09/29/2024 9:55 AM EDT Inhaled Oxygen Concentration - - Weight 95.3 kg (210 lb) 10/24/2024 1:38 PM EDT Height 167.6 cm (5' 6 ) 10/24/2024 1:38 PM EDT Body Mass Index 33.89 10/24/2024 1:38 PM EDT Plan of Treatment Health Maintenance Due Date Last Done Comments CT Colonography 1960 Colonoscopy 1961 Colorectal Cancer Screening 1960 FIT DNA/Cologuard 1961 FIT 1961 FOBT 1960 Sigmoidoscopy 1961 Diabetes: Foot Exam 1971 Zoster Vaccines (1 of 2) 2011 COVID-19 Vaccine ( season) 2024 07/23/2023, 02/02/2022, 04/28/2021, Additional history exists Influenza Vaccine (#1) 2024 , 06/19/2022, 06/02/2021, Additional history exists Lipid Panel 01/11/2025 01/12/2024, 11/03, 02/19/2022, Additional history exists Eye Exam 04/02/2025 04/02/2023, 03/06, 04/02/2023, Additional history exists Diabetes: Hemoglobin A1C 04/25/2025 025, 01/07/2024, 07/23/2023, Additional history exists Alcohol/Substance Use Screening 05/05/2025 05/05/2024 SDOH Screening 07/13/2025 07/13/2024 Depression Screening 10/24/2025 10/24/2024, 10/25/19 25 Tobacco Screening 10/24/2025 10/24/2024 DTaP/Tdap/Td Vaccines (4 - Td or Tdap) [...] whether stage 3a or 3b CKD (CMS/HCC) MR LUMBAR SPINE WO CONTRAST Routine 09/19/2024 [...] AM EST Viral upper respiratory tract infection LIPID PANEL WITH REFLEX TO DIRECT LDL Routine 01/12/2024 8:13 AM EDT Essential hypertension HEPATITIS PANEL, GENERAL Routine 07/23/2022 10:45 AM EST Encounter for preventive health examination HIV 1/2 ANTIGEN/ANTIBODY, FOURTH GENERATION W/RFL Routine 07/23/2022 10:45 AM EST Encounter for preventive health examination from Last 3 Months or Most Recently Relevant to Health Maintenance Results * (ABNORMAL) CBC auto differential (10/25/2024 10:18 AM EDT) White Blood Count 7.1 4.8 - 10.8 X10*3/uL [facility] Red Blood Count 4.28(L) 4.60 - 5.80 X10*6/uL [facility] Hemoglobin 11.9(L) 14.0 - 18.0 g/dl [facility] Hematocrit 37.1(L) 42.0 - 52.0 % [facility] Mean Corpuscular Volume 86.7 80.0 - 98.0 fL [facility] Mean Corpuscular Hemoglobin 27.8 27.0 - 33.0 pg [facility] Mean Corpuscular HGB Conc 32.1 31.0 - 36.0 g/dl [facility] Red Cell Distribution Width 16.3(H) 11.0 - 16.0 % [facility] Platelet Count 318 160 - 400 X10*3/uL [facility] Mean Platelet Volume 11.0 9.4 - 12.4 fL [facility] Neutrophils Percent Auto 58.6 45 - 73 % [facility] Imm Gran Pct Auto 0.3 0.0 - 0.4 % [facility] Lymphocytes Percent Auto 29.7 20 - 40 % [facility] Monocytes Percent Auto 7.4 2 - 11 % [facility] Eosinophils Percent Auto 3.4 0 - 4 % [facility] Basophils Percent Auto 0.6 0 - 2 % [facility] NRBC Pct Auto 0.0 0.0 - 0.2 /100WBC [facility] Neutrophils Absolute Auto 4.2 2.0 - 8.3 x10*3/uL [facility] Imm Gran Abs Auto 0.02 0.00 - 0.03 X10*3/uL [facility] Lymphocytes Absolute Auto 2.1 1.2 - 4.9 X10*3/uL [facility] Monocytes Absolute Auto 0.5 0.1 - 1.2 X10*3/uL [facility] Eosinophils Absolute Auto 0.2 0.0 - 0.4 X10*3/uL [facility] Basophils Absolute Auto 0.0 0.0 - 0.2 X10*3/uL [facility] NRBC Abs Auto 0.000 0.0 - 0.012 X10*3/uL [facility] Blood Venous blood specimen / Unknown 10/25/2024 10:18 AM EDT 10/25/2024 11:27 AM EDT us Nu Shipley MD LAB BLOOD ORDERABLES Final Result [facility] [address] [place] [phone] * (ABNORMAL) POCT HGB A1C (10/24/2024 [...] specimen / Unknown 10/24/2024 1:40 PM EDT Nu Shipley MD POINT OF CARE TEST EN TER/EDIT ORDERABLES Final Result * MR Lumbar Spine w/o Contrast (09/19/2024 6:50 PM EDT) Anatomical Region Laterality Modality Spine, L-spine Magnetic Resonan ce 09/19/2024 6:50 PM EDT Narrative 09/19/2024 6:53 PM EDT ? [facility] ?[address] ?[place] [address] ? Magnetic Resonance Report ? Signed ? Patient: Griffin Kam ?MR#: [id number] ?? 34 ? : 1960 ?Acct:[id number] ? Age/Sex: 64 / M ?ADM Date: 09/19/24 ? Loc: HO.MRI ? Attending Dr: Jorge Alberto DE LA ROSA ? Ordering Physician: Jorge Alberto Servin ?? Date of Service: 09/19/24 ?? Procedure(s): MR lumbar spine wo con ?? Accession Number(s): [id number] ? cc: Nu Babin MD; Jorge Alberto Servin ? CLINICAL HISTORY: Z98.1 - Arthrodesis status ? MR lumbar spine without gadolinium ? Comparison: MR/LA/SR - MR LUMBAR SPINE WO CON - [...] hypertrophy. Moderate ?? bilateral neural foraminal narrowing, ufsl-cxzijmy-xscx-right. Mild ?? central canal narrowing. ?? L3-L4: [...] DD/ 1850 ? TD/TT: 09/19/24 1850 ? Consulting Solution Director: ? Procedure Note Donlavonter, Image - 09/19/2024 [place] [phone] Magnetic Resonance Report Signed Patient: Griffin Kam GMR#: [id number] 33 : 1960cct:[id number] Age/Sex: 64 / MADM Date: 09/19/24 Loc: HO.MRI Attending Dr: Jorge Alberto DE LA ROSA Ordering Physician: Jorge Alberto Servin Date of Service: 09/19/24 Procedure(s): MR lumbar spine wo con Accession Number(s): [id number] cc: Nu Babin MD; Jorge Alberto Servin CLINICAL HISTORY: Z98.1 - Arthrodesis status MR lumbar spine without gadolinium Comparison: MR/LA/SR - MR LUMBAR SPINE WO CON - [...] facet hypertrophy. Moderate bilateral neural foraminal narrowing, caht-jcmdjct-vocu-right. Mild central canal narrowing. L3-L4: Mild central [...] in OV> 09/19/241851 DD/ 49 TD/TT: 09/19/241849 Consulting Solution Director: [facility] External Provider IMG MRI PROCEDURES Final Result * POCT Rapid Influenza B OSOM (08/14/2024 10:04 AM EST) Rapid Influenza B Ag Negative Negative, Indeterminate QC Media Lot # [id number] Lot# Expiration Date Swab 08/14/2024 10:0 4 AM EST Misty Wagner PERSONAL CHEF POINT OF CARE TEST ENTER/EDIT OR DERABLES Final Result * POCT Rapid Influenza A OSOM (08/14/2024 10:04 AM EST) Rapid Influenza A Ag Negative Negative, Indeterminate QC Media Lot # [id number] Lot# Expiration Date Swab Nasopharyngeal structure / Unknown 08/14/2024 10:04 AM EST Misty Wagner PERSONAL CHEF POINT OF CARE TEST ENTER/EDIT OR DERABLES Final Result * POCT Rapid RSV ROSALES ID NOW (08/14/2024 10:03 AM EST) RSV Rapid Ag POC Negative Negative QC Media Lot # [id number] Lot# Expiration Date [id number] Swab 08/14/2024 10:0 3 AM EST Misty Wagner PERSONAL CHEF POINT OF CARE TEST ENTER/EDIT OR DERABLES Final Result * POCT Rapid Covid-19 BinaxNOW (08/14/2024 10:02 AM EST) Rapid COVID Ag Negative QC Media Lot # [id number] Lot# Expiration Date [id number] Swab 08/14/2024 10:0 2 AM EST Misty Wagner PERSONAL CHEF POINT OF CARE TEST ENTER/EDIT OR DERABLES Final Result * Lipid Panel with Reflex to Direct LDL (01/12/2024 8:13 AM EDT) Triglycerides 78 <150 mg/dL [facility] Comment:Desirable Triglyceri de: less than 150 mg/dLBorderline High Triglyceride 150-199 mg/dLHigh Triglyceride: 200-499 mg/dLVery High Triglyceride: greater than or equal to 5OO mg/dL Cholesterol 154 <200 mg/dL [facility] Comment:Desirable Cholestero l: less than 200 mg/dLBorderline High Cholesterol: 200-239 mg/dLHigh Cholesterol: greater than 239 mg/dL LDL Cholesterol Calculated 68 <100 mg/dL [facility] Comment:Desirable LDL: less than 100 mg/dLNear Optimal/Above Optimal LDL: 110- 129 mg/dLBorderline High LDL: 130-159 mg/dLHigh LDL: 160-189 mg/dLVery High LDL: greater than or equal to 190 mg/dL HDL Cholesterol 71 >40 mg/dL [facility] Comment:Desirable HDL: great er than 40 mg/dL Note: This HDL assay may give artificially low results in patients with liver disease. Blood 01/12/2024 8:13 AM EDT 01/12/2024 10:59 AM EDT us Nu Shipley MD LAB BLOOD ORDERABLES Final Result [facility] [address] [place] [phone] * (ABNORMAL) Hepatitis Panel, General (07/23/2022 10:45 AM EST) Pathologist [facility] Hepatitis A Antibody Total REACTIVE( A) NON-REACT MICAELA [employer] Comment: For additional information, please refer to http://WISErg.[employer]/faq/MVC983 (This link is being provided for informational/ educational purposes only.) Hepatitis B Surface Antibody QL NON-REACT MICAELA NON-REACT MICAELA [employer] Hepatitis B Surface Ag NON-REACT MICAELA NON-REACT MICAELA [employer] Hepatitis B Core Antibody Total NON-REACT MICAELA NON-REACT MICAELA [employer] Hepatitis C Antibody NON-REACT MICAELA NON-REACT MICAELA [employer] Index <0.02 <1.00 [employer] Comment: HCV antibody was non-reactive. There is no laboratory evidence of HCV infection. In most cases, no further action is required. However, if recent HCV exposure is suspected, a test for HCV RNA (test code 10878) is suggested. For additional information please refer to http://[employer]/faq/CUV62u0 (This link is being provided for informational/ educational purposes only.) 07/23/2022 10:4 5 AM EST 07/23/2022 10:45 AM EST Narrative [facility] - 07/29/2022 12:44 AM EST FASTING:NO FASTING: NO us Nahomi Sharma MD LAB BLOOD ORDERABLES Fin al Result [facility] [address] [facility], [facility], [place] [address] [employer] [address] [facility], ([address]) [place] [address] * HIV-1/2 Antigen and Antibodies, Fourth Generation, with Reflexes (07/23/2022 10:45 AM EST) HIV Antigen/Antibody, 4th Generation NON-REAC TIVE NON-REAC TIVE [employer] Comment: HIV-1 antigen and HIV-1/HIV-2 antibodies [...] ?? For additional information please refer to http://education.[employer]/faq/DQF747 (This link is being provided for informational/ educational purposes only.) The performance of this assay has not been clinically validated in patients less than 2 years old. Blood Venous blood specimen / Unknown 07/23/2022 10:45 AM EST 07/23/2022 10:45 AM EST Narrative [facility] - 07/29/2022 12:44 AM EST FASTING:NO FASTING: NO Nahomi Sharma MD LAB BLOOD ORDERABLES Fin al Result [facility] [address], [place] [address] [employer] [address] [facility], ([address]) [place] [address] from Last 3 Months or Most Recently Relevant to Health Maintenance [place] [address] [place] [address] C3 Care Teams Creative Writer Relationship Specialty Start Date End Date Nu Babin MD [address] [place] [address] PCP - General Family Medicine 02/14/19 Meaghan Leroy Die Attaching Machine TenderA And P Mechanic 05/08/24
--- OUTSIDE RECORDS SUMMARY | 2024-10-25 11:56 | XMS_ITS | Encounter Summary ---
Author Organization [employer] Address [address] [facility] 7t [place] [address] Care Team Providers Care Talent Sourcing Specialist Name Role Phone Nu Babin MD Primary Care Provide r Reason for Visit * Reason Onset Date Comments Chart Prep 10/20/2024 Encounter Details Date Type Department Care Team ([facility] st Contact Info) Description 10/20/2024 Telephone [facility] [address] [place] [address] Nu Babin MD [address] [place] [address] Chart Prep Social History Tobacco Use Types Packs/Day Years [...] encounter Miscellaneous Notes * Telephone Encounter - Kristofer Pelayo [place] - 10/20/2024 2:08 PM EDT Chart Prep Labs: done Images: done Referrals: complete Vaccines due: yes Screenings: colonoscopy and foot exam Overdue care gaps: A1c, Glucose, PHQ-9, Disability screen, and Tobacco documented in this encounter Plan of Treatment Not on file documented as of this encounter Visit Diagnoses Not on filedocumented in this encounter Additional Health Concerns Assessment Noted Time PHQ-9 Depression Total Score: 0 01/07/20 24 9:59 AM EDT documented as of this encounter Care Teams Talent Sourcing Specialist Relationship Specialty Start Date End Date Nu Babin MD [address] [place] [phone] PCP - General Family Medicine 02/14/19 Meaghan Leroy Agricultural Engineering TechnologistManager General 05/08/24 documented as of this encounter
[2024-10-25 12:10] LABS: Alanine Aminotransferase 18 U/L (0-40); Albumin Level 4.1 g/dL (3.5-5.0); Alkaline Phosphatase 139 U/L (39-117); Anion Gap 11 (12-20); Aspartate Amino Transferase 30 U/L (5-37); Bilirubin Total 0.4 mg/dL (0.0-1.0); Blood Urea Nitrogen 23 mg/dL (9-16); Carbon Dioxide 30 mmol/L (22-29); Chloride 102 mmol/L (96-108); Cholesterol 113 mg/dL (<200); Estimated Glomerular Filt Rate > 60; Glucose Random 96 mg/dL (60-115); HDL Cholesterol 35 mg/dL (>40); LDL Cholesterol Calculated 64 mg/dL (<100); Potassium 3.7 mmol/L (3.3-5.1); Sodium 139 mmol/L (135-145); Total Protein 7.6 g/dL (6.5-8.0); Triglycerides 72 mg/dL (<150)
[2024-10-25 12:26] LABS: Vitamin D 25-OH Total 16.2 ng/mL (>30)
[2024-10-25 12:31] LABS: HIV AB/AG Nonreactive (Nonreactive); HIV Num 1 0.06 S/CO (0.00-0.99); ~HepC Num1 0.09 S/CO (0.00-0.79); ~Hepatitis C Antibody Nonreactive (Nonreactive)
== END 2024-10-25 10:16 | disposition home or self-care (01) ==
LOC: HO.HHCL 10:15
PROVIDERS: Visit Provider Internal Medicine
DX: Z00.00 Encounter for general adult medical examination without abnormal findings (principal); Z11.4 Encounter for screening for human immunodeficiency virus [HIV]; Z11.59 Encounter for screening for other viral diseases; Z13.220 Encounter for screening for lipoid disorders; Z13.29 Encounter for screening for other suspected endocrine disorder; Z13.228 Encounter for screening for other metabolic disorders
CPT/HCPCS: 36415; 80053; 80061; 82306; 84443; 85025; 86803; 87389

== ENCOUNTER 2024-10-30 09:36 | Outpatient (AMB) | payer MEDICAID, SELFPAY ==
--- NOTE | 2024-10-30 09:51 | HO.SPINEOV ---
Intake Visit Reasons: ED f/u 10/21/24 Intake Note: Mr. Kam is here today to F/u after ED Visit for Back and leg pain. Senior Ui Ux Developer Required: Yes Senior Ui Ux Developer Services: Senior Ui Ux Developer Present Senior Ui Ux Developer Name: Kristine V, LM Allergies COLIN Inhibitors Allergy (Severe, Verified 10/30/24 10:18) Angioedema ibuprofen [From MOTRIN] Allergy (Unknown, Verified 10/30/24 10:18) Unknown Assessment & Plan Assessment & Plan (1) S/P lumbar fusion: Code(s): Z98.1 - Arthrodesis status Category: Medical Plan: Griffin comes in today for a subsequent follow-up visit after being seen in the emergency department for lumbar radiculopathy. He has about 4 months out from L3-[address] Robison. To recap, we have extensively reviewed surgical options with Griffin, who is unwilling to undergo subsequent surgery for the severe bilateral L5 compression seen under the surgical construct. Dr. Robison did review the patient's most recent MRI in offered him a bilateral L5 foraminotomy to address his leg pain. See my previous office visit note for specifics regarding this matter. Today, he was continues to report low back pain and shooting pains down his bilateral lower extremities. When describing the shooting pain he runs his hand over the lateral aspect of his bilateral legs, terminating near the posterior calf. We again discussed the possibility of surgery, which he was unwilling to discuss. He did not follow up with his pain management referral which was placed after his last visit. He is interested in potentially discussing something such as a spinal cord stimulator or other non operative conservative treatments for his pain. I did extensively explained to Griffin that he very likely could still be healing from the fusion surgery, which takes about a year to fully heal from in some cases. Jorge Alberto Robison MD,PhD [facility] Orders: Referrals Pain Management Referral Z98.1 - Arthrodesis status Coding Level of Care Code Est Pt Level 2 (13107) Diagnoses S/P lumbar fusion Z98.1
--- OUTSIDE RECORDS SUMMARY | 2024-10-30 10:42 | XMS_ITS | Encounter Summary ---
Author Organization [employer] Address [address] [facility] 7t [place] [address] Care Team Providers Care Unix Architect Name Role Phone Nu Babin MD Primary Care Provide r Reason for Visit * Reason Comments Med Refill Encounter Details Date Type Department Care Team ([facility] st Contact Info) Description 04/09/2024 Refill [facility] [address] [place], [place] [phone] Nu Babin MD [address] [place] [address] Hypokalemia Social History Tobacco Use Types Packs/Day [...] documented as of this encounter Care Teams Unix Architect Relationship Specialty Start Date End Date Nu Babin MD [address] [place] [phone] PCP - General Family Medicine 02/14/19 Meaghan Leroy Diesel Locomotive FirerIntensive Care Ambulance Paramedic 05/08/24 documented as of this encounter
--- OUTSIDE RECORDS SUMMARY | 2024-10-30 10:43 | XMS_ITS | Clinical Summary ---
Author Organization [employer] Address [address] [facility] [address] [place] [address] Care Team Providers Care Diamond Grinder Name Role Phone Nu Babin MD Primary [...] 21 Active Blood Glucose Monitoring Suppl (FreeStyle [place] Lite) w/Device kit USE TO TEST BLOOD [...] 90 tablet 1 06/06/20 24 025 Active hydrocortisone 2.5 % creamIndications:D [...] mouth 2 times daily. 180 capsule 08/18/19 25 026 Active polycarbophil (FiberCon) 625 MG tablet Take 1 tablet (625 mg) by mouth Once per day. 90 tablet 08/18/19 25 026 Active nicotine polacrilex (Commit) 2 MG lozenge Dissolve 1 lozenge (2 mg) in the mouth every 2 (two) hours if needed for smoking cessation. 100 lozenge 09/30/19 25 Active tiZANidine (Zanaflex) 2 MG tablet Take 1 tablet (2 mg) by mouth if needed in the morning, at noon, and at bedtime for muscle spasms. 30 tablet 1 09/30/19 25 Active acetaminophen (Tylenol 8 Hour) 650 MG ER tabletIndications: Lumbar back pain with radiculopathy affecting lower extremity Take 2 tablets (1,300 mg) by mouth every 8 (eight) hours if needed for moderate pain. Swallow whole with water. Do not break, crush, dissolve and or chew 50 tablet 2 09/30/19 25 025 Active triamcinolone (Kenalog) 0.1 % creamIndications:P ruritus Apply topically if needed in the morning and at bedtime (pain and swelling). 30 g 2 10/25/19 25 Active hydrOXYzine HCl (Atarax) 25 MG tabletIndications: Pruritus Take 1 tablet (25 mg) by mouth every 8 (eight) hours if needed for itching. 30 tablet 10/25/19 25 025 Active zoster vaccine-recombinan t adjuvanted (Shingrix) 50 MCG/0.5ML vaccineIndications :Type 2 diabetes mellitus with stage 3 chronic kidney disease, without long-term current use of insulin, unspecified whether stage 3a or 3b CKD ([facility]) Inject 0.5 mL (50 mcg) into the muscle 1 (one) time for 1 dose. 0.5 mL 10/25/19 25 025 Active Problems Problem Noted Date Diagnosed Date [...] 2 due to type 2 diabetes mellitus ([facility]) 06/16/2017 Assessment & Plan (10/24/2024 [...] Hyperlipidemia associated with type 2 diabetes m bladimiritus 06/16/2017 Eczema 06/16/2017 Hypertensive disorder 06/16/2017 Assessment & Plan (03/28/2024 10:08 PM EDT): Elevated BP seems reactive to pain States BP at home <140/90 -advised to bring to PCP home BP -explained pt steroids may increase BP while taking med Obstructive sleep apnea syndrome 06/16/2017 Onychomycosis of multiple to enails with type 2 diabetes mellitus ([facility]) 06/16/2017 Osteoarthritis of multiple joints [...] Description 10/24/2024 2:00 PM EDT Office Visit [address] [address] Nu Babin MD Encounter for preventive care (Primary Dx); Type 2 diabetes mellitus with stage 3 chronic kidney disease, without long-term current use of insulin, unspecified whether stage 3a or 3b CKD (CMS/HCC); Pruritus; Colon cancer screening; CKD stage 2 due to type 2 diabetes mellitus (CMS/HCC) ([facility]/HCC) 10/24/2024 Travel 10/20/2024 Telephone [facility] [address] [place] [phone] Nu Babin MD Chart Prep 10/13/2024 Patient Outreach [address] [address] Nu Babin MD Pre-visit Planning (SDOH screening completed on 07/13/2024) 10/06/2024 Patient Outreach [address] [address] Nu Babin MD Care Coordination ([facility]- ED F/U call) 10/05/2024 Patient Outreach [address] [address] Nu Babin MD 09/29/2024 10:00 AM EDT Office Visit [facility] [address] [address] Joe Lindquist MD Lumbar back pain with radiculopathy affecting lower extremity (Primary Dx); Tobacco use 09/19/2024 Orders Only [facility] External Provider, [facility] 09/15/2024 Population Health Risk Score [facility] [address] [place] [phone] Provider, Population Health Generic 09/04/2024 Patient Outreach [address] [address] Nu Babin MD Pre-visit Planning (SDOH screening was completed on 07/13/2024 / patient requesting appt to be reschedule. ) 08/18/2024 11:45 AM EST Office Visit [facility] [address] [place] [address] Sarita Foster DO Constipation, unspecified constipation type (Primary Dx); Medication side effect 08/18/2024 Travel 08/15/2024 Telephone [facility] [address] [place] [address] [phone] Nu Babin MD Nurse Triage 08/14/2024 9:45 AM EST Office Visit [facility] [address] [place] [address] Misty Wagner NP Viral upper respiratory tract infection (Primary Dx); Asthma-chronic obstructive pulmonary disease overlap syndrome (CMS/HCC); Tobacco use from Last 3 Months Immunizations Name Administration [...] 2024 , 06/19/2022, 06/02/2021, Additional history exists Eye Exam 04/02/2025 04/02/2023, 03/06, 04/02/2023, Additional history exists Diabetes: Hemoglobin A1C 04/25/2025 025, 01/07/2024, 07/23/2023, Additional history exists Alcohol/Substance Use Screening 05/05/2025 05/05/2024 SDOH Screening 07/13/2025 07/13/2024 Depression Screening 10/24/2025 10/24/2024, 10/25/19 25 Tobacco Screening 10/24/2025 10/24/2024 Lipid Panel 10/25/2025 10/25/2024, 01/02, 11/24/2022, Additional history exists DTaP/Tdap/Td Vaccines (4 - Td or Tdap) 06/04/2032 06/04/2022, 01/07/2021, 03/22/2012, Additional history exists RSV Patients and Patients Aged 60 years or older Completed 07/26/2023 Pneumococcal Vaccine: 50+ Years Completed 01/07/2024, 01/16/2014, 08/17/2005 HIV Screening Completed 10/25/2024, 07/23/2022 Hepatitis C Screening Completed 10/25/2024, 023 HIB Vaccines Aged Out No longer eligi [...] Procedure Name Priority Date/Time Associated Diagnosis Comments TSH W/REFLEX TO FT4 Routine 10/25/2024 1 0:18 AM EDT Encounter for preventive care VITAMIN D,25-OH,TOTAL,IA Routine 10/25/2024 10:18 AM EDT Encounter for preventive care LIPID PANEL, STANDARD Routine 10/25/2024 10:18 AM EDT Encounter for preventive care HEPATITIS C AB W/REFL TO HCV RNA, QN, PCR Routine 10/25/2024 10:18 AM EDT Encounter for preventive care HIV 1/2 ANTIGEN/ANTIBODY, FOURTH GENERATION W/RFL Routine 10/25/2024 10:18 AM EDT Encounter for preventive care COMPREHENSIVE METABOLIC PANEL Routine 10/25/2024 10:18 AM EDT Encounter for preventive care CBC WITH AUTO DIFFERENTIAL Routine 10/25/2024 10:18 [...] AM EST Viral upper respiratory tract infection from Last 3 Months Results * (ABNORMAL) Vitamin D, 25-Hydroxy, Total, Immunoassay (10/25/2024 10:18 AM EDT) Pathologist [facility] Vitamin D 25-OH Total 16.2(L) >30 ng/mL [facility] Comment: Health Based Reference Values*< 20 ??ng/mL ??Drxfiznoq15-75 ng/mL ??Insufficient> 30 ??ng/mL ??Sufficient*Ana María LYN. N Engl J Med. 2007;357:266-280There is no well-established upper level of normal vitamin Dlevels. Some laboratories use 50 ng/mL as an upper limit ofnormal. However, toxicity is patient-dependent and may occurat any level. Careful correlation with the patient'spresentation is necessary and, if there is concern forvitamin D toxicity, treatment should be consideredirrespective of the serum level.Care must be taken in interpreting Vitamin D results fromdifferent laboratories and methodologies. ??Published datademonstrated that results from patients undergoinghemodialysis may show a negative bias when tested withvarious automated 25-OH vitamin D assays when compared toLC- MS/MS.When testing samples from patients whose predominant form ofVitamin D is Vitamin D2, such as patients receiving VitaminD2 supplementation, results that are subtherapeutic shouldbe confirmed with another method such as LC-MS/MS. Blood Venous blood specimen / Unknown 10/25/2024 10:18 AM EDT 10/25/2024 11:27 AM EDT us Nu Shipley MD LAB BLOOD ORDERABLES Final Result Performing Organization Address [facility]/ZIP Co de Phone Number [facility] [address] [place] [phone] * TSH with Reflex to Free T4 (10/25/2024 10:18 AM EDT) Pathologist [facility] TSH reflex Free T4 0.90 0.32 - 4.0 uIU/mL [facility] Blood Venous blood specimen / Unknown 10/25/2024 10:18 AM EDT 10/25/2024 11:27 AM EDT us Nu Shipley MD LAB BLOOD ORDERABLES Final Result Performing Organization Address [facility] de Phone Number [facility] [address] [place] [phone] * (ABNORMAL) CBC auto differential (10/25/2024 10:18 AM EDT) Pathologist [facility] White Blood Count 7.1 4.8 - 10.8 X10*3/uL [facility] Red Blood Count 4.28(L) 4.60 - 5.80 X10*6/uL [facility] Hemoglobin 11.9(L) 14.0 - 18.0 g/dl [facility] Hematocrit 37.1(L) 42.0 - 52.0 % [facility] Mean Corpuscular Volume 86.7 80.0 - 98.0 fL [facility] Mean Corpuscular Hemoglobin 27.8 27.0 - 33.0 pg [facility] Mean Corpuscular HGB Conc 32.1 31.0 - 36.0 g/dl [facility] Red Cell Distribution Width 16.3(H) 11.0 - 16.0 % [facility] Platelet Count 318 160 - 400 X10*3/uL [facility] Mean Platelet Volume 11.0 9.4 - 12.4 fL [facility] Neutrophils Percent Auto 58.6 45 - 73 % [facility] Imm Gran Pct Auto 0.3 0.0 - 0.4 % [facility] Lymphocytes Percent Auto 29.7 20 - 40 % [facility] Monocytes Percent Auto 7.4 2 - 11 % [facility] Eosinophils Percent Auto 3.4 0 - 4 % [facility] Basophils Percent Auto 0.6 0 - 2 % [facility] NRBC Pct Auto 0.0 0.0 - 0.2 /100WBC [facility] Neutrophils Absolute Auto 4.2 2.0 - 8.3 x10*3/uL [facility] Imm Gran Abs Auto 0.02 0.00 - 0.03 X10*3/uL [facility] Lymphocytes Absolute Auto 2.1 1.2 - 4.9 X10*3/uL [facility] Monocytes Absolute Auto 0.5 0.1 - 1.2 X10*3/uL [facility] Eosinophils Absolute Auto 0.2 0.0 - 0.4 X10*3/uL [facility] Basophils Absolute Auto 0.0 0.0 - 0.2 X10*3/uL [facility] NRBC Abs Auto 0.000 0.0 - 0.012 X10*3/uL [facility] Blood Venous blood specimen / Unknown 10/25/2024 10:18 AM EDT 10/25/2024 11:27 AM EDT us Nu Shipley MD LAB BLOOD ORDERABLES Final Result [facility] [address], [place] [phone] * Hepatitis C Antibody with Reflex to HCV, RNA, Quantitative, Real-Time PCR (10/25/2024 10:18 AM EDT) Hepatitis C Antibody Nonreactive Nonreactive [facility] Comment:Antibodies to HCV no t detected; does not exclude early acuteHCV infection. Blood Venous blood specimen / Unknown 10/25/2024 10:18 AM EDT 10/25/2024 11:27 AM EDT us Nu Shipley MD LAB BLOOD ORDERABLES Final Result Performing Organization Address City/[facility]/ZIP Co de Phone Number [facility] [address] [place] [phone] * HIV-1/2 Antigen and Antibodies, Fourth Generation, with Reflexes (10/25/2024 10:18 AM EDT) HIV AB/AG Nonreactive Nonreactive [facility] Comment:HIV-1 p24 Ag and/or HIV-1/HIV-2 Ab not detected.A test result that is nonreactive does not exclude thepossibility of exposure to or infection with HIV-1 and/orHIV-2. Nonreactive results in this assay for individualswith prior exposure to HIV-1 and/or HIV-2 may be due toantigen and antibody levels that are below the limit ofdetection of this assay.[employer] HIV Ag/Ab Combo assay result andsupplemental assay results should be interpreted inconjunction with the patient's clinical presentation,history and other laboratory results. If the results areinconsistent with clinical evidence, additional testing issuggested to confirm the result. Blood Venous blood specimen / Unknown 10/25/2024 10:18 AM EDT 10/25/2024 11:27 AM EDT us Nu Shipley MD LAB BLOOD ORDERABLES Final Result Performing Organization Address City/[facility]/ZIP Co de Phone Number [facility] [address] [place] [phone] * (ABNORMAL) Lipid Panel, Standard (10/25/2024 10:18 AM EDT) Triglycerides 72 <150 mg/dL [facility] Comment:Desirable Triglyceri de: less than 150 mg/dLBorderline High Triglyceride 150-199 mg/dLHigh Triglyceride: 200-499 mg/dLVery High Triglyceride: greater than or equal to 5OO mg/dL Cholesterol 113 <200 mg/dL [facility] Comment:Desirable Cholestero l: less than 200 mg/dLBorderline High Cholesterol: 200-239 mg/dLHigh Cholesterol: greater than 239 mg/dL LDL Cholesterol Calculated 64 <100 mg/dL [facility] Comment:Desirable LDL: less than 100 mg/dLNear Optimal/Above Optimal LDL: 110- 129 mg/dLBorderline High LDL: 130-159 mg/dLHigh LDL: 160-189 mg/dLVery High LDL: greater than or equal to 190 mg/dL HDL Cholesterol 35(L) >40 mg/dL [facility] Comment:Desirable HDL: great er than 40 mg/dL Note: This HDL assay may give artificially low results in patients with liver disease. Blood Venous blood specimen / Unknown 10/25/2024 10:18 AM EDT 10/25/2024 11:27 AM EDT Nu Shipley MD LAB BLOOD ORDERABLES Final Result [facility] [address] [place] [address] [phone] * (ABNORMAL) Comprehensive Metabolic Panel (10/25/2024 10:18 AM EDT) Sodium 139 135 - 145 mmol/L [facility] Potassium 3.7 3.3 - 5.1 mmol/L [facility] Chloride 102 96 - 108 mmol/L [facility] Carbon Dioxide 30(H) 22 - 29 mmol/L [facility] Anion Gap 11(L) 12 - 20 [facility] Urea Nitrogen (BUN) 23(H) 9 - 16 mg/dL [facility] Creatinine, Serum 1.12 0.5 - 1.4 mg/dL [facility] Estimated Glomerular Filt Rate >60 [facility] Comment:Chronic Kidney Disea se: Estimated GFR < 60 mL/min/1.49i5Spjpzo Kidney Disease: Estimated GFR < 15 mL/min/1.73m2 Glucose 96 60 - 115 mg/dL [facility] Calcium 10.0 8.4 - 10.2 mg/dL [facility] Bilirubin, Total 0.4 0.0 - 1.0 mg/dL [facility] Aspartate Amino Transferase 30 5 - 37 U/L [facility] Alanine Aminotransferase 18 0 - 40 U/L [facility] Total Protein 7.6 6.5 - 8.0 g/dL [facility] Albumin Level 4.1 3.5 - 5.0 g/dL [facility] Alkaline Phosphatase 139(H) 39 - 117 U/L [facility] Blood Venous blood specimen / Unknown 10/25/2024 10:18 AM EDT 10/25/2024 11:27 AM EDT us Nu Shipley MD LAB BLOOD ORDERABLES Final Result Performing Organization Address City/State/[facility] Co de Phone Number [facility] [address] [place] [phone] * (ABNORMAL) POCT HGB A1C (10/24/2024 1:40 PM EDT) Hemoglobin A1C 6.0 4.0 - 6.0 % QC Media Lot # [id number] Lot# Expiration Date Blood 10/24/2024 1:40 PM EDT us Nu Shipley MD POINT OF CARE TEST EN TER/EDIT ORDERABLES Final Result * POCT Glucose (10/24/2024 1:40 PM EDT) Glucose Blood, POC 110 60 - 200 mg/dL QC Media Lot # [id number] Lot# Expiration Date Blood Capillary blood specimen / Unknown 10/24/2024 1:40 PM EDT us Nu Shipley MD POINT OF CARE TEST EN TER/EDIT ORDERABLES Final Result * MR Lumbar Spine w/o Contrast (09/19/2024 6:50 PM EDT) Anatomical Region Laterality Modality Spine, L-spine Magnetic Resonan ce 09/19/2024 6:50 PM EDT Narrative 09/19/2024 6:53 PM EDT ? [facility] ?[address] ?[place] [address] ? Magnetic Resonance Report ? Signed ? Patient: Griffin Kam G ?MR#: [id number] ?? 34 ? : 1960 ?Acct:[id number] ? Age/Sex: 64 / M ?ADM Date: 09/19/24 ? Loc: HO.MRI ? Attending Dr: Jorge Alberto DE LA ROSA ? Ordering Physician: Jorge Alberto Servin ?? Date of Service: 09/19/24 ?? Procedure(s): MR lumbar spine wo con ?? Accession Number(s): [id number] ? cc: Nu Babin MD; Jorge Alberto Servin ? CLINICAL HISTORY: Z98.1 - Arthrodesis status ? MR lumbar spine without gadolinium ? Comparison: MR/OH/SR - MR LUMBAR SPINE WO CON - [...] hypertrophy. Moderate ?? bilateral neural foraminal narrowing, [id number]. Mild ?? central canal narrowing. ?? L3-L4: [...] ?? 09/19/2024 18:50:15 ? Dictated By: ?Humza Rani MD ? Signed By: ?<Electronically signed by Humza Rain MD in OV> ? 09/19/241851 ? DD/ 1850 ? TD/TT: 09/19/24 1850 ? Factory Hand: ? Procedure Note [place], Image - 09/19/[address] [address] Magnetic Resonance Report Signed Patient: Griffin Kam GMR#: [id number] 34 : 1960cct:[id number] Age/Sex: 64 / MADM Date: 09/19/24 Loc: HO.MRI Attending Dr: Jorge Alberto DE LA ROSA Ordering Physician: Jorge Alberto Servin Date of Service: 09/19/24 Procedure(s): MR lumbar spine wo con Accession Number(s): [id number] cc: Nu Babin MD; Jorge Alberto Servin CLINICAL HISTORY: Z98.1 - Arthrodesis status MR lumbar spine without gadolinium Comparison: MR/OH/SR - MR LUMBAR SPINE WO CON - [...] facet hypertrophy. Moderate bilateral neural foraminal narrowing, [id number]. Mild central canal narrowing. L3-L4: Mild central [...] in OV> 09/19/241851 DD/ 49 TD/TT: 09/19/241849 Factory Hand: [facility] External Provider IMG MRI PROCEDURES Final Result * POCT Rapid Influenza B OSOM (08/14/2024 10:04 AM EST) [facility] Rapid Influenza B Ag Negative Negative, Indeterminate QC Media Lot # [id number] Lot# Expiration Date 43 Swab 08/14/2024 10:0 4 AM EST Result [facility] Misytluis Wagner FISH CLEANER POINT OF CARE TEST ENTER/EDIT OR DERABLES Final Result * POCT Rapid Influenza A OSOM (08/14/2024 10:04 AM EST) [facility] Rapid Influenza A Ag Negative Negative, Indeterminate QC Media Lot # [id number] Lot# Expiration Date 43, Swab Nasopharyngeal structure / Unknown 08/14/2024 10:04 AM EST Result [facility] Misty Wagner FISH CLE[employer]ER POINT OF CARE TEST ENTER/EDIT OR DERABLES Final Result * POCT Rapid RSV ROSALES ID NOW (08/14/2024 10:03 AM EST) [facility] RSV Rapid Ag POC Negative Negative QC Media Lot # [id number] Lot# Expiration Date [id number] Swab 08/14/2024 10:0 3 AM EST Result [facility] Misty Wagner FISH CLEANER POINT OF CARE TEST ENTER/EDIT OR DERABLES Final Result * POCT Rapid Covid-19 BinaxNOW (08/14/2024 10:02 AM EST) [facility] Rapid COVID Ag Negative QC Media Lot # [id number] Lot# Expiration Date [id number] Swab 08/14/2024 10:0 2 AM EST Misty Wagner FISH CLE[employer]ER POINT OF CARE TEST ENTER/EDIT OR DERABLES Final Result from Last 3 Months Insurance [employer] Care Teams Diamond Grinder Relationship Specialty Start Date End Date Nu Babin MD [address] [place] [address] PCP - General Family Medicine 02/14/19 Meaghan Leroy Application DesignerGlove Cleaner 05/08/24
== END 2024-10-30 10:59 | disposition home or self-care (01) ==
LOC: HO.HNS 09:36
PROVIDERS: Visit Provider Physician Assistant
DX: Z98.1 Arthrodesis status (principal)
CPT/HCPCS: 99212

== ENCOUNTER → 2024-10-30 09:36 | Outpatient (BNVA) | payer MEDICAID, SELFPAY | PROVIDERS: Visit Provider Physician Assistant | DX: M54.50 Low back pain, unspecified (principal); M79.662 Pain in left lower leg; M79.661 Pain in right lower leg; Z98.1 Arthrodesis status | CPT/HCPCS: 99212 ==

== ENCOUNTER 2024-11-06 08:28 | Outpatient (AMB) | payer MEDICAID, SELFPAY ==
--- NOTE | 2024-11-06 08:37 | MHC.OFFVIS ---
Vital Signs 11/06/24 08:39 Height 5 ft 6 in Weight 211 lb BMI 34.1 BP 121/59 L Blood Pressure Location Lt brachial Position Sitting Respiration 16 Pulse 68 Pulse Source Pulse Oximeter Pulse Oximetry (%) 98 Oxygen Delivery Method Room Air Intake Visit Reasons: Arthrodesis status Crm System Administrator Required: Yes Crm System Administrator Services: Crm System Administrator Present Crm System Administrator Name: [id number] Allergies COLIN Inhibitors Allergy (Severe, Verified 11/06/24 08:41) Angioedema ibuprofen [From MOTRIN] Allergy (Unknown, Verified 11/06/24 08:41) Unknown Medication List - Last Reconciled 11/06/24 by Jaycee Meeks LPN acetaminophen (Tylenol Extra Strength) 500 mg PO Q6H PRN amlodipine 10 mg PO DAILY ascorbic acid (vitamin C) ER (Vitamin C ER) 500 mg PO DAILY aspirin (Ecotrin Low Strength) 81 mg PO DAILY atorvastatin 80 mg PO DAILY blood sugar diagnostic (FreeStyle Lite Strips) 3 times a day blood-glucose meter (FreeStyle Lite Meter kit) As directed diclofenac sodium 1% 1 ea topical DAILY PRN ezetimibe 10 mg PO DAILY gabapentin 300 mg PO TID hydrochlorothiazide 25 mg PO DAILY hydrocortisone 2.5% 1 appl topical BID PRN ketoconazole 2% 1 appl topical BID lancets (FreeStyle Lancets) 3 times a day lidocaine 5% 1 patch topical DAILY [orthopaedic shoe lift, left As directed] pantoprazole 40 mg PO DAILY Ventolin HFA 90 mcg/actuation (albuterol sulfate) 2 puffs inhalation Q4-6H PRN 60 days NS HPI Comments Details: Griffin is very pleasant 64 years old gentleman who presents in my office with complains on lower back pain with radiation to the right lower extremity to the level of the mid calf but not below that level. Reported that this pain started many years ago. He does not remember exact time when pain started. He stated that the pain initially was very mild but with years started to increase. He went for a neurosurgical consult and he had fusion of the L3 through L5 levels. He had extensive physical therapy after the fusion. He continues home exercise program. He denies any help from physical therapy or exercises. He stated that the surgery did not help at all his pain. Valsalva maneuver aggravates his pain. Sitting makes his pain worse. Flexing forward aggravates his pain. He uses cane for ambulation. He reports weakness intermittently in the right lower extremity. His past medical history significant for hypertension elevated cholesterol and history of diabetes he stated that his sugars now are normal. Past surgical history significant for bilateral total knee replacement, ORIF fracture of the left hip, and spinal fusion as above. He admits smoking cigarettes 4 cigarettes a day, denies drinking alcohol he denies recreational drugs. [facility] Medical History Smoking history Back pain Arthritis Numbness Murmur Ulnar neuropathy at elbow of left upper extremity Carpal tunnel syndrome of left wrist JESSICA (obstructive sleep apnea) HTN (hypertension) Asthma-COPD overlap syndrome JESSICA on CPAP Aortic stenosis Obesity (BMI 30-39.9) Dyslipidemia Vitamin D deficiency Diabetic nephropathy associated with type 2 diabetes mellitus Diabetes type 2, controlled Diabetes Surgical History History of left knee replacement History of decompression of ulnar nerve History of carpal tunnel surgery of left wrist Hx of carpal tunnel syndrome Hx of cholecystectomy History of total right knee replacement (TKR) History of left hip replacement Hx of hernia repair History of back surgery Hx of colonoscopy Family History Father Hypertension Diabetes mellitus Mother Hypertension Social History Household Members: Family Household Members Other:: sister Housing: Apartment Are you a primary healthcare consultant to a significant other at home: No Do you presently have visiting nurse or other home services: Yes (Doctor every month) Alcohol intake: never Patient Tobacco Use Status: Current everyday Tobacco user Tobacco use type: Cigarette Cigarettes Per Day: 6 service: No Current occupational status: unemployed Current occupation: right handed Review of Systems Const All systems reviewed & are unremarkable except as noted in HPI and below ENT Reports Normal hearing present Neuro Reports Normal hearing present, Denies Abnormal speech present, Denies confusion and Denies Sensory deficit (Neuro) Psych Denies confusion Physical Exam Vital Signs: Last Vital Signs Pulse 68 11/06/24 08:39 Resp 16 11/06/24 08:39 BP 121/59 L 11/06/24 08:39 Pulse Ox 98 11/06/24 08:39 Oxygen Delivery Method Room Air 11/06/24 08:39 BMI result Body Mass Index 34.1 Const General: no acute distress; No confusion Orientation/consciousness: patient oriented x3 and No confusion Eyes General: appearance normal, both eyes and all related structures Pupils: Equal, round and reactive pupils present EOM: EOMs intact bilaterally Neck Neck: Yes full ROM Chest Chest palpation & inspection: normal inspection of the chest Resp Effort & Inspection: normal respiratory effort, able to speak in complete sentences, normal respiratory pattern, no audible wheezes and no cough Cardio Jugular venous distension: no JVD GI Inspection: Yes normal to inspection Back/Spine/Pelvis Other: There are 2 scars on the posterior surface of the patient's lower back, the scars very well-healed. Physical exam is somewhat difficult because of the shortness of the left lower extremity. Onel test is positive on the right. Pelvic compression test pelvic distraction test and Gaenslen test is positive on the right. Neuro General: patient oriented x3, gait normal and No confusion Cranial nerves: Yes CN's II-XII intact bilaterally, Yes Equal, round and reactive pupils present, Yes Normal hearing present and Yes Ability to bilaterally elevate shoulders present Speech: No Abnormal speech present Gait exam (Neuro): Normal gait present Motor exam (neuro): 5/5 motor strength present throughout Sensory Exam: No Sensory deficit (Neuro) Extrem Other: Left lower extremity shorter than the right 1. General: No pedal edema Psych Speech and movement: Normal speech and movement present Affect: normal affect Attitude: cooperative Thought process: Normal thought process present Thought content: Normal thought content present Insight: Good insight present (Psych) Judgement: Good judgement present (Psych) Results Reviewed Results Reviewed: MR lumbar spine without gadolinium Comparison: MR/MN/SR - MR LUMBAR SPINE WO CON - 04/30/24 Findings: Expected postsurgical straightening of the normal lumbar lordosis There is fusion from L3-L5. No evidence of acute fracture or acute malalignment. No paraspinal fluid collection or evidence of epidural abscess Visualized retroperitoneal structures are unremarkable. The conus terminates normally at L1. The cauda equina are unremarkable. Individual levels: L1-L2: Small right eccentric disc protrusion. Mild bilateral neural foraminal narrowing. No central canal stenosis. L2-L3: Moderate posterior disc protrusion with facet hypertrophy. Moderate bilateral neural foraminal narrowing, [id number]. Mild central canal narrowing. L3-L4: Mild central canal narrowing. Moderate left neural foraminal narrowing. L4-L5: Moderate right neural foraminal narrowing. Minimal central canal stenosis. L5-S1: Severe bilateral neural foraminal narrowing. Mild central canal stenosis. Impression: Postsurgical and degenerative changes Assessment & Plan Assessment & Plan (1) Postlaminectomy syndrome: Code(s): M96.1 - Postlaminectomy syndrome, not elsewhere classified Category: Medical (2) Sacroiliitis: Code(s): M46.1 - Sacroiliitis, not elsewhere classified Category: Medical (3) Sacroiliac joint dysfunction of right side: Code(s): M53.3 - Sacrococcygeal disorders, not elsewhere classified Category: Medical (4) Chronic pain syndrome: Code(s): G89.4 - Chronic pain syndrome Category: Medical (5) Lumbar radiculopathy: Code(s): M54.16 - Radiculopathy, lumbar region Category: Medical Plan On physical exam most prominent features probably related to sacroiliitis on the right however radiculopathy considering weakness of the right lower extremity can not be excluded. I offered the patient to perform diagnostic right sacroiliac joint injection. If this will not be working we will try transforaminal epidural steroid injection L5-S1 bilateral. There is severe foraminal stenosis on bilateral L5-S1 foramina. Coding Level of Care Code New Pt Level 3 (98602) Diagnoses Postlaminectomy syndrome M96.1 Sacroiliitis M46.1 Sacroiliac joint dysfunction of right side M53.3 Chronic pain syndrome G89.4 Lumbar radiculopathy M54.16
[2024-11-06 08:39] VITALS: BP 121/59; PULSE 68; RESP 16; O2SAT 98; BMI 34.1
--- OUTSIDE RECORDS SUMMARY | 2024-11-06 08:47 | XMS_ITS | Encounter Summary ---
Author Organization [employer] Address [address] [place] [address] Care Team Providers Care Forklift Material Handler Name Role Phone Nu Babin MD Primary Care Provide r Reason for Visit * Reason Onset Date Comments Results 11/01/2024 Encounter Details Date Type Department Care Team ([facility] Contact Info) Description 11/01/2024 Telephone [facility] [address] [place] [address] Nu Babin MD [address] [place] [address] Results Social History Tobacco Use Types Packs/Day Years [...] your housing situation today? I have francia martienz 07/12/[address] you li [...] encounter Miscellaneous Notes * Telephone Encounter - Macie Bull RN - 11/01/2024 3:46 PM EDT TC placed to patient [phone] in regard to below message. Patient verbalized understanding and did not have any further questions. Patient to f/u PRN. ----- Message from Nu Shipley MD sent at 11/01/2024 1:37 PM EDT ----- Please let patient know I reviewed his labs, his vitmin D is low I ecomend for him to take over thecounter vitamin d 1000 U daily thank you documented in this encounter Plan of Treatment Not on file documented as of this encounter Visit Diagnoses Not on filedocumented in this encounter Additional Health Concerns Assessment Noted Time PHQ-9 Depression Total Score: 0 10/25/19 25 1:42 PM EDT documented as of this encounter Care Teams Forklift Material Handler Relationship Specialty Start Date End Date Nu Babin MD [address] [place] [address] PCP - General Family Medicine 02/14/[address] Light Servicer HelperMedical Record Administrator 05/08/24 documented as of this encounter
--- OUTSIDE RECORDS SUMMARY | 2024-11-06 08:47 | XMS_ITS | Clinical Summary ---
Author Organization [employer] Address [address] [facility] 7t [place] [address] Care Team Providers Care Accordion Repairer Name Role Phone Nu Babin MD Primary [...] 21 Active Blood Glucose Monitoring Suppl (FreeStyle [place] Lite) w/Device kit USE TO TEST BLOOD [...] unspecified whether stage 3a or 3b CKD ([facility]) Inject 0.5 mL (50 mcg) into the [...] due to type 2 diabetes mellitus ([facility] /[facility]) 06/16/2017 Assessment & Plan (10/24/2024 5:00 PM [...] enails with type 2 diabetes mellitus ([facility]) 06/16/2017 Osteoarthritis of multiple joints 06/16/2017 History [...] Encounters Date Type Department Care Team Description 11/01/[address] [address] Nu Babin MD Results 10/24/2024 2:00 PM EDT Office Visit [address] [address] Nu Babin MD Encounter for preventive care (Primary Dx); Type 2 diabetes mellitus with stage 3 chronic kidney disease, without long-term current use of insulin, unspecified whether stage 3a or 3b CKD (CMS/HCC); Pruritus; Colon cancer screening; CKD stage 2 due to type 2 diabetes mellitus (CMS/HCC) ([facility]/HCC) 10/24/2024 Travel 10/20/[address] [address] Nu Babin MD Chart Prep 10/13/2024 Patient Outreach [address] [address] Nu Babin MD Pre-visit Planning (SDOH screening completed on 07/13/2024) 10/06/2024 Patient Outreach [address] [address] Nu Babin MD Care Coordination ([facility]- ED F/U call) 10/05/2024 Patient Outreach [address] [address] Nu Babin MD 09/29/2024 10:00 AM EDT Office Visit [facility] [address] [place] [phone] Joe Lindquist MD Lumbar back pain with radiculopathy affecting lower extremity (Primary Dx); Tobacco use 09/19/2024 Orders Only [facility] External Provider, [employer] 09/15/2024 Population Health Risk Score [facility] Department [address] [place] [address] [phone] Provider, Population Health Generic 09/04/2024 Patient Outreach [address] [address] Nu Babin MD Pre-visit Planning ([facility] screening was completed on 07/13/2024 / patient requesting appt to be reschedule. ) 08/18/2024 11:45 AM EST Office Visit [facility] [address] [place] [phone] Sarita Foster DO Constipation, unspecified constipation type (Primary Dx); Medication side effect 08/18/2024 Travel 08/15/2024 Telephone [facility] [address] [place] [address] [phone] Nu Babin MD Nurse Triage 08/14/2024 9:45 AM EST Office Visit [address] [phone] Misty Wagner NP Viral upper respiratory tract [...] Screening 10/24/2025 10/24/2024 Lipid Panel 10/25/2025 10/25/2024, 07, 11/24/2022, Additional history exists DTaP/Tdap/Td Vaccines (4 [...] unspecified whether stage 3a or 3b CKD ([facility]) MR LUMBAR SPINE WO CONTRAST Routine 09/19/2024 [...] 25-Hydroxy, Total, Immunoassay (10/25/2024 10:18 AM EDT) [facility] Vitamin D 25-OH Total 16.2(L) >30 ng/mL [facility] Comment: Health Based Reference Values*< 20 ??ng/mL ??Begbuvugh66-20 ng/mL ??Insufficient> 30 ??ng/mL ??Sufficient*Ana María LYN. [...] BLOOD ORDERABLES Final Result Performing Organization Address [facility]/ZIP Co de Phone Number [facility] [address] [place] [phone] * TSH with Reflex to Free T4 (10/25/2024 10:18 AM EDT) TSH reflex Free T4 0.90 0.32 - 4.0 uIU/mL [facility] Blood Venous blood specimen / Unknown 10/25/2024 10:18 AM EDT 10/25/2024 11:27 AM EDT us Nu Shipley MD LAB BLOOD ORDERABLES Final Result Performing Organization Address [facility]/ZIP Co de Phone Number [facility] [address] [place] [phone] * (ABNORMAL) CBC auto differential (10/25/2024 10:18 AM EDT) White Blood Count 7.1 4.8 - 10.8 X10*3/uL [facility] Red Blood Count 4.28(L) 4.60 - 5.80 X10*6/uL [facility] Hemoglobin 11.9(L) 14.0 - 18.0 g/dl [facility] Hematocrit 37.1(L) 42.0 - 52.0 % [facility] Mean Corpuscular Volume 86.7 80.0 - 98.0 fL [facility] Mean Corpuscular Hemoglobin 27.8 27.0 - 33.0 pg [facility] Mean Corpuscular HGB Conc 32.1 31.0 - 36.0 g/dl [facility] Red Cell Distribution Width 16.3(H) 11.0 - 16.0 % [facility] Platelet Count 318 160 - 400 X10*3/uL [facility] Mean Platelet Volume 11.0 9.4 - 12.4 fL [facility] Neutrophils Percent Auto 58.6 45 - 73 % [facility] Imm Gran Pct Auto 0.3 0.0 - 0.4 % [facility] Lymphocytes Percent Auto 29.7 20 - 40 % [facility] Monocytes Percent Auto 7.4 2 - 11 % [facility] Eosinophils Percent Auto 3.4 0 - 4 % [facility] Basophils Percent Auto 0.6 0 - 2 % [facility] NRBC Pct Auto 0.0 0.0 - 0.2 /100WBC [facility] Neutrophils Absolute Auto 4.2 2.0 - 8.3 x10*3/uL [facility] Imm Gran Abs Auto 0.02 0.00 - 0.03 X10*3/uL [facility] Lymphocytes Absolute Auto 2.1 1.2 - 4.9 X10*3/uL [facility] Monocytes Absolute Auto 0.5 0.1 - 1.2 X10*3/uL [facility] Eosinophils Absolute Auto 0.2 0.0 - 0.4 X10*3/uL [facility] Basophils Absolute Auto 0.0 0.0 - 0.2 X10*3/uL [facility] NRBC Abs Auto 0.000 0.0 - 0.012 X10*3/uL [facility] Blood Venous blood specimen / Unknown 10/25/2024 10:18 AM EDT 10/25/2024 11:27 AM EDT us Nu Shipley MD LAB BLOOD ORDERABLES Final Result [facility] [address] [place] [phone] * Hepatitis C Antibody with Reflex to HCV, RNA, Quantitative, Real-Time PCR (10/25/2024 10:18 AM EDT) Pathologist [facility] Hepatitis C Antibody Nonreactive Nonreactive [facility] Comment:Antibodies to HCV no t detected; does not exclude early acuteHCV infection. Blood Venous blood specimen / Unknown 10/25/2024 10:18 AM EDT 10/25/2024 11:27 AM EDT Nu Shipley MD LAB BLOOD ORDERABLES Final Result Performing Organization Address City/[facility]/ZIP Co de Phone Number [facility] [address] [place] [phone] * HIV-1/2 Antigen and Antibodies, Fourth Generation, with Reflexes (10/25/2024 10:18 AM EDT) [facility] HIV AB/AG Nonreactive Nonreactive [facility] Comment:HIV-1 p24 Ag and/or HIV-1/HIV-2 Ab not detected.A test result that is nonreactive does not exclude thepossibility of exposure to or infection with HIV-1 and/orHIV-2. Nonreactive results in this assay for individualswith prior exposure to HIV-1 and/or HIV-2 may be due toantigen and antibody levels that are below the limit ofdetection of this assay.The [employer] HIV Ag/Ab Combo assay result andsupplemental assay results should be interpreted inconjunction with the patient's clinical presentation,history and other laboratory results. If the results areinconsistent with clinical evidence, additional testing issuggested to confirm the result. Blood Venous blood specimen / Unknown 10/25/2024 10:18 AM EDT 10/25/2024 11:27 AM EDT us Nu Shipley MD LAB BLOOD ORDERABLES Final Result Performing Organization Address City/[facility]/ZIP Co de Phone Number [facility] [address] [place] [phone] * (ABNORMAL) Lipid Panel, Standard (10/25/2024 10:18 AM EDT) [facility] Triglycerides 72 <150 mg/dL [facility] Comment:Desirable Triglyceri de: less than 150 mg/dLBorderline High Triglyceride 150-199 mg/dLHigh Triglyceride: 200-499 mg/dLVery High Triglyceride: greater than or equal to 5OO mg/dL Cholesterol 113 <200 mg/dL [facility] Comment:Desirable Cholestero l: less than 200 mg/dLBorderline High Cholesterol: 200-239 mg/dLHigh Cholesterol: greater than 239 mg/dL LDL Cholesterol Calculated 64 <100 mg/dL [facility] Comment:Desirable LDL: less than 100 mg/dLNear Optimal/Above Optimal LDL: 110- 129 mg/dLBorderline High LDL: 130-159 mg/dLHigh LDL: 160-189 mg/dLVery High LDL: greater than or equal to 190 mg/dL HDL Cholesterol 35(L) >40 mg/dL [facility] Comment:Desirable HDL: great er than 40 mg/dL Note: This HDL assay may give artificially low results in patients with liver disease. Blood Venous blood specimen / Unknown 10/25/2024 10:18 AM EDT 10/25/2024 11:27 AM EDT us Nu Shipley MD LAB BLOOD ORDERABLES Final Result [facility] [address] [place] [phone] * (ABNORMAL) Comprehensive Metabolic Panel (10/25/2024 10:18 AM EDT) Pathologist [facility] Sodium 139 135 - 145 mmol/L [facility] Potassium 3.7 3.3 - 5.1 mmol/L [facility] Chloride 102 96 - 108 mmol/L [facility] Carbon Dioxide 30(H) 22 - 29 mmol/L [facility] Anion Gap 11(L) 12 - 20 [facility] Urea Nitrogen (BUN) 23(H) 9 - 16 mg/dL [facility] Creatinine, Serum 1.12 0.5 - 1.4 mg/dL [facility] Estimated Glomerular Filt Rate >60 [facility] Comment:Chronic Kidney Disea se: Estimated GFR < 60 mL/min/1.28z8Veldvm Kidney Disease: Estimated GFR < 15 mL/min/1.73m2 Glucose 96 60 - 115 mg/dL [facility] Calcium 10.0 8.4 - 10.2 mg/dL [facility] Bilirubin, Total 0.4 0.0 - 1.0 mg/dL [facility] Aspartate Amino Transferase 30 5 - 37 U/L [facility] Alanine Aminotransferase 18 0 - 40 U/L [facility] Total Protein 7.6 6.5 - 8.0 g/dL [facility] Albumin Level 4.1 3.5 - 5.0 g/dL [facility] Alkaline Phosphatase 139(H) 39 - 117 U/L [facility] Blood Venous blood specimen / Unknown 10/25/2024 10:18 AM EDT 10/25/2024 11:27 AM EDT us Nu Shipley MD LAB BLOOD ORDERABLES Final Result [facility] [address] [place] [phone] * (ABNORMAL) POCT HGB A1C (10/24/2024 [...] EDT Narrative 09/19/2024 6:53 PM EDT ? [employer] ?[address] ?[place] [address] ? Magnetic Resonance Report ? Signed ? Patient: Griffin Kam ?MR#: [id number] ?? 34 ? : 1960 ?Acct:[id number] ? Age/Sex: 64 / M ?ADM Date: 09/19/24 ? Loc: HO.MRI ? Attending Dr: Jorge Alberto DE LA ROSA ? Ordering Physician: Jorge Alberto Servin ?? Date of Service: 09/19/24 ?? Procedure(s): MR lumbar spine wo con ?? Accession Number(s): [id number] ? cc: Nu Babin MD; Jorge Alberto Servin ? CLINICAL HISTORY: Z98.1 - Arthrodesis status ? MR lumbar spine without gadolinium ? Comparison: MR/FL/SR - MR LUMBAR SPINE WO CON - [...] hypertrophy. Moderate ?? bilateral neural foraminal narrowing, [id number]-right. Mild ?? central canal narrowing. ?? L3-L4: [...] DD/ 1850 ? TD/TT: 09/19/24 1850 ? Motor Coach Operator: ? Procedure Note [place], Image - 09/19/2024 [place] [address] Magnetic Resonance Report Signed Patient: Griffin Kam GMR#: [id number] 34 : 1960cct:[id number] Age/Sex: 64 / MADM Date: 09/19/24 Loc: HO.MRI Attending Dr: Jorge Alberto DE LA ROSA Ordering Physician: Jorge Alberto Servin Date of Service: 09/19/24 Procedure(s): MR lumbar spine wo con Accession Number(s): [id number] cc: Nu Babin MD; Jorge Alberto Servin CLINICAL HISTORY: Z98.1 - Arthrodesis status MR lumbar spine without gadolinium Comparison: MR/FL/SR - MR LUMBAR SPINE WO CON - [...] facet hypertrophy. Moderate bilateral neural foraminal narrowing, [id number]-[id number]-right. Mild central canal narrowing. L3-L4: Mild central [...] in OV> 09/19/241851 DD/ 49 TD/TT: 09/19/241849 Motor Coach Operator: [facility] External Provider IMG MRI PROCEDURES Final Result * POCT Rapid Influenza B OSOM (08/14/2024 10:04 AM EST) Rapid Influenza B Ag Negative Negative, Indeterminate QC Media Lot # [id number] Lot# Expiration Date Swab 08/14/2024 10:0 4 AM EST Result [facility] Misty Wagner CONFIGURATION MANAGEMENT ADMINISTRATOR POINT OF CARE TEST ENTER/EDIT OR DERABLES Final Result * POCT Rapid Influenza A OSOM (08/14/2024 10:04 AM EST) Rapid Influenza A Ag Negative Negative, Indeterminate QC Media Lot # [id number] Lot# Expiration Date Swab Nasopharyngeal structure / Unknown 08/14/2024 10:04 AM EST Result [facility] Misty Wagner CONFIGURATION MANAGEMENT ADMINISTRATOR POINT OF CARE TEST ENTER/EDIT OR DERABLES Final Result * POCT Rapid RSV ROSALES ID NOW (08/14/2024 10:03 AM EST) RSV Rapid Ag POC Negative Negative QC Media Lot # [id number] Lot# Expiration Date [id number] Swab 08/14/2024 10:0 3 AM EST Result [facility] Misty Wagner CONFIGURATION MANAGEMENT ADMINISTRATOR POINT OF CARE TEST ENTER/EDIT OR DERABLES Final Result * POCT Rapid Covid-19 BinaxNOW (08/14/2024 10:02 AM EST) Rapid COVID Ag Negative QC Media Lot # [id number] Lot# Expiration Date [id number] Swab 08/14/2024 10:0 2 AM EST Misty Wagner CONFIGURATION MANAGEMENT ADMINISTRATOR POINT OF CARE TEST ENTER/EDIT OR DERABLES Final Result from Last 3 Months Insurance [email or web address] Care Teams Accordion Repairer Relationship Specialty Start Date End Date Nu Babin MD [address] [place] [address] PCP - General Family Medicine 02/14/19 Meaghan Leroy Cutting Machine OperatorRelay Motorman 05/08/24
--- OUTSIDE RECORDS SUMMARY | 2024-11-06 08:47 | XMS_ITS | Encounter Summary ---
Author Organization [employer] Address [address] [facility] 7t [place] [address] Care Team Providers Care Ios Software Engineer Name Role Phone Nu Babin MD Primary Care Provide r Reason for Visit * Reason Comments Med Refill Encounter Details Date Type Department Care Team ([facility] st Contact Info) Description 04/09/2024 Refill [facility] [address], [place] [phone] Nu Babin MD [address] [place] [address] Hypokalemia Social History Tobacco Use Types Packs/Day [...] documented as of this encounter Care Teams Ios Software Engineer Relationship Specialty Start Date End Date Nu Babin MD [address] [place] [phone] PCP - General Family Medicine 02/14/19 Meaghan Leroy Forensic EconomistHealth Educator 05/08/24 documented as of this encounter
== END 2024-11-06 09:11 | disposition home or self-care (01) ==
PROVIDERS: PCP Internal Medicine; Referring Provider Internal Medicine; Visit Provider Anesthesiology
DX: M96.1 Postlaminectomy syndrome, not elsewhere classified (principal); M46.1 Sacroiliitis, not elsewhere classified; M53.3 Sacrococcygeal disorders, not elsewhere classified; G89.4 Chronic pain syndrome; M54.16 Radiculopathy, lumbar region
CPT/HCPCS: 99203

== ENCOUNTER → 2024-11-06 08:28 | Outpatient (BNVA) | payer MEDICAID, SELFPAY | PROVIDERS: PCP Internal Medicine; Visit Provider Anesthesiology | DX: M46.1 Sacroiliitis, not elsewhere classified (principal); M53.3 Sacrococcygeal disorders, not elsewhere classified; M96.1 Postlaminectomy syndrome, not elsewhere classified; M54.16 Radiculopathy, lumbar region; G89.4 Chronic pain syndrome | CPT/HCPCS: 99202 ==

== ENCOUNTER 2024-11-06 17:43 | Emergency (ER) | payer MEDICAID, SELFPAY ==
--- NOTE | ~2024-11-06 | US_ITS ---
CLINICAL HISTORY: smoker. calf pain. claudicaiton Arterial duplex ultrasound right lower extremity Comparison: None Findings: Continuous, pulsatile flow with normal waveforms from common femoral arteries through the posterior tibial and dorsalis pedis arteries. No focal stenosis, aneurysm or occlusion identified. Velocities are within normal range. IMPRESSION: No hemodynamically significant stenoses on right lower extremity arterial duplex. This document has been electronically signed by: Camron Grimaldo MD on 11/06/2024 19:46:20
--- NOTE | ~2024-11-06 | US_ITS ---
CLINICAL HISTORY: RIght calf pain Venous duplex ultrasound right lower extremity Comparison: None Findings: The visualized deep veins are fully compressible with normal Doppler color flow and spectral tracings. No popliteal cyst. IMPRESSION: 1. Negative for right lower extremity deep vein thrombosis. This document has been electronically signed by: Camron Grimaldo MD on 11/06/2024 19:53:11
--- NOTE | ~2024-11-06 | XR_ITS ---
CLINICAL HISTORY: Right knee pain 4 view right knee Comparison: None Findings: There is a total knee arthroplasty. No evidence of hardware loosening or periprosthetic fracture. Old healed proximal fibula fracture and proximal tibia fracture. No joint effusion. No radiopaque foreign body. Extensive arterial vascular calcifications. IMPRESSION: 1. No acute findings. This document has been electronically signed by: Camron Grimaldo MD on 11/06/2024 19:42:01
[2024-11-06 18:09] VITALS: BP 147/71; PULSE 82; RESP 18; TEMP 36.6; O2SAT 98; BMI 33.7
--- NOTE | 2024-11-06 18:13 | ED_ITS ---
HPI - General Adult General Chief complaint: Extremity Injury, Lower Stated complaint: right knee pain Time Seen by Provider: 11/06/24 23:45 Source: patient Mode of arrival: ambulatory Limitations: no limitations History of Present Illness ED Provider: reece cerda np HPI narrative: Patient is a 64-year-old male who presents emergency department for evaluation. Received over the past 4-5 days he has been experiencing pain in his right knee as well as the posterior calf when he is walking. Worsens when he is doing excessive walking. He denies any known precipitating injury. He denies any swelling numbness tingling or cold sensation to the extremity. He denies associated chest pain or shortness of breath. He states there is no redness or bruising that he has noticed. No recent fevers or chills. Denies concern for sexually transmitted infections Related Data Home Medications ?Medication ?Instructions ?Recorded ?Confirmed pantoprazole 40 mg tablet,delayed 40 mg PO DAILY 05/22/20 11/06/24 release ascorbic acid (vitamin C) 500 mg 500 mg PO DAILY 09/06/20 11/06/24 tablet,extended release (Vitamin C ER) amlodipine 10 mg tablet 10 mg PO DAILY 07/18/24 11/06/24 diclofenac sodium 1 % topical gel 1 ea topical DAILY PRN Pain 07/18/24 11/06/24 hydrochlorothiazide 25 mg tablet 25 mg PO DAILY 07/18/24 11/06/24 hydrocortisone 2.5 % topical cream 1 appl topical BID PRN Rash 07/18/24 11/06/24 atorvastatin 80 mg tablet 80 mg PO DAILY 08/24/24 11/06/24 Previous Rx's ?Medication ?Instructions ?Recorded blood sugar diagnostic (FreeStyle #100 ea 05/22/20 Lite Strips) blood-glucose meter (FreeStyle #1 ea 05/22/20 Lite Meter kit) lancets 28 gauge (FreeStyle #100 ea 05/22/20 Lancets) ketoconazole 2 % topical cream 1 appl topical BID #30 grams 02/06/23 orthopaedic shoe lift, left #1 ea 02/08/23 acetaminophen 500 mg tablet 500 mg PO Q6H PRN pain #30 tabs 08/26/23 (Tylenol Extra Strength) lidocaine 5 % topical patch 1 patch topical DAILY #30 ea 08/26/23 ezetimibe 10 mg tablet 10 mg PO DAILY #90 tabs 09/09/23 aspirin 81 mg tablet,delayed 81 mg PO DAILY #30 tabs 08/24/24 release (Ecotrin Low Strength) gabapentin 300 mg capsule 300 mg PO TID #30 caps 09/19/24 Ventolin HFA 90 mcg/actuation 2 puff inhalation Q4-6H PRN 10/12/24 aerosol inhaler (albuterol sulfate) shortness of breath or wheezing 60 days #18 grams Allergies Allergy/AdvReac Type Severity Reaction Status Date / Time COLIN Inhibitors Allergy Severe Angioedema Verified 11/06/24 18:10 ibuprofen [From MOTRIN] Allergy Unknown Unknown Verified 11/06/24 18:10 Review of Systems Review of Systems: Yes all other systems are reviewed and are negative PMFSH Past Medical History Attestation statement: The following information was validated with the patient. Source: old records reviewed Medical History Smoking history Back pain Arthritis Numbness Murmur Ulnar neuropathy at elbow of left upper extremity Carpal tunnel syndrome of left wrist JESSICA (obstructive sleep apnea) HTN (hypertension) Asthma-COPD overlap syndrome JESSICA on CPAP Aortic stenosis Obesity (BMI 30-39.9) Dyslipidemia Vitamin D deficiency Diabetic nephropathy associated with type 2 diabetes mellitus Diabetes type 2, controlled Diabetes Surgical History History of left knee replacement History of decompression of ulnar nerve History of carpal tunnel surgery of left wrist Hx of carpal tunnel syndrome Hx of cholecystectomy History of total right knee replacement (TKR) History of left hip replacement Hx of hernia repair History of back surgery Hx of colonoscopy Family History Family History Father Hypertension Diabetes mellitus Mother Hypertension Social History Social History Household Members: Family Household Members Other:: sister Housing: Apartment Are you a primary animal care service worker to a significant other at home: No Do you presently have visiting nurse or other home services: Yes (Doctor every month) Alcohol intake: never Patient Tobacco Use Status: Current everyday Tobacco user Tobacco use type: Cigarette Cigarettes Per Day: 6 Advance Directives: No Advance Directives Information Provided: Yes Do you have a plan to hurt others: No Plan service: No Current occupational status: unemployed Current occupation: right handed Physical Exam ED Vital Signs: Vital Signs - 24 hr 11/06/24 18:09 11/07/24 01:18 Temperature 98 F 98 F Pulse Rate 82 82 Respiratory Rate 18 18 Blood Pressure 147/71 H 147/71 H Pulse Oximetry 98 98 Oxygen Delivery Method Room Air Room Air BMI result Body Mass Index 33.7 Appearance: Alert.?Oriented to person, place and time. No acute distress.?Normal affect. Eyes: Pupils equal, round and reactive to light.? ENT: Pharynx normal.?? Neck: Normal inspection.? Neck supple.?? CVS: Heart sounds normal. Normal heart rate and rhythm.? Pulses normal.?? Respiratory: No respiratory distress.? Lung sounds clear to auscultation bilaterally??? Skin: Skin warm and dry.? Normal skin color.? Extremities: No lower extremity edema.? No calf ttp. 2+ DP/PT pulse bilate rally. Right knee with vertical surgical scar from prior replacement. There was no erythema or warmth. Full range of motion. No laxity. Neuro: Moves all extremities spontaneously. Sensation intact bilaterally. Ambulates with normal steady gait. Course Course Course Narrative: RME: 64 yold male presents to ED for right knee right calf pain for the past 4-5 days. Patient denies any trauma. Patient denied any chest pain shortness of breath. Negative for any ecchymosis or deformity of lower extremities. Negative for knee swelling. Positive for calf tenderness was sent for ultrasound and x-ray. Medical Decision Making Medical Decision Making MDM Narrative: Patient is a 64-year-old male who presents emergency department for evaluation of atraumatic pain to the right knee and calf over the past 4 days during ambulation. He is overall well-appearing, nontoxic, afebrile no signs of systemic toxicity. The extremity on examination is without erythema or warmth, no associated swelling given this and lack of fevers or chills I do not suspect septic joint, cellulitis. Radiographic imaging was obtained prior to my assumption of care XR does not show evidence of acute fracture or dislocation, hardware intact. Venous duplex ultrasound is without DVT, arterial ultrasound is without evidence of stenosis. At this time feel that he is stable for discharge outpatient follow-up with primary care doctor and strict return precautions reviewed. Differential Diagnosis Differential Diagnoses: The differential diagnosis associated with the presentation includes (See narrative above) Independent Interpretation I performed an independent interpretation of an: Plain X-Ray (See narrative above) Radiology Impression Discussion of test interpretation with radiology: I have reviewed the radiologist's reading. Radiologist Impression: 4 view right knee Comparison: None Findings: There is a total knee arthroplasty. No evidence of hardware loosening or periprosthetic fracture. Old healed proximal fibula fracture and proximal tibia fracture. No joint effusion. No radiopaque foreign body. Extensive arterial vascular calcifications. IMPRESSION: 1. No acute findings. Arterial duplex ultrasound right lower extremity Comparison: None Findings: Continuous, pulsatile flow with normal waveforms from common femoral arteries through the posterior tibial and dorsalis pedis arteries. No focal stenosis, aneurysm or occlusion identified. Velocities are within normal range. IMPRESSION: No hemodynamically significant stenoses on right lower extremity arterial duplex. Venous duplex ultrasound right lower extremity Comparison: None Findings: The visualized deep veins are fully compressible with normal Doppler color flow and spectral tracings. No popliteal cyst. IMPRESSION: 1. Negative for right lower extremity deep vein thrombosis. External Record Review External record reviewed: Outpatient record Chronic Conditions Patient?s care impacted by: Other (see pmfsh section) Discharge Plan Discharge Clinical Impression: Acute knee pain Patient Disposition: Home, Self-Care Instructions: Knee Pain (ED) Additional Instructions: As discussed, x-ray and ultrasound imaging today was normal. Be sure to rest over the next few days, refrain, cussing walking. Apply ice/heat for 10-15 minutes 4-6 times daily. You can take Tylenol 500 mg, 2 tablets (1,000mg) every 4-6 hours as needed for pain, but not to exceed 3 doses daily (3,000mg).? Follow-up with your primary care doctor. Return to emergency department any new or worsening symptoms or concerns Prescriptions: No Action (DME) orthopaedic shoe lift, left 1/2 inch See Rx Instructions .Route .MEDSUPPLY Qty: 1 0RF Rx Instructions: As directed ezetimibe 10 mg tablet 10 mg PO DAILY Qty: 90 3RF albuterol sulfate [Ventolin HFA] 90 mcg/actuation HFA aerosol inhaler 2 puff inhalation Q4-6H PRN (Reason: shortness of breath or wheezing) 60 Days Qty: 18 3RF ascorbic acid (vitamin C) [Vitamin C] 500 mg Tablet Extended Release 500 mg PO DAILY ketoconazole 2 % cream 1 appl topical BID Qty: 30 0RF lidocaine 5 % adhesive patch,medicated 1 patch topical DAILY Qty: 30 0RF Rx Instructions: leave on most painful area for up to 12 hrs acetaminophen [Tylenol Extra Strength] 500 mg tablet 500 mg PO Q6H PRN (Reason: pain) Qty: 30 0RF amlodipine 10 mg tablet 10 mg PO DAILY hydrocortisone 2.5 % cream 1 appl TOPICAL BID PRN (Reason: Rash) diclofenac sodium 1 % gel 1 ea topical DAILY PRN (Reason: Pain) hydrochlorothiazide 25 mg Tablet 25 mg PO DAILY pantoprazole 40 mg tablet,delayed release (DR/EC) 40 mg PO DAILY (DME) blood-glucose meter [FreeStyle Lite Meter] Kit See Rx Instructions .ROUTE .MEDSUPPLY Qty: 1 0RF Rx Instructions: As directed (DME) FreeStyle Lite Strips Strip See Rx Instructions .ROUTE .MEDSUPPLY Qty: 100 11RF Rx Instructions: 3 times a day (DME) lancets [FreeStyle Lancets] 28 gauge misc See Rx Instructions .ROUTE .MEDSUPPLY Qty: 100 11RF Rx Instructions: 3 times a day atorvastatin 80 mg tablet 80 mg PO DAILY aspirin [Ecotrin Low Strength] 81 mg tablet,delayed release (DR/EC) 81 mg PO DAILY Qty: 30 5RF gabapentin 300 mg capsule 300 mg PO TID Qty: 30 1RF Referrals: Nu Babin MD [Primary Care Provider] - Interventions: ED Discharge Assessment Last Done: 11/07/24 01:18 Discharge Date/Time: 11/07/24 01:19 Print Language: German
[2024-11-07 01:18] VITALS: BP 147/71; PULSE 82; RESP 18; TEMP 36.6; O2SAT 98
== END 2024-11-07 01:19 | disposition home or self-care (01) ==
PROVIDERS: Emergency Provider Emergency Medicine Emergency Medical Services; PCP Internal Medicine
DX: M25.561 Pain in right knee (principal); M79.661 Pain in right lower leg; F17.210 Nicotine dependence, cigarettes, uncomplicated
CPT/HCPCS: 73564; 93926; 93971; 99282; 99284

== ENCOUNTER → 2024-11-06 18:13 | Outpatient (BNV) | payer MEDICAID, SELFPAY | PROVIDERS: PCP Internal Medicine; Visit Provider Radiology Diagnostic Radiology | DX: M79.661 Pain in right lower leg (principal); M25.561 Pain in right knee | CPT/HCPCS: 73564; 93926; 93971 ==

== ENCOUNTER 2024-12-26 06:27 | Outpatient (REF) | payer MEDICAID, SELFPAY ==
--- OUTSIDE RECORDS SUMMARY | 2024-12-26 06:30 | XMS_ITS | Encounter Summary ---
Author Organization [employer] Address [address] [facility] [address] [place] [address] Care Team Providers Care Mortgage Or Loan Underwriter Name Role Phone Nu Babin MD Primary Care Provide r Reason for Visit * Reason Comments Med Refill Encounter Details Date Type Department Care Team ([facility] st Contact Info) Description 04/09/2024 Refill [facility] [address] [place] [address] Nu Babin MD [address] [place] [address] Hypokalemia Social History Tobacco Use Types Packs/Day [...] Care Team (Late st Contact Info) Description 04/11/2025 2:00 PM EDT Office Visit [facility] [address] [place] [address] Rah, Stephanie, OD [address] [place] [address] documented as of this encounter Visit Diagnoses Diagnosis Hypokalemia Hypopotassemia documented in this encounter Additional Health Concerns Assessment Noted Time PHQ-9 Depression Total Score: 0 01/07/20 24 9:59 AM EDT documented as of this encounter Care Teams Mortgage Or Loan Underwriter Relationship Specialty Start Date End Date Nu Babin MD [address] [place] [address] PCP - General Family Medicine 02/14/19 Meaghan Leroy Leaf Sucker OperatorRiverine Assault Craft Crewman 05/08/24 documented as of this encounter
== END 2024-12-26 06:28 | disposition home or self-care (01) ==
LOC: CF 06:27
PROVIDERS: Visit Provider Anesthesiology
DX: Z13.89 Encounter for screening for other disorder (principal)

== ENCOUNTER 2025-05-15 08:56 | Outpatient (REF) | payer MEDICAID, SELFPAY ==
--- OUTSIDE RECORDS SUMMARY | 2025-05-10 09:15 | XMS_ITS | Encounter Summary ---
Author Organization [employer] Address [address] [facility] [address] [place] [address] Care Team Providers Care Skilled Nursing Facility Counselor Name Role Phone Nu Babin MD Primary Care Provide r Sana Yañez Unavailable Encounter Details Date Type Department Care Team (Latest Contact Info) Description 05/10/2025 9:15 AM EST Telemedicine [facility] [address] [place] [address] Nu Babin MD [address] [place] [address] Hypokalemia (Primary Dx); Lumbar radiculopathy; Essential hypertension; Mixed hyperlipidemia; Coronary arteriosclerosis Social History Tobacco Use Types Packs/Day Years [...] your housing situation today? I have francia sing 07/12/[address] you li [...] Date Recorded Patient Health Questionnaire-2 Score 0 01/17/2025 Internet Access Answer Date Recorded Internet Access Q1 Yes 07/13/2024 Internet Access Q2 Not on file 07/13/2024 Sex and Gender Information Value Date Recorded Sex Assigned at Male 05/04/2022 10:15 AM EDT Legal Sex Male 10:15 AM EDT Gender Identity Male 05/04/2022 10:15 AM EDT Sexual Orientation Straight 05/04/2022 10 :15 AM EDT documented as of this encounter Progress Notes * Nu Shipley MD - 05/10/2025 9:15 AM EST SUBJECTIVE: Griffin Kam is a 65 y.o. year old male who presents for Follow up . Patient reports his back pain significantly improved after he started taking pregabalin and using local patches, today he is requesting refills for this Patient also tells me he needs refills for his cholesterol medication and blood pressure medicationreports blood pressure has been stable at home On review of chart it was noticed he was in the emergency room on April 02, 2025 due to a mechanical fall and alcohol intoxication, he tells me he feels fine since then denies any pain, he reports that they he did drink some beers but is not something that he is doing every day, it was also noticed that his potassium was low during that emergency room visit and supplement was given Social History Social History Narrative Not on file Problem List[1] Angioedema Aortic valve stenosis Asthma-chronic obstructive pulmonary disease overlap syndrome (CMS/HCC) (HCC) Chronic obstructive lung disease (HCC) CKD stage 2 due to type 2 diabetes mellitus (HCC) Continuous opioid dependence (CMS/HCC) (HCC) Coronary arteriosclerosis Hyperlipidemia associated with type 2 diabetes mellitus (HCC) Eczema Essential hypertension Hypertensive disorder Hip pain Leg length inequality Obstructive sleep apnea syndrome Onychomycosis of multiple toenails with type 2 diabetes mellitus (HCC) Osteoarthritis of multiple joints Full dentures History [...] upper respiratory tract infection Tobacco use Pruritus 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) Arthralgia of right wrist Chronic pain syndrome [place] of toe Degenerative scoliosis Diabetic nephropathy associated with type 2 diabetes mellitus (HCC) Drug overdose Dyslipidemia Lumbar radiculopathy Multiple rib fractures Obesity (BMI 30-39.9) Postlaminectomy syndrome Pseudogout of hand Right bundle branch block (RBBB) on electrocardiogram (ECG) Vitamin D deficiency Sciatica Sacroiliitis (CMS/HCC) S/P lumbar fusion Sacroiliac joint dysfunction of right side Ulnar neuropathy at elbow of left upper extremity Family History[2] Review of Systems Constitutional: Negative. HENT: Negative. Respiratory: Negative. Cardiovascular: Negative. Neurological: Negative. Follow Up: No follow-ups on file. Medications Ordered Prior to Encounter[3] Problem List Items Addressed This Visit Lumbar radiculopathy Continue with pregabalin 200 mg twice a day Continue with local patches for pain as needed Relevant Medications pregabalin (Lyrica) 200 MG capsule Essential hypertension Blood pressure seems to be stable I sent refills of his medications to his pharmacy, I advised low-sodium diet In light that he had hypokalemia during the emergency room visit I will recheck his potassium and if it is low again plan is to give him some supplement and change his hydrochlorothiazide medication to possibly metoprolol Relevant Medications amLODIPine (Norvasc) 10 MG tablet hydroCHLOROthiazide (HYDRODiuril) 25 MG tablet Other Relevant Orders Basic Metabolic Panel Hypokalemia - Primary Relevant Orders Basic Metabolic Panel Coronary arteriosclerosis Patient is followed by cardiology closely he has an appointment on June 2025 Relevant Medications amLODIPine (Norvasc) 10 MG tablet atorvastatin (Lipitor) 80 MG tablet ezetimibe (Zetia) 10 MG tablet hydroCHLOROthiazide (HYDRODiuril) 25 MG tablet Other Visit Diagnoses Mixed hyperlipidemia Relevant Medications atorvastatin (Lipitor) 80 MG tablet ezetimibe (Zetia) 10 MG tablet [1] Patient Active Problem List Diagnosis Angioedema Aortic valve stenosis Asthma-chronic obstructive pulmonary disease overlap syndrome (CMS/HCC) (HCC) Chronic obstructive lung disease (HCC) CKD stage 2 due to type 2 diabetes mellitus (HCC) Coronary arteriosclerosis Hyperlipidemia associated with type 2 diabetes mellitus (HCC) Eczema Essential hypertension Hypertensive disorder Hip pain Leg length inequality Obstructive sleep apnea syndrome Onychomycosis of multiple toenails with type 2 diabetes mellitus (HCC) Osteoarthritis of multiple joints Full dentures History [...] upper respiratory tract infection Tobacco use Pruritus 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) Arthralgia of right wrist Chronic pain syndrome [place] of toe Degenerative scoliosis Diabetic nephropathy associated with type 2 diabetes mellitus (HCC) Drug overdose Dyslipidemia Lumbar radiculopathy Multiple rib fractures Obesity (BMI 30-39.9) Postlaminectomy syndrome Pseudogout of hand Right bundle branch block (RBBB) on electrocardiogram (ECG) Vitamin D deficiency Sciatica Sacroiliitis (CMS/HCC) S/P lumbar fusion Sacroiliac joint dysfunction of right side Ulnar neuropathy at elbow of left upper extremity Hypokalemia [2] No family history on file. [3] Current Outpatient Medications on File Prior to Visit Medication Sig Dispense Refill Aspirin Low Dose 81 MG EC tablet Take 1 tablet (81 mg) by mouth Once per day. 90 tablet 1 baclofen (Lioresal) 10 MG tablet Take one tablet TID PRN 60 tablet 0 Blood Glucose Monitoring Suppl (The PyromaniacStyle Friona Lite) w/Device kit USE TO TEST BLOOD SUGAR TWICE DAILY 1 kit 0 cyclobenzaprine (Flexeril) 10 MG tablet TAKE 1 TABLET BY MOUTH 3 TIMES DAILY 90 tablet 1 Diclofenac Sodium 1 % gel APPLY 1 APPLICATION TOPICALLY IF NEEDED EACH DAY (TO USE IN LOWER BACK). 100 g 1 docusate sodium (Colace) 100 MG capsule Take 1 capsule (100 mg) by mouth 2 times daily. 180 capsule0 glucose blood ([employer], INCE) test strip USE TO TEST BLOOD SUGAR TWICE DAILY 100 each 5 hydrocortisone 2.5 % cream Apply topically 2 times daily. 28 g 1 hydrOXYzine HCl (Atarax) 25 MG tablet TAKE 1 TABLET BY MOUTH EVERY 8 HOURS NEEDED FOR ITCHING 30tablet 0 naproxen (EC Naprosyn) 500 MG EC tablet Take 1 tablet (500 mg) by mouth with breakfast and with evening meal. Pt can take NSAIDs 60 tablet 0 nicotine (Nicoderm, Step 3) 7 [...] mouth Once per day. 90 tablet 0 tiZANidine (Zanaflex) 2 MG tablet Take 1 tablet (2 mg) by mouth if needed in the morning, at noon, and at bedtime for muscle spasms. 30 tablet 1 triamcinolone (Kenalog) 0.1 % cream Apply topically if needed in the morning and at bedtime (pain and swelling). 30 g 2 Ventolin HFA 108 (90 Base) MCG/ACT inhaler Inhale 2 puffs every 6 (six) hours if needed for wheezing. 18 g 2 [DISCONTINUED] amLODIPine (Norvasc) 10 MG tablet Take 1 tablet (10 mg) by mouth Once per day. 90 tablet 1 [DISCONTINUED] atorvastatin (Lipitor) 80 MG tablet Take 1 tablet (80 mg) by mouth Once per day. 90 tablet 1 [DISCONTINUED] ezetimibe (Zetia) 10 MG tablet Take 1 tablet (10 mg) by mouth Once per day. 90 tablet 1 [DISCONTINUED] hydroCHLOROthiazide (HYDRODiuril) 25 MG tablet Take 1 tablet (25 mg) by mouth Once per day. 90 tablet 3 [DISCONTINUED] pregabalin (Lyrica) 200 MG capsule Take 1 capsule (200 mg) by mouth 2 times daily. 60 capsule 1 No current facility-administered medications on file prior to visit. documented in this encounter Miscellaneous Notes * Assessment & Plan Note - Nu Shipley MD - 05/10/2025 9:25 AM EST Associated Problem(s): Coronary arteriosclerosis Patient is followed by cardiology closely he has an appointment on June 2025 * Assessment & Plan Note - Nu Shipley MD - 05/10/2025 9:23 AM EST Associated Problem(s): Lumbar radiculopathy Continue with pregabalin 200 mg twice a day Continue with local patches for pain as needed * Assessment & Plan Note - Nu Shipley MD - 05/10/2025 9:22 AM EST Associated Problem(s): Essential hypertension Blood pressure seems to be stable I sent refills of his medications to his pharmacy, I advised low-sodium diet In light that he had hypokalemia during the emergency room visit I will recheck his potassium and if it is low again plan is to give him some supplement and change his hydrochlorothiazide medication to possibly metoprolol documented in this encounter Plan of Treatment Scheduled Orders Name Type Priority Associated Diagnoses Orde r Schedule Basic Metabolic Panel Lab Routine Essential hypertension Hypokalemia Expected: 05/10/2025 (Approximate), Expires: 05/10/2026 documented as of this encounter Visit Diagnoses Diagnosis Hypokalemia- Primary Hypopotassemia Lumbar radiculopathy Thoracic or lumbosacral neuritis or radiculitis, unspecified Essential hypertension Unspecified essential hypertension Mixed hyperlipidemia Coronary arteriosclerosis Coronary atherosclerosis of unspecified type of vessel, rampart or graft documented in this encounter Additional Health Concerns Assessment Noted Time PHQ-9 Depression Total Score: 0 10/25/19 25 1:42 PM EDT documented as of this encounter Care Teams Skilled Nursing Facility Counselor Relationship Specialty Start Date End Date Nu Babin MD [address] [place] [address], [place] [address] PCP - General Family Medicine 02/14/19 Sana Yañez 04/04/25 Meaghan Leroy Charger Operator HelperClinical Administrative Coordinator 05/08/24 documented as of this encounter
--- OUTSIDE RECORDS SUMMARY | 2025-05-15 09:29 | XMS_ITS | Encounter Summary ---
Author Organization [employer] Address [address] [facility] 7t [place] [address] Care Team Providers Care Land Surveyor Name Role Phone Nu Babin MD Primary Care Provide r Sana Yañez Unavailable Reason for Visit * Reason Comments Med Refill Encounter Details Date Type Department Care Team ([facility] Contact Info) Description 04/28/2025 Refill [facility] [address] [place] [address] Nu Babin MD [address] [place] [address] Essential hypertension; Lumbar radiculopathy Social History Tobacco Use Types Packs/Day Years [...] as of this encounter Visit Diagnoses Diagnosis Essential hypertension Unspecified essential hypertension Lumbar radiculopathy Thoracic or lumbosacral neuritis or radiculitis, unspecified documented in this encounter Additional Health Concerns Assessment Noted Time PHQ-9 Depression Total Score: 0 10/25/19 25 1:42 PM EDT documented as of this encounter Care Teams Land Surveyor Relationship Specialty Start Date End Date Nu Babin MD [address] [place] [address] PCP - General Family Medicine 02/14/19 Sana Yañez 04/04/25 Meaghan Leroy Piece HandRailroad Crossing Protection Maintainer 05/08/24 documented as of this encounter
--- OUTSIDE RECORDS SUMMARY | 2025-05-15 09:29 | XMS_ITS | Encounter Summary ---
Author Organization [employer] Address [address] [facility] 7t [place] [address] Care Team Providers Care Wine Steward Name Role Phone Nu Babin MD Primary Care Provide r Sana Yañez Unavailable Encounter Details Date Type Department Care Team (Latest Contact Info) Description 05/10/2025 Travel Social History Tobacco Use Types Packs/Day [...] documented as of this encounter Care Teams Wine Steward Relationship Specialty Start Date End Date Nu Babin MD [address] [place] [phone] PCP - General Family Medicine 02/14/19 Sana Yañez 04/04/25 Meaghan Leroy Certified Public AccountantOncology Technician 05/08/24 documented as of this encounter
--- OUTSIDE RECORDS SUMMARY | 2025-05-15 09:29 | XMS_ITS | Encounter Summary ---
Author Organization [employer] Address [address] [facility] 7t [place] [address] Care Team Providers Care Manager Cancer Name Role Phone Nu Babin MD Primary Care Provide r Gina Almazan RN Unavailable [phone] Sana Yañez Unavailable Reason for Visit * Reason Comments Med Refill Encounter Details Date Type Department Care Team (Late st Contact Info) Description 04/09/2024 Refill [facility] [address] [place] [address] Nu Babin MD [address] [place], [place] [phone] Hypokalemia Social History Tobacco Use Types Packs/Day [...] documented as of this encounter Care Teams Manager Cancer Relationship Specialty Start Date End Date Nu Babin MD [address] [place] [address] PCP - General Family Medicine 02/14/19 Gina Almazan, RN Registered Nurse Internal Medicine 04/03/25 04/04/25 Sana Yañez 04/04/25 Meaghan Leroy Resource ManagerNight Stocker 05/08/24 documented as of this encounter
--- OUTSIDE RECORDS SUMMARY | 2025-05-15 09:29 | XMS_ITS ---
Author Organization [employer] Address [address] [place] [address] 7t [place] [address] Care Team Providers Care Gas Usage Meter Clerk Name Role Phone Nu Babin MD Primary Care Provide r Sana Yañez Unavailable CHW Complex Status:Outreach In Progress (Enrolling) Start date:04/03/2025 Enrollment reason:ADT Feed Overview CP Assigned Patient- Pt admitted to [facility] on 04/02/25. Case Team Name Relationship Phone Sana Yañez(Responsible Staff) [phone] Continued Care and Services Coordination
--- OUTSIDE RECORDS SUMMARY | 2025-05-15 09:30 | XMS_ITS | Clinical Summary ---
Author Organization [employer] Address [address] [facility] [address] [place] [address] Care Team Providers Care Staff Editor Name Role Phone Nu Babin MD Primary Care Provide r Sana Yañez Unavailable Allergies Active Allergy Reactions Criticality Noted Date [...] within a 15 minute period. 019 Active Blood Glucose Monitoring Suppl (FreeStyle Roscoe Lite) w/Device kit USE TO TEST BLOOD SUGAR TWICE DAILY 1 kit 023 Active glucose blood (FREESTYLE LITE) test strip USE TO TEST BLOOD SUGAR TWICE DAILY 100 each 5 024 Active hydrocortisone 2.5 % creamIndications: Dermatitis of [...] s:Asthma-chronic obstructive pulmonary disease overlap syndrome (CMS/HCC) (HCC) Inhale 2 puffs every 6 (six) hours if needed for wheezing. 18 g 2 Active docusate sodium (Colace) 100 MG capsule Take 1 capsule (100 mg) by mouth 2 times daily. 180 capsule 025 2025 Active polycarbophil (FiberCon) 625 MG tablet Take 1 tablet (625 mg) by mouth Once per day. 90 tablet 025 2025 Active tiZANidine (Zanaflex) 2 MG tablet Take 1 tablet (2 mg) by mouth if needed in the morning, at noon, and at bedtime for muscle spasms. 30 tablet 1 025 Active triamcinolone (Kenalog) 0.1 % creamIndications: Pruritus Apply topically if needed in the morning and at bedtime (pain and swelling). 30 g 2 025 Active baclofen (Lioresal) 10 MG tabletIndications :Acute right-sided low back pain with right-sided sciatica Take one tablet TID PRN 60 tablet Active naproxen (EC Naprosyn) 500 MG EC tablet Take 1 tablet (500 mg) by mouth with breakfast and with evening meal. Pt can take NSAIDs 60 tablet 025 2025 Active hydrOXYzine HCl (Atarax) 25 MG tabletIndications :Pruritus TAKE 1 TABLET BY MOUTH EVERY 8 HOURS NEEDED FOR ITCHING 30 tablet Active Aspirin Low Dose 81 MG EC tabletIndications :Mixed hyperlipidemia,Es sential hypertension Take 1 tablet (81 mg) by mouth Once per day. 90 tablet 1 025 Active cyclobenzaprine (Flexeril) 10 MG tabletIndications :Lumbar radiculopathy TAKE 1 TABLET BY MOUTH 3 TIMES DAILY 90 tablet 1 025 Active pregabalin (Lyrica) 200 MG capsuleIndication s:Lumbar radiculopathy Take 1 capsule (200 mg) by mouth 2 times daily. 60 capsule 1 025 2025 Active amLODIPine (Norvasc) 10 MG tabletIndications :Essential hypertension Take 1 tablet (10 mg) by mouth Once per day. 90 tablet 1 025 2025 Active atorvastatin (Lipitor) 80 MG tabletIndications :Mixed hyperlipidemia Take 1 tablet (80 mg) by mouth Once per day. 90 tablet 1 Active ezetimibe (Zetia) 10 MG tabletIndications :Mixed hyperlipidemia Take 1 tablet (10 mg) by mouth Once per day. 90 tablet 1 Active hydroCHLOROthiazi de (HYDRODiuril) 25 MG tabletIndications :Essential hypertension Take 1 tablet (25 mg) by mouth Once per day. 90 tablet 1 Active ezetimibe (Zetia) 10 MG tabletIndications :Mixed hyperlipidemia Take 1 tablet (10 mg) by mouth Once per day. 90 tablet 1 025 2024 Discontinued(R eorder (will not trigger notification to Pharmacy)) hydroCHLOROthiazi de (HYDRODiuril) 25 MG tabletIndications :Essential hypertension Take 1 tablet (25 mg) by mouth Once per day. 90 tablet 3 025 2024 Discontinued(R eorder (will not trigger notification to Pharmacy)) atorvastatin (Lipitor) 80 MG tabletIndications :Mixed hyperlipidemia Take 1 tablet (80 mg) by mouth Once per day. 90 tablet 1 025 2024 Discontinued(R eorder (will not trigger notification to Pharmacy)) amLODIPine (Norvasc) 10 MG tabletIndications :Essential hypertension Take 1 tablet (10 mg) by mouth Once per day. 90 tablet 1 025 2024 Discontinued(R eorder (will not trigger notification to Pharmacy)) pregabalin (Lyrica) 200 MG capsuleIndication s:Lumbar radiculopathy Take 1 capsule (200 mg) by mouth 2 times daily. 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 (COLIN-I) 11/17/2024 Arthralgia of right wrist 11/17/2024 Chronic pain syndrome 11/17/2024 [place] of toe 11/17/2024 Degenerative scoliosis 11/17/2024 Diabetic nephropathy associa genny with type 2 diabetes mellitus 11/17/2024 Drug overdose 11/17/2024 Dyslipidemia 11/17/2024 Lumbar radiculopathy 11/17/2024 Assessment & Plan (05/10/2025 9:23 AM EST): Continue with pregabalin 200 mg twice a day Continue with local patches for pain as needed Assessment & Plan (01/17/2025 4:46 PM EDT): Advised to apply heat on affected area I will prescribe for him Flexeril 10 mg every 8 hours, patient is aware of side effects somnolence I will discontinue gabapentin and instead I will start him on pregabalin 200 mg twice a day He may use acetaminophen as needed and lidocaine patches as needed Multiple rib fractures 11/17/2024 Obesity (BMI 30-39.9) 11/17/2024 Overview (11/17/2024): HE TRIES TO CONTROL HIS WEIGHT AND REMAINS VERY STABLE SINCE LAST YEAR. Postlaminectomy syndrome 11/17/2024 Pseudogout of hand 11/17/2024 Right bundle branch block (RBBB) on electrocardi ogram (ECG) 11/17/2024 Vitamin D deficiency 11/17/2024 Sciatica 11/17/2024 Sacroiliitis 11/17/2024 S/P lumbar fusion 11/17/2024 Assessment & Plan (11/20/2024 8:25 AM EDT): Pt with worsening pain of lumbar spine at site of fusion. MRI without concerning findings for abscess or problem with hardware. He should continue with STEVE injections Acupuncture needles placed in both ears today with some relief and pain and relaxation. Pt recommended to acupuncture clinic Sacroiliac joint dysfunction of right side 11/17 Ulnar neuropathy at elbow of left upper extremit y 11/17/2024 Pruritus 10/24/2024 Viral upper respiratory tract infection [...] Asthma-chronic obstructive p ulmonary disease overlap syndrome (CMS/HCC) 06/16/2022 Assessment & Plan (08/14/2024 10:14 AM EST): Diffuse rhonchi on exam, no focal findings, pt reports relief with inhaler, and trigger is cold weather, if no improvement in 48 hours Return to clinic Essential hypertension 06/16/2022 Assessment & Plan (05/10/2025 9:22 AM EST): Blood pressure seems to be stable I sent refills of his medications to his pharmacy, I advised low-sodium diet In light that he had hypokalemia during the emergency room visit I will recheck his potassium and if it is low again plan is to give him some supplement and change his hydrochlorothiazide medication to possibly metoprolol Assessment & Plan (01/17/2025 4:45 PM EDT): Advised low-sodium diet and weight reduction Continue with the medication as prescribed Assessment & Plan (03/02/2024 4:48 PM EDT): [...] Leg length inequality 03/25/2018 Full dentures 03/25/2018 Aortic valve stenosis 06/16/2017 Assessment & Plan (07/22/2022 11:32 AM EST): No s/s of CHF, last echo in 2019 had an EF of 65%. -FU with cardiology Chronic obstructive lung disease 06/16/2017 CKD stage 2 due to type 2 diabetes mellitus 06/04 Assessment & Plan (10/24/2024 5:00 PM EDT): Diabetes is: controlled - Lab Results Component Value Date HGBA1C 6.0 10/24/2024 HGBA1C 5.6 01/07/2024 HGBA1C 5.8 07/23/2023 - Lab Results Component Value Date CREATININE 1.31 07/04/2024 -Changes: None - Diabetic eye exam: Up-to-date - Diabetic foot exam: Pending - Continue lifestyle modifications - Continue current medications - Follow up: 6 months Coronary arteriosclerosis 06/16/2017 Assessment & Plan (05/10/2025 9:25 AM EST): Patient is followed by cardiology closely he has an appointment on June 2025 Hyperlipidemia associated with type 2 diabetes m bladimiritus 06/16/2017 Eczema 06/16/2017 Hypertensive disorder 06/16/2017 Assessment & Plan (03/28/2024 10:08 PM EDT): Elevated BP seems reactive to pain States BP at home <140/90 -advised to bring to PCP home BP -explained pt steroids may increase BP while taking med Obstructive sleep apnea syndrome 06/16/2017 Onychomycosis of multiple to enails with type 2 diabetes mellitus 06/16/2017 Osteoarthritis of multiple joints 06/16/2017 History of cholecystectomy 06/16/2017 History of bilateral knee replacement 06/16/2017 Resolved Problems Problem Noted Date Diagnosed Date Resolved Date Continuous opioid dependence ([facility]) 09/27/2017 05/10/2025 Type 2 diabetes mellitus 06/16/201711/2023 Assessment & [...] Encounters Date Type Department Care Team Description 05/10/2025 9:15 AM EST Telemedicine [address] [address] Nu Babin MD Hypokalemia (Primary Dx); Lumbar radiculopathy; Essential hypertension; Mixed hyperlipidemia; Coronary arteriosclerosis 05/10/2025 Travel 04/28/[address] [address] Nu Babin MD Essential hypertension; Lumbar radiculopathy 04/17/2025 Patient Outreach [facility] [address] [place] [address] Nu Babin MD Care Coordination (CP Outreach) 04/11/2025 Patient Outreach [facility] [address] [place] [address] Nu Babin MD Care Coordination (Outreach) 04/04/2025 Patient Outreach [facility] [address] [place] [address] Nu Babin MD Care Coordination ([facility]) 04/04/2025 Patient Outreach [facility] [address] [place] [address] Nu Babin MD Care Coordination (CP Care Coordination Chart Review) 04/03/2025 Patient Outreach [facility] [address] [place] [address] Nu Babin MD 03/21/2025 Telephone [facility] [address] [place] [address] Nu Babin MD No Show 03/20/2025 Telephone [facility] [address] [place] [address] Nu Babin MD Chart Prep 03/11/2025 Refill [facility] [address] [place] [address] Nu Babin MD Lumbar radiculopathy from Last 3 Months Immunizations Immunization Administration Dates Next Due Influenza injectable quadriv [...] Passive Smoke Exposure: Current Smokeless Tobacco: Never Tobacco Cessation:Ready to Q uit: Not Asked; Counseling Given: Not Answered Alcohol Use Standard Drinks/Week Comments Never 0 [...] Sign Reading Time Taken Comments Blood Pressure 142/74 01/17/2025 2:50 PM EDT Pulse 88 01/17/2025 2:50 PM EDT Temperature 36.9 C (98.4 F) 01/17/2025 2:50 PM EDT Respiratory Rate 20 01/17/2025 2:50 PM EDT Oxygen Saturation 98% 11/17/2024 3:05 PM EDT Inhaled Oxygen Concentration - - Weight 98 kg (216 lb) 01/17/2025 2:50 PM EDT Height 167.6 cm (5' 6 ) 01/17/2025 2:50 PM EDT Body Mass Index 34.86 01/17/2025 2:50 PM EDT Plan of Treatment Health Maintenance Due Date Last Done Comments CT Colonography 1961 Colonoscopy 1961 Colorectal Cancer Screening 1961 FIT DNA/Cologuard 1961 FIT 1961 FOBT 1961 Sigmoidoscopy 1961 Diabetes: Foot Exam 1971 Zoster Vaccines (1 of 2) 2011 COVID-19 Vaccine ( season) 2025 07/23/2023, 02/02/2022, 04/28/2021, Additional history exists Influenza Vaccine (#1) 2025 , 06/19/2022, 06/02/2021, Additional history exists Eye Exam 04/02/2025 04/02/2023, 03/06, 04/02/2023, Additional history exists Diabetes: Hemoglobin A1C 04/25/2025 025, 01/07/2024, 07/23/2023, Additional history exists SDOH Screening 07/13/2025 07/13/2024 Disability Screening 10/24/2025 10/24/2024 Lipid Panel 10/25/2025 10/25/2024, 07, 11/24/2022, Additional history exists Alcohol/Substance Use Screening 01/17/2026 01/17/2025 Depression Screening 01/17/2026 01/17/2025, 10/25/19 25 Tobacco Screening 01/17/2026 01/17/2025 DTaP/Tdap/Td Vaccines (4 - Td or Tdap) [...] patient's age to complete this topic Meningococcal B Vaccine Aged Out No l onger eligible based on patient's age to complete [...] Procedure Name Priority Date/Time Associated Diagnosis Comments HEPATITIS C AB W/REFL TO HCV RNA, [...] whether stage 3a or 3b CKD (CMS/HCC) from Last 3 Months or Most Recently Relevant to Health Maintenance Results * Hepatitis C Antibody with Reflex to HCV, RNA, Quantitative, Real-Time PCR (10/25/2024 10:18 AM EDT) Hepatitis C Antibody Nonreactive Nonreactive [facility] Comment:Antibodies to HCV no t detected; does not exclude early acuteHCV infection. Blood Venous blood specimen / Unknown 10/25/2024 10:18 AM EDT 10/25/2024 11:27 AM EDT us Nu Shipley MD LAB BLOOD ORDERABLES Final Result Performing Organization Address [facility] Co de Phone Number [facility] [address] [place] [phone] * HIV-1/2 Antigen and Antibodies, Fourth Generation, with Reflexes (10/25/2024 10:18 AM EDT) HIV AB/AG Nonreactive Nonreactive [facility] Comment:HIV-1 p24 Ag and/or HIV-1/HIV-2 Ab not detected.A test result that is nonreactive does not exclude thepossibility of exposure to or infection with HIV-1 and/orHIV-2. Nonreactive results in this assay for individualswith prior exposure to HIV-1 and/or HIV-2 may be due toantigen and antibody levels that are below the limit ofdetection of this assay.The MYTRND HIV Ag/Ab Combo assay result andsupplemental assay results should be interpreted inconjunction with the patient's clinical presentation,history and other laboratory results. If the results areinconsistent with clinical evidence, additional testing issuggested to confirm the result. Blood Venous blood specimen / Unknown 10/25/2024 10:18 AM EDT 10/25/2024 11:27 AM EDT us Nu Shipley MD LAB BLOOD ORDERABLES Final Result Performing Organization Address [facility]/ZIP Co de Phone Number [facility] [address] [place] [phone] * (ABNORMAL) Lipid Panel, Standard (10/25/2024 10:18 AM EDT) Triglycerides 72 <150 mg/dL [facility] Comment:Desirable Triglyceri de: less than 150 mg/dLBorderline High Triglyceride 150-199 mg/dLHigh Triglyceride: 200-499 mg/dLVery High Triglyceride: greater than or equal to 5OO mg/dL Cholesterol 113 <200 mg/dL [facility] Comment:Desirable Cholestero l: less than 200 mg/dLBorderline High Cholesterol: 200-239 mg/dLHigh Cholesterol: greater than 239 mg/dL LDL Cholesterol Calculated 64 <100 mg/dL [facility] Comment:Desirable LDL: less than 100 mg/dLNear Optimal/Above Optimal LDL: 110- 129 mg/dLBorderline High LDL: 130-159 mg/dLHigh LDL: 160-189 mg/dLVery High LDL: greater than or equal to 190 mg/dL HDL Cholesterol 35(L) >40 mg/dL [facility] Comment:Desirable HDL: great er than 40 mg/dL Note: This HDL assay may give artificially low results in patients with liver disease. Blood Venous blood specimen / Unknown 10/25/2024 10:18 AM EDT 10/25/2024 11:27 AM EDT us Nu Shipley MD LAB BLOOD ORDERABLES Final Result Performing Organization Address City/State/[facility] Co de Phone Number [facility] [address] [place] [phone] * (ABNORMAL) POCT HGB A1C (10/24/2024 1:40 PM EDT) Hemoglobin A1C 6.0 4.0 - 6.0 % QC Media Lot # [id number] Lot# Expiration Date Blood 10/24/2024 1:40 PM EDT us Nu Shipley MD POINT OF CARE TEST EN TER/EDIT ORDERABLES Final Result from Last 3 Months or Most Recently Relevant to Health Maintenance Insurance C3 Care Teams Staff Editor Relationship Specialty Start Date End Date Nu Babin MD [address] [place] [address] PCP - General Family Medicine 02/14/19 Sana Yañez 04/04/25 Meaghan Leroy Vegetable TrimmerMedication Tech 05/08/24
[2025-05-15 11:51] LABS: Anion Gap 13 (12-20); Blood Urea Nitrogen 18 mg/dL (9-16); Calcium 9.8 mg/dL (8.4-10.2); Carbon Dioxide 28 mmol/L (22-29); Chloride 104 mmol/L (96-108); Estimated Glomerular Filt Rate > 60; Potassium 3.5 mmol/L (3.3-5.1); Sodium 141 mmol/L (135-145)
== END 2025-05-15 08:57 | disposition home or self-care (01) ==
LOC: HO.HHCL 08:56
PROVIDERS: PCP Internal Medicine; Visit Provider Internal Medicine
DX: E87.6 Hypokalemia (principal); I10 Essential (primary) hypertension
CPT/HCPCS: 36415; 80048